=== PATIENT | female | born 1980 | race African-American/Black ===

== ENCOUNTER 2017-01-01 13:04 | Emergency (ER) ==
[2017-01-01 13:43] VITALS: BP 159/68
[2017-01-01] MEDS ORDERED: XYLOCAINE 1% INJ ONE (16:19)
[2017-01-01] MEDS ORDERED: ZOFRAN ODT PO ONE (16:19)
[2017-01-01] MEDS ORDERED: NORCO-7.5 PO ONE (16:19)
[2017-01-01] MEDS ORDERED: XYLOCAINE-MPF 1% 10 ML ONE (16:41)
--- NOTE | 2017-01-01 17:47 | PROVIDER DOCUMENTATION ---
HPI-EENT General - General Chief Complaint: Abscess Stated Complaint: ABCESS IN BOTH EARS/DIZZINESS Time Seen by Provider: 01/01/17 16:08 Source: patient, old records Allergies/Adverse Reactions: Patient Allergies Allergy/AdvReac Type Severity Reaction Status Date / Time sulfamethoxazole AdvReac HIVES Verified 01/01/17 13:43 [From ] trimethoprim [From ] AdvReac HIVES Verified 01/01/17 13:43 Home Medications: Home Medication List Medication Instructions Recorded Confirmed Last Taken Type Ciproflox/Dexameth Otic Susp 4 drop RIGHT EAR BID #1 bottle 12/06/16 Unknown Rx [Ciprodex Otic Suspension] Clindamycin [Cleocin] 150 mg PO Q6HR #30 capsule 12/06/16 Unknown Rx Hydrocodone/APAP 7.5 mg/325 mg 1 each PO Q6H PRN PRN #12 tablet 12/06/16 Unknown Rx [[place]-7.5] Clindamycin [Cleocin] 150 mg PO Q6HR #30 capsule 01/01/17 Unknown Rx Hydrocodone/APAP 5 mg/325 mg 1 each PO Q6H PRN PRN #12 tablet 01/01/17 Unknown Rx [[place]-5] Ondansetron HCl [Zofran] 4 mg PO Q4H PRN PRN #20 tablet 01/01/17 Unknown Rx - History of Present Illness-EENT General Nature of Presenting Problem: This pt presents today c complaints of bilateral ear abscesses. She was seen last week and placed on antibiotics but her symptoms have not improved. No facial cellulitis. No fever, chills. No other issues or complaints. EENT Location: reports: ear (R), ear (L) Quality of Pain: reports: aching Severity: reports: moderate Onset/Duration: reports: other (several weeks) Timing: reports: still present Prearrival Treatment: Initiated prescription meds Similar Symptoms Previously?: Yes Recently seen or treated by another doctor?: Yes Review of Systems - Adult - REVIEW OF SYSTEMS - ADULT Constitutional: reports: no symptoms reported. denies: chills, fever Eyes: reports: no symptoms reported. denies: discharge, dry eyes Ears, Nose, Mouth & Throat: reports: see HPI, ear pain. denies: ear discharge, epistaxis, sinus problem Cardiovascular: reports: no symptoms reported. denies: chest pain, edema Respiratory: reports: no symptoms reported. denies: chronic cough, cough Gastrointestinal: reports: no symptoms reported. denies: abdominal pain, hematemesis Genitourinary: reports: no symptoms reported. denies: dysuria, discharge Musculoskeletal: reports: no symptoms reported. denies: bone pain, back pain Integumentary: reports: see HPI. denies: hives, hair loss Neurological: reports: no symptoms reported. denies: ataxia, dizziness/vertigo Psychiatric: reports: no symptoms reported. denies: anxiety, anti-depressant use Endocrine: reports: no symptoms reported Hematologic/Lymphatic: reports: no symptoms reported Allergic/Immunologic: reports: no symptoms reported All Other Systems: Reviewed and Negative Past History - Adult - PAST MEDICAL HISTORY-ADULT Review of Records: reports: Old Records Reviewed, Nursing Assessment Review, Medications Reviewed, Social history reviewed & non-contributory. Major Childhood Illnesses: reports: denies history Cardiovascular: reports: HTN Respiratory: reports: denies history Gastrointestinal: reports: denies history Obstetrical/Gynecological: reports: denies history Genitourinary: reports: denies history Musculoskeletal: reports: denies history Neurological: reports: headaches/migraines Psychiatric: reports: denies history Endocrine/Immune: reports: Diabetes Other Conditions: reports: denies history - PRIOR SURGERIES/PROCEDURES Surgical/Procedure History: reports: BTL, - IMMUNIZATION STATUS Childhood Immunizations: See Nurse Assessment Flu Vaccine: See Nurse Assessment - FAMILY HISTORY Family History: diabetes, HTN Physical Exam- EENT - Physical Exam EENT Initial Vital Signs Reviewed: Yes General Appearance: appears well, alert, no apparent distress Eye Exam: bilateral eye: normal inspection, PERRL, EOMI Ear Exam: bilateral ear: other ( bilateral abscesses c pustular heads) Nasal Exam: normal inspection Throat Exam: normal mouth inspection, pharynx normal Neck: non-tender, full range of motion, supple Respiratory: chest non-tender, lungs clear Cardiovascular: normal peripheral pulses, regular rate, rhythm Abdominal Exam: normal bowel sounds, non tender, soft Back Exam: normal inspection Extremity: normal range of motion Integumentary: normal turgor, warm/dry, other (see EENT note) Neurologic: grossly normal, no motor/sensory deficits Psych/Mental Status: normal mood/affect, normal thought content, normal thought process, oriented x 3 Progress - PLAN OF CARE/RESULTS Progress/Plan/Lab Results: Orders Category Date Time Status I and D Set up DIRECTED Care 01/01/17 16:19 Active Hydrocodone/APAP 7.5 mg/325 mg [[place]-7.5] Med 01/01/17 16:19 Discontinued 1 each PO NOW ONE Lidocaine 1% Pf [Xylocaine-Mpf 1%] 10 ml Med 01/01/17 16:41 Discontinued .ROUTE As Directed Lidocaine 1% [Xylocaine 1%] Med 01/01/17 16:19 Discontinued 20 ml INJ NOW ONE Ondansetron Odt [Zofran Odt] Med 01/01/17 16:19 Discontinued 4 mg PO NOW ONE Vital Signs Temp Pulse Resp BP Pulse Ox 01/01/17 13:40 98 F 119 H 18 159/68 98 sulfamethoxazole [From ] Adverse Reaction (Verified 01/01/17 13:43) HIVES trimethoprim [From ] Adverse Reaction (Verified 01/01/17 13:43) HIVES Ciproflox/Dexameth Otic Susp [Ciprodex Otic Suspension] 4 drop RIGHT EAR BID #1 bottle 12/06/16 Clindamycin [Cleocin] 150 mg PO Q6HR #30 capsule 12/06/16 Hydrocodone/APAP 7.5 mg/325 mg [[place]-7.5] 1 each PO Q6H PRN PRN #12 tablet 06/14 Will have pt f/u c an ENT. She is in agreement. Procedures - INCISION & DRAINAGE Site: bilateral ears Abscess Type: Cyst Prepped with: Kit Utilized, Hibiclens, Sterile Drapes Applied Anesthetic: 1%, Lidocaine/Xylocaine Volume of Anesthetic (ml's): 6 Blade Size: 11 Packing placed?: No Sterile Dressing Applied?: Yes Drainage: Large Amount, Purulent Procedure Comment: no complications Departure - Departure Time of Disposition Order: 17:46 DIAGNOSIS: Abscess, ear canal Qualifiers: Laterality: bilateral Qualified Code(s): H60.03 - Abscess of external ear, bilateral Disposition: HOME 01 Certified Medical Emergency: Urgent Condition: Good Additional Instructions: Take medication as prescribed. Follow up with an ENT this week. Return to the ER for any new or worsening symptoms. ED Follow Up Instructions: You have been treated by a care provider in the Emergency Department. These instructions are being provided to you so you can have an understanding of how to care for yourself upon discharge. Upon discharge from the Emergency Department, you are responsible for making arrangements for follow-up care by a physician of your choice. Take all prescribed medications as directed. Return to the Emergency Department immediately for any new or worsening symptoms. You may call the Physician Referral phone number at [phone] to obtain a list of Physicians who are taking new patients. Prescriptions: Clindamycin [Cleocin] 150 mg PO Q6HR #30 capsule Hydrocodone/APAP 5 mg/325 mg [[place]-5] 1 each PO Q6H PRN PRN #12 tablet PRN Reason: Pain Ondansetron HCl [Zofran] 4 mg PO Q4H PRN PRN #20 tablet PRN Reason: Nausea Referrals: None,PCP [Primary Care Provider] - Ortega Breaux MD [STAFF PHYSICIAN] - Attestation - Physician/ DAYANNA Attestation Patient care was provided by Advanced Practice Provider:: Yes Advanced Practice Provider:: Levon Ireland Advanced Practice Provider documentation review:: The Mid-level provider documentation, treatment plan and medical decision making was reviewed by the physician who agrees with all treatment and medical decision making by the MLP.
== END 2017-01-01 17:56 | disposition home or self-care (01) ==
LOC: P.ED 13:04
DX: H60.03 Abscess of external ear, bilateral (principal); H92.03 Otalgia, bilateral; R42 Dizziness and giddiness; I10 Essential (primary) hypertension; E11.9 Type 2 diabetes mellitus without complications

== ENCOUNTER 2019-01-02 17:01 | Inpatient (IN) ==
[2019-01-02 19:05] LABS: URINE SOURCE CLEAN CATCH
[2019-01-02 19:10] LABS: BILIRUBIN URINE NEGATIVE (NEGATIVE); BLOOD URINE MODERATE (NEGATIVE); COLOR YELLOW; GLUCOSE URINE >1000 mg/dL (NEGATIVE); KETONE URINE 10 mg/dL (NEGATIVE); LEUKOCYTES URINE NEGATIVE (NEGATIVE); NITRITE URINE NEGATIVE (NEGATIVE); PH URINE 6.5; PROTEIN URINE >600 mg/dL (NEGATIVE); SP GRAVITY URINE 1.034; TURBIDITY URINE CLEAR (CLEAR); UROBILINOGEN URINE 2 mg/dL (NORMAL)
[2019-01-02 19:32] LABS: UR EPITHELIAL CELLS <10 /HPF (<10); URINE BACTERIA NEGATIVE /HPF; URINE WBC <10 /HPF (<10)
[2019-01-02 19:36] LABS: URINE YEAST NONE SEEN
[2019-01-02 19:54] LABS: BASO# 0.02 X1000 (0.0-0.2); BASO% 0.2 % (0.0-0.8); EOS# 0.04 X1000 (0.0-0.7); EOS% 0.3 % (0.0-10.0); HEMATOCRIT 41.6 % (37.0-47.0); HEMOGLOBIN 12.8 g/dL (12.0-16.0); IMM GRAN# 0.03 X1000 (0.0-0.04); IMM GRAN% 0.2 % (0.0-0.5); LYMPH# 0.55 X1000 (1.2-3.4); LYMPH% 4.2 % (20.5-51.1); MCH 21.1 PG (27-31); MCHC 30.8 g/dL (33-37); MCV 68.6 FL (81-99); MONO# 0.52 X1000 (0.11-0.59); MPV 10.4 FL (7.4-10.4); NEUT# 11.81 X1000 (1.4-6.5); NEUT% 91.1 % (42.2-75.2); PLT 388 X1000 (130-400); RBC 6.06 XMIL (4.2-5.4); RDW 19.2 % (11.5-14.5); WBC 12.97 X1000 (4.8-10.8)
--- NOTE | 2019-01-02 20:11 | PROVIDER DOCUMENTATION ---
This chart was entered by Cassie Parr Scribe, acting as scribe for Kendall Santana MD. HPI-Abdominal Pain/GI Problem - General Chief Complaint: Flank Pain Stated Complaint: GASTRO PROBLEMS UNABLE TO URINATE Time Seen by Provider: 01/02/19 18:40 Source: patient Allergies/Adverse Reactions: Patient Allergies Allergy/AdvReac Type Severity Reaction Status Date / Time sulfamethoxazole Allergy HIVES Verified 06/02/18 23:06 [From ] trimethoprim [From ] Allergy HIVES Verified 06/02/18 23:06 Home Medications: Home Medication List Medication Instructions Recorded Confirmed Last Taken Type Glimepiride 4 mg PO DAILY 01/22/18 06/05/18 04/20/18 History Ondansetron HCl [Zofran] 4 mg PO Q8H PRN PRN #15 tablet 03/03/18 06/05/18 04/20/18 Rx Carvedilol [Coreg] 12.5 mg PO DAILY 03/19/18 06/05/18 04/20/18 History Furosemide [Lasix] 40 mg PO DAILY 03/19/18 06/05/18 04/20/18 History Insulin Glargine [Lantus] 30 unit SUBQ QAM #1 insuln.pen 03/30/18 06/05/18 04/20/18 Rx Metformin HCl [Glucophage] 850 mg PO BID #180 tab 04/24/18 06/04/18 Unknown Rx Promethazine [Phenergan] 25 mg PO Q6H PRN PRN #20 tab 06/03/18 06/05/18 Unknown Rx Insulin Lispro [Humalog] 06/04/18 06/04/18 Unknown History Metoclopramide [Reglan] 10 mg PO AC + HS #120 tab 06/06/18 Unknown Rx Prednisone 40 mg PO DAILY 2 Days tab 07/15/18 Unknown Rx - History of Present Illness-ABD Nature of Presenting Problems: 38 yo bf with history of gastroparesis and diabetes presents to ed w/co uncontrolled nvd since sunday, can't keep food, liquids or prescriptions down, dizzy, lightheaded, and minimal sob. pt has had no sick contacts. pt states no fever, chills. body aches, cp. pt took zofran with little relief. pt has hx of htn, dm (has not took meds today), has pacemaker/defib, and had emergency sx on abd last year. Abdominal Pain Onset Location: reports: generalized abdomen (diffused) Pain Radiation: reports: no radiation Severity in ED: reports: mild Review of Systems - Adult - REVIEW OF SYSTEMS - ADULT Constitutional: reports: see HPI, other (dizzy, lightheaded.). denies: chills, fever, fatique Eyes: reports: no symptoms reported Ears, Nose, Mouth & Throat: reports: no symptoms reported Cardiovascular: reports: no symptoms reported. denies: chest pain Respiratory: reports: see HPI, shortness of breath. denies: chronic cough, cough, excessive sputum production, hemoptysis Gastrointestinal: reports: see HPI, diarrhea, nausea (nvd since sunday), vomiting. denies: abdominal pain Genitourinary: reports: no symptoms reported Musculoskeletal: reports: no symptoms reported Integumentary: reports: no symptoms reported Neurological: reports: no symptoms reported Psychiatric: reports: no symptoms reported Endocrine: reports: no symptoms reported Hematologic/Lymphatic: reports: no symptoms reported Allergic/Immunologic: reports: no symptoms reported All Other Systems: Reviewed and Negative Past History - Adult - PAST MEDICAL HISTORY-ADULT Review of Records: reports: Old Records Reviewed, Nursing Assessment Review, Medications Reviewed, Social history reviewed & non-contributory. Major Childhood Illnesses: reports: denies history Cardiovascular: reports: CHF, HTN, hyperlipidemia Respiratory: reports: denies history Gastrointestinal: reports: GERD, other (gastroparesis) Obstetrical/Gynecological: reports: denies history Genitourinary: reports: dialysis Musculoskeletal: reports: denies history Neurological: reports: headaches/migraines Psychiatric: reports: denies history Endocrine/Immune: reports: Diabetes Other Conditions: reports: denies history, MRSA - PRIOR SURGERIES/PROCEDURES Surgical/Procedure History: reports: BTL, , breast (reduction), other (necrotizing faciatis) - IMMUNIZATION STATUS Childhood Immunizations: See Nurse Assessment Flu Vaccine: See Nurse Assessment - FAMILY HISTORY Family History: diabetes, HTN - SOCIAL HISTORY Smoking: cigarettes, less than 1 pack/day Provider spent 3-5 mins advising pt. on dangers of tobacco.: Discussed manners to quit use, and f/u contacts for add'l counseling. Substance Use: none/never Physical Exam-General - PHYSICAL EXAM-ADULT Initial Vital Signs Reviewed: Yes - CONSTITUTIONAL General Appearance: alert, mild distress, obese. negative: anxious, lethargic, slow to respond - EYES Eyes: PERRL/EOMI - HEAD, EARS, NOSE, MOUTH & THROAT HENMT: normocephalic/atraumatic, moist mucous membranes, normal ENT inspection, dental decay (back molars). negative: hearing deficit, frontal tenderness, maxillary tenderness - NECK Neck: non-tender, supple, limited range of motion. negative: full range of motion (pt has iv in right side of neck), C-spine tenderness - RESPIRATORY Respiratory: chest non-tender, lungs clear, normal breath sounds - CARDIOVASCULAR Cardiovascular: normal peripheral pulses, regular rate, rhythm, no edema, no gallop, no JVD, no murmur. negative: extra beats, friction rub, irregularly irregular - GASTROINTESTINAL (ABDOMEN) Abdominal Exam: normal bowel sounds, non tender, soft, other (pt has large healed scar on right abd.). negative: distended, rigid, rebound, tenderness - LYMPHATIC Lymphatic: no adenopathy - MUSCULOSKELETAL Back Exam: normal inspection, no CVA tenderness, no vertebral tenderness Extremity: normal range of motion, non-tender, normal inspection - SKIN Integumentary: normal color, normal turgor, warm/dry - NEUROLOGIC Neurologic: structural drafter II-XII nml as tested, grossly normal, no motor/sensory deficits - PSYCHIATRIC Psych/Mental Status: normal mood/affect, normal thought content, normal thought process, oriented x 3 Progress - PLAN OF CARE/RESULTS Progress/Plan/Lab Results: Vital Signs - 8 hr 01/02/19 17:23 Temperature 97.4 F L Pulse Rate 109 H Respiratory Rate 19 Blood Pressure 140/84 O2 Sat by Pulse Oximetry 100 Bedside Urine ED: Urine Bedside Start: 01/02/19 17:26 Freq: ORDERED Status: Cancelled Protocol: Activity Type Activity Date Activity User E-Sign Co-Sign Detail Recorded Client Recorded Date Recorded By Edit Status 01/02/19 19:18 [id number] Active=>Cancelled [id number] 01/02/19 19:18 [id number] Laboratory Results - last 24 hr 01/02/19 01/02/19 18:10 19:40 WBC 12.97 H RBC 6.06 H Hgb 12.8 Hct 41.6 MCV 68.6 L MCH 21.1 L MCHC 30.8 L RDW Std Deviation 19.2 H Plt Count 388 MPV 10.4 Immature Gran % (Auto) 0.2 Neut % (Auto) 91.1 H Lymph % (Auto) 4.2 L Gillespie % (Auto) 4.0 Eos % (Auto) 0.3 Baso % (Auto) 0.2 Immature Gran # (Auto) 0.03 Neut # (Auto) 11.81 H Lymph # (Auto) 0.55 L Gillespie # (Auto) 0.52 Eos # (Auto) 0.04 Baso # (Auto) 0.02 Urine Source CLEAN CATCH Urine Color YELLOW Urine Turbidity CLEAR Urine pH 6.5 Ur Specific [place] 1.034 Urine Protein >600 A Ur Glucose (Stick) >1000 A Ur Ketones (Stick) 10 A Urine Blood MODERATE A Urine Nitrite NEGATIVE Urine Bilirubin NEGATIVE Urobilinogen Dipstick 2 A Urine Leukocytes NEGATIVE Urine WBC (Auto) <10 Urine RBC (Auto) 10-20 A U Epithel Cells (Auto) <10 Urine Bacteria (Auto) NEGATIVE Urine Crystals Not Reportable Small Round Cells Not Reportable Urine Casts Not Reportable Urine Yeast-like Cells NONE SEEN Orders Category Date Time Status FSBS/Accucheck Result NOW Care 01/02/19 19:48 Active NPO Diet 01/02/19 17:26 Active CBC WITH DIFF [HEME] Stat Lab 01/02/19 19:40 Completed COMPREHENSIVE METABOLIC PANEL [CHEM] Stat Lab 01/02/19 19:40 Received LIPASE [CHEM] Stat Lab 01/02/19 19:40 Received URINALYSIS [URINALYSIS] Stat Lab 01/02/19 18:10 Completed URINE MANUAL MICROSCOPIC [URINALYSIS] Stat Lab 01/02/19 18:10 Completed Abd Pain/OB <20 weeks Stat Oth 01/02/19 17:26 Ordered Result Diagrams: 01/02/19 19:40 01/02/19 19:40 - REASSESSMENT Reassessment #1 Time Reassessed: 21:45 Status: unchanged Reassessment Comment: continues to vomit despite zofran - CT/MRI 1 CT Study: Abdomen, Pelvis (FINDINGS: Note that this was originally ordered as a contrast-enhanced study. However, IV access was only able to be obtained at the neck and there was infiltration of contrast at the site. Very little intravenous contrast was injected. This essentially an unenhanced study. There is mild mosaic attenuation at the lung bases suggesting hypoventilatory changes. There has been a prior cholecystectomy. The liver, spleen, pancreas, and adrenal glands are unremarkable. Renal collecting systems are slightly hyperattenuating. This appears to be the very small amount of IV contrast that was injected and is now being excreted. The kidneys are unremarkable, otherwise. There is no hydronephrosis. The urinary bladder is unremarkable. The reproductive tract is unremarkable as imaged. The appendix is normal. The colon appears normal. There are a few mildly distended loops of small bowel in the right lower quadrant containing gas and fluid. They are nonspecific. This probably represents mild ileus. A very low-grade partial bowel obstruction is less likely. The remainder of the GI tract is grossly unremarkable. There is a prominent soft tissue defect/scarring at the ventral abdominal wall to the right of midline anterior to the abdominal musculature that is probably postsurgical. IMPRESSION: 1.A few mildly distended loops of small bowel containing gas and fluid in the right lower quadrant that are nonspecific. Please see above discussion. 2.Other incidental/nonacute findings detailed above.) - CONSULTS/PCP/HOSPITALIST Notification #1 *Consult/PCP/Hospitalist*: Dr. Mace, hospitalist Time Discussed: 22:10 Consult Disposition: Admit Departure - Departure Date of Disposition Decision: 01/02/19 Time of Disposition Decision: 22:11 DIAGNOSIS: Gastroparesis, Volume depletion, Diabetes Intractable nausea and vomiting Qualifiers: Vomiting type: unspecified Qualified Code(s): R11.2 - Nausea with vomiting, unspecified Disposition: ADMITTED INPATIENT 09 Certified Medical Emergency: Emergent Condition: Stable Referrals and Follow-Ups: Leslie Ponce MD [Primary Care Provider] - - Critical Care Note This patient required my direct & personal management of CC.: No Attestation - Physician/ DAYANNA Attestation Patient care was provided by Advanced Practice Provider:: No The physician spent face to face time with patient:: Yes Advanced Practice Provider documentation review:: Supervising physician onsite and consulted in the evaluation and care of this patient. The physician did have a face to face encounter with the patient. This chart was documented by the vee scribe, (Parr,Cassie E., Scribe) and accurately reflects the services I performed and decisions made by me, Kendall Santana MD, as attested by the provider's signature.
[2019-01-02 20:16] LABS: AGAP 12; ALB/GLOB RATIO 0.8; ALBUMIN 3.2 g/dL (3.5-5.0); ALKALINE PHOSPHATASE 109 U/L (32-104); BUN 16 mg/dL (8-22); CALCIUM 8.3 mg/dL (8.8-10.2); CHLORIDE 96 mmol/L (98-107); COSMO 276; CREATININE 0.7 mg/dL (0.5-0.9); ESTIMATED GFR > 60; GLUCOSE 254 mg/dL (70-104); GOT 19 U/L (10-30); GPT 16 U/L (10-36); LIPASE 47 U/L (13-60); POTASSIUM 4.4 mmol/L (3.5-5.1); SODIUM 133 mmol/L (136-145); TCO2 25 mmol/L (25-35); TOTAL BILIRUBIN 0.44 mg/dL (0.20-1.00); TOTAL PROTEIN 7.2 g/dL (6.3-8.3)
[2019-01-02] MEDS ORDERED: ZOFRAN IV ONE (21:34)
--- NOTE | 2019-01-02 21:55 | Diag Imaging Result Doc PS360 ---
EXAM: CT ABDOMEN/PELVIS W/O CONTRAST INDICATION: ABD PAIN TECHNIQUE: This exam was performed using automated exposure control, adjustment of mA or kV according to patient size, and/or use of iterative reconstruction technique. COMPARISON: 04/21/2018 FINDINGS: Note that this was originally ordered as a contrast-enhanced study. However, IV access was only able to be obtained at the neck and there was infiltration of contrast at the site. Very little intravenous contrast was injected. This essentially an unenhanced study. There is mild mosaic attenuation at the lung bases suggesting hypoventilatory changes. There has been a prior cholecystectomy. The liver, spleen, pancreas, and adrenal glands are unremarkable. Renal collecting systems are slightly hyperattenuating. This appears to be the very small amount of IV contrast that was injected and is now being excreted. The kidneys are unremarkable, otherwise. There is no hydronephrosis. The urinary bladder is unremarkable. The reproductive tract is unremarkable as imaged. The appendix is normal. The colon appears normal. There are a few mildly distended loops of small bowel in the right lower quadrant containing gas and fluid. They are nonspecific. This probably represents mild ileus. A very low-grade partial bowel obstruction is less likely. The remainder of the GI tract is grossly unremarkable. There is a prominent soft tissue defect/scarring at the ventral abdominal wall to the right of midline anterior to the abdominal musculature that is probably postsurgical. IMPRESSION: 1.A few mildly distended loops of small bowel containing gas and fluid in the right lower quadrant that are nonspecific. Please see above discussion. 2.Other incidental/nonacute findings detailed above. Electronically signed by Gareth Parr 01/02/2019 9:52 PM
[2019-01-02] MEDS ORDERED: DEMEROL IV ONE (23:29)
[2019-01-03 00:08] LABS: URINE SOURCE CLEAN CATCH
[2019-01-03 00:27] LABS: BILIRUBIN URINE NEGATIVE (NEGATIVE); BLOOD URINE MODERATE (NEGATIVE); COLOR YELLOW; GLUCOSE URINE 1000 mg/dL (NEGATIVE); KETONE URINE 10 mg/dL (NEGATIVE); LEUKOCYTES URINE NEGATIVE (NEGATIVE); NITRITE URINE NEGATIVE (NEGATIVE); PH URINE 6.5; PROTEIN URINE >600 mg/dL (NEGATIVE); SP GRAVITY URINE 1.038; TURBIDITY URINE CLEAR (CLEAR); UROBILINOGEN URINE 2 mg/dL (NORMAL)
[2019-01-03] MEDS: REGLAN IV SCH ×3 (00:30→11:07)
[2019-01-03 00:31] LABS: UR EPITHELIAL CELLS <10 /HPF (<10); URINE BACTERIA 1+ /HPF; URINE WBC <10 /HPF (<10)
[2019-01-03 00:32] LABS: URINE YEAST PRESENT
[2019-01-03] MEDS: NS 1,000 ML IV SCH ×2 (00:35→11:07)
[2019-01-03] MEDS: PROTONIX IV SCH ×2 (00:35→11:08)
--- NOTE | 2019-01-03 01:24 | HISTORY AND PHYSICAL ---
PRIMARY CARE PHYSICIAN: Dr. Leslie Ponce. CHIEF COMPLAINT: Intractable nausea and vomiting. HISTORY OF PRESENT ILLNESS: This is a chronically ill-looking 38-year-old female with a history of gastroparesis and diabetes, who presented to the emergency department complaining of intractable nausea and vomiting that started happening since last Sunday. The patient reports has been vomiting for the last 4 days. She is progressively feeling weak. The patient reports not even able to keep food down, not even liquids or any medications. Because she was becoming very dizzy and lightheaded, she decided to come to the emergency department. She denied any sick contacts. The patient reports no fever, chills, or body aches. She tried to take Zofran, but she got little relief. Upon ER examination, she was tachycardic, but the rest of the vitals had been okay. The patient is being admitted for intractable nausea and vomiting. PAST MEDICAL HISTORY: 1. Uncontrolled diabetes mellitus, type 2. 2. Chronic constipation. 3. Chronic congestive systolic heart failure. 4. Nonischemic cardiomyopathy, with ejection fraction of 15 to 20 percent, documented in an H P from October last year. 5. Hypertension. 6. Morbid obesity, with BMI of 42.9. PAST SURGICAL HISTORY: 1. In 2005, the patient had necrotizing fasciitis, which required multiple abdominal surgeries, and has left multiple scars. 2. In February 2018, she had an incision and drainage for an abdominal wound site infection. 3. The patient had a laparoscopic cholecystectomy. 4. Bilateral breast reduction. 5. Bilateral tubal ligation. 6. Debridement and skin grafting. 7. ICD placement due to her severe nonischemic cardiomyopathy. SOCIAL HISTORY: The patient reports no smoking, no drinking alcohol or using illicit drugs. ALLERGIES: The patient is allergic to sulfamethoxazole and trimethoprim. FAMILY HISTORY: Positive for mother with diabetes, and father had coronary artery disease. HOME MEDICATIONS: List to be reconciled. REVIEW OF SYSTEMS: Eleven systems were reviewed, and all her symptoms are related to H and P. PHYSICAL EXAMINATION: VITAL SIGNS: Temperature 97.4 degrees, heart rate 109, respiratory rate 19, blood pressure 140/84, oxygen saturation 100% on room air. GENERAL: This is a chronically ill-appearing, morbidly obese, 38-year-old female, lying in bed, in no acute distress. HEENT: Head is normocephalic and atraumatic. Mucous membranes are dry. Pupils equal, round, reactive to light and accommodation. Anicteric sclerae. Pale conjunctivae. NECK: No JVD noted. No carotid bruits. No lymphadenopathy. No thyromegaly. CARDIOVASCULAR: S1, S2 heard. No murmurs, gallops, or rubs. Regular rate and rhythm. RESPIRATORY: Clear bilaterally to auscultation. No work of breathing or using accessory muscles. ABDOMEN: Soft, a little bit distended. Diffusely tender to palpation all over the abdomen. Bowel sounds present. No organomegaly. EXTREMITIES: No clubbing, cyanosis, or edema. Peripheral pulses present in both legs. NEUROLOGICAL: The patient is alert and oriented x3. Moves 4 extremities. LABORATORY DATA: White cell count 12.97, hemoglobin 12.8, hematocrit 41.6, platelets 388,000. BMP reveals sodium 133, normal renal function, glucose 254, with glucose 260. AST and ALT normal. Alkaline phosphatase 109. CT of abdomen and pelvis done here in the ER showed a few mildly distended loops of small bowel containing gas and fluid in the right lower quadrant that is nonspecific. ASSESSMENT AND PLAN: 1. Intractable nausea and vomiting. We do know that this patient has a history of severe gastroparesis that has been documented on a gastric emptying nuclear medicine exam done in 04/22/2019, which basically showed severely delayed gastric emptying rate, compatible with gastroparesis. Of course, because she is having recurrent nausea, she was not able to keep anything down. We are going to start Reglan 5 mg q.6 hours. The patient reports not seeing anybody from GI on a regular basis. The patient has been seen by Dr. Ellis in the past as a consult, but she did not follow up with her as an outpatient. We are going to consult GI public information coordinator for further recommendations. Will start IV fluids at 100 mL per hour. We will be cautious while hydrating this patient because of this history of severe nonischemic cardiomyopathy. 2. Leukocytosis. At this point, we do not know why this patient has leukocytosis. There is no history of any infection going on. At this point, we will continue to monitor. I think that could be reactive, but we will continue to check CBC daily. 3. Diabetes mellitus type 2. The patient is not eating anything. At this point, we are going to hold all her basal insulin. I will start using Humalog sliding scale. We will continue to check also Accu-Cheks 4 times per day. We are going to check hemoglobin A1c as well. 4. Chronic systolic congestive heart failure, with ejection fraction of 15 to 20 percent. She has been on Lasix for this condition, but considering that she has been dehydrated, I prefer to provide some IV fluid and see how she does. As soon as she is able to take medications by mouth, we will restart Coreg and decrease IV fluid. 5. Hypertension. Blood pressure is under control. We will resume oral medications whenever this patient is feeling better. 6. Morbid obesity. Diet and exercise is recommended for her. 7. Deep vein thrombosis prophylaxis, on Lovenox. Further recommendations to follow according to clinical situation of the patient. cc: Chava Willard MD
[2019-01-03] MEDS ORDERED: LOVENOX SUBQ SCH (02:40)
[2019-01-03] MEDS ORDERED: SODIUM CHLORIDE 0.9% INJ SCH (02:40)
[2019-01-03 03:05] LABS: HEMOGLOBIN A1C 12.5 % (4.8-6.0)
[2019-01-03] MEDS: HUMALOG SUBQ SCH ×2 (06:07→12:59)
[2019-01-03 07:25] LABS: BASO# 0.02 X1000 (0.0-0.2); BASO% 0.2 % (0.0-0.8); EOS# 0.14 X1000 (0.0-0.7); EOS% 1.6 % (0.0-10.0); HEMATOCRIT 38.6 % (37.0-47.0); HEMOGLOBIN 11.7 g/dL (12.0-16.0); LYMPH# 0.76 X1000 (1.2-3.4); LYMPH% 8.7 % (20.5-51.1); MCH 21.2 PG (27-31); MCHC 30.3 g/dL (33-37); MCV 69.8 FL (81-99); MONO# 0.58 X1000 (0.11-0.59); MONO% 6.6 % (1.7-9.3); MPV 10.3 FL (7.4-10.4); NEUT# 7.27 X1000 (1.4-6.5); NEUT% 82.9 % (42.2-75.2); PLT 312 X1000 (130-400); RBC 5.53 XMIL (4.2-5.4); RDW 18.4 % (11.5-14.5); WBC 8.77 X1000 (4.8-10.8)
[2019-01-03 07:33] LABS: AGAP 9; BUN 15 mg/dL (8-22); CALCIUM 8.3 mg/dL (8.8-10.2); CHLORIDE 101 mmol/L (98-107); COSMO 273; CREATININE 0.7 mg/dL (0.5-0.9); ESTIMATED GFR > 60; GLUCOSE 164 mg/dL (70-104); POTASSIUM 4.1 mmol/L (3.5-5.1); SODIUM 134 mmol/L (136-145); TCO2 24 mmol/L (25-35)
[2019-01-03 08:09] LABS: IRON SATURATION 13 %; TIBC 258 ug/dL; TOTAL IRON 34 ug/dL (49-151); UNBOUND IRON 224 ug/dL (112-346)
[2019-01-03 08:28] LABS: FERRITIN 137 ng/mL (13-150)
[2019-01-03] MEDS ORDERED: BLISTEX MEDICATED BERRY LIP BALM TOP PRN (12:20)
[2019-01-03 13:55] VITALS: BP 111/75
--- NOTE | 2019-01-03 20:59 | GASTROENTEROLOGY CONSULTATION ---
DATE: 01/03/2019 REASON FOR CONSULTATION: Intractable nausea and vomiting, history of gastroparesis. HISTORY OF PRESENT ILLNESS: Ms. Radha Beckman is a 38-year-old woman with past medical history significant for systolic CHF with an EF of 15% to 20%, status post ICD placement; insulin- dependent diabetes that is uncontrolled; hypertension; iron-deficiency anemia; thalassemia; morbid obesity who presents with 2-3 days of intractable nausea and vomiting with nonbloody, nonbilious emesis. The patient reports some associated epigastric pressure and cramping that has now resolved. She denies any changes in her bowel habits, shortness of breath or chest pain, sick contacts or new medications. She did have some dizziness that has since resolved. She was taking Zofran at home which she felt like did not help her nausea. She has never had an EGD or colonoscopy in the past. She does admit that she had been eating more salads recently over the last couple of weeks to help with her diet, and has noted increased bloating with this new dietary intake. REVIEW OF SYSTEMS: As per HPI. Otherwise 12-point review of systems negative. PAST MEDICAL HISTORY: Insulin-dependent diabetes that is uncontrolled; chronic constipation; chronic systolic heart failure with EF of 15% to 20%; nonischemic cardiomyopathy; hypertension; morbid obesity; thalassemia; hypertension. PAST SURGICAL HISTORY: Cholecystectomy, ICD placement. FAMILY HISTORY: No significant GI malignancies or diseases. SOCIAL HISTORY: One-quarter [id number] smoker. No alcohol or drug use. ALLERGIES: Sulfa. MEDICATIONS: Glimepiride, Zofran, Lasix, Coreg, Lantus, metformin, promethazine, lispro, Reglan. PHYSICAL EXAMINATION: Temperature 97.8 degrees, heart rate 115, respiratory rate 18, blood pressure 111/75, O2 saturation 99% on room air. HEENT: Sclerae anicteric. Moist mucous membranes. Generally the patient is well nourished, well developed, in no acute distress. Neck: No JVD. No lymphadenopathy. Cardiac: Regular rate and rhythm. No murmurs, rubs or gallops. Lungs clear to auscultation bilaterally. Abdomen is soft, nontender, nondistended. Normoactive bowel sounds. No rebound or guarding. Extremities: No clubbing, cyanosis or edema. Neurologic nonfocal. LABORATORY DATA: White count 8.77 from 12.97 yesterday. Hemoglobin is 11.7, platelets 312,000. Sodium 134, potassium 4.1, chloride 101, bicarbonate 24, BUN 15, creatinine 0.7. Hemoglobin A1c yesterday 12.5. Calcium 8.3. Iron 34, ferritin 137. LFTs are unremarkable. Vitamin B12 is 898, folate 15.2. test negative. UA showed proteinuria and blood as well as ketones. DIAGNOSTIC DATA: CT of the abdomen and pelvis showed mildly distended loops of small bowel containing gas and fluid in the right lower quadrant that are nonspecific. ASSESSMENT AND PLAN: Radha Beckman is a 38-year-old woman with systolic congestive heart failure and uncontrolled insulin-dependent diabetes complicated by gastroparesis, who presents was intractable nausea and vomiting, consistent with gastroparesis exacerbation. This is likely triggered from recent dietary changes including a high-fiber diet as well as persistently uncontrolled hyperglycemia. Exam is unremarkable. The patient reports significant improvement with supportive care overnight. She has an appetite currently and would like to trial on a diet. Her leukocytosis has resolved. No signs of acute kidney injury. 1. Gastroparesis. Recommend low-fiber, low-fat diet with several small frequent meals. Continue Zofran as needed for nausea and vomiting. She can take Reglan with breakthrough symptoms. Recommend discussion of the side effects including tardive dyskinesia and dystonia. 2. For her congestive heart failure, deferred treatment to primary team. 3. She is on gastrointestinal prophylaxis with pantoprazole intravenously b.i.d. We can transition this to orally once daily. 4. Her anemia is likely secondary to her known thalassemia and is followed by Hematology as an outpatient. If the patient tolerates a diabetic diet today, then the patient can be discharged from a gastroenterology perspective with outpatient followup. Thank you for this consult. Please call with any questions or concerns. DAQUAN
[2019-01-04] MEDS ORDERED: PROTONIX PO SCH (07:00)
--- NOTE | 2019-01-04 08:36 | DISCHARGE SUMMARY ---
ADMISSION DATE: 01/03/2019 DISCHARGE DATE: 01/03/2019 PCP: Dr. Ponce. PROCEDURES AND FINDINGS: Abdominal pelvis CT reveals a few mildly distended loops of small bowel containing gas and fluid in the right lower quadrant that are nonspecific. DISCHARGE DIAGNOSES: 1. Intractable nausea and vomiting. This patient has a history of severe gastroparesis documented on a gastric emptying nuclear medicine exam done in March 2019. Reglan was initiated and IV fluids for hydration. CT scan of the abdomen was completed with results as stated above. She has clinically improved and stable for discharge. 2. Leukocytosis. There does not appear to be any source of infection. This is likely reactive and WBC is now normal at 8.7. 3. Diabetes mellitus type 2. Hemoglobin A1c is 12.5. This patient should follow up closely with her PCP, Dr. Ponce, for close diabetes mellitus management. She will start Humalog sliding scale. 4. Chronic systolic congestive heart failure, ejection fraction of 15-20%. She is not in acute exacerbation. Lasix was held during her hospital stay secondary to dehydration. 5. Hypertension. Her blood pressure has been under control. She will continue with her previous management. 6. Morbid obesity. She has received daily education regarding diet and exercise. HOSPITAL COURSE: Ms. Beckman is a 38-year-old female with a past medical history of gastroparesis and diabetes, who presented to the emergency department complaining of intractable nausea and vomiting lasting for about 4 days. She felt progressively weak as well as dizzy and lightheaded. She denied fever, chills, or body aches. She attempted Zofran without relief. She was admitted for intractable nausea and vomiting and received a CT scan of the abdomen and pelvis with results as stated above. She was treated with IV fluid hydration and Reglan. She clinically improved and is now stable for discharge back to home. LAST LABS: WBC of 8.7, hemoglobin 11.7, hematocrit 38.6, platelets 312,000. Sodium 134, potassium 4.1, BUN 15, creatinine 0.7, glucose 180, calcium 8.3. VITAL SIGNS: Temperature 97.8 degrees, heart rate 115, respiratory rate 18, blood pressure 111/75, O2 saturation 99% on room air. DISCHARGE INSTRUCTIONS: Please return to the emergency room for any chest pain, shortness of breath, or worsening of symptoms. FOLLOWUP: Please follow up with PCP, Dr. Ponce, within 2 weeks and please monitor diabetes mellitus closely. Dictated by KRISTAN Shirley for Eric Cali MD cc: MD Dr. Kris Peoples I have seen and examined Ms Beckman today. She is clinically stable for discharge. I have reviewed and reconciled her home medications. Discharge instructions have been discussed with her. I agree with the above Discharge summary. Time spent for discharge 35 minutes. MTDD
== END 2019-01-03 17:22 | disposition home or self-care (01) | DRG 74 ==
LOC: ED 17:01 → SUATTDRO 01-03 00:32 → 3N 01-03 00:32
PROVIDERS: ATTEND Internal Medicine
CPT/HCPCS: 74176; 80048; 80053; 81001; 82607; 82728; 82746; 82948; 83036; 83540; 83550; 83690; 84703; 85025; 96374; 96375; 99285; A9270; C9113; J1650; J1815; J2175; J2405; J2765; J7030; S0164; XXXXX

== ENCOUNTER 2019-01-12 12:50 | Inpatient (IN) ==
--- NOTE | 2019-01-12 14:00 | PROVIDER DOCUMENTATION ---
HPI-General Adult - General Chief Complaint: Shortness of Breath Stated Complaint: CHEST PAIN,SOB,LEFT ARM PAIN Time Seen by Provider: 01/12/19 13:07 Source: patient Allergies/Adverse Reactions: Patient Allergies Allergy/AdvReac Type Severity Reaction Status Date / Time sulfamethoxazole Allergy HIVES Verified 06/02/18 23:06 [From ] trimethoprim [From ] Allergy HIVES Verified 06/02/18 23:06 Home Medications: Home Medication List Medication Instructions Recorded Confirmed Last Taken Type Glimepiride 4 mg PO DAILY 01/22/18 06/05/18 04/20/18 History Ondansetron HCl [Zofran] 4 mg PO Q8H PRN PRN #15 tablet 03/03/18 06/05/18 04/20/18 Rx Carvedilol [Coreg] 12.5 mg PO DAILY 03/19/18 06/05/18 04/20/18 History Furosemide [Lasix] 40 mg PO DAILY 03/19/18 06/05/18 04/20/18 History Insulin Glargine [Lantus] 30 unit SUBQ QAM #1 insuln.pen 03/30/18 06/05/18 04/20/18 Rx Metformin HCl [Glucophage] 850 mg PO BID #180 tab 04/24/18 06/04/18 Unknown Rx Promethazine [Phenergan] 25 mg PO Q6H PRN PRN #20 tab 06/03/18 06/05/18 Unknown Rx Insulin Lispro [Humalog] 06/04/18 06/04/18 Unknown History Metoclopramide [Reglan] 10 mg PO AC + HS #120 tab 06/06/18 Unknown Rx - History of Present Illness -Gen Adult Nature of Presenting Problems: Patient is a 38 yobm who complains of productive cough, SOB, and chest pain with coughing and deep inspiration since last night. Also reports bilateral lower extremity edema. Hx of CHF. Pt denies fever or any other symptoms and is non- toxic in appearance. Quality of Pain: reports: sharp Review of Systems - Adult - REVIEW OF SYSTEMS - ADULT Constitutional: reports: no symptoms reported. denies: chills, fever Eyes: reports: no symptoms reported Ears, Nose, Mouth & Throat: reports: no symptoms reported Cardiovascular: reports: see HPI, chest pain (With coughing/inspiration), edema. denies: syncope Respiratory: reports: see HPI, cough, dyspnea on exertion, pleurisy, shortness of breath. denies: chronic cough, hemoptysis, wheezing Gastrointestinal: reports: no symptoms reported. denies: diarrhea, nausea, vomiting Genitourinary: reports: no symptoms reported Musculoskeletal: reports: no symptoms reported Integumentary: reports: no symptoms reported Neurological: reports: no symptoms reported Psychiatric: reports: no symptoms reported Endocrine: reports: no symptoms reported Hematologic/Lymphatic: reports: no symptoms reported Allergic/Immunologic: reports: no symptoms reported All Other Systems: Reviewed and Negative Past History - Adult - PAST MEDICAL HISTORY-ADULT Review of Records: reports: Old Records Reviewed, Nursing Assessment Review, Medications Reviewed Major Childhood Illnesses: reports: denies history Cardiovascular: reports: CHF, HTN, hyperlipidemia Respiratory: reports: denies history Gastrointestinal: reports: GERD, other (gastroparesis) Obstetrical/Gynecological: reports: denies history Genitourinary: reports: dialysis Musculoskeletal: reports: denies history Neurological: reports: headaches/migraines Psychiatric: reports: denies history Endocrine/Immune: reports: Diabetes Other Conditions: reports: denies history, MRSA - PRIOR SURGERIES/PROCEDURES Surgical/Procedure History: reports: BTL, , breast (reduction), other (necrotizing faciatis) - IMMUNIZATION STATUS Childhood Immunizations: See Nurse Assessment Flu Vaccine: See Nurse Assessment - FAMILY HISTORY Family History: diabetes, HTN - SOCIAL HISTORY Smoking: cigarettes, less than 1 pack/day Physical Exam-General - PHYSICAL EXAM-ADULT Initial Vital Signs Reviewed: Yes - CONSTITUTIONAL General Appearance: alert, mild distress. negative: lethargic, slow to respond - EYES Eyes: pink conjunctivae - HEAD, EARS, NOSE, MOUTH & THROAT HENMT: normocephalic/atraumatic, moist mucous membranes, normal ENT inspection - NECK Neck: non-tender, full range of motion, supple, normal inspection - RESPIRATORY Respiratory: chest non-tender, no respiratory distress, no accessory muscle use, crackles (At bilateral lung bases) - CARDIOVASCULAR Cardiovascular: normal peripheral pulses, regular rate, rhythm, no gallop, no murmur, other (2+ non-pitting edema noted to left lower leg, 1+ non-pitting edema to right lower leg.) - MUSCULOSKELETAL Back Exam: normal inspection Extremity: normal range of motion, non-tender, normal capillary refill. negative: slow capillary refill Peripheral Pulses: radial (R): 3+, radial (L): 3+ - SKIN Integumentary: normal color, warm/dry. negative: cyanosis, diaphoresis, jaundice, mottled, pallor - NEUROLOGIC Neurologic: grossly normal, no motor/sensory deficits - PSYCHIATRIC Psych/Mental Status: normal mood/affect, normal thought content, normal thought process, oriented x 3 Progress - PLAN OF CARE/RESULTS Progress/Plan/Lab Results: Vital Signs - 8 hr 01/12/19 13:00 Temperature 98 F Pulse Rate 122 H Respiratory Rate 22 Blood Pressure 138/85 O2 Sat by Pulse Oximetry 96 Orders Category Date Time Status Cardiac Monitoring DIRECTED Care 01/12/19 13:05 Active IV Insertion ORDERED Care 01/12/19 13:05 Active Notify MD of + Sepsis Screen NOW Care 01/12/19 13:05 Active Notify Physician As Ordered Care 01/12/19 13:05 Active CHEST-1 VIEW [RAD] Stat Exams 01/12/19 13:05 Ordered BLOOD CULTURE [BLDCUL] Stat Lab 01/12/19 13:05 Uncollected CBC WITH DIFF [HEME] Stat Lab 01/12/19 13:05 Uncollected CK PROFILE [SP CHEM] Stat Lab 01/12/19 13:05 Uncollected COMPREHENSIVE METABOLIC PANEL [CHEM] Stat Lab 01/12/19 13:05 Uncollected D-DIMER [COAG] Stat Lab 01/12/19 13:40 Uncollected LACTATE, PLASMA [CHEM] Q3H Lab 01/12/19 13:15 Uncollected LACTATE, PLASMA [CHEM] Q3H Lab 01/12/19 16:15 Uncollected LACTATE, PLASMA [CHEM] Q3H Lab 01/12/19 19:15 Uncollected MAGNESIUM [CHEM] Stat Lab 01/12/19 13:40 Uncollected TEST-URINE [PREG] Stat Lab 01/12/19 13:40 Uncollected PRO B-NATRIURETIC PEPTIDE Stat Lab 01/12/19 13:40 Uncollected PROTIME WITH INR [COAG] Stat Lab 01/12/19 13:05 Uncollected PTT [COAG] Stat Lab 01/12/19 13:05 Uncollected TROPONIN T Stat Lab 01/12/19 13:05 Uncollected URINALYSIS W/POSS RFLX CULT [URINALYSIS] Stat Lab 01/12/19 13:05 Uncollected Oxygen Device Stat Oth 01/12/19 13:05 Active Pt now complaining of abdominal pain and is diffusely tender on exam. Will add abdominal/pelvis CT. RNs unable to obtain 20 G IV, CTA changed to VQ scan. 1825- Admitting HPS paged. 1922- Admitting HPS re-paged. 2014- Dr. Rianey requested that line be placed for pt to have CTA. States he does not want VQ scan. States he will see her, but wants CTA. Result Diagrams: 01/12/19 15:02 01/12/19 15:02 - XRAY 1 XRAY Study: Chest ([facility] [address] [facility], [address], [place] [address] Department of Imaging Patient: NAY GOLDMAN Date: 01/12/19MR#: [id number] : 1980ADM Status: REG [facility]#: [id number] Age/Sex: 38/FRoom/Bed: Loc: ED Ordering Physician: Christian Farah MD Family Physician: Leslie Ponce MD Reason for Procedure: SOB Signed CHEST-1 VIEW - 01/12/2019 INDICATION: SOB COMPARISON: 06/04/2018 FINDINGS: Stable pacemaker. Stable cardiomegaly and pulmonary vascular congestion. No definite edema. No pneumothorax or large pleural effusion. IMPRESSION: Cardiomegaly and pulmonary vascular congestion. Electronically signed by Philippe Espinoza 01/12/2019 4:46 PM 01/12/19 164 Interpreting Physician: Philippe Espinoza MD Dictated Date/Time: 01/12/19 1646 cc: Christian Farah MD; Leslie Ponce MD) - CT/MRI 1 CT Study: Abdomen, Pelvis (IMPRESSION: Probable pulmonary edema in the lung bases. Faint infiltrate or atelectasis in the lingula. No acute process in the abdomen. This exam was performed using automated exposure control, adjustment of mA or kV according to patient size, and/or use of iterative reconstruction technique Electronically signed by Philippe Espinoza 01/12/2019 6:38 PM) - CONSULTS/PCP/HOSPITALIST Notification #1 *Consult/PCP/Hospitalist*: Dr. Rainey Consult Disposition: other (States wants CTA result prior to admission.) Departure - Departure Date of Disposition Decision: 01/12/19 Time of Disposition Decision: 20:15 DIAGNOSIS: SOB (shortness of breath), Tachycardia, Elevated d-dimer Chest pain Qualifiers: Chest pain type: unspecified Qualified Code(s): R07.9 - Chest pain, unspecified Disposition: ADMITTED INPATIENT 09 Certified Medical Emergency: Emergent Condition: Stable Referrals and Follow-Ups: Leslie Ponce MD [Primary Care Provider] - - Critical Care Note This patient required my direct & personal management of CC.: No Attestation - Physician/ DAYANNA Attestation Patient care was provided by Advanced Practice Provider:: Yes Advanced Practice Provider:: Josiah Manuel Advanced Practice Provider documentation review:: The Mid-level provider documentation, treatment plan and medical decision making was reviewed by the physician who agrees with all treatment and medical decision making by the MLP. The physician spent face to face time with patient:: No Advanced Practice Provider documentation review:: Supervising physician onsite and consulted in the evaluation and care of this patient. The physician did not have a face to face encounter with the patient.
--- NOTE | 2019-01-12 14:34 | ED EKG INTERP ---
This chart was entered by Keesha Nails Scribe, acting as scribe for Christian Farah MD. EKG Interpretation - EKG Time of EKG reading by physician:: 12:54 EKG Read and Signed by:: Christian Farah EKG Interpretation (*Must complete 3 of following elements*): Abnormal Rate: 123 Rhythm: Sinus tachycardia QRS: LVH ST Wave: non-specific ST changes Attestation - Physician/ DAYANNA Attestation Patient care was provided by Advanced Practice Provider:: Yes Advanced Practice Provider:: Josiah Manuel Advanced Practice Provider documentation review:: The Mid-level provider documentation, treatment plan and medical decision making was reviewed by the physician who agrees with all treatment and medical decision making by the MLP. The physician spent face to face time with patient:: No Advanced Practice Provider documentation review:: Supervising physician onsite and consulted in the evaluation and care of this patient. The physician did not have a face to face encounter with the patient. This chart was documented by the indicated scribe, (Keesha Nails Scribe) and accurately reflects the services I performed and decisions made by me, Christian Farah MD, as attested by the provider's signature.
[2019-01-12 15:57] LABS: AGAP 15; ALB/GLOB RATIO 0.8; ALBUMIN 2.8 g/dL (3.5-5.0); ALKALINE PHOSPHATASE 201 U/L (32-104); BASO# 0.03 X1000 (0.0-0.2); BASO% 0.2 % (0.0-0.8); BUN 15 mg/dL (8-22); CALCIUM 8.3 mg/dL (8.8-10.2); CHLORIDE 90 mmol/L (98-107); CK PROFILE 76 U/L (24-173); COSMO 280; CREATININE 0.8 mg/dL (0.5-0.9); EOS# 0.07 X1000 (0.0-0.7); EOS% 0.4 % (0.0-10.0); ESTIMATED GFR > 60; GLUCOSE 491 mg/dL (70-104); GOT 27 U/L (10-30); GPT 24 U/L (10-36); HEMATOCRIT 37.8 % (37.0-47.0); HEMOGLOBIN 12.1 g/dL (12.0-16.0); IMM GRAN# 0.04 X1000 (0.0-0.04); IMM GRAN% 0.2 % (0.0-0.5); LYMPH# 1.47 X1000 (1.2-3.4); LYMPH% 7.4 % (20.5-51.1); MAGNESIUM 1.6 mg/dL (1.5-2.7); MCH 21.8 PG (27-31); MCV 68.2 FL (81-99); MONO# 1.14 X1000 (0.11-0.59); MONO% 5.7 % (1.7-9.3); MPV 10.8 FL (7.4-10.4); NEUT# 17.14 X1000 (1.4-6.5); NEUT% 86.1 % (42.2-75.2); PLT 375 X1000 (130-400); POTASSIUM 4.8 mmol/L (3.5-5.1); RBC 5.54 XMIL (4.2-5.4); RDW 17.3 % (11.5-14.5); SODIUM 128 mmol/L (136-145); TCO2 23 mmol/L (25-35); TOTAL PROTEIN 6.3 g/dL (6.3-8.3); WBC 19.89 X1000 (4.8-10.8)
[2019-01-12] MEDS ORDERED: HUMULIN R IV ONE ×2 (15:58→19:04)
[2019-01-12 16:10] LABS: ANISOCYTOSIS 1+; HYPOCHROM OCCASIONAL; LYMPHS 7 % (21-51); MICROCYTOSIS 1+; MONO 3 % (1-9); SEGS 90 % (42-75)
[2019-01-12 16:18] LABS: URINE SOURCE CLEAN CATCH
[2019-01-12 16:20] LABS: INR 1.02; PROTIME 14.2 Seconds (11.0-16.0)
[2019-01-12 16:29] LABS: D-DIMER 3.28 ug/mLFEU (0.0-0.52); PTT 28.4 Seconds (22.3-41.8)
[2019-01-12 16:35] LABS: BILIRUBIN URINE NEGATIVE (NEGATIVE); BLOOD URINE MODERATE (NEGATIVE); COLOR YELLOW; GLUCOSE URINE >1000 mg/dL (NEGATIVE); KETONE URINE NEGATIVE (NEGATIVE); LEUKOCYTES URINE MODERATE (NEGATIVE); NITRITE URINE NEGATIVE (NEGATIVE); PH URINE 6.5; PROTEIN URINE 300 mg/dL (NEGATIVE); TURBIDITY URINE CLEAR (CLEAR); UROBILINOGEN URINE NORMAL (NORMAL)
[2019-01-12 16:37] LABS: UR EPITHELIAL CELLS <10 /HPF (<10); URINE BACTERIA 2+ /HPF; URINE RBC 20-40 /HPF (<10); URINE WBC TNTC /HPF (<10)
--- NOTE | 2019-01-12 16:49 | Diag Imaging Result Doc PS360 ---
CHEST-1 VIEW - 01/12/2019 INDICATION: SOB COMPARISON: 06/04/2018 FINDINGS: Stable pacemaker. Stable cardiomegaly and pulmonary vascular congestion. No definite edema. No pneumothorax or large pleural effusion. IMPRESSION: Cardiomegaly and pulmonary vascular congestion. Electronically signed by Philippe Espinoza 01/12/2019 4:46 PM
[2019-01-12] MEDS ORDERED: ROCEPHIN 1 GM in NS 50 ML IV ONE (16:53)
[2019-01-12] MEDS ORDERED: LASIX IV ONE (16:53)
[2019-01-12 17:15] LABS: ALLEN TEST YES; BE 2.1 mmoll (-3.0-3.0); BLOOD TYPE ARTERIAL; HCO3-(ACT) 26.4 mmoll (20.0-26.0); METHB 0.9 % (0.0-1.5); O2HB 92.3 % (95.0-99.0); PCO2(98.6) 34 mmHg (35-45); PO2(98.6) 63 mmHg (60-100); SAMPLE BLOOD; SAO2 96.3 % (95.0-100.0); THB 13.1 g/dL (11.5-17.4); pH(98.6) 7.48 (7.35-7.45)
[2019-01-12 17:17] LABS: MODALITY ROOM AIR
[2019-01-12] MEDS ORDERED: ZOSYN 3.375 GM in NS 50 ML IV ONE (17:29)
[2019-01-12] MEDS ORDERED: MORPHINE IV ONE (17:33)
--- NOTE | 2019-01-12 18:40 | Diag Imaging Result Doc PS360 ---
CT ABDOMEN/PELVIS W/O CONTRAST - 01/12/2019 INDICATION: generalized abdominal pain/tenderness COMPARISON: 01/02/2019 FINDINGS: There is an implanted device in the left chest wall. There is some mild infiltrate in the lingula. There is mild cardiomegaly. There is hazy groundglass opacity throughout the lungs diffusely suggesting pulmonary edema. No radiodense renal stones. No hydronephrosis or hydroureter. There are cholecystectomy clips. No bowel obstruction or inflammation. Urinary bladder, uterus, and rectum are normal. Bones are intact. IMPRESSION: Probable pulmonary edema in the lung bases. Faint infiltrate or atelectasis in the lingula. No acute process in the abdomen. This exam was performed using automated exposure control, adjustment of mA or kV according to patient size, and/or use of iterative reconstruction technique Electronically signed by Philippe Espinoza 01/12/2019 6:38 PM
[2019-01-12] MEDS ORDERED: FLEXERIL PO ONE (19:16)
[2019-01-12] MEDS ORDERED: BENTYL IM ONE (19:17)
--- NOTE | 2019-01-12 21:25 | Diag Imaging Result Doc PS360 ---
CT ANGIOGRM PULMONARY ARTERIES - 01/12/2019 INDICATION: tachyacrdia, elevated d-dimer, SOB TECHNIQUE: Axial CT images were obtained after administering intravenous contrast. Coronal MIP images were generated. COMPARISON: None FINDINGS: There is no pulmonary embolism. There is significant cardiomegaly. There is diffuse interstitial groundglass opacity bilaterally compatible with pulmonary edema. There is a small area of focal consolidation in the lingula suggesting pneumonia. No pneumothorax or pleural effusion. Bones are intact. IMPRESSION: 1. Cardiomegaly and diffuse interstitial pulmonary edema. 2. Focal consolidation the lingula compatible with pneumonia. This exam was performed using automated exposure control, adjustment of mA or kV according to patient size, and/or use of iterative reconstruction technique Electronically signed by Philippe Espinoza 01/12/2019 9:23 PM
[2019-01-12] MEDS ORDERED: PEPCID IV ONE (23:44)
[2019-01-12] MEDS ORDERED: SODIUM CHLORIDE 0.9% INJ ONE (23:44)
[2019-01-12] MEDS ORDERED: TORADOL IV ONE (23:45)
[2019-01-13] MEDS: HUMULIN R SUBQ SCH ×3 (00:26→11:12)
--- NOTE | 2019-01-13 00:48 | HISTORY AND PHYSICAL ---
PRIMARY CARE PHYSICIAN: Dr. Ponce. CHIEF COMPLAINT: Shortness of breath x3 days. HISTORY OF PRESENTING ILLNESS: A 38-year-old female with a history of congestive heart failure, diabetes mellitus type 2, hypertension, who had presented to emergency department with 3 days history of having worsening shortness of breath. The patient states that she was having difficulty breathing and was having some chest discomfort during this time. The patient was evaluated in the emergency department. She had imaging done which did show pneumonia. Subsequently, she will require admission for further management. At the time of my examination, the patient had denied any headache, nausea, vomiting, diarrhea, hemoptysis, melena, weight changes, but complained of shortness of breath and some chest discomfort. PAST MEDICAL HISTORY: Includes CHF systolic dysfunction, diabetes mellitus type 2, hypertension. PAST SURGICAL HISTORY: ICD placement, cholecystectomy, breast reduction. ALLERGIES: Sulfamethoxazole and trimethoprim. CURRENT MEDICATIONS: Include carvedilol 12.5 mg p.o. daily, Lasix 40 mg p.o. daily, glimepiride 4 mg p.o. daily, Lantus 30 units subcutaneous q.a.m., metformin 850 mg p.o. b.i.d. SOCIAL HISTORY: No history of alcohol or illicit drug use. Ten pack years history of smoking. Denies any history of alcohol or drug use. FAMILY HISTORY: Positive for coronary artery disease in father. REVIEW OF SYSTEMS: Fourteen point review of systems as listed in HPI. Other systems negative. PHYSICAL EXAMINATION: GENERAL: Cooperative, friendly female. She is resting more comfortably now. VITAL SIGNS: Temperature 98.0 degrees, pulse 122, respirations 22, blood pressure 138/85. HEENT: Atraumatic, normocephalic. Extraocular movements intact. PERRLA. NECK: No masses. CHEST: Bibasilar rales. CARDIOVASCULAR: Regular rate and rhythm. ABDOMEN: Soft, positive bowel sounds. EXTREMITIES: Trace edema. NEUROLOGIC: She is awake, alert, oriented x3. GENITOURINARY: No bladder distention. SKIN: Warm. LABORATORIES AND STUDIES: WBC 19.89, hemoglobin 12.1, hematocrit 37.8, platelets 375,000. Glucose is 351. ProBNP is 703. Pulmonary angiogram shows focal consolidation in the lingula compatible with pneumonia. ASSESSMENT: A 38-year-old female with a history of congestive heart failure, diabetes mellitus type 2 and hypertension, had presented to the emergency department with 3 days history of worsening shortness of breath. The patient was evaluated in the emergency department. She had imaging done which did show a pneumonia. Subsequently, she will need admission for further management. 1. Pneumonia. 2. Congestive heart failure systolic dysfunction. 3. Diabetes mellitus type 2. 4. Hypertension. PLAN: 1. We will admit patient to medical floor with telemetry. 2. We will check blood cultures. Start patient on IV antibiotics. 3. We will continue with gentle diuresis with Lasix. 4. We will monitor blood glucose and put patient on sliding scale insulin regimen. 5. Monitor blood pressure. Resume antihypertensive agent. 6. Put patient on DVT prophylaxis with Lovenox. 7. We will continue to follow, and reassess and make further recommendation based on patient's clinical course. cc: Andrae Rainey MD
[2019-01-13] MEDS: ZOSYN 3.375 GM in NS 50 ML IV SCH ×4 (01:00→21:15)
[2019-01-13] MEDS: NORCO-7.5 PO PRN ×5 (02:22→19:25)
[2019-01-13 07:28] LABS: AGAP 17; BUN 17 mg/dL (8-22); CALCIUM 8.7 mg/dL (8.8-10.2); CHLORIDE 93 mmol/L (98-107); COSMO 276; CREATININE 1.2 mg/dL (0.5-0.9); ESTIMATED GFR > 60; GLUCOSE 286 mg/dL (70-104); SODIUM 132 mmol/L (136-145); TCO2 22 mmol/L (25-35)
[2019-01-13] MEDS: HEPARIN SUBQ SCH ×2 (08:00→21:16)
--- NOTE | 2019-01-13 08:22 | EKG Report ---
Test Performed on : 01/12/2019 12:53:56 PM Test Reason : ED. NO EKG ORDER FOR MUSE Blood Pressure : / mmHG Vent. Rate : 123 BPM Atrial Rate : 123 BPM P-R Int : 142 ms QRS Dur : 086 ms QT Int : 322 ms P-R-T Axes : 059 -25 090 degrees QTc Int : 460 ms Sinus tachycardia. Possible Left atrial enlargement Left ventricular hypertrophy Nonspecific T wave abnormality Abnormal ECG When compared with ECG of 22-APR-2018 14:48, No significant change was found Unconfirmed Result
[2019-01-13] MEDS ORDERED: DUONEB (A & A) INH PRN (10:53)
[2019-01-13] MEDS: LASIX PO SCH (11:11)
[2019-01-13] MEDS: BASAGLAR SUBQ SCH ×3 (11:11→21:14)
--- NOTE | 2019-01-13 11:18 | PROGRESS NOTE ---
DATE: 01/13/2019 SUBJECTIVE: This patient is still complaining of shortness of breath and cough. Apparently she started coughing around [address] angiogram of the chest did not show any acute pulmonary embolism, but showed cardiomegaly with diffuse interstitial pulmonary edema and focal consolidation at the level of the lingula compatible with pneumonia. She has been placed on antibiotics. I will continue with most of her home medications, oxygen and I will start her also on breathing treatment. She has a history of gastroparesis and her primary care doctor has placed this patient on Reglan on and off, but she is taking it right now and I will continue with that. OBJECTIVE: Vital Signs: Temperature 97.7 degrees, pulse 111, respiratory rate 26, blood pressure 116/84, oxygen saturation 100% on 2 L of nasal cannula. HEENT: Head normocephalic. No trauma. PERRLA. Neck: Supple. No JVD. No masses. Central trachea. Chest: Decreased breath sounds globally with some crepitus and rhonchi on the left side, middle and lower part of the thoracic area. Some pain to palpation as well at the thoracic wall area in that place. No wheezing. Abdomen: Soft, nontender, nondistended. No hepatosplenomegaly. Neurological: The patient is alert and oriented x3. No focal deficits. LABORATORY: Sodium 132, potassium 4, chloride 93, bicarbonate 22, BUN 17, creatinine 1.2, glucose 286, calcium 8.7. ASSESSMENT AND PLAN: 1. Lingular pneumonia. I will continue with IV antibiotics, breathing treatment and oxygen supplementation. I will continue to monitor. Oxygen saturation has been stable. 2. Congestive heart failure with systolic dysfunction. She does have some lower extremity edema, around 2+, and shortness of breath with some pulmonary edema as well, which is mild. I will continue with her home dose of medications and monitoring this patient closely. 3. Uncontrolled type 2 diabetes. Her blood sugar upon admission was around 491. Today, I have restarted her home treatment with insulin glargine 30 units subcutaneous q.a.m. I will continue with sliding scale insulin and pattern blood sugar as well. 4. Hypertension. Continue with carvedilol for now. 5. Gastroparesis. I will put this patient back on her home dose of Reglan and I will monitor. cc: Jeff Cook MD
[2019-01-13] MEDS ORDERED: INSULIN PEN NEEDLES ONE (11:22)
[2019-01-13] MEDS: REGLAN PO SCH ×3 (11:23→21:16)
[2019-01-13] MEDS: DUONEB (A & A) INH SCH ×4 (11:48→23:05)
[2019-01-13] MEDS ORDERED: MORPHINE IV ONE (13:22)
[2019-01-13] MEDS: HUMALOG SUBQ SCH ×4 (13:54→21:17)
[2019-01-14] MEDS: ZOSYN 3.375 GM in NS 50 ML IV SCH ×4 (01:39→21:18)
[2019-01-14] MEDS: NORCO-7.5 PO PRN ×3 (01:39→13:33)
[2019-01-14] MEDS: DUONEB (A & A) INH SCH ×6 (03:28→23:30)
[2019-01-14] MEDS: HUMALOG SUBQ SCH ×4 (06:19→21:22)
[2019-01-14] MEDS: REGLAN PO SCH ×4 (06:29→21:22)
[2019-01-14 07:03] LABS: BASO# 0.03 X1000 (0.0-0.2); BASO% 0.2 % (0.0-0.8); EOS# 0.13 X1000 (0.0-0.7); EOS% 0.7 % (0.0-10.0); HEMATOCRIT 36.7 % (37.0-47.0); HEMOGLOBIN 11.6 g/dL (12.0-16.0); HEMOGLOBIN A1C 12.4 % (4.8-6.0); IMM GRAN# 0.04 X1000 (0.0-0.04); IMM GRAN% 0.2 % (0.0-0.5); LYMPH# 1.42 X1000 (1.2-3.4); LYMPH% 7.5 % (20.5-51.1); MCH 21.3 PG (27-31); MCHC 31.6 g/dL (33-37); MCV 67.5 FL (81-99); MONO# 1.27 X1000 (0.11-0.59); MONO% 6.7 % (1.7-9.3); MPV 10.4 FL (7.4-10.4); NEUT# 16.09 X1000 (1.4-6.5); NEUT% 84.7 % (42.2-75.2); PLT 372 X1000 (130-400); RBC 5.44 XMIL (4.2-5.4); RDW 16.9 % (11.5-14.5); WBC 18.98 X1000 (4.8-10.8)
[2019-01-14 07:21] LABS: ALB/GLOB RATIO 0.6; ALBUMIN 2.7 g/dL (3.5-5.0); CREATININE 1.4 mg/dL (0.5-0.9); POTASSIUM 3.6 mmol/L (3.5-5.1); TOTAL BILIRUBIN 0.49 mg/dL (0.20-1.00); TOTAL PROTEIN 7.4 g/dL (6.3-8.3)
--- NOTE | 2019-01-14 08:58 | Diag Imaging Result Doc PS360 ---
EXAM: CHEST-2 VIEWS 01/14/2019 HISTORY: hypoxia TECHNIQUE: Two views the chest COMMENT: There is alveolar opacity in the left base which appears to be primarily in the lower lobe. The heart size is slightly enlarged. Compared to 01/12/2019 the opacity in the left lower lobe is worse. IMPRESSION: Left lower lobe pneumonia. Electronically signed by Juan Lilly 01/14/2019 8:56 AM
[2019-01-14] MEDS: COREG PO SCH (09:14)
[2019-01-14] MEDS: HEPARIN SUBQ SCH ×2 (09:15→21:22)
[2019-01-14] MEDS: BASAGLAR SUBQ SCH (09:23)
[2019-01-14] MEDS: LEVAQUIN 750 MG/D5W 750 MG/150 ML IVPB IV SCH (11:05)
[2019-01-14] MEDS: MORPHINE IV PRN ×2 (11:06→21:21)
--- NOTE | 2019-01-14 14:06 | PROGRESS NOTE ---
DATE: 01/14/2019 SUBJECTIVE: This patient is still complaining of cough and chest pain on the left lower thoracic area. X-ray showed left lower lobe consolidation/pneumonia. We will continue with antibiotics and actually I will put this patient on more broad-spectrum treatment. I will continue with pain medication and try to control her blood sugar. OBJECTIVE: Vital Signs: Temperature 98 degrees, pulse 98, respiratory rate 16, blood pressure 106/78, oxygen saturation 100% on 2 L of nasal cannula. HEENT: Head normocephalic. No trauma. PERRLA. Neck: Supple. No JVD. No masses. Central trachea. Chest: Decreased breath sounds globally with some rhonchi at the level of the left lower thoracic area. Decreased breath sounds with some crepitus at the base. Also painful to palpation. No wheezing. Abdomen: Soft, nontender, nondistended. No hepatosplenomegaly. Extremities: No edema. No clubbing. No cyanosis. Neurological Examination: The patient is alert and oriented x3. No focal deficits. Laboratory: WBC 18.9, hemoglobin 11.6, hematocrit 36.7, platelets 372,000. Sodium 128, potassium 3.6, chloride 91, bicarbonate 23, BUN 23, creatinine 1.4, glucose 72, calcium 9. ASSESSMENT AND PLAN: 1. Lingular pneumonia. Continue with intravenous antibiotics, breathing treatments, and oxygen supplementation. I will add some antibiotics to her regimen. We will continue to monitor. Oxygen saturation has been stable. Continue controlling her pain. 2. Congestive heart failure with systolic dysfunction. She does have a little bit of lower extremity edema, around 1+, shortness of breath and some pulmonary edema as well but today, the pulmonary edema looks better. I have stopped the Lasix for today because this patient is having mild increase of the BUN and creatinine. We will monitor. 3. Likely chronic kidney disease. Probably, this is her baseline. We will continue to monitor. 4. Uncontrolled type 2 diabetes. Her blood sugar upon admission was around 491. Today, it looks better. I will continue with the same management. Yesterday, she received an extra dose of insulin glargine during the night. 5. Hypertension. Continue with the same treatment. 6. Gastroparesis. Continue with her home medications. cc: Jeff Cook MD
[2019-01-15] MEDS: MORPHINE IV PRN ×2 (01:48→20:46)
[2019-01-15] MEDS: ZOSYN 3.375 GM in NS 50 ML IV SCH ×4 (01:48→20:45)
[2019-01-15] MEDS: DUONEB (A & A) INH SCH ×6 (03:25→23:14)
[2019-01-15] MEDS: REGLAN PO SCH ×4 (06:15→20:46)
[2019-01-15] MEDS: HUMALOG SUBQ SCH ×3 (06:15→21:30)
--- NOTE | 2019-01-15 07:06 | Diag Imaging Result Doc PS360 ---
EXAM: CHEST-PORTABLE 01/15/2019 HISTORY: dyspnea TECHNIQUE: AP portable at 0610 COMMENT: There is cardiomegaly. There is still obscuration of the lower portion of the left heart border and the diaphragm on the left. Considering differences in projection and technique otherwise there has been no appreciable change since 01/14/2019. IMPRESSION: Pneumonia in the lingula and left lower lobe. Electronically signed by Juan Lilly 01/15/2019 7:04 AM
[2019-01-15 07:43] LABS: BASO# 0.02 X1000 (0.0-0.2); BASO% 0.1 % (0.0-0.8); EOS# 0.15 X1000 (0.0-0.7); HEMATOCRIT 34.2 % (37.0-47.0); HEMOGLOBIN 10.9 g/dL (12.0-16.0); IMM GRAN# 0.04 X1000 (0.0-0.04); IMM GRAN% 0.3 % (0.0-0.5); LYMPH# 1.46 X1000 (1.2-3.4); MCH 21.5 PG (27-31); MCHC 31.9 g/dL (33-37); MCV 67.3 FL (81-99); MONO# 1.02 X1000 (0.11-0.59); MPV 10.5 FL (7.4-10.4); NEUT# 11.98 X1000 (1.4-6.5); NEUT% 81.6 % (42.2-75.2); PLT 351 X1000 (130-400); RBC 5.08 XMIL (4.2-5.4); RDW 16.5 % (11.5-14.5); WBC 14.67 X1000 (4.8-10.8)
[2019-01-15 08:07] LABS: ALB/GLOB RATIO 0.5; ALBUMIN 2.5 g/dL (3.5-5.0); CALCIUM 8.8 mg/dL (8.8-10.2); CREATININE 1.4 mg/dL (0.5-0.9); POTASSIUM 3.8 mmol/L (3.5-5.1); TOTAL BILIRUBIN 0.4 mg/dL (0.20-1.00); TOTAL PROTEIN 7.2 g/dL (6.3-8.3)
[2019-01-15] MEDS: BASAGLAR SUBQ SCH (08:34)
[2019-01-15] MEDS: HEPARIN SUBQ SCH ×2 (08:35→20:46)
[2019-01-15] MEDS: COREG PO SCH (08:35)
[2019-01-15] MEDS ORDERED: BASAGLAR SUBQ ONE (10:00)
[2019-01-15] MEDS ORDERED: BASAGLAR SUBQ SCH (10:00)
[2019-01-15] MEDS: LEVAQUIN 750 MG/D5W 750 MG/150 ML IVPB IV SCH (11:05)
[2019-01-15] MEDS ORDERED: NS 500 ML IV SCH (12:00)
--- NOTE | 2019-01-15 12:28 | PROGRESS NOTE ---
DATE: 01/15/2019 SUBJECTIVE: This patient is still complaining of cough, shortness of breath, and chest pain. The pain is located at the level of the left lower thoracic area. X-ray today showed pneumonia in the lingula and left lower lobe but she is feeling a little bit better compared with yesterday. WBC is trending down from 18.9 to 14.6. We will continue with the same management for now. OBJECTIVE: Vital Signs: Temperature 98 degrees, pulse 108, respiratory rate 20, blood pressure 119/77, oxygen saturation 100% on 2 L of nasal cannula. HEENT: Head normocephalic. No trauma. PERRLA. Neck: Supple. No JVD. Central trachea. Chest: Decreased breath sounds globally with rhonchi at the level of the left lower thoracic area, crepitus at the bases. Also painful to palpation at the level of the left thoracic area. No wheezing. Abdomen: Soft, nontender, nondistended. No hepatosplenomegaly. Extremities: No edema. No clubbing. No cyanosis. Neurological Examination: The patient is alert and oriented x3. No focal deficits. Laboratory: WBC 14.6, hemoglobin 10.9, hematocrit 34.2, platelets 351,000. Sodium 128, potassium 3.8, chloride 92, bicarbonate 22, BUN 27, creatinine 1.4, glucose 146, calcium 8.8, albumin 2.5. ASSESSMENT AND PLAN: 1. Lingular pneumonia. Continue with intravenous antibiotics, breathing treatments, and oxygen supplementation. She feels a little bit better. We will continue with the same management. Oxygen supplementation has been stable. Continue controlling her pain. 2. Congestive heart failure with systolic dysfunction. Last echocardiogram was done on 03/07/2018. It showed an ejection fraction of 20 to 25 percent with global hypokinesis. We will continue with her home medications including her carvedilol. I held the furosemide due to kidney dysfunction. Sodium level is a little bit low and I will continue to monitor for now but probably she will benefit from getting Samsca at some point. Blood sugar is better controlled but I will increase the dose from 30 units to 40. She does have an automatic implanted cardioverter defibrillator placed. We will monitor. 3. Likely chronic kidney disease. Probably, this is her baseline. We will continue to monitor. 4. Uncontrolled type 2 diabetes. Hemoglobin A1c is 12.4. It looks like this patient has not been taking care of her blood sugar at home. I have increased the dose of insulin glargine from 30 units to 40. 5. Hypertension. Continue with the same management. 6. Gastroparesis. Continue home medications. cc: Jeff Cook MD
[2019-01-15] MEDS: NORCO-7.5 PO PRN (21:40)
[2019-01-16] MEDS: ZOSYN 3.375 GM in NS 50 ML IV SCH ×4 (01:44→21:06)
[2019-01-16] MEDS: MORPHINE IV PRN ×4 (03:07→18:36)
[2019-01-16] MEDS: DUONEB (A & A) INH SCH ×6 (03:18→23:05)
[2019-01-16] MEDS: HUMALOG SUBQ SCH ×4 (06:16→21:19)
[2019-01-16] MEDS: REGLAN PO SCH ×4 (06:17→21:06)
[2019-01-16] MEDS ORDERED: INSULIN PEN NEEDLES ONE (06:18)
--- NOTE | 2019-01-16 06:39 | Diag Imaging Result Doc PS360 ---
CHEST-PORTABLE - 01/16/2019 INDICATION: dyspnea COMPARISON: 01/15/2019 FINDINGS: Stable cardiomegaly and pulmonary vascular congestion. Stable infiltrates in the lingula and left lower lobe. No new infiltrates. IMPRESSION: No change from prior exams. Pulmonary edema and/or pneumonia. Electronically signed by Philippe Espinoza 01/16/2019 6:37 AM
[2019-01-16 07:51] LABS: BASO# 0.03 X1000 (0.0-0.2); BASO% 0.2 % (0.0-0.8); EOS# 0.13 X1000 (0.0-0.7); EOS% 1.1 % (0.0-10.0); HEMATOCRIT 36.5 % (37.0-47.0); HEMOGLOBIN 11.5 g/dL (12.0-16.0); IMM GRAN# 0.03 X1000 (0.0-0.04); IMM GRAN% 0.2 % (0.0-0.5); LYMPH# 1.29 X1000 (1.2-3.4); LYMPH% 10.6 % (20.5-51.1); MCH 21.8 PG (27-31); MCHC 31.5 g/dL (33-37); MCV 69.3 FL (81-99); MONO# 0.93 X1000 (0.11-0.59); MONO% 7.7 % (1.7-9.3); MPV 10.5 FL (7.4-10.4); NEUT# 9.74 X1000 (1.4-6.5); NEUT% 80.2 % (42.2-75.2); PLT 374 X1000 (130-400); RBC 5.27 XMIL (4.2-5.4); RDW 17.1 % (11.5-14.5); WBC 12.15 X1000 (4.8-10.8)
[2019-01-16 08:03] LABS: AGAP 15; BUN 22 mg/dL (8-22); CALCIUM 9.1 mg/dL (8.8-10.2); CHLORIDE 95 mmol/L (98-107); COSMO 274; CREATININE 1.2 mg/dL (0.5-0.9); ESTIMATED GFR > 60; GLUCOSE 204 mg/dL (70-104); POTASSIUM 4.1 mmol/L (3.5-5.1); SODIUM 132 mmol/L (136-145); TCO2 22 mmol/L (25-35)
[2019-01-16 08:11] LABS: FREE T4 1.02 ng/dL (0.93-1.70); TSH 3.68 uIUmL (0.27-4.20)
[2019-01-16] MEDS: BASAGLAR SUBQ SCH (08:47)
[2019-01-16] MEDS: COREG PO SCH (08:47)
[2019-01-16] MEDS: HEPARIN SUBQ SCH ×2 (08:48→21:06)
[2019-01-16] MEDS: LEVAQUIN 750 MG/D5W 750 MG/150 ML IVPB IV SCH (11:28)
[2019-01-16] MEDS: ENTRESTO 24 MG-26 MG TABLET PO SCH ×2 (11:28→21:11)
[2019-01-16] MEDS: LASIX PO SCH (11:28)
--- NOTE | 2019-01-16 12:07 | PROGRESS NOTE ---
DATE: 01/16/2019 SUBJECTIVE: This patient feels a little bit better compared with yesterday. WBCs trending down. She is still complaining of some shortness of breath and chest pain. WBCs 12.1 today and initially, upon admission, were 19.8. I have placed this patient back on some of her home medications. We will monitor this patient closely. I think she is getting better. OBJECTIVE: Vital Signs: Temperature 98.8 degrees, pulse 108, respiratory rate 18, blood pressure 116/86, oxygen saturation 100% on room air. HEENT: Head normocephalic. No trauma. PERRLA. Neck: Supple. No JVD. No masses. Central trachea. Chest: Decreased breath sounds globally with rhonchi at the level of the left lower thoracic area. Crepitus at the bases. No wheezing. Abdomen: Soft, nontender, nondistended. No hepatosplenomegaly. Extremities: No edema. No clubbing. No cyanosis. Neurological Examination: The patient is alert and oriented x3. No focal deficits. Laboratory: WBC 12.1, hemoglobin 11.5, hematocrit 36.5, platelets 374,000. Sodium 132, potassium 4.1, chloride 95, bicarbonate 22, BUN 22, creatinine 1.2, glucose 204, calcium 9.1. ASSESSMENT AND PLAN: 1. Lingular pneumonia. Continue with intravenous antibiotics, breathing treatments, and oxygen supplementation as needed. She feels a little bit better but she is still complaining of some shortness of breath. Before discharging this patient, we will ask for home oxygen evaluation to see if she needs oxygen at home. We will continue controlling her pain. 2. Congestive heart failure with systolic dysfunction. Last echocardiogram done on 03/07/2018 showed an ejection fraction of 20 to 25 percent with global hypokinesis. I will continue with her medications including carvedilol, furosemide, and Entresto. Sodium level is better compared with yesterday. 3. Hyponatremia, better compared with yesterday. Continue with same management. 4. Likely chronic kidney disease. Probably, this is her baseline. Continue to monitor. 5. Uncontrolled type 2 diabetes. Hemoglobin A1c is 12.4. It looks like this patient has not been taking care of her blood sugar at home. I increased the dose of Lantus from 30 to 40 yesterday. Blood sugar seems to be more stable. We will continue with the same management. 6. Hypertension. Continue with the same management. 7. Gastroparesis. Continue with home medications. cc: Jeff Cook MD
[2019-01-16] MEDS: NORCO-7.5 PO PRN (22:50)
[2019-01-17] MEDS: ZOSYN 3.375 GM in NS 50 ML IV SCH ×4 (01:34→20:11)
[2019-01-17] MEDS: MORPHINE IV PRN ×2 (01:35→23:16)
[2019-01-17] MEDS: DUONEB (A & A) INH SCH ×6 (03:10→23:23)
[2019-01-17] MEDS: REGLAN PO SCH ×4 (06:15→20:11)
[2019-01-17] MEDS: HUMALOG SUBQ SCH ×4 (06:16→20:26)
[2019-01-17 07:13] LABS: BASO# 0.06 X1000 (0.0-0.2); BASO% 0.5 % (0.0-0.8); EOS# 0.29 X1000 (0.0-0.7); EOS% 2.2 % (0.0-10.0); HEMATOCRIT 36.6 % (37.0-47.0); HEMOGLOBIN 11.5 g/dL (12.0-16.0); IMM GRAN# 0.04 X1000 (0.0-0.04); IMM GRAN% 0.3 % (0.0-0.5); LYMPH# 2.06 X1000 (1.2-3.4); LYMPH% 15.7 % (20.5-51.1); MCH 21.4 PG (27-31); MCHC 31.4 g/dL (33-37); MONO% 7.6 % (1.7-9.3); MPV 10.3 FL (7.4-10.4); NEUT# 9.65 X1000 (1.4-6.5); NEUT% 73.7 % (42.2-75.2); PLT 450 X1000 (130-400); RBC 5.38 XMIL (4.2-5.4); RDW 16.6 % (11.5-14.5)
[2019-01-17 07:36] LABS: EOS 2 % (1-10); LYMPHS 16 % (21-51); MICROCYTOSIS 1+; MONO 7 % (1-9); SEGS 75 % (42-75)
[2019-01-17 07:40] LABS: AGAP 12; BUN 16 mg/dL (8-22); CHLORIDE 98 mmol/L (98-107); COSMO 272; CREATININE 0.9 mg/dL (0.5-0.9); ESTIMATED GFR > 60; GLUCOSE 139 mg/dL (70-104); POTASSIUM 3.9 mmol/L (3.5-5.1); SODIUM 134 mmol/L (136-145); TCO2 24 mmol/L (25-35)
[2019-01-17] MEDS: NORCO-7.5 PO PRN ×3 (08:56→16:57)
[2019-01-17] MEDS: BASAGLAR SUBQ SCH (08:57)
[2019-01-17] MEDS: ENTRESTO 24 MG-26 MG TABLET PO SCH ×2 (08:58→20:11)
[2019-01-17] MEDS: HEPARIN SUBQ SCH ×2 (08:58→20:11)
[2019-01-17] MEDS: COREG PO SCH (08:58)
[2019-01-17] MEDS: LASIX PO SCH (08:58)
[2019-01-17] MEDS: LEVAQUIN 750 MG/D5W 750 MG/150 ML IVPB IV SCH (09:42)
--- NOTE | 2019-01-17 15:41 | PROGRESS NOTE ---
DATE: 01/17/2019 SUBJECTIVE: Patient is feeling better. WBC a little bit elevated compared with yesterday. She is complaining of shortness of breath and also chest pain but again is getting better, I will ask for home O2 evaluation today to see if she will need oxygen at home, I will continue with the same management and hopefully tomorrow I will discharge this patient home if she is stable. OBJECTIVE: Vital Signs: Temperature 97.9 degrees, pulse 87, respiratory rate 20, blood pressure 104/71, oxygen saturation 100% on 2 L of nasal cannula. HEENT: Head normocephalic. No trauma. PERRLA. Neck: Supple. No JVD. No masses. Central trachea. Chest: Decreased breath sounds globally with rhonchi at the level of the left lower thoracic area, crepitus at the bases. No wheezing. Some pain to palpation at the level of the left lower thoracic area as well. Abdomen: Soft, nontender, nondistended. No hepatosplenomegaly. Extremities: No edema, no clubbing, no cyanosis. Neurological: The patient is alert and oriented x3. No focal deficits. LABORATORY: WBC 13.1, hemoglobin 11.5, hematocrit 36.6, platelets 450,000, sodium 134, potassium 3.9, chloride 98, bicarbonate 24, BUN 16, creatinine 0.9, glucose 139, calcium 9. ASSESSMENT AND PLAN: 1. Lingular pneumonia, I will continue with IV antibiotics, breathing treatment, oxygen supplementation as needed. She is feeling better but she is still complaining of shortness of breath, I asked for home O2 evaluation. We will continue controlling her pain. Hopefully tomorrow will discharge this patient. 2. Congestive heart failure with systolic dysfunction, last echocardiogram done on 03/07/2018 showed an ejection fraction of 20 to 25 percent with global hypokinesis. I have continued with her medications including carvedilol, furosemide and Entresto. Sodium level is better today compared with yesterday. 3. Hyponatremia better. Continue with the same management. 4. Likely chronic kidney disease. Kidney function today looks normal but normally her kidney function is around 1.1-1.2 recently, she seems to be more stable. 5. Uncontrolled type 2 diabetes, hemoglobin A1c is 12.4, I will continue with Lantus 40 which is working for her. 6. Hypertension. Continue with same management. 7. Gastroparesis. Continue with home medications. cc: Jeff Cook MD
[2019-01-18] MEDS: ZOSYN 3.375 GM in NS 50 ML IV SCH ×2 (02:46→07:57)
[2019-01-18] MEDS: DUONEB (A & A) INH SCH ×3 (03:09→11:12)
[2019-01-18] MEDS: MORPHINE IV PRN ×3 (03:36→12:09)
[2019-01-18] MEDS: HUMALOG SUBQ SCH (06:00)
[2019-01-18] MEDS: REGLAN PO SCH (06:01)
[2019-01-18 07:37] LABS: BASO# 0.05 X1000 (0.0-0.2); BASO% 0.4 % (0.0-0.8); EOS# 0.28 X1000 (0.0-0.7); EOS% 2.1 % (0.0-10.0); HEMATOCRIT 36.3 % (37.0-47.0); HEMOGLOBIN 11.3 g/dL (12.0-16.0); IMM GRAN# 0.02 X1000 (0.0-0.04); IMM GRAN% 0.2 % (0.0-0.5); LYMPH# 1.84 X1000 (1.2-3.4); LYMPH% 13.8 % (20.5-51.1); MCH 21.3 PG (27-31); MCHC 31.1 g/dL (33-37); MCV 68.4 FL (81-99); MONO# 1.04 X1000 (0.11-0.59); MONO% 7.8 % (1.7-9.3); MPV 10.2 FL (7.4-10.4); NEUT# 10.08 X1000 (1.4-6.5); NEUT% 75.7 % (42.2-75.2); PLT 504 X1000 (130-400); RBC 5.31 XMIL (4.2-5.4); RDW 16.5 % (11.5-14.5); WBC 13.31 X1000 (4.8-10.8)
[2019-01-18] MEDS: BASAGLAR SUBQ SCH (08:01)
[2019-01-18] MEDS: HEPARIN SUBQ SCH (08:01)
[2019-01-18] MEDS: COREG PO SCH (08:01)
[2019-01-18] MEDS: ENTRESTO 24 MG-26 MG TABLET PO SCH (08:01)
[2019-01-18] MEDS: LASIX PO SCH (08:01)
[2019-01-18 08:13] LABS: AGAP 14; BUN 15 mg/dL (8-22); CALCIUM 8.7 mg/dL (8.8-10.2); CHLORIDE 100 mmol/L (98-107); COSMO 274; CREATININE 1.1 mg/dL (0.5-0.9); ESTIMATED GFR > 60; GLUCOSE 126 mg/dL (70-104); SODIUM 136 mmol/L (136-145); TCO2 22 mmol/L (25-35)
[2019-01-18 08:34] VITALS: BP 106/67
[2019-01-18] MEDS: LEVAQUIN 750 MG/D5W 750 MG/150 ML IVPB IV SCH (10:27)
[2019-01-18] MEDS ORDERED: XANAX PO SCH (12:30)
--- NOTE | 2019-01-19 03:17 | DISCHARGE SUMMARY ---
ADMISSION DATE: 01/12/2019 DISCHARGE DATE: 01/18/2019 ADMISSION DIAGNOSES: 1. Lingular pneumonia. 2. Congestive heart failure exacerbation. 3. Type 2 diabetes mellitus. 4. Hypertension. DISCHARGE DIAGNOSES: 1. Lingular pneumonia. 2. Congestive heart failure exacerbation. 3. Type 2 diabetes mellitus. 4. Hypertension. CONSULTATIONS: None. DIAGNOSTIC PROCEDURES AND FINDINGS: EKG on 01/12/2019 showing sinus tachycardia, nonspecific T changes, LVH. Chest x-ray on 01/12/2019 showing cardiomegaly and pulmonary vascular congestion. CT of the abdomen and pelvis on 01/12/2019 showing probable pulmonary edema in lung bases, faint infiltrate or atelectasis in the lingula, no acute process in the abdomen. CTA of the pulmonary arteries on 01/12/2019 showing focal consolidation in the lingula compatible with pneumonia, pulmonary edema and cardiomegaly. EKG on 01/13/2019 showing sinus tachycardia, nonspecific T changes. Chest x-ray on 01/14/2019 showing left lower lobe pneumonia. Chest x-ray on 01/15/2019 showing probable pneumonia in the lingula and left lower lobe. Chest x-ray on 01/16/2019 with no change from prior pulmonary edema and/or pneumonia. HOSPITAL COURSE: Ms. Beckman is a 38-year-old -[place] female with a history of systolic heart failure, type 2 diabetes and hypertension who presented to the ER with 3 days of shortness of breath. She came into the ER for evaluation and was noted to have a lingular pneumonia and congestive heart failure exacerbation. She was admitted and started on IV diuresis. CTA of the chest was negative for PE but did show lingular pneumonia as well as CHF. Blood cultures were drawn appropriately and she was started on antibiotics. Her symptoms improved on a daily basis. She was evaluated for home O2 but had adequate oxygenation with physical exertion and was deemed not a candidate for home O2. Otherwise, she has improved to the point where she has reached maximum benefit from inpatient hospitalization and is now stable for discharge home. DISCHARGE MEDICATIONS: 1. Zofran 4 mg as needed every 8 hours for nausea. 2. Metformin 850 mg p.o. b.i.d. 3. Phenergan 25 mg p.o. q.6h as needed. 4. Reglan 10 mg p.o. q.a.c. and q.h.s.. 5. Augmentin XR 1000 mg pills, 2000 mg p.o. q.12h for 10 days. 6. Basaglar insulin 40 units subcutaneously q.a.m. 7. Doxycycline 100 mg p.o. b.i.d. 8. Entresto , one p.o. b.i.d. 9. Coreg 12.5 mg p.o. daily. 10.Neurontin 100 mg p.o. q.h.s. 11.Lasix 40 mg daily. 12.Xanax 0.125 mg p.o. q.12h as needed. DISCHARGE LABORATORY DATA: WBC 13.31, hemoglobin 11.3, hematocrit 36.3, platelet count 504. Sodium 136, potassium 4, chloride 100, CO2 of 22, anion gap 14, BUN 15, creatinine 1.1, glucose 126, calcium 8.7. DISCHARGE DIET: Diabetic. DISCHARGE ACTIVITY: Resume activity as tolerated. DISPOSITION AND OTHER DISCHARGE INSTRUCTIONS: Patient is discharged home to self-care. She is to follow up with her PCP and manager council within the month or sooner if needed. She is to continue all medications as directed. She is to return to the ER or call 911 for worsening complaints or concerns. All discharge questions were answered. DISCHARGE TIME: Greater than 35 minutes. Dictated by KRISTAN Donovan for Jeff Cook MD cc: KRISTAN Donovan MD Nidhi Jindal, MD William D. Denney, MD
== END 2019-01-18 12:39 | disposition home or self-care (01) | DRG 871 ==
LOC: ED 12:50 → 3N 23:29 → SUATTDRO 23:29
PROVIDERS: ATTEND Internal Medicine
CPT/HCPCS: 71010; 71020; 71045; 71046; 71275; 74176; 80048; 80053; 81001; 81025; 82009; 82550; 82805; 82948; 83036; 83605; 83735; 83880; 84439; 84443; 84484; 85025; 85379; 85610; 85730; 87040; 87088; 93005; 94640; 94761; 96365; 96366; 96367; 96372; 96375; 99285; A9270; J0500; J0696; J1644; J1815; J1885; J1940; J1956; J2270; J2543; J7030; Q9967; S0028; XXXXX

== ENCOUNTER 2019-01-28 15:54 | Inpatient (IN) ==
[2019-01-28] MEDS ORDERED: PROTONIX IV ONE (20:35)
[2019-01-28] MEDS ORDERED: SODIUM CHLORIDE 0.9% INJ ONE ×2 (20:35)
[2019-01-28] MEDS ORDERED: PHENERGAN IV ONE (20:35)
[2019-01-28] MEDS ORDERED: ZOFRAN IV ONE (20:36)
[2019-01-28] MEDS ORDERED: NS 1,000 ML IV ONE (20:38)
[2019-01-28 22:19] LABS: BASO# 0.01 X1000 (0.0-0.2); BASO% 0.1 % (0.0-0.8); HEMOGLOBIN 12.2 g/dL (12.0-16.0); IMM GRAN# 0.03 X1000 (0.0-0.04); IMM GRAN% 0.2 % (0.0-0.5); LYMPH# 0.91 X1000 (1.2-3.4); LYMPH% 6.2 % (20.5-51.1); MCH 21.5 PG (27-31); MCHC 32.1 g/dL (33-37); MCV 66.9 FL (81-99); MONO# 0.19 X1000 (0.11-0.59); MONO% 1.3 % (1.7-9.3); MPV 10.2 FL (7.4-10.4); NEUT# 13.49 X1000 (1.4-6.5); NEUT% 92.2 % (42.2-75.2); PLT 564 X1000 (130-400); RBC 5.68 XMIL (4.2-5.4); RDW 18.7 % (11.5-14.5); WBC 14.63 X1000 (4.8-10.8)
[2019-01-28 22:22] LABS: URINE SOURCE CLEAN CATCH
[2019-01-28 22:35] LABS: AGAP 20; ALB/GLOB RATIO 0.5; ALBUMIN 2.8 g/dL (3.5-5.0); ALKALINE PHOSPHATASE 289 U/L (32-104); BUN 14 mg/dL (8-22); CALCIUM 9.2 mg/dL (8.8-10.2); CHLORIDE 96 mmol/L (98-107); COSMO 290; CREATININE 0.8 mg/dL (0.5-0.9); ESTIMATED GFR > 60; GLUCOSE 340 mg/dL (70-104); GOT 25 U/L (10-30); GPT 20 U/L (10-36); LIPASE 27 U/L (13-60); POTASSIUM 4.5 mmol/L (3.5-5.1); SODIUM 138 mmol/L (136-145); TCO2 22 mmol/L (25-35); TOTAL BILIRUBIN 0.41 mg/dL (0.20-1.00); TOTAL PROTEIN 8.3 g/dL (6.3-8.3)
[2019-01-28 22:47] LABS: BILIRUBIN URINE NEGATIVE (NEGATIVE); BLOOD URINE MODERATE (NEGATIVE); COLOR YELLOW; GLUCOSE URINE >1000 mg/dL (NEGATIVE); KETONE URINE 20 mg/dL (NEGATIVE); LEUKOCYTES URINE NEGATIVE (NEGATIVE); NITRITE URINE NEGATIVE (NEGATIVE); PH URINE 6.5; PROTEIN URINE >600 mg/dL (NEGATIVE); SP GRAVITY URINE 1.045; TURBIDITY URINE CLEAR (CLEAR); UROBILINOGEN URINE NORMAL (NORMAL)
[2019-01-28] MEDS ORDERED: HUMULIN R IV ONE (23:00)
[2019-01-28 23:09] LABS: UR EPITHELIAL CELLS >10 /HPF (<10); URINE BACTERIA 1+ /HPF; URINE WBC <10 /HPF (<10)
[2019-01-28] MEDS ORDERED: COMPAZINE IV ONE (23:50)
[2019-01-29] MEDS ORDERED: NS 500 ML ONE (00:04)
[2019-01-29] MEDS: NS 1,000 ML IV SCH ×2 (00:07→02:11)
[2019-01-29 00:42] LABS: ALLEN TEST YES; BE -1.6 mmoll (-3.0-3.0); BLOOD TYPE ARTERIAL; HCO3-(ACT) 23.4 mmoll (20.0-26.0); O2(CT) 14.9 mL/dL (15.0-23.0); PCO2(98.6) 37 mmHg (35-45); PO2(98.6) 53 mmHg (60-100); SAMPLE BLOOD; THB 12.4 g/dL (11.5-17.4)
[2019-01-29 00:45] LABS: MODALITY ROOM AIR; O2HB 85.7 % (95.0-99.0)
--- NOTE | 2019-01-29 00:54 | PROVIDER DOCUMENTATION ---
This chart was entered by Nathan Carpenter Scribe, acting as scribe for Jimenez Cobian MD. HPI-Abdominal Pain/GI Problem - General Chief Complaint: Abdominal Pain Stated Complaint: n/v Time Seen by Provider: 01/28/19 18:08 Source: patient Allergies/Adverse Reactions: Patient Allergies Allergy/AdvReac Type Severity Reaction Status Date / Time sulfamethoxazole Allergy HIVES Verified 06/02/18 23:06 [From ] trimethoprim [From ] Allergy HIVES Verified 06/02/18 23:06 Home Medications: Home Medication List Medication Instructions Recorded Confirmed Last Taken Type Ondansetron HCl [Zofran] 4 mg PO Q8H PRN PRN #15 tablet 03/03/18 01/12/19 04/20/18 Rx Metformin HCl [Glucophage] 850 mg PO BID #180 tab 04/24/18 01/12/19 Unknown Rx Promethazine [Phenergan] 25 mg PO Q6H PRN PRN #20 tab 06/03/18 01/12/19 Unknown Rx Insulin Lispro [Humalog] 06/04/18 06/04/18 Unknown History Metoclopramide [Reglan] 10 mg PO AC + HS #120 tab 06/06/18 01/12/19 Unknown Rx Alprazolam [Xanax] 0.125 mg PO Q12H PRN #30 tab 01/18/19 Unknown Rx Amoxicillin/K Clavulanate E.r. 2,000 mg PO Q12HR #20 tab 01/18/19 Unknown Rx [Augmentin Xr] Carvedilol [Coreg] 12.5 mg PO DAILY #180 tab 01/18/19 Unknown Rx Doxycycline 100 mg PO BID #10 tab 01/18/19 Unknown Rx Furosemide [Lasix] 40 mg PO DAILY #180 tab 01/18/19 Unknown Rx Gabapentin 100 mg PO HS #90 cap 01/18/19 Unknown Rx Insulin Glargine [Basaglar] 40 unit SUBQ QAM #1 insuln.pen 01/18/19 Unknown Rx Sacubitril/Valsartan [Entresto 24 1 ea PO BID #180 tab 01/18/19 Unknown Rx mg-26 mg Tablet] Promethazine [Phenergan] 25 mg PO Q6H PRN PRN #12 tab 01/27/19 Unknown Rx - History of Present Illness-ABD Nature of Presenting Problems: Pt is a 38 y/o F presents to the ED with abdominal pain, N/V that began 2 days ago. She reports coming to the ED for the same thing yesterday dc home with Dx of gastroparesis and sent home with Phenergan for the N/V. She [id number] she is not able to take the phenergan becasue she can not keep it down. Abdominal Pain Onset Location: reports: RUQ, epigastric Pain Radiation: reports: no radiation Quality of Pain: reports: aching, cramping Severity in ED: reports: severe Onset/Duration: reports: 2 days ago Timing: reports: still present Activities at Onset: reports: none Modifying Factors: improves with: nothing Associated Symptoms: reports: nausea. denies: diaphoresis, diarrhea, fever/chills, trouble walking Dark Stools Present?: reports: none noticed # of Diarrhea Episodes: 20 # of Vomiting Episodes: 10 Review of Systems - Adult - REVIEW OF SYSTEMS - ADULT Constitutional: denies: chills, fever Eyes: reports: no symptoms reported Ears, Nose, Mouth & Throat: reports: no symptoms reported Cardiovascular: reports: no symptoms reported Respiratory: denies: cough, shortness of breath Gastrointestinal: reports: abdominal pain, nausea, vomiting. denies: hematemesis, constipation Genitourinary: reports: no symptoms reported Musculoskeletal: denies: back pain, neck pain Integumentary: reports: no symptoms reported Neurological: denies: dizziness/vertigo, headache/migraines Past History - Adult - PAST MEDICAL HISTORY-ADULT Review of Records: reports: Old Records Reviewed, Nursing Assessment Review, Medications Reviewed Major Childhood Illnesses: reports: denies history Cardiovascular: reports: CHF, HTN, hyperlipidemia Respiratory: reports: denies history Gastrointestinal: reports: GERD, other (gastroparesis) Obstetrical/Gynecological: reports: denies history Genitourinary: reports: dialysis Musculoskeletal: reports: denies history Neurological: reports: headaches/migraines Psychiatric: reports: denies history Endocrine/Immune: reports: Diabetes Other Conditions: reports: denies history, MRSA - PRIOR SURGERIES/PROCEDURES Surgical/Procedure History: reports: cholecystectomy, BTL, , breast (reduction), other (necrotizing faciatis) - IMMUNIZATION STATUS Childhood Immunizations: See Nurse Assessment Flu Vaccine: See Nurse Assessment - FAMILY HISTORY Family History: diabetes, HTN - SOCIAL HISTORY Smoking: cigarettes, less than 1 pack/day Living Situation: family Physical Exam-General - PHYSICAL EXAM-ADULT Initial Vital Signs Reviewed: Yes - CONSTITUTIONAL General Appearance: alert, mild distress - EYES Eyes: PERRL/EOMI, pink conjunctivae - HEAD, EARS, NOSE, MOUTH & THROAT HENMT: negative: moist mucous membranes (slightly dry) - NECK Neck: non-tender, full range of motion, supple, normal inspection - RESPIRATORY Respiratory: lungs clear, normal breath sounds - CARDIOVASCULAR Cardiovascular: normal peripheral pulses, tachycardia - GASTROINTESTINAL (ABDOMEN) Abdominal Exam: guarding (mild), tenderness (epigastric and RUQ). negative: rebound - MUSCULOSKELETAL Back Exam: normal inspection, no CVA tenderness, no vertebral tenderness Extremity: normal range of motion, non-tender - SKIN Integumentary: normal color, normal turgor, warm/dry - NEUROLOGIC Neurologic: grossly normal, no motor/sensory deficits - PSYCHIATRIC Psych/Mental Status: normal thought process, oriented x 3 Progress - PLAN OF CARE/RESULTS Progress/Plan/Lab Results: Vital Signs - 8 hr 01/28/19 15:59 Temperature 98.5 F Pulse Rate 113 H Respiratory Rate 20 Blood Pressure 135/82 O2 Sat by Pulse Oximetry 97 Orders Category Date Time Status ED: Urine Bedside ORDERED Care 01/28/19 16:04 Active NPO Diet 01/28/19 16:[address] ABD/PELVIS W/IV CONT ONLY [CT] Stat Exams 01/28/19 20:37 Ordered CBC WITH DIFF [HEME] Stat Lab 01/28/19 16:04 Uncollected COMPREHENSIVE METABOLIC PANEL [CHEM] Stat Lab 01/28/19 16:04 Uncollected LIPASE [CHEM] Stat Lab 01/28/19 16:04 Uncollected URINALYSIS [URINALYSIS] Stat Lab 01/28/19 16:04 Uncollected Ondansetron [Zofran] Med 01/28/19 20:36 Discontinued 8 mg IV NOW ONE Pantoprazole [Protonix] Med 01/28/19 20:35 Discontinued 40 mg IV NOW ONE Promethazine [Phenergan] Med 01/28/19 20:35 Discontinued 25 mg IV NOW ONE Sodium Chloride 0.9% Med 01/28/19 20:35 Discontinued 10 ml INJ NOW ONE Sodium Chloride 0.9% Med 01/28/19 20:35 Discontinued 10 ml INJ NOW ONE Abd Pain/OB <20 weeks Stat Oth 01/28/19 16:04 Ordered Result Diagrams: 01/28/19 21:40 01/28/19 21:40 - CONSULTS/PCP/HOSPITALIST Notification #1 *Consult/PCP/Hospitalist*: Dr. Pradhan Time Discussed: 00:00 Consult Disposition: Admit (Hx, PE and patient care disucssed with Dr. Pradhan, accepted.) Departure - Departure Date of Disposition Decision: 01/28/19 Time of Disposition Decision: 23:59 DIAGNOSIS: Pleural effusion Vomiting Qualifiers: Vomiting type: unspecified Vomiting Intractability: intractable Nausea presence: with nausea Qualified Code(s): R11.2 - Nausea with vomiting, unspecified Abdominal pain Qualifiers: Abdominal location: generalized Qualified Code(s): R10.84 - Generalized abdominal pain Disposition: ADMITTED INPATIENT 09 Certified Medical Emergency: Emergent Condition: Stable Referrals and Follow-Ups: Leslie Ponce MD [Primary Care Provider] - - Critical Care Note This patient required my direct & personal management of CC.: No Attestation - Physician/ DAYANNA Attestation Patient care was provided by Advanced Practice Provider:: No The physician spent face to face time with patient:: Yes Advanced Practice Provider documentation review:: Supervising physician onsite and consulted in the evaluation and care of this patient. The physician did have a face to face encounter with the patient. This chart was documented by the indicated scribe, (Nathan Carpenter Scribe) and accurately reflects the services I performed and decisions made by me, Jimenez Cobian MD, as attested by the provider's signature.
[2019-01-29] MEDS ORDERED: BASAGLAR SUBQ ONE (01:12)
[2019-01-29] MEDS ORDERED: NITROGLYCERIN TOP SCH (01:15)
[2019-01-29] MEDS ORDERED: DUONEB (A & A) INH ONE (01:19)
[2019-01-29] MEDS ORDERED: INSULIN PEN NEEDLES ONE (01:38)
[2019-01-29] MEDS ORDERED: LASIX IV ONE (01:40)
[2019-01-29] MEDS ORDERED: TYLENOL PO PRN (01:49)
[2019-01-29] MEDS: LOVENOX SUBQ SCH (02:50)
[2019-01-29] MEDS: LASIX IV SCH ×2 (02:50→14:55)
[2019-01-29] MEDS: ZOFRAN IV PRN ×3 (04:33→14:56)
[2019-01-29] MEDS: DUONEB (A & A) INH SCH ×4 (04:40→22:07)
[2019-01-29] MEDS: HUMALOG SUBQ SCH ×4 (06:38→20:22)
--- NOTE | 2019-01-29 07:05 | Diag Imaging Result Doc PS360 ---
EXAM: CT ABD/PELVIS W/IV CONT ONLY 01/28/2019 HISTORY: abdominal pain, vomiting x20 per day TECHNIQUE: This exam was performed using automated exposure control, adjustment of mA or kV according to patient size, and/or use of iterative reconstruction technique. COMMENT: There continues to be consolidation in the visible portion of the lingula and hazy opacity in the lung bases with interstitial prominence particularly in the left lower lobe, as there was on the previous study of 01/12/2019. There is a small amount of pericardial fluid. There is a left pleural effusion. The pleural effusion much smaller at the time the previous study. The liver appears to be enlarged, measuring over 24 cm in transverse dimension compared to 23.5 cm previously. The liver is slightly more heterogeneous in appearance than on the previous examination, however this is probably largely due to the presence of contrast on the current study. There has been cholecystectomy. The adrenal glands are not enlarged. There is some slight inhomogeneity of enhancement in the kidneys. The possibility of pyelonephritis cannot be excluded. The aorta is normal in caliber. There is subcutaneous edema, which is slightly worse than on the previous study. There is no evidence of bowel obstruction. No significant adenopathy is present. Pelvis: There is some motion artifact. The appendix is normal in appearance. There are postsurgical changes in the panniculus. The urinary bladder is not distended. There are no masses and no significant adenopathy is present. The regional skeleton is stable in appearance. IMPRESSION: Worsened anasarca and left pleural effusion. Atelectasis versus pneumonia in the lingula. Mild pulmonary edema. Increasing hepatomegaly which may be result of passive congestion. Questionable pyelonephritis. Electronically signed by Juan Lilly 01/29/2019 7:02 AM
--- NOTE | 2019-01-29 07:25 | HISTORY AND PHYSICAL ---
PRIMARY CARE PROVIDER: Leslie Ponce MD REASON FOR ADMISSION: Persistent vomiting for the last 2 days. HISTORY OF PRESENT ILLNESS: Ms. Radha Beckman is a 38-year-old woman with past medical history of type 2 diabetes with gastroparesis, CHF, hypertension, poorly controlled type 2 diabetes with last A1c 12.4, who comes in complaining of nausea and vomiting for the last couple of days. Says that she was seen in the ER yesterday, given antiemetics and says she has vomited 25 times, nonbloody, not coffee ground emesis. Denies any diarrhea, blood per rectum, melenic stools or bleeding from any orifice. Says that any time she tries to eat or drink anything she feels easily bloated. She also reports that prior to this episode of vomiting 3 days ago she had been having increasing PND, orthopnea and worsening lower extremity swelling. Also complains of abdominal swelling. Denies any chest pain appreciated, palpitations or lightheadedness with this. Denies any polyuria or polydipsia at this point in time. No blurred vision. No fever, no chills, no cough, no focal neurological complaints, no numbness or tingling. No new rash or joint swelling. REVIEW OF SYSTEMS: A 12-system review was done with positive findings noted in the HPI. ALLERGY: Sulfa. MEDICATIONS: Have not been reconciled. SURGICAL HISTORY: Only notable for breast reduction, cholecystectomy and AICD placement. SOCIAL HISTORY: She smokes 1/2 pack a day. No alcohol or illicit drug use. FAMILY HISTORY: Notable for diabetes in grandparents and heart disease in dad. LAB WORK: White count 14,000, hemoglobin 12, hematocrit 38, MCV 67, RDW 18, platelet count 564,000, 92% neutrophils. BUN is 14, creatinine 0.8, glucose 340, alkaline phosphatase 289 with normal transaminases. ProBNP 1400. Lipase is normal. Acetone is negative. Glucose is greater than 1000, protein greater than 600, 10-20 RBCs, 1+ bacteria. Blood gas: pH 7.40, pO2 50, saturation 96 on room air. Lactate 2.4. Abdominal CT showed left pleural effusion, which is new. CHF noted on chest film and hepatomegaly with left lobe pushing on stomach. Chest film: Cardiomegaly with cephalization of pulmonary vessels. PHYSICAL EXAMINATION: VITAL SIGNS: Blood pressure 156/102, heart rate 113, temperature 98.5, 97% on room air, respiratory rate 20. GENERAL: A morbidly obese woman. She is alert and oriented to person, place and time with normal mood and affect, in mild respiratory distress. HEENT: Normocephalic, atraumatic. Eyes are PERRLA, EOMI. She is anicteric and not pale. ENT/OROPHARYNGEAL EXAM: Grossly normal. NECK: Supple. No JVD. Positive acanthosis nigricans noted. Mild borderline hepatojugular reflux. No bruit or thyromegaly. CHEST: Few bibasilar crepitations heard, otherwise grossly normal. CARDIOVASCULAR: First and second heart sounds heard. No gallops, murmurs or rubs. Rhythm is regular. ABDOMEN: Protuberant, soft, with tenderness confirmed to the epigastrium and right upper quadrant areas. No rebound or guarding. Bowel sounds are hypoactive. RECTAL: Exam deferred at this time. EXTREMITIES: The patient has 2+ pedal edema up to the mid shins bilaterally. The feet are cool to touch. Pulses are barely palpable in all extremities distally. Rhythm is regular. No clubbing or peripheral cyanosis. NEUROLOGICAL: No focal deficits, no tremors. SKIN: Intact, otherwise findings noted as above. MUSCULOSKELETAL: Grossly normal. ASSESSMENT AT THIS TIME: 1. Intractable nausea secondary to diabetic gastroparesis and stomach compression from hepatomegaly from congestive heart failure. 2. Acute on chronic systolic heart failure. 3. 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 4. Hypertensive heart disease. PLAN AT THIS TIME: The patient will be started on aggressive diuresis for now. The goal is try to and see if we can decrease hepatomegaly secondary to passive congestion from CHF, and if this occurs maybe this may ameliorate vomiting from compression of the liver on the stomach. Also, aggressive blood sugar control will be necessary in this patient to stave off the effects of diabetic gastroparesis. We are now in a catch-22 situation. The patient may probably be dehydrated, however, to hydrate this patient in the face of underlying CHF may exacerbate her respiratory symptoms, even though she may benefit from some fluids due to volume loss. Antiemetics will also be given. Consult Cardiology for further input. Patient will be started on O2 protocol due to the hypoxemia noted on her blood gas. Repeat daily labs and chest film to document objective improvement of the patient's condition. Patient will need to have her Lantus increased once this has been officially reconciled, and other medications to control her blood sugars and subsequently in the assisted gastroparesis. Patient does have signs of marked proteinuria and is already on Entresto which also may address indirectly her nephropathy. cc: MD Sheryl Gold MD
--- NOTE | 2019-01-29 07:41 | Diag Imaging Result Doc PS360 ---
EXAM: CHEST-2 VIEWS 01/28/2019 HISTORY: chf TECHNIQUE: PA and lateral chest COMMENT: There is ill-defined opacity in the left base partially obscuring the hemidiaphragm and left heart border. Otherwise there has been no significant change since 01/27/2019. The appearance is better than on 01/16/2019. IMPRESSION: Atelectasis and/or pneumonia in the left lower lobe and lingula. Electronically signed by Juan Lilly 01/29/2019 7:39 AM
[2019-01-29] MEDS ORDERED: SODIUM CHLORIDE 0.9% INJ ONE (08:41)
[2019-01-29] MEDS: PROTONIX IV SCH (10:52)
[2019-01-29] MEDS: MAXIPIME 2 GM in NS 100 ML IV SCH ×2 (10:54→20:23)
[2019-01-29] MEDS: ZYVOX 600 MG/D5W 600 MG/300 ML IVPB IV SCH ×2 (11:57→23:11)
[2019-01-29] MEDS: DILAUDID IV PRN ×2 (12:01→20:33)
--- NOTE | 2019-01-29 13:29 | Diag Imaging Result Doc PS360 ---
EXAM: CT THORAX W/O CONTRAST 01/29/2019 HISTORY: pneumonia TECHNIQUE: This exam was performed using automated exposure control, adjustment of mA or kV according to patient size, and/or use of iterative reconstruction technique. COMMENT: There is a left pleural effusion. There are patchy opacities present in the lingula and to a lesser extent the left lower lobe which may be due to pneumonia. There is some subcutaneous edema particularly over the anterolateral lower right chest. There is apparent residual contrast medium in the urinary tract. The regional skeleton appears to be intact. IMPRESSION: Left upper lobe pneumonia. Electronically signed by Juan Lilly 01/29/2019 1:26 PM
[2019-01-29] MEDS ORDERED: REGLAN PO SCH (16:00)
--- NOTE | 2019-01-29 20:13 | CONSULTATION ---
DATE OF CONSULTATION: 01/29/2019 IMPRESSION: 1. Acute on chronic systolic heart failure. This appears to be improving with diuresis. She manifests some residual right-sided heart failure. 2. Problematic nausea and vomiting for several days, accompanying her development of congestive heart failure. This very well may be related to hepatic congestion. Diabetic gastroparesis is also a consideration. 3. Severe nonischemic cardiomyopathy. Previous coronary angiography negative. She is status post implantable defibrillator. 4. Obesity. 5. Type 2 diabetes mellitus. 6. Hypertension. RECOMMENDATIONS: 1. Continue diuresis. 2. Continue carvedilol. 3. Continue Entresto. HISTORY: This is a 38-year-old, female, with past history of severe nonischemic cardiomyopathy, previous implantable defibrillator, type 2 diabetes mellitus with associated gastroparesis, hypertension, poor diabetes control, and obesity, who was admitted with several days of nausea and vomiting. She has also been having increasing peripheral swelling and exertional shortness of breath. She was found to have evidence of acute on chronic systolic heart failure. She has been diuresed and she started to feel better. Appetite is improving. There has been no chest pain nor orthopnea. She relates that she was hospitalized a little over a week ago for pneumonia. She has been having problems with nausea and vomiting postprandially related to gastroparesis. It is not clear if she possibly aspirated related to this. PAST MEDICAL HISTORY: 1. Severe nonischemic cardiomyopathy, with previous negative coronary angiography in 2017. 2. Status post implantable defibrillator. 3. Type 2 diabetes mellitus, poorly controlled. She has associated gastroparesis. 4. Obesity. 5. Hypertension. PAST SURGICAL HISTORY: Also includes: 1. Breast reduction surgery. 2. Cholecystectomy. ALLERGIES: She is allergic or intolerant to sulfa. MEDICATIONS PRIOR TO ADMISSION: History. SOCIAL HISTORY: She is on disability. She does not use alcohol or illicit drugs. She smokes a few cigarettes a day. FAMILY HISTORY: Negative for premature coronary disease and positive for diabetes. REVIEW OF SYSTEMS: Pulmonary: Noteworthy for exertional dyspnea. Gastrointestinal: Noteworthy for nausea and vomiting. Constitutional: Noncontributory. Remainder of review of systems negative/noncontributory with 14 total systems reviewed. PHYSICAL EXAMINATION: General: This is an obese, adult female in no distress. Vital Signs: Blood pressure 139/84, heart rate 98, oxygen saturation 96% on room air. HEENT: Extraocular movements intact. Mucous membranes moist. Neck: Supple. Jugular venous distention is present, suggesting elevated central venous pressure. Chest: Clear to auscultation bilaterally. Cardiac: Regular rate and rhythm without appreciable murmur or gallop. Abdomen: Soft. Bowel sounds are normal. Extremities: Very mild edema in distal left lower extremity compared to right. Patient relates this asymmetry is chronic. LABORATORY DATA: Includes a white blood cell count of 14.63, hematocrit 38.0, hemoglobin 12.2, platelet count 564,000. Sodium 138, potassium 4.5, chloride 96, carbon dioxide 22, BUN 14, creatinine 0.8, glucose 340. Pro B-natriuretic peptide level 1489. Albumin 2.8. cc: Mukesh Ramirez MD
[2019-01-29] MEDS: ENTRESTO 24 MG-26 MG TABLET PO SCH (20:22)
[2019-01-30] MEDS: LASIX IV SCH ×2 (01:51→14:24)
[2019-01-30] MEDS: LOVENOX SUBQ SCH (01:51)
[2019-01-30] MEDS: DILAUDID IV PRN ×4 (02:02→21:15)
[2019-01-30] MEDS: DUONEB (A & A) INH SCH ×4 (03:00→22:40)
[2019-01-30] MEDS: HUMALOG SUBQ SCH ×4 (06:13→21:10)
[2019-01-30 07:13] LABS: BASO# 0.03 X1000 (0.0-0.2); BASO% 0.2 % (0.0-0.8); EOS# 0.35 X1000 (0.0-0.7); EOS% 2.9 % (0.0-10.0); HEMATOCRIT 37.5 % (37.0-47.0); HEMOGLOBIN 11.6 g/dL (12.0-16.0); IMM GRAN# 0.02 X1000 (0.0-0.04); IMM GRAN% 0.2 % (0.0-0.5); LYMPH# 2.12 X1000 (1.2-3.4); LYMPH% 17.5 % (20.5-51.1); MCH 21.2 PG (27-31); MCHC 30.9 g/dL (33-37); MCV 68.4 FL (81-99); MONO# 0.85 X1000 (0.11-0.59); MPV 9.8 FL (7.4-10.4); NEUT# 8.74 X1000 (1.4-6.5); NEUT% 72.2 % (42.2-75.2); PLT 470 X1000 (130-400); RBC 5.48 XMIL (4.2-5.4); RDW 18.7 % (11.5-14.5); WBC 12.11 X1000 (4.8-10.8)
[2019-01-30 07:18] LABS: HEMOGLOBIN A1C 12.5 % (4.8-6.0)
[2019-01-30] MEDS ORDERED: SODIUM CHLORIDE 0.9% 10 ML ONE (07:21)
[2019-01-30 07:43] LABS: AGAP 14; BUN 13 mg/dL (8-22); CALCIUM 8.5 mg/dL (8.8-10.2); CHLORIDE 100 mmol/L (98-107); COSMO 278; CREATININE 0.9 mg/dL (0.5-0.9); ESTIMATED GFR > 60; GLUCOSE 97 mg/dL (70-104); MAGNESIUM 1.5 mg/dL (1.5-2.7); POTASSIUM 3.1 mmol/L (3.5-5.1); SODIUM 139 mmol/L (136-145); TCO2 25 mmol/L (25-35)
--- NOTE | 2019-01-30 07:58 | Diag Imaging Result Doc PS360 ---
EXAM: CHEST-2 VIEWS 01/30/2019 HISTORY: CHF TECHNIQUE: PA and lateral chest COMMENT: There is some ill-defined opacity in the left lower lobe obscuring the hemidiaphragm. This is not changed since 01/28/2019 and is better than on 01/14/2019. IMPRESSION: The possibility of residual fibrosis and/or atelectasis in the left lower lobe is suggested. Electronically signed by Juan Lilly 01/30/2019 7:56 AM
[2019-01-30] MEDS ORDERED: MAGNESIUM SULFATE 2 GM/S.W.I. 2 GM/50 ML IVPB IV ONE (08:12)
[2019-01-30] MEDS: PROTONIX IV SCH (08:16)
[2019-01-30] MEDS: MAXIPIME 2 GM in NS 100 ML IV SCH ×2 (08:16→19:57)
[2019-01-30] MEDS: COREG PO SCH (08:17)
[2019-01-30] MEDS: XANAX PO SCH (08:17)
[2019-01-30] MEDS ORDERED: NS 500 ML ONE (08:35)
[2019-01-30] MEDS ORDERED: POTASSIUM CHLORIDE 60 MEQ in NS 500 ML IV ONE (09:00)
[2019-01-30] MEDS: MIRALAX PO SCH ×3 (09:12→20:41)
[2019-01-30] MEDS: DULCOLAX PR SCH ×2 (09:12→20:40)
[2019-01-30] MEDS: REGLAN LIQUID PO SCH ×4 (09:12→20:41)
[2019-01-30 11:37] LABS: INR 1.08; PROTIME 14.9 Seconds (11.0-16.0)
[2019-01-30] MEDS: ENTRESTO 24 MG-26 MG TABLET PO SCH ×3 (12:21→20:41)
--- NOTE | 2019-01-30 12:50 | GASTROENTEROLOGY CONSULTATION ---
DATE: 01/30/2019 ATTENDING PHYSICIAN: Dr. hCung. PRIMARY CARE DOCTOR: Leslie Ponce MD. REASON FOR CONSULTATION: Nausea and vomiting. HISTORY OF PRESENT ILLNESS: Ms. Beckman is a 38-year-old female who was admitted on 01/29/2019 for persistent vomiting over the last 2 days. The patient has a history of type 2 diabetes complicated with gastroparesis, congestive heart failure, and hypertension. She has been in and out of the hospital in the last few months. She has poor diabetes control. Her last hemoglobin A1c was 12.4. She established care with Dr. Leslie Ponce recently. Hopefully, that will help her diabetes control. She also complains of discomfort in the epigastric region along with intractable nausea and vomiting which worsens by eating but sometimes it happens without any preceding events. The patient also complains of a history of chronic congestive heart failure since 2005. She has an extensive family history of heart disease in her family. She is seen by Dr. Ramirez. She has a history of AICD placement because of severe congestive heart failure. During the hospital stay, she continues to have nausea. The last vomiting was yesterday and it was bilious in nature. She denies any vomiting blood. She moved her bowels today. She denies any fevers, rigors, or chills. She denies any sick contacts or recent travel. PAST MEDICAL HISTORY: 1. Type 2 diabetes. 2. Uncontrolled diabetes, high hemoglobin A1c of 12.4. 3. Gastroparesis. 4. Congestive heart failure. 5. Status post AICD placement. 6. Hypertension. 7. Obesity. PAST SURGICAL HISTORY: 1. AICD placement. 2. Breast reduction. 3. Cholecystectomy. SOCIAL HISTORY: She smokes a half pack a day. She denies a history of alcohol or illicit drug abuse. ALLERGIES: Sulfa, sulfamethoxazole, trimethoprim. FAMILY HISTORY: History of heart disease in her dad and diabetes in grandparents. MEDICATIONS: Medications in the hospital include magnesium sulfate, Dilaudid, Carafate, Reglan, Tylenol, albuterol/ipratropium inhaler, alprazolam, Dulcolax, Coreg, Lovenox, Lasix, Humalog sliding scale, potassium chloride, cefepime, Zofran, Protonix, MiraLAX twice daily, Entresto, linezolid. DIET: He is currently on a clear liquid diet. REVIEW OF SYSTEMS: Patient denies any fevers, rigors, chills, chest pain, shortness of breath at the moment, although she does have bouts of PND and shortness of breath. She does have a history of congestive heart failure. She denies any nausea today but yesterday, she was throwing up bile. She had a bowel movement yesterday. She denies any blood in the stools. She denies any history of arthritis. She denies any neurologic complaints. PHYSICAL EXAMINATION: Vital Signs: Temperature 98.4 degrees, pulse rate of 99, respiratory rate of 18, blood pressure 120/77, saturating 98% on room air. Body weight of 239 pounds and 6 ounces. BMI 41.1 kg/m2. General Appearance: The patient is morbidly obese, lying in bed, in no acute distress. HEENT: No pallor. No icterus. Pupils equal, reactive to light. Neck: Supple. Abdomen: Obese, soft. Discomfort in the epigastrium. No rebound or guarding. Extremities: No cyanosis, clubbing, or edema. Neurologic: Alert, awake, and oriented x3. LABS: Hemoglobin and hematocrit are 11.2 and 37, white count of 12.1, platelet count of 470,000. Sodium of 139, potassium 3.1, chloride of 100, bicarb of 25, anion gap of 14, BUN of 13, creatinine 0.9, glucose of 134, calcium is 8.5, magnesium 1.5, hemoglobin A1c 12.5. Her alkaline phosphatase was 289, AST 25, ALT 20, total bilirubin is 0.41, her lipase is 27. TSH of 3.16. Total protein is 8.3, albumin of 2.8. Urinalysis has positive protein, positive glucose, positive ketones, moderate blood. Acetone level is negative. Blood cultures x2 were drawn yesterday. They are currently pending. Urine culture is showing no growth so far on the preliminary results. IMPRESSION AND PLAN: 1. Intractable nausea and vomiting, likely secondary to diabetic gastroparesis. 2. Uncontrolled diabetes mellitus. 3. Morbid obesity. 4. Severe congestive heart failure and cardiomyopathy, status post automatic implantable cardioverter defibrillator placement. 5. Hypertensive heart disease. 6. In this regard, we will start her on a clear liquid diet. We will start her on Reglan 5 mg every 8 hours. We get slowly advance to 10 mg every 6 hours. We will hold for side effects like tardive dyskinesia and dystonia. The patient was also encouraged to keep good control of diabetes. She will need to bring her hemoglobin A1c down to less than 7. She needs to take small frequent meals. 7. I encouraged her to see an educational psychology professor to help her diabetes as she may be a candidate for an insulin pump. The patient was also counseled to lose weight. The patient was counseled to quit smoking. The patient will be started on a bowel regimen with Dulcolax 10 mg per rectal twice a day and MiraLAX 17 g by mouth twice a day. She has a history of intermittent constipation. 8. We will try to reduce the narcotics to as low as possible. She needs to be on intravenous fluids and intravenous antiemetics. The electrolytes will be replaced by the primary team. 9. She will continue on sliding-scale Humalog insulin. 10. Congestive heart failure is being managed by Dr. Ramirez. 11. Gastrointestinal prophylaxis with proton pump inhibitors. 12. We will follow along. The above plan was discussed with the patient and all questions were answered. Please call us with any further questions. cc: Sorin Connell MD MTDD
[2019-01-30] MEDS ORDERED: NS 250 ML ONE (13:10)
[2019-01-30] MEDS: CARAFATE LIQUID PO SCH ×2 (14:25→19:52)
[2019-01-30] MEDS: ZYVOX 600 MG/D5W 600 MG/300 ML IVPB IV SCH ×2 (15:35→23:13)
--- NOTE | 2019-01-30 15:39 | PROGRESS NOTE ---
DATE: 01/30/2019 SUBJECTIVE: The patient states that she feels a lot better today. She denies having any nausea, vomiting, or abdominal pain. OBJECTIVE: Vital Signs: Temperature 98.4 degrees, blood pressure 121/77, heart rate 99, respirations 18, O2 saturation is 98% on room air. General: This is a morbidly obese female sitting in bed, in no acute distress. Heart: S1, S2 normal. Tachycardic. Lungs: Clear to auscultation bilaterally. Abdomen: Positive bowel sounds. Soft, obese, nontender. Extremities: There is 1+ edema bilaterally. Neurologic: The patient is alert and oriented x3. LABS: White blood cell count 12, hemoglobin 11, hematocrit 37, platelets 470,000. Sodium 139, potassium 3.1, chloride 100, CO2 25, BUN 13, creatinine 0.9, glucose 134. Hemoglobin A1c 12.5. Magnesium 1.5. ASSESSMENT AND PLAN: 1. Acute on chronic, congestive heart failure exacerbation. Continue with diuretic therapy as directed by the stock shaper. 2. Diabetic gastroparesis. The patient has been seen by GI and her Reglan has been restarted. Continue to monitor the patient closely. 3. Severe nonischemic cardiomyopathy. Aware. 4. Uncontrolled insulin-dependent diabetes mellitus. The patient's hemoglobin A1c is 12. We will restart the Lantus. Continue on sliding scale insulin. 5. Morbid obesity. Aware. 6. Anxiety disorder. Continue on Xanax. 7. Urinary tract infection. Continue with antibiotic therapy. 8. Hypomagnesemia. Will replace the magnesium. 9. Hypokalemia. Will replace the potassium. 10. Deep vein thrombosis prophylaxis. Continue on Lovenox. cc: Manda Chung MD [facility]
[2019-01-30] MEDS ORDERED: INSULIN PEN NEEDLES ONE (21:05)
[2019-01-30] MEDS: BASAGLAR SUBQ SCH (21:10)
[2019-01-30] MEDS: ZOFRAN IV PRN (21:15)
[2019-01-31] MEDS: DILAUDID IV PRN ×3 (01:06→21:49)
[2019-01-31] MEDS: LOVENOX SUBQ SCH (01:07)
[2019-01-31] MEDS: LASIX IV SCH ×2 (01:07→13:32)
[2019-01-31] MEDS: ZOFRAN IV PRN ×4 (01:07→21:50)
[2019-01-31] MEDS: REGLAN LIQUID PO SCH ×3 (04:08→21:49)
[2019-01-31] MEDS: CARAFATE LIQUID PO SCH ×4 (04:10→21:50)
[2019-01-31] MEDS: DUONEB (A & A) INH SCH ×4 (06:00→22:50)
[2019-01-31] MEDS: HUMALOG SUBQ SCH ×4 (06:28→21:50)
[2019-01-31 06:44] LABS: HEMATOCRIT 38.9 % (37.0-47.0); HEMOGLOBIN 11.9 g/dL (12.0-16.0); MCH 21.8 PG (27-31); MCHC 30.6 g/dL (33-37); MCV 71.4 FL (81-99); MPV 10.5 FL (7.4-10.4); RBC 5.45 XMIL (4.2-5.4); RDW 20.1 % (11.5-14.5); WBC 10.59 X1000 (4.8-10.8)
[2019-01-31 07:24] LABS: AGAP 8; BUN 16 mg/dL (8-22); CALCIUM 8.4 mg/dL (8.8-10.2); CHLORIDE 100 mmol/L (98-107); COSMO 272; ESTIMATED GFR > 60; GLUCOSE 152 mg/dL (70-104); MAGNESIUM 1.8 mg/dL (1.5-2.7); POTASSIUM 4.2 mmol/L (3.5-5.1); SODIUM 134 mmol/L (136-145); TCO2 26 mmol/L (25-35)
--- NOTE | 2019-01-31 07:24 | Diag Imaging Result Doc PS360 ---
EXAM: CHEST-1 VIEW HISTORY: pulmonary edema TECHNIQUE: Chest single view COMPARISON: 01/30/2019 FINDINGS: The lungs are well expanded. Interval placement of a left-sided PICC line. The tip lies below the junction of superior vena cava and right atrium. The heart is mildly enlarged. The vessels are not distended. There are no infiltrates. No effusion identified. IMPRESSION: Placement of a left-sided PICC line, otherwise stable exam. Electronically signed by Osei Gruber 01/31/2019 7:21 AM
[2019-01-31] MEDS: XANAX PO SCH (08:52)
[2019-01-31] MEDS: MAXIPIME 2 GM in NS 100 ML IV SCH ×2 (08:52→21:49)
[2019-01-31] MEDS: COREG PO SCH (08:53)
[2019-01-31] MEDS: PROTONIX IV SCH (08:53)
[2019-01-31] MEDS: DULCOLAX PR SCH ×2 (08:53→21:47)
[2019-01-31] MEDS: BASAGLAR SUBQ SCH ×2 (08:53→21:50)
[2019-01-31] MEDS: ENTRESTO 24 MG-26 MG TABLET PO SCH ×2 (08:54→21:49)
[2019-01-31] MEDS: MIRALAX PO SCH ×2 (08:54→21:49)
[2019-01-31] MEDS: LACTULOSE PO SCH ×2 (09:13→21:50)
[2019-01-31] MEDS: ZYVOX 600 MG/D5W 600 MG/300 ML IVPB IV SCH ×2 (10:41→21:51)
--- NOTE | 2019-01-31 12:04 | PROGRESS NOTE ---
DATE: 01/31/2019 SUBJECTIVE: The patient states that she feels a lot better today. She states that she has not had a bowel movement yet. OBJECTIVE: Vital Signs: Temperature 97.4 degrees, blood pressure 113/77, heart rate 100, respirations 18, and O2 saturation percent on room air. General: This is a morbidly obese female sitting in bed in no acute distress. Heart: S1, S2 normal. Regular rate and rhythm. Lungs: Equal air entry bilaterally. No crackles. No rales. Abdomen: Positive bowel sounds. Soft. Obese. Extremities: 1+ edema. No cyanosis. No calf tenderness. Neurologic: The patient is alert and oriented x3. LABORATORY: White blood cell count 10, hemoglobin 11, hematocrit 38, and platelets 428,000. Sodium 134, potassium 4.2, chloride 100, CO2 26, BUN 16, creatinine 1, glucose 152, calcium 8.4, and magnesium 1.8. Chest x-ray: No infiltrates. ASSESSMENT AND PLAN: 1. Acute on chronic systolic congestive heart failure exacerbation. Continue with diuretic therapy. 2. Diabetic gastroparesis. Improved. Continue on Reglan. 3. Right chest wall growth. We will consult General Surgery. 4. Severe nonischemic cardiomyopathy. Aware. 5. Uncontrolled insulin-dependent diabetes mellitus. Continue with Lantus twice a day with sliding scale insulin coverage. 6. Morbid obesity. Aware. 7. Anxiety disorder. Continue on Xanax. 8. Deep vein thrombosis prophylaxis. Continue on Lovenox. cc: Manda Chung MD MTDD
--- NOTE | 2019-01-31 16:20 | PROGRESS NOTE ---
DATE: 01/31/2019 SUBJECTIVE: Patient continues without chest discomfort or dyspnea on room air. Her nausea has improved some, but does not completely resolve. OBJECTIVE: Vital Signs: Blood pressure 114/73, heart rate 88, oxygen saturation 96% on room air. Neck: There is no significant jugular venous distention. Chest: Chest is clear to auscultation. Cardiac: Exam reveals a regular rate and rhythm without appreciable murmur or gallop. Extremities: Demonstrate mild lower extremity edema. LABORATORY DATA: Includes white blood cell count 10.59, hematocrit 38.9, hemoglobin 9.9, platelet count 428. Sodium 134, potassium 4.2, chloride 100, carbon dioxide 26. BUN 16, creatinine 1.0, glucose 152. IMPRESSION: 1. Acute on chronic systolic heart failure. This has improved considerably with diuresis thus far. She still has some residual edema. 2. Problematic nausea and vomiting. Consider hepatic congestion versus diabetic gastroparesis. She is improving from a standpoint of congestive heart failure and continues with nausea. Suspect diabetic gastroparesis is the more likely culprit. 3. Severe nonischemic cardiomyopathy. Previous coronary angiography negative. Patient is status post implantable defibrillator. 4. Obesity. 5. Type 2 diabetes mellitus. 6. Hypertension. RECOMMENDATIONS: 1. Continue diuresis with intravenous Lasix another 24 hours. 2. Continue carvedilol. 3. Continue Entresto. 4. It would be reasonable to transition to oral Lasix tomorrow. 5. Consider increase in metoclopramide. cc: Mukesh Ramirez MD
--- NOTE | 2019-01-31 19:32 | GENERAL SURGERY CONSULTATION ---
DATE: 01/31/2019 REQUESTING PHYSICIAN: Manda Chung MD REASON FOR CONSULTATION: Right chest wall mass. HISTORY OF PRESENT ILLNESS: A 38-year-old female well known to my group who has been here in the hospital several times. He has had a past medical history of type 2 diabetes and gastroparesis, congestive heart failure and hypertension. She presented to the emergency department with persistent nausea and vomiting, which they think is probably related to gastroparesis. In the process of working her up, they noticed a spot on her right chest wall. Upon further questioning, she says this area develops, increases in size and drains. It sounds like it might be something like a sebaceous cyst or something along those lines. She has had it drained previously. It is smaller in size than it normally is, but I was asked to weigh an opinion. PAST MEDICAL HISTORY: Includes type 2 diabetes, gastroparesis, congestive heart failure, hypertension. PAST SURGICAL HISTORY: Includes breast reduction, cholecystectomy, defibrillator placement. ALLERGIES: Sulfa. HOME MEDICATIONS: In MAR, reviewed. SOCIAL HISTORY: Current smoker. FAMILY HISTORY: Positive for diabetes and heart disease. REVIEW OF SYSTEMS: A full 10-point review of systems obtained and negative except those specified in HPI. PHYSICAL EXAMINATION: Vital Signs: Patient is currently afebrile. Her vital signs are stable. General Exam: No acute distress. HEENT: Normocephalic, atraumatic. Pupils equal, round and reactive to light. Mucous membranes moist. Oropharynx benign. Neck: Supple. Trachea midline. Cardiovascular: Regular rate and rhythm. Lungs: Grossly clear. Chest wall: There is an area of induration under her inframammary fold on the right side and may be measures 2 or 3 cm. There is no fluctuance. There is no erythema that I can see. There was no active drainage. Abdomen: Soft, nondistended, obese. Extremities: Moves all extremities. Neurologic: Grossly intact. Skin: No signs of jaundice but wound as noted above. Vascular: All extremities perfused. LABORATORY DATA: White blood cell count is 10, hematocrit is 38, platelet count 428,000. Remainder of labs reviewed. IMAGING: Reviewed. ASSESSMENT AND PLAN: A 38-year-old female with right chest wall mass. Right chest wall mass. At this time, given its description and history, it sounds like it is either some sebaceous cyst or chronic wound. At this time, I would recommend further workup as an outpatient. She can follow up with my partners who have seen her before as an outpatient. At this time, we just want to monitor the wound. No immediate surgical intervention planned and like previously stated we could do further imaging including ultrasound or even a mammogram as an outpatient. cc: Boy Erickson MD
--- NOTE | 2019-01-31 21:18 | PROVIDER PROGRESS NOTE ---
Progress Note SUBJECTIVE: No acute overnight events. Patient reports nausea and vomiting improving. Afebrile. She reports some CP, SOB, COOPER related to recent pneumonia. She is tolerating clears OBJECTIVE: Last Vital Signs Temp 98.5 F 01/31/19 19:47 Pulse 93 H 01/31/19 19:47 Resp 16 01/31/19 19:47 BP 116/76 01/31/19 19:47 Pulse Ox 100 01/31/19 19:47 Height 5 ft 4 in Weight 239 lb 6 oz GEN: awake, alert, NAD HEENT: anicteric, MMM NECK: supple, no JVD PULM: CTAB CARDS: RRR, no murmurs ABD: obese soft NT/ND, NABS EXT: no cce NEURO: nonfocal 01/31/19 01/31/19 05:56 05:56 WBC 10.59 Hgb 11.9 L Plt Count 428 H Sodium 134 L Potassium 4.2 D Chloride 100 Carbon Dioxide 26 BUN 16 Creatinine 1.0 H A/P Radha Beckman is a 38-year-old woman with systolic congestive heart failure and uncontrolled insulin-dependent diabetes complicated by gastroparesis, who presents was intractable nausea and vomiting, consistent with gastroparesis exacerbation. She reports significant improvement with supportive care overnight. #Gastroparesis: improving - recommend low-fiber, low-fat diet with several small frequent meals - continue reglan - minimize narcotics #CHF: deferred treatment to primary team #IDDM2: needs better glycemic control #Constipation: continue bowel regimen #GI ppx: continue PPI #Anemia: secondary to her known thalassemia; stable Will follow with you. Please call with questions.
[2019-02-01] MEDS: DILAUDID IV PRN ×5 (02:15→20:18)
[2019-02-01] MEDS: ZOFRAN IV PRN ×2 (02:15→10:35)
[2019-02-01] MEDS: LOVENOX SUBQ SCH (03:10)
[2019-02-01] MEDS: CARAFATE LIQUID PO SCH ×4 (03:10→21:28)
[2019-02-01] MEDS: DUONEB (A & A) INH SCH ×4 (03:45→22:55)
[2019-02-01] MEDS: REGLAN LIQUID PO SCH ×3 (05:29→21:28)
[2019-02-01] MEDS: LASIX IV SCH ×2 (05:29→17:13)
[2019-02-01] MEDS: HUMALOG SUBQ SCH ×4 (06:52→21:29)
[2019-02-01 07:43] LABS: HEMATOCRIT 38.3 % (37.0-47.0); HEMOGLOBIN 11.9 g/dL (12.0-16.0); MCH 21.5 PG (27-31); MCHC 31.1 g/dL (33-37); MCV 69.1 FL (81-99); MPV 10.2 FL (7.4-10.4); RBC 5.54 XMIL (4.2-5.4); RDW 18.7 % (11.5-14.5); WBC 10.41 X1000 (4.8-10.8)
[2019-02-01 07:57] LABS: AGAP 11; BUN 12 mg/dL (8-22); CALCIUM 8.5 mg/dL (8.8-10.2); CHLORIDE 101 mmol/L (98-107); COSMO 277; CREATININE 0.9 mg/dL (0.5-0.9); ESTIMATED GFR > 60; GLUCOSE 131 mg/dL (70-104); POTASSIUM 3.7 mmol/L (3.5-5.1); SODIUM 138 mmol/L (136-145); TCO2 26 mmol/L (25-35)
[2019-02-01] MEDS: MAXIPIME 2 GM in NS 100 ML IV SCH ×2 (10:11→21:34)
[2019-02-01] MEDS: PROTONIX IV SCH (10:12)
[2019-02-01] MEDS: LACTULOSE PO SCH ×2 (10:12→22:37)
[2019-02-01] MEDS: COREG PO SCH (10:12)
[2019-02-01] MEDS: MIRALAX PO SCH ×2 (10:13→22:37)
[2019-02-01] MEDS: XANAX PO SCH (10:13)
[2019-02-01] MEDS: ENTRESTO 24 MG-26 MG TABLET PO SCH ×2 (10:13→21:28)
[2019-02-01] MEDS: BASAGLAR SUBQ SCH ×2 (10:13→21:28)
[2019-02-01] MEDS: DULCOLAX PR SCH ×2 (10:15→22:37)
[2019-02-01] MEDS: ZYVOX 600 MG/D5W 600 MG/300 ML IVPB IV SCH ×2 (12:02→21:32)
--- NOTE | 2019-02-01 15:20 | GASTROENTEROLOGY PROGRESS NOTE ---
DATE: 02/01/2019 Is resting in bed. Patient is feeling better, she denies any fevers, rigors or chills, she denies any nausea and vomiting. She is eating well. She is moving her bowels.Vital signs: Temperature 97.9, pulse 106, respiratory rate 18, blood pressure 118/78, saturating 97% on room air, body weight of 239 pounds 6 ounces, BMI 41.1 kg. Patient is obese lying in bed in no acute distress. HEENT: Mild pallor. No icterus. Neck: Supple. Abdomen: Is obese soft, nontender, nondistended, no guarding. Extremities: No cyanosis, clubbing. Neuro: She was sleeping was able to wake on command. LABS: Her hemoglobin and hematocrit is 11.9 and 38.3, white count of 10.4, platelet count of 438,000, sodium 138, potassium 3.7, chloride 101, bicarb 26, anion gap 11, BUN of 12, creatinine 0.9, glucose 131, calcium 8.5. IMPRESSION AND PLAN: 1. Gastroparesis. She will continue take small frequent meals, keep a good control of her diabetes, she will continue Reglan, she will hold Reglan for side effects like tardive dyskinesia, dystonia, will minimize narcotics. 2. Congestive heart failure. This is being managed primary team. 3. Cardiomyopathy aware. 4. Type 2 diabetes, she continues sliding scale insulin. 5. Constipation, continue bowel regimen. 6. Gastrointestinal prophylaxis PPIs. 7. Anemia, continue to watch for now. This is secondary to her known thalassemia and it is stable. 8. Obesity, patient counseled lose weight. 9. Above plan discussed with patient and all questions answered. Please call with any further questions. cc: Manda Chung MD
--- NOTE | 2019-02-01 20:15 | PROGRESS NOTE ---
DATE: 02/01/2019 SUBJECTIVE: The patient is resting comfortable in bed. She states she is no longer feeling nauseous. She did have an episode of diarrhea. OBJECTIVE: Vital Signs: Temperature 97 degrees, blood pressure 92/42, heart rate 90, respirations 16, O2 saturation 98% on room air. General: This is a morbidly obese female lying in bed in no acute distress. Heart: S1, S2 normal. Regular rate and rhythm. Lungs: Clear to auscultation bilaterally. Abdomen: Positive bowel sounds. Soft, nontender, nondistended. Extremities: No edema, no cyanosis. Neuro: The patient is alert and oriented x3. LABS: White blood cell count 10, hemoglobin 11, hematocrit 38, platelets 438,000, sodium 138, potassium 3.7, chloride 101, CO2 26, BUN 12, creatinine 0.9, glucose 131. ASSESSMENT AND PLAN: 1. Acute on chronic systolic congestive heart failure exacerbation. Continue with diuretic therapy as directed by the blood bank laboratory technician. 2. Diabetic gastroparesis. Continue on Reglan. 3. Right chest wall lesion. The patient will follow up with the general surgeon as outpatient. 4. Severe nonischemic cardiomyopathy. Aware. 5. Insulin-dependent diabetes mellitus. Continue on Lantus twice a day. 6. Morbid obesity. The patient has been counseled about diet and weight loss. 7. Anxiety disorder. Continue on Xanax. 8. Deep vein thrombosis prophylaxis. Continue on Lovenox. cc: Manda Chung MD MTDD
[2019-02-02] MEDS: DILAUDID IV PRN ×6 (00:03→23:55)
[2019-02-02] MEDS: CARAFATE LIQUID PO SCH ×4 (03:04→21:15)
[2019-02-02] MEDS: LOVENOX SUBQ SCH (03:04)
[2019-02-02] MEDS: DUONEB (A & A) INH SCH ×4 (03:50→22:29)
[2019-02-02] MEDS: REGLAN LIQUID PO SCH ×3 (06:06→21:14)
[2019-02-02] MEDS: LASIX IV SCH ×2 (06:11→17:34)
[2019-02-02] MEDS: HUMALOG SUBQ SCH ×4 (06:13→21:15)
[2019-02-02 06:50] LABS: HEMATOCRIT 35.9 % (37.0-47.0); HEMOGLOBIN 11.2 g/dL (12.0-16.0); MCH 22.2 PG (27-31); MCHC 31.2 g/dL (33-37); MCV 71.1 FL (81-99); MPV 10.1 FL (7.4-10.4); RBC 5.05 XMIL (4.2-5.4); RDW 19.4 % (11.5-14.5); WBC 9.76 X1000 (4.8-10.8)
[2019-02-02 07:24] LABS: AGAP 10; BUN 11 mg/dL (8-22); CALCIUM 8.3 mg/dL (8.8-10.2); CHLORIDE 103 mmol/L (98-107); COSMO 282; CREATININE 1.1 mg/dL (0.5-0.9); ESTIMATED GFR > 60; GLUCOSE 217 mg/dL (70-104); POTASSIUM 3.7 mmol/L (3.5-5.1); SODIUM 138 mmol/L (136-145); TCO2 25 mmol/L (25-35)
[2019-02-02] MEDS ORDERED: MIRALAX PO PRN (08:05)
[2019-02-02] MEDS: BASAGLAR SUBQ SCH ×2 (10:08→21:14)
[2019-02-02] MEDS: PROTONIX IV SCH (10:09)
[2019-02-02] MEDS: ENTRESTO 24 MG-26 MG TABLET PO SCH ×2 (10:09→21:13)
[2019-02-02] MEDS: XANAX PO SCH (10:09)
[2019-02-02] MEDS: COREG PO SCH (10:09)
[2019-02-02] MEDS: ZOFRAN IV PRN (14:46)
[2019-02-02] MEDS ORDERED: IMODIUM PO PRN (15:46)
--- NOTE | 2019-02-02 17:21 | PROGRESS NOTE ---
DATE: 02/02/2019 SUBJECTIVE: The patient complains of diarrhea. OBJECTIVE: Vital Signs: Temperature 98.2 degrees, blood pressure 109/72, heart rate 90, respirations 16, O2 saturation 96% on room air. General: This is a morbidly obese female sitting up in bed in no acute distress. Heart: S1, S2 normal. Tachycardic. Lungs: Clear to auscultation bilaterally. Abdomen: Positive bowel sounds. Soft, nontender, nondistended. Extremities: No edema, no cyanosis. Neuro: The patient is alert and oriented x4. LABS: Reviewed. ASSESSMENT AND PLAN: 1. Acute on chronic systolic congestive heart failure exacerbation. Continue with diuretic therapy as directed by the warranty administrator. 2. Diabetic gastroparesis. Improved. Continue on Reglan. 3. Diarrhea. Will hold the patient's laxatives today. Will also check the patient for C difficile since she has been receiving antibiotics. 4. Right chest wall lesion. The patient will follow up with the general surgeon as outpatient. 5. Severe nonischemic cardiomyopathy. Aware. 6. Insulin-dependent diabetes mellitus. Continue on Lantus twice a day. 7. Morbid obesity. The patient has been counseled about proper diet and weight loss. 8. Anxiety disorder. Continue on Xanax. 9. Deep vein thrombosis prophylaxis. Continue on Lovenox. cc: Manda Chung MD MTDD
--- NOTE | 2019-02-02 18:39 | GASTROENTEROLOGY PROGRESS NOTE ---
DATE: 02/02/2019 SUBJECTIVE: Patient is resting in bed. Her is at bedside. The patient is feeling better. She denies any fevers, rigors, chills. Denies any nausea or vomiting. She is moving her bowels. She is eating better. OBJECTIVE: Vital Signs: Temperature 98.2, pulse of 90, respiratory 16, blood pressure 109/72. Saturating 96% on room air. Body weight of 239 pounds 6 ounces. Body weight of 41.1 kg. General: Patient is morbidly obese, lying in bed, in no acute distress. HEENT: Mild pallor. No icterus. Neck: Supple. Abdomen: Morbidly obese. No guarding. No rebound. Extremities: No cyanosis, clubbing. Neurologic: She is alert, awake, oriented. LABS: Hemoglobin and hematocrit is 11.2 and 35.9, white count of 9.76, platelet count of 379,000. Sodium of 130, potassium 3.7, chloride 103, bicarb 25, anion gap 10, BUN of 11, creatinine 1.2, glucose of 217, calcium 8.3. Stool for occult blood was negative. IMPRESSION AND PLAN: 1. Acute on chronic systolic congestive heart failure exacerbation. She is on diuretic therapy per Cardiology. 2. Diabetic gastroparesis. She is on Reglan. We will hold Reglan for side effects like tardive dyskinesias and dystonia. She will continue to take small frequent meals. 3. Morbid obesity. Patient counseled to lose weight. 4. Nonischemic cardiomyopathy. Aware. 5. Right chest wall lesion. She needs to follow up with general surgeon as outpatient. 6. Insulin-dependent diabetes mellitus. The patient is counseled to keep a good control of diabetes to prevent long-term complications like gastroparesis. 7. Constipation. She will need a bowel regimen. 8. Anxiety disorder. She is on Xanax 0.125 mg p.o. daily. 9. DVT prophylaxis with Lovenox. 10. GI prophylaxis, PPIs. 11. Bowel regimen with MiraLAX as needed. 12. Mild anemia, watch for now. 13. I will start her on multivitamin once daily. The above plan of care was discussed with the patient and family at bedside. All questions answered. Please call us with any further questions. We will sign off at this time and patient will follow up with us in the clinic in 2 months. cc: MD Leslie Guillory MD MTDD
[2019-02-03] MEDS: CARAFATE LIQUID PO SCH ×4 (03:47→22:49)
[2019-02-03] MEDS: DILAUDID IV PRN ×4 (03:48→19:26)
[2019-02-03] MEDS: DUONEB (A & A) INH SCH ×4 (03:50→22:55)
[2019-02-03] MEDS: LOVENOX SUBQ SCH (06:28)
[2019-02-03] MEDS: REGLAN LIQUID PO SCH ×3 (06:28→22:49)
[2019-02-03] MEDS: LASIX IV SCH (06:28)
[2019-02-03] MEDS: HUMALOG SUBQ SCH ×4 (06:28→23:02)
[2019-02-03] MEDS ORDERED: INSULIN PEN NEEDLES ONE (07:09)
[2019-02-03] MEDS ORDERED: SODIUM CHLORIDE 0.9% 10 ML ONE (07:09)
[2019-02-03 07:31] LABS: HEMATOCRIT 37.2 % (37.0-47.0); HEMOGLOBIN 11.4 g/dL (12.0-16.0); MCH 21.8 PG (27-31); MCHC 30.6 g/dL (33-37); MCV 71.3 FL (81-99); MPV 10.2 FL (7.4-10.4); RBC 5.22 XMIL (4.2-5.4); RDW 19.3 % (11.5-14.5); WBC 9.45 X1000 (4.8-10.8)
[2019-02-03] MEDS: PROTONIX IV SCH (08:20)
[2019-02-03] MEDS: ENTRESTO 24 MG-26 MG TABLET PO SCH (08:21)
[2019-02-03] MEDS: CENTRUM SILVER PO SCH (08:21)
[2019-02-03] MEDS: COREG PO SCH (08:21)
[2019-02-03] MEDS: XANAX PO SCH (08:21)
[2019-02-03] MEDS: BASAGLAR SUBQ SCH ×2 (08:22→22:51)
[2019-02-03 09:58] LABS: AGAP 8; BUN 8 mg/dL (8-22); CALCIUM 8.3 mg/dL (8.8-10.2); CHLORIDE 103 mmol/L (98-107); COSMO 280; CREATININE 0.9 mg/dL (0.5-0.9); ESTIMATED GFR > 60; GLUCOSE 176 mg/dL (70-104); POTASSIUM 3.9 mmol/L (3.5-5.1); SODIUM 139 mmol/L (136-145); TCO2 28 mmol/L (25-35)
[2019-02-03] MEDS: ZOFRAN IV PRN ×2 (13:40→22:50)
--- NOTE | 2019-02-03 16:45 | PROGRESS NOTE ---
DATE: 02/03/2019 SUBJECTIVE: Ms. Radha Beckman is a 38-year-old -[place] female. She is in no acute distress. She was standing comfortably looking out the window, able to get around well. No shortness of breath noted. She still complains of some chronic abdominal discomfort; it is no different than what she has been having over the past year. Some occasional spells of nausea, occasional spells of diarrhea, but otherwise states she is feeling much better. She is complaining of left lower extremity increased swelling associated with some pain upon movement. She is getting an ultrasound of the lower extremity on the left. Otherwise, she is stable. OBJECTIVE: Vital Signs: Temperature 98.4 degrees, heart rate 100, respiratory rate 16, blood pressure 118/80, oxygen saturation 98% on room air. General: Ms. Radha Beckman is a 38-year-old female. She is in no acute distress. She answers questions appropriately. Cardiovascular: S1, S2. Regular rate and rhythm. No rubs, gallops or murmurs. She has 2+ lower extremity edema on the right lower extremity and 3+ on the left lower extremity with 1+ dorsalis pedis pulses, +2 radial pulses. Negative for JVD or carotid bruits. Pulmonary: Clear to auscultate bilateral breath sounds. No accessory muscle use or work of breathing noted. Tolerates room air. GI: Round but nondistended. Soft with mild tenderness in the upper quadrants with palpation. Extremities: Moves all extremities equally. LABORATORY DATA: White blood cell count 9000, hemoglobin 11, hematocrit 37, platelet count 319. Sodium 139, potassium 3.9, BUN 8, creatinine 0.9, glucose 176, calcium 8.3. IMAGING: She has had an ultrasound of the left lower extremity that is not resulted yet. ASSESSMENT AND PLAN: 1. Acute on chronic systolic congestive heart failure, which is essentially resolved. She still has lower extremity edema but Dr. Ramirez recommended changing from IV Lasix to p.o. Lasix on the , so we will go ahead and change that over to 40 mg p.o. twice daily. She will continue on her Coreg 12.5 mg p.o. daily; normally this is given twice a daily. She will also continue on Entresto 24/26 mg twice daily. 2. Gastroesophageal reflux disease and gastroparesis with nausea but no vomiting now. She is having intermittent spells of nausea. She is having p.o. intake much improved. Now she is having diarrhea type spells, 3 over the last 12 hours but she states that has improved as well. So we will continue with the Reglan 5 mg every 8 hours. Could consider backing off of that but we will leave it where Gastroenterology had it, and apparently they have also signed off, so I changed the IV Protonix 40 mg twice a day to 40 mg p.o. daily. She is still on Carafate 1 gram every 6 hours. 3. Diarrhea. Clostridium difficile negative. Stool samples are negative. She may continue to have this diarrhea with the Reglan but I believe it is going to be impaired if she takes the Reglan due to the gastroparesis. 4. Right chest wall lesion. She is going to follow up with Surgery as an outpatient. 5. Nonischemic cardiomyopathy. See #1. 6. Diabetes mellitus type 2. Continue insulin scheduled and sliding-scale insulin. Pattern blood glucoses. 7. Morbid obesity. Counseling about proper diet and exercise for weight loss. 8. Anxiety disorder. Continue on Xanax. 9. DVT prophylaxis with Lovenox. 10.Left lower extremity swelling with pain. She is getting an ultrasound of the left lower extremity. That is not resulted yet. 11.It looks she has also continued on Dilaudid 1 mg IV q. 3 hours. She is taking it pretty frequently. Essentially she has been taking it almost every 3 hours, so I am going to back off on that to help wean her off on the amount of Dilaudid she is taking. We will change it to q. 6 hours and we will see how she does on that. May have to add some low-dose [place] but do not want to increase her risk of worsening gastroparesis. Dictated by KRISTAN Sweeney for Manda Chung MD cc: KRISTAN Sweeney MD I performed a face to face encounter on the patient. I reviewed all labs and imaging on the patient. I agree with the progress note as dictated. The patient reports that she still feels very swollen in her legs. Will await further recommendations from the electron beam machine welder setter regarding her diuretic therapy. [facility]
--- NOTE | 2019-02-03 19:44 | GASTROENTEROLOGY PROGRESS NOTE ---
DATE: 02/03/2019 SUBJECTIVE: The patient is resting in bed. The patient is feeling better. She denies any nausea, vomiting, vomiting blood. She is moving her bowels. She is eating well. She has improved in her abdominal pain. OBJECTIVE: Vital Signs: Temperature 98.3 degrees, pulse of 99, respiratory rate 16, blood pressure 120/81, saturating 97% on room air. Body weight of 263 pounds and 7 ounces. BMI of 45.2 kg. General: The patient is morbidly obese, sitting in bed in no acute distress. HEENT: No pallor. No icterus. Neck: Supple. Abdomen: Obese. Mild discomfort in the epigastrium. No rebound or guarding. Extremities: No cyanosis, clubbing. Neurologic: Alert, awake, oriented x3. LABORATORY DATA: Hemoglobin and hematocrit 11.4 and 37.2, white count 9.45, platelet count of 390,000. Sodium 139, potassium 3.9, chloride 103, bicarb 29, BUN of 8, creatinine 0.9, glucose of 176, calcium 8.3. Stool for Clostridium difficile toxin is negative. Her Clostridium difficile antigen is negative. Stool for occult blood is negative. Urine culture: No growth. Blood culture x2: No growth at 48 hours. IMPRESSION AND PLAN: 1. Acute on chronic systolic congestive heart failure exacerbation. She is on diuretic therapy per the compliance examiner. 2. Diabetic gastroparesis. She will continue Reglan. Will hold Reglan for side effects like tardive dyskinesia and dystonia. She will take small, frequent meals. 3. Morbid obesity. Patient counseled to lose weight. 4. Diarrhea. She has been on laxatives. We will hold the laxatives until that resolves at home. She has history of constipation, so she will take MiraLAX once daily on discharge. 5. Right chest wall lesion. She will continue being followed by primary care team. She will follow up with a general surgeon as an outpatient. 6. Severe nonischemic cardiomyopathy. Aware. 7. Insulin-dependent diabetes mellitus. She is on lactulose twice a day. 8. Anxiety disorder. She is on Xanax. 9. Deep venous thrombosis prophylaxis with Lovenox. 10. Gastrointestinal prophylaxis with proton pump inhibitor. 11. Her last echocardiogram listed on 03/07/2018 showed ejection fraction of 20% to 25% and moderate left ventricular enlargement, mild atrial regurgitation, mild left atrial enlargement, and technically difficult study. The above plans were discussed with the patient, and all questions were answered. Please call us with any further questions. We will sign off at this time. cc: MD Sorin Gold MD
[2019-02-03] MEDS: LASIX PO SCH (23:03)
[2019-02-04] MEDS: CARAFATE LIQUID PO SCH ×4 (04:13→21:01)
[2019-02-04] MEDS: ENTRESTO 24 MG-26 MG TABLET PO SCH ×3 (05:22→21:02)
[2019-02-04] MEDS: DUONEB (A & A) INH SCH ×4 (05:58→22:50)
[2019-02-04] MEDS: LOVENOX SUBQ SCH (06:14)
[2019-02-04] MEDS: REGLAN LIQUID PO SCH ×3 (06:15→21:01)
[2019-02-04] MEDS: HUMALOG SUBQ SCH ×4 (06:21→21:06)
[2019-02-04] MEDS: PROTONIX PO SCH (06:21)
[2019-02-04 06:58] LABS: HEMATOCRIT 34.9 % (37.0-47.0); HEMOGLOBIN 10.7 g/dL (12.0-16.0); MCH 21.8 PG (27-31); MCHC 30.7 g/dL (33-37); MCV 71.1 FL (81-99); RBC 4.91 XMIL (4.2-5.4); WBC 8.41 X1000 (4.8-10.8)
[2019-02-04 07:04] LABS: AGAP 8; BUN 9 mg/dL (8-22); CALCIUM 8.3 mg/dL (8.8-10.2); CHLORIDE 105 mmol/L (98-107); COSMO 284; CREATININE 0.8 mg/dL (0.5-0.9); ESTIMATED GFR > 60; GLUCOSE 169 mg/dL (70-104); POTASSIUM 3.8 mmol/L (3.5-5.1); SODIUM 141 mmol/L (136-145); TCO2 28 mmol/L (25-35)
[2019-02-04] MEDS: BASAGLAR SUBQ SCH ×2 (09:25→21:02)
[2019-02-04] MEDS: COREG PO SCH (09:25)
[2019-02-04] MEDS: XANAX PO SCH (09:25)
[2019-02-04] MEDS: LASIX PO SCH ×2 (09:25→21:02)
[2019-02-04] MEDS: CENTRUM SILVER PO SCH (09:25)
[2019-02-04] MEDS: DILAUDID IV PRN ×2 (09:30→18:22)
[2019-02-04] MEDS: ZOFRAN IV PRN ×2 (09:30→21:02)
[2019-02-04] MEDS: ZAROXOLYN PO SCH (12:03)
[2019-02-04] MEDS: NORCO-10 PO PRN ×2 (12:06→16:08)
--- NOTE | 2019-02-04 13:08 | PROGRESS NOTE ---
DATE: 02/04/2019 SUBJECTIVE: Ms. Radha Beckman is a 38-year-old -[place] female. She is in no acute distress. She is walking around very well. No shortness of breath. Still complains of the chronic abdominal discomfort but no mold changer that. Nausea spells are less. Bowel movements: Still having some loose bowel movements and complains of lower extremity swelling more on the left with some associated pain. Ms. Beckman is asking about more pain medication due to the fact that her IV Dilaudid was decreased in frequency yesterday and it was explained to her that she cannot go home on IV Dilaudid and were in the process of trying to transition her to oral dosing. OBJECTIVE: Vital signs: Temperature 99.6, heart rate 115, respiratory rate 17, blood pressure 138/92, O2 saturation 99% on room air. General: Ms. Radha Beckman is a 38-year-old -[place] female. She is in no acute distress and is able to answer questions appropriately. Cardiovascular: S1, S2. Regular rate and rhythm. No rubs, gallops, or murmurs. She has got +2 lower extremity edema left greater than right, +1 dorsalis pedal pulses, +2 radial pulses. Negative for JVD or carotid bruits at this time. Pulmonary: Clear to auscultate bilateral breath sounds, decreased in the bases. No accessory muscle use or work of breathing noted. GI: Soft, tender in all 4 quadrants. Positive bowel sounds x4. Extremities: Moves all extremities equally with full range of motion. Skin: Warm, dry, intact except for right muhammad small wound that has a dressing over it that will be changed once a week and then under right breast along the chest wall is induration or area that is elevated but not open. LABORATORY DATA: White blood cells 8000, hemoglobin 10, hematocrit 34, platelet count 271. Sodium 141, potassium 3.8, BUN 9, creatinine 0.8, glucose 169, calcium 8.3. ProBNP 635. IMAGING: Currently, there is not a report on the lower extremity Dopplers, a verbal preliminary given by tech states no DVTs in the bilateral lower extremities. ASSESSMENT AND PLAN: 1. [id number] systolic congestive heart failure. This has since essentially resolved, although, she is still having residual lower extremity edema. Her ProBNP has dropped from 1489 on admission down to 635 today. She is still complaining of the lower extremity swelling because it is causing her more pain or discomfort. Her Lasix was changed from IV to p.o. yesterday, will increase the dose of that from 40 twice a day to 60 and add some metolazone to see if that will help with her edema in the lower extremities. She will continue on Coreg and Entresto as well. She was last seen by Cardiology it looks like on 01/[address] Ramirez. 2. Gastroesophageal reflux disease, gastroparesis, with nausea but no vomiting. Nausea is much less, much more improved. She is still taking some Zofran. Still having some diarrhea as well. Reglan is being continued at 5 mg every 8 hours. Was being followed by Gastroenterology, I believe they may have even signed off yesterday. She will also continue with her Carafate 1 g p.o. every 6 hours, and she is on 40 of Protonix a day p.o. 3. Diarrhea, Clostridium difficile negative. Still having some diarrhea though on the Reglan but the Reglan is being continued for gastroparesis. 4. Right chest wall lesion or induration into the right breast. She will be following up with General Surgery as an outpatient. 5. Nonischemic cardiomyopathy. Please see number 1. 6. Lower extremity swelling likely secondary to number 1 but also interventions will include KEO hose, elevation of the legs at night. Ultrasound was negative for DVT. Could be some diabetic neuropathy that she is having along with the swelling that causing her the pain, so Neurontin has been added back, she will take 300 mg at night and maybe the increase in diuretics will help. Also, we have done some changing of the pain medication regimen for her to try and transition her to something she can take at home. 7. Diabetes mellitus type 2. Continue sliding scale insulin, pattern blood glucoses, and her insulin Glargine 15 units subcutaneously twice a day. 8. Morbid obesity. Counseled on proper diet, exercise for weight loss, frequent walks in the halls. 9. Anxiety disorder. Continue with Xanax. 10.Pain. She was on Dilaudid 1 mg IV q.3 hours yesterday and was taking it pretty much scheduled. She is in transition, so the IV dosing was changed to 1 mg every 6 hours and today we are adding p.o. [place] 10 every 4 hours as needed. Will have to monitor to make sure she does not have worsening gastroparesis with this. 11.Deep venous thrombosis prophylaxis, Lovenox. 12.Right muhammad wound followed by Wound Care, who put a [employer] HCS dressing, it was cleaned with normal saline and recommended weekly dressing changes. The site with no signs of infection. There was some small amount of serous drainage underneath. Dictated by KRISTAN Sweeney for Victor Manuel Angulo MD cc: KRISTAN Sweeney MD Concur with assessment and plan of the MANAGEMENT TRAINEE PROGRAM STORES. Dr. Angulo. [facility]
--- NOTE | 2019-02-04 13:57 | PROVIDER PROGRESS NOTE ---
Progress Note SUBJECTIVE: No acute overnight events. Patient complains of lower abdominal pain and nausea without vomiting. Decreased appetite. No fever, CP, SOB. She ahd bowel movement yesterday. No constipation. She attributes her abdominal pain to weaning her pain medications. Last Vital Signs Temp 97.6 F 02/04/19 12:44 Pulse 99 H 02/04/19 12:44 Resp 18 02/04/19 12:44 BP 116/83 02/04/19 12:44 Pulse Ox 100 02/04/19 12:44 Height 5 ft 4 in Weight 257 lb 3.2 oz GEN: awake, alert, NAD HEENT: anicteric, MMM NECK: supple, no JVD PULM: CTAB CARDS: RRR, no murmurs ABD: obese soft ND, NABS, mild TTP lower abdomen EXT: no cce NEURO: nonfocal LABS: 02/04/19 02/04/19 06:10 06:10 WBC 8.41 Hgb 10.7 L MCV 71.1 L Plt Count 271 Sodium 141 Potassium 3.8 Chloride 105 Carbon Dioxide 28 BUN 9 Creatinine 0.8 Glucose 169 H A/P: Radha Beckman is a 38-year-old woman admitted with acute on chronic systolic congestive heart failure and uncontrolled insulin-dependent diabetes complicated by gastroparesis, who presents was intractable nausea and vomiting, consistent with gastroparesis exacerbation. She reports some abdominal pain in lower abdomen. #Gastroparesis: persistent nausea - recommend low-fiber, low-fat diet with small frequent meals - continue reglan; wean narcotics - glycemic control #CHF exacerbation: diuresis per primary team #IDDM2: SSI #Constipation: continue bowel regimen #GI ppx: continue PPI #Anemia: secondary to her known thalassemia; stable Will follow with you. Please call with questions.
[2019-02-04] MEDS: NEURONTIN PO SCH (21:02)
[2019-02-05] MEDS: CARAFATE LIQUID PO SCH ×4 (01:06→20:31)
[2019-02-05] MEDS: DILAUDID IV PRN ×4 (01:06→22:10)
[2019-02-05] MEDS: DUONEB (A & A) INH SCH ×4 (03:50→21:15)
[2019-02-05] MEDS: ZOFRAN IV PRN ×2 (04:35→22:30)
[2019-02-05] MEDS: REGLAN LIQUID PO SCH ×3 (06:54→20:30)
[2019-02-05] MEDS: LOVENOX SUBQ SCH (06:55)
[2019-02-05] MEDS: PROTONIX PO SCH (06:55)
[2019-02-05] MEDS: HUMALOG SUBQ SCH ×4 (08:01→20:30)
[2019-02-05] MEDS: CENTRUM SILVER PO SCH (08:24)
[2019-02-05] MEDS: ZAROXOLYN PO SCH (08:24)
[2019-02-05] MEDS: COREG PO SCH (08:24)
[2019-02-05] MEDS: ENTRESTO 24 MG-26 MG TABLET PO SCH ×2 (08:24→20:31)
[2019-02-05] MEDS: BASAGLAR SUBQ SCH ×3 (08:25→20:29)
[2019-02-05] MEDS: LASIX PO SCH ×2 (08:25→20:31)
[2019-02-05] MEDS: XANAX PO SCH ×2 (08:45→20:31)
[2019-02-05 08:49] LABS: BASO# 0.03 X1000 (0.0-0.2); BASO% 0.3 % (0.0-0.8); EOS# 0.32 X1000 (0.0-0.7); EOS% 3.4 % (0.0-10.0); HEMATOCRIT 36.6 % (37.0-47.0); HEMOGLOBIN 11.4 g/dL (12.0-16.0); LYMPH# 1.56 X1000 (1.2-3.4); LYMPH% 16.4 % (20.5-51.1); MCH 21.6 PG (27-31); MCHC 31.1 g/dL (33-37); MCV 69.3 FL (81-99); MONO# 0.62 X1000 (0.11-0.59); MONO% 6.5 % (1.7-9.3); MPV 9.9 FL (7.4-10.4); NEUT# 6.96 X1000 (1.4-6.5); NEUT% 73.4 % (42.2-75.2); PLT 268 X1000 (130-400); RBC 5.28 XMIL (4.2-5.4); RDW 18.2 % (11.5-14.5); WBC 9.49 X1000 (4.8-10.8)
[2019-02-05 09:01] LABS: AGAP 9; BUN 12 mg/dL (8-22); CALCIUM 8.8 mg/dL (8.8-10.2); CHLORIDE 97 mmol/L (98-107); COSMO 273; ESTIMATED GFR > 60; GLUCOSE 214 mg/dL (70-104); POTASSIUM 3.8 mmol/L (3.5-5.1); SODIUM 133 mmol/L (136-145); TCO2 27 mmol/L (25-35)
[2019-02-05 09:27] LABS: BANDS 2 % (0-1); EOS 4 % (1-10); LYMPHS 15 % (21-51); MONO 6 % (1-9); SEGS 73 % (42-75)
[2019-02-05 09:28] LABS: ANISOCYTOSIS 1+; MICROCYTOSIS 1+
--- NOTE | 2019-02-05 14:00 | EKG Report ---
Test Performed on : 02/05/2019 1:50:47 PM Test Reason : evaluate qtc Blood Pressure : / mmHG Vent. Rate : 099 BPM Atrial Rate : 099 BPM P-R Int : 174 ms QRS Dur : 092 ms QT Int : 384 ms P-R-T Axes : 063 -17 094 degrees QTc Int : 492 ms Normal sinus rhythm. Possible Left atrial enlargement Abnormal QRS-T angle, consider primary T wave abnormality Prolonged QT Abnormal ECG When compared with ECG of 05-FEB-2019 13:49, (Unconfirmed) No significant change was found Confirmed by Natividad LEVINE, Kyle ([id number]) on 02/05/2019 6:24:22 PM
--- NOTE | 2019-02-05 15:07 | PROGRESS NOTE ---
DATE: 02/05/2019 SUBJECTIVE: Ms. Radha Beckman is a 38-year-old -[place] female. She is resting comfortably in bed, sitting up in bed, seems more depressed and down today. She is still complaining of lower extremity discomfort but no other complaint other than depression. OBJECTIVE: Vital signs: Temperature 98.4, heart rate 108, respiratory rate 18, blood pressure 115/74, O2 saturation 91% on room air. General: Ms. Radha Beckman is a 38-year-old -[place] female. She is in no acute distress, able to answer questions appropriately. Cardiovascular: S1, S2. Tachycardic rate, rhythm. No rubs, gallops, or murmurs. She has got +3 lower extremity pitting edema, +1 dorsalis pedal pulses, +2 radial pulses. Negative for JVD and carotid bruits. Pulmonary: Clear to auscultate bilateral breath sounds, decreased in the bases. GI: Soft, nontender, nondistended. Positive bowel sounds x4. Extremities: Moves all extremities equally. Skin: Right muhammad wound with clear dressing over it, no signs or symptoms of infection otherwise. No other abnormalities. LABORATORY DATA: White blood cells 9000, hemoglobin 11, hematocrit 36, platelet count 168. Sodium 133, potassium 3.8, BUN 12, creatinine is 1.0, glucose 214, calcium 8.8. IMAGING: None, but she has had an EKG, normal sinus rhythm, rate 99, QTc is 492. ASSESSMENT AND PLAN: 1. Gzsit-ve-hqfhtzs systolic congestive heart failure, it is essentially resolved, although, she still continues to have residual lower extremity edema. ProBNP is definitely less than it was on admission, and she is still having pain and discomfort in the legs. Continue the Lasix at 60 twice a day, metolazone was added, and now she is definitely in the negative on her I and O for the first time in several days. Continue Coreg, Entresto as well. It looks like she was last seen by Cardiology on 01/[address] Ramirez. 2. Gastroesophageal reflux disease, gastroparesis, nausea but no vomiting. Nausea has essentially resolved now. She does have some Zofran that she can take. Still has some diarrhea. Will continue with Reglan, Carafate, Protonix, and was being seen by GI, which I think had signed off on the , but they also saw her on the . 3. Diarrhea. Clostridium difficile negative. Continuing on Reglan due to gastroparesis. 4. Right chest wall lesion or induration under the right breast. She will follow up with General Surgery as outpatient. 5. Nonischemic cardiomyopathy. See number 1. 6. Lower extremity swelling likely secondary to number 1. KEO hose have been ordered. Negative for DVT. Pain could be due to diabetic neuropathy, so Neurontin at 300 last night she states did help a little bit but it is not helping during the day so we have added 100 for her at 9 and another 100 for her at 12 o'clock. No change in her pain medication. 7. Diabetes mellitus type 2. Will do pattern blood glucoses, sliding scale insulin. Continue her glargine. 8. Morbid obesity. Proper diet and exercise instructed. 9. Anxiety disorder. Xanax changed to at night instead of in the morning. 10.Situational depression. Zoloft has been added. Will follow her QTc. She had a 492 on her QTc today, will repeat it for tomorrow. Tonight will be the first dose as she is on Reglan as well. 11.Right muhammad wound [facility], saline clean. 12.Deep venous thrombosis prophylaxis, Lovenox. Dictated by KRISTAN Sweeney for Victor Manuel Angulo MD cc: KRISTAN Sweeney MD Concur with assessment and plan of the FOUR CORNER STAYER MACHINE OPERATOR. Dr. Angulo. [facility]
[2019-02-05] MEDS: ZOLOFT PO SCH (20:31)
[2019-02-05] MEDS: NEURONTIN PO SCH (20:31)
[2019-02-05] MEDS: NORCO-10 PO PRN (20:45)
--- NOTE | 2019-02-05 22:27 | PROVIDER PROGRESS NOTE ---
Progress Note SUBJECTIVE: No acute overnight events. No N/V/F, CP. Patient is tolerating GI soft diabetic diet. She reports stable SOB and LE edema. OBJECTIVE: Last Vital Signs Temp 98.5 F 02/05/19 19:54 Pulse 102 H 02/05/19 19:54 Resp 16 02/05/19 19:54 BP 123/73 02/05/19 19:54 Pulse Ox 100 02/05/19 19:54 Height 5 ft 4 in Weight 259 lb GEN: awake, alert, NAD HEENT: anicteric, MMM NECK: supple, no JVD PULM: CTAB CARDS: RRR, no murmurs ABD: obese soft NT/ND, NABS EXT: 1-2+ LE edema NEURO: nonfocal LABS: 02/05/19 02/05/19 08:30 08:30 WBC 9.49 Hgb 11.4 L Plt Count 268 Sodium 133 L Potassium 3.8 Chloride 97 L Carbon Dioxide 27 BUN 12 Creatinine 1.0 H Glucose 214 H A/P: Radha Beckman is a 38-year-old woman admitted with acute on chronic systolic congestive heart failure and uncontrolled insulin-dependent diabetes complicated by gastroparesis, who presents was intractable nausea and vomiting, consistent with gastroparesis exacerbation. Her nausea and vomiting has resolved. She continues to have volume overload. #Gastroparesis: persistent nausea - recommend low-fiber, low-fat diet with small frequent meals - continue reglan; wean narcotics - glycemic control #CHF exacerbation: diuresis per primary team #IDDM2: SSI #Constipation: continue bowel regimen #GI ppx: continue PPI #Anemia: secondary to her known thalassemia; stable Will follow with you. Please call with questions.
[2019-02-06] MEDS: NORCO-10 PO PRN ×3 (00:57→23:29)
[2019-02-06] MEDS: ZOFRAN IV PRN ×3 (02:49→20:21)
[2019-02-06] MEDS: DUONEB (A & A) INH SCH ×4 (03:20→21:25)
[2019-02-06] MEDS: CARAFATE LIQUID PO SCH ×4 (03:28→20:20)
[2019-02-06] MEDS: REGLAN LIQUID PO SCH ×3 (06:30→20:20)
[2019-02-06] MEDS: HUMALOG SUBQ SCH ×4 (06:30→22:53)
[2019-02-06] MEDS: LOVENOX SUBQ SCH (06:30)
[2019-02-06] MEDS: PROTONIX PO SCH (06:30)
[2019-02-06] MEDS ORDERED: INSULIN PEN NEEDLES ONE (07:05)
[2019-02-06 07:06] LABS: BASO# 0.03 X1000 (0.0-0.2); BASO% 0.4 % (0.0-0.8); EOS# 0.36 X1000 (0.0-0.7); EOS% 4.3 % (0.0-10.0); HEMATOCRIT 38.4 % (37.0-47.0); HEMOGLOBIN 12.1 g/dL (12.0-16.0); LYMPH# 2.21 X1000 (1.2-3.4); LYMPH% 26.6 % (20.5-51.1); MCH 21.6 PG (27-31); MCHC 31.5 g/dL (33-37); MCV 68.4 FL (81-99); MONO# 0.68 X1000 (0.11-0.59); MONO% 8.2 % (1.7-9.3); MPV 9.8 FL (7.4-10.4); NEUT# 5.04 X1000 (1.4-6.5); NEUT% 60.5 % (42.2-75.2); PLT 283 X1000 (130-400); RBC 5.61 XMIL (4.2-5.4); RDW 18.4 % (11.5-14.5); WBC 8.32 X1000 (4.8-10.8)
--- NOTE | 2019-02-06 07:10 | EKG Report ---
Test Performed on : 02/06/2019 06:47:23 AM Test Reason : evaluate qtc Blood Pressure : / mmHG Vent. Rate : 104 BPM Atrial Rate : 104 BPM P-R Int : 178 ms QRS Dur : 088 ms QT Int : 370 ms P-R-T Axes : 078 -30 090 degrees QTc Int : 486 ms Sinus tachycardia. Possible Left atrial enlargement Left axis deviation Abnormal ECG When compared with ECG of 05-FEB-2019 13:50, No significant change was found Confirmed by Natividad LEVINE, Kyle ([id number]) on 02/06/2019 8:43:59 AM
[2019-02-06 07:28] LABS: AGAP 12; ALB/GLOB RATIO 0.6; ALBUMIN 2.8 g/dL (3.5-5.0); ALKALINE PHOSPHATASE 187 U/L (32-104); BUN 13 mg/dL (8-22); CHLORIDE 93 mmol/L (98-107); COSMO 274; ESTIMATED GFR > 60; GLUCOSE 200 mg/dL (70-104); GOT 21 U/L (10-30); GPT 13 U/L (10-36); POTASSIUM 3.6 mmol/L (3.5-5.1); SODIUM 134 mmol/L (136-145); TCO2 29 mmol/L (25-35); TOTAL BILIRUBIN < 0.15 mg/dL (0.20-1.00); TOTAL PROTEIN 7.7 g/dL (6.3-8.3)
[2019-02-06] MEDS: ENTRESTO 24 MG-26 MG TABLET PO SCH ×2 (10:14→20:22)
[2019-02-06] MEDS: LASIX PO SCH (10:15)
[2019-02-06] MEDS: COREG PO SCH (10:15)
[2019-02-06] MEDS: NEURONTIN PO SCH ×3 (10:15→20:22)
[2019-02-06] MEDS: CENTRUM SILVER PO SCH (10:15)
[2019-02-06] MEDS: ZAROXOLYN PO SCH (10:15)
[2019-02-06] MEDS: BASAGLAR SUBQ SCH ×2 (10:17→22:54)
[2019-02-06] MEDS: DILAUDID IV PRN ×3 (10:31→22:53)
--- NOTE | 2019-02-06 11:14 | GASTROENTEROLOGY PROGRESS NOTE ---
DATE: 02/06/2019 SUBJECTIVE: Patient is resting in bed. Her is at bedside. The patient is feeling better. She is eating better. She is moving her bowels better. She denies any abdominal pain. OBJECTIVE: Vital signs: Temperature 98.6 degrees, pulse rate 109, respiratory rate of 20, blood pressure of 131/80, saturating 90% on room air. Weight: Body weight of 259 pounds, BMI 44.5 kg/m2. General: Patient is morbidly obese, sitting in bed, in no acute distress. HEENT: No pallor. No icterus. Neck is supple. Abdomen is obese, soft, nontender, nondistended. No guarding or rebound. Extremities: No cyanosis or clubbing. Neurologic: She is alert, awake, oriented x3. DIAGNOSTIC STUDIES: Hemoglobin is 12.1, hematocrit 38.4, white count of 8.32, platelet count of 283. Sodium 134, potassium 3.6, chloride 93, bicarbonate 20, anion gap 12, BUN of 13, creatinine 1, glucose of 200, calcium 9, total bilirubin is less than 0.15, AST 21, ALT 13, alkaline phosphatase 187, total protein 7.2, albumin of 2.8. C difficile toxin and antigen were checked on 02/02/2019 and they were both negative. Her stool for occult blood was checked on 01/31/2019, which was negative. IMPRESSION AND PLAN: 1. Gastroparesis. She will need to take small frequent meals. She will continue on Reglan. She will hold Reglan for side effects like tardive dyskinesia and dystonia. She will continue to wean down narcotics. 2. Diabetes. The patient is counseled to keep a good control of diabetes. 3. Congestive heart failure exacerbation. She is on diuresis per the primary care team. 4. Gastrointestinal prophylaxis. PPIs. 5. Anemia secondary to known history of thalassemia and stable. 6. Intractable nausea/vomiting, improved. 7. Constipation is improved. 8. Obesity. Patient was counseled to lose weight. 9. The patient will follow up in the clinic as an outpatient in 4 weeks of discharge. cc: MD Leslie Guillory MD
[2019-02-06] MEDS ORDERED: ALBUMIN 25% IV ONE (15:09)
--- NOTE | 2019-02-06 15:51 | CARDIOLOGY PROGRESS NOTE ---
DATE: 02/06/2019 SUBJECTIVE: Patient continues without chest discomfort or shortness of breath on room air. Her tendency for nausea has not completely resolved. OBJECTIVE: Blood pressure 125/76, heart rate 110, oxygen saturation 95% on room air. Jugular venous distention is difficult to discern, but appears to probably be elevated. Chest is clear to auscultation. Cardiac exam reveals a regular rate and rhythm without appreciable murmur or gallop. Extremities demonstrate mild pretibial edema. LABORATORY DATA: Includes a white blood cell count 8.32 hematocrit 38.4, hemoglobin 12.1, platelet count 283,000. Sodium 134 potassium 3.6, chloride 93, carbon dioxide 29, BUN 13, creatinine 1.0, glucose 200, albumin 2.8. IMPRESSION: 1. Re-emerging acute on chronic systolic heart failure. 2. Severe nonischemic cardiomyopathy. 3. Persistent problems with nausea and vomiting, possibly related to gastroparesis. 4. Obesity. 5. Type 2 diabetes mellitus. 6. Hypertension. RECOMMENDATIONS: Diuresis once more with IV Lasix. cc: Mukesh Ramirez MD
--- NOTE | 2019-02-06 15:57 | PROGRESS NOTE ---
DATE: 02/06/2019 SUBJECTIVE: The patient is a 38-year-old -[place] female. She is sitting comfortably on the side of the bed. She is actually feeling much more comfortable. Swelling has decreased in her leg. She has been wearing her KEO hose as prescribed, walking more frequently, and she has actually had quite a bit of fluid pulled off from diuresis and her legs are feeling better. OBJECTIVE: Vital signs: Temperature 97.6, heart rate 113, respiratory rate 20, blood pressure 125/76, oxygen saturation 95% on room air. Cardiovascular: S1, S2, tachycardic rate and rhythm, no murmurs, rubs, or gallops. She has +2 pitting edema on the right foot, +3 on the left foot, but it still looks better and then she has got +1 dorsalis pedal pulses, posterior radial pulse. Negative JVD or carotid bruits. Pulmonary: Clear to auscult, bilateral breath sounds, no accessory muscle use or work of breathing noted. Gastrointestinal: Soft, nontender, and nondistended, positive bowel sounds times 4. Extremities: Moves all extremities equally. Skin: Warm and dry and intact except for the right muhammad where she has a wound that is covered with Medihoney dressing. LABORATORY DATA: White blood cells 8000, hemoglobin 12, hematocrit 38, platelet count 283. Sodium 134, potassium 3.6, BUN 13, creatinine 1.0, glucose is 200, calcium 9.0, bilirubin is less than 0.15, AST 21, ALT 13, albumin 2.8. IMAGING: Only an EKG, which showed sinus tachycardia, rate 104, QTC 486. ASSESSMENT AND PLAN: 1. [id number]-[id number] systolic congestive heart failure essentially resolved. Since the Lasix was increased to 60 twice daily and the metolazone was added, she has had much more improved intake and output and is currently negative 2790 mL with less edema in the lower extremities. We will continue that. She is also going to continue the Coreg and Entresto. Last seen by Cardiology on 01/31 by Mukesh Ramirez MD. 2. Gastroesophageal reflux disease, gastroparesis, nausea, no vomiting. Nausea has resolved as well, but she does have occasional spells where she takes Zofran. No diarrhea. She had a normal bowel movement today. Continue with Reglan, Carafate, Protonix, been followed by gastrointestinal. 3. Diarrhea, resolved. Normal bowel movement today. 4. Right chest wall lesion or induration into the right breast. She is still complaining of that area and requested for hot packs to be placed on it yesterday and last night. 5. Nonischemic cardiomyopathy. See number one. 6. Lower extremity swelling secondary to number one. KEO hose. She has been wearing those. Negative for deep vein thrombosis. She has had pain in the lower extremities as well, which has improved with the Neurontin, and since she has had fluid, she is negative almost 3 L, she has had less swelling in the lower extremities. 7. Diabetes mellitus type 2. Pattern blood glucoses with sliding scale insulin and we will continue the glargine, but she is noncompliant with her diabetic diet as there was chocolate empty wrappers on her bedside table. 8. Morbid obesity. Proper diet and exercise instructed. Nutritional consult. 9. Protein-calorie malnutrition. She is 5 small, soft meals per day. 10.Anxiety disorder. Xanax is at night and has helped her sleep. 11.Situational depression. Zoloft was added last night. We will follow her QTC which this morning it is 486, which is down from 492. We will continue with the Zoloft. 12.Right muhammad wound followed by wound care. MU Mantilla dressing once a week saline clean. I believe she is supposed to follow up again with her tomorrow. 13.Deep vein thrombosis prophylaxis. Lovenox. DISPOSITION: The patient states that she is feeling much better and might would possibly be ready to go home tomorrow. Dictated by KRISTAN Sweeney for Victor Manuel Angulo MD cc: KRISTAN Sweeney MD Patient on diuretics for decompensated Chf. Other medical conditions managed accordingly. 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 Dr. Angulo. [facility]ITALMendy
[2019-02-06] MEDS: XANAX PO SCH (20:22)
[2019-02-06] MEDS: ZOLOFT PO SCH (20:22)
[2019-02-06] MEDS: LASIX IV SCH (20:22)
[2019-02-07] MEDS: ZOFRAN IV PRN ×2 (00:54→04:58)
[2019-02-07] MEDS: DUONEB (A & A) INH SCH ×4 (03:30→21:37)
[2019-02-07] MEDS: DILAUDID IV PRN ×4 (04:58→22:07)
[2019-02-07] MEDS: PROTONIX PO SCH (06:25)
[2019-02-07] MEDS: CARAFATE LIQUID PO SCH ×4 (06:25→22:02)
[2019-02-07] MEDS: LOVENOX SUBQ SCH (06:25)
[2019-02-07] MEDS: HUMALOG SUBQ SCH ×4 (06:25→22:02)
[2019-02-07 06:44] LABS: BASO# 0.03 X1000 (0.0-0.2); BASO% 0.3 % (0.0-0.8); EOS# 0.45 X1000 (0.0-0.7); EOS% 4.5 % (0.0-10.0); HEMATOCRIT 36.2 % (37.0-47.0); HEMOGLOBIN 11.3 g/dL (12.0-16.0); IMM GRAN# 0.02 X1000 (0.0-0.04); IMM GRAN% 0.2 % (0.0-0.5); LYMPH# 2.16 X1000 (1.2-3.4); LYMPH% 21.6 % (20.5-51.1); MCH 21.5 PG (27-31); MCHC 31.2 g/dL (33-37); MCV 68.8 FL (81-99); MONO# 0.99 X1000 (0.11-0.59); MONO% 9.9 % (1.7-9.3); NEUT# 6.36 X1000 (1.4-6.5); NEUT% 63.5 % (42.2-75.2); PLT 246 X1000 (130-400); RBC 5.26 XMIL (4.2-5.4); RDW 18.1 % (11.5-14.5); WBC 10.01 X1000 (4.8-10.8)
[2019-02-07] MEDS: REGLAN LIQUID PO SCH ×3 (06:51→22:02)
[2019-02-07 07:16] LABS: AGAP 9; ALB/GLOB RATIO 0.7; ALBUMIN 2.9 g/dL (3.5-5.0); ALKALINE PHOSPHATASE 174 U/L (32-104); BUN 14 mg/dL (8-22); CALCIUM 8.4 mg/dL (8.8-10.2); CHLORIDE 91 mmol/L (98-107); COSMO 267; ESTIMATED GFR > 60; GLUCOSE 197 mg/dL (70-104); GOT 20 U/L (10-30); GPT 16 U/L (10-36); POTASSIUM 3.7 mmol/L (3.5-5.1); SODIUM 130 mmol/L (136-145); TCO2 30 mmol/L (25-35); TOTAL BILIRUBIN < 0.15 mg/dL (0.20-1.00); TOTAL PROTEIN 7.3 g/dL (6.3-8.3)
[2019-02-07 07:38] LABS: BANDS 4 % (0-1); EOS 2 % (1-10); LYMPHS 28 % (21-51); MONO 2 % (1-9); SEGS 64 % (42-75)
[2019-02-07] MEDS: NORCO-10 PO PRN (08:17)
[2019-02-07] MEDS: LASIX IV SCH ×2 (09:08→22:02)
[2019-02-07] MEDS: BASAGLAR SUBQ SCH ×2 (09:10→22:03)
[2019-02-07] MEDS: CENTRUM SILVER PO SCH (09:10)
[2019-02-07] MEDS: NEURONTIN PO SCH ×3 (09:10→22:02)
[2019-02-07] MEDS: ENTRESTO 24 MG-26 MG TABLET PO SCH ×2 (09:10→22:03)
[2019-02-07] MEDS: COREG PO SCH (09:11)
[2019-02-07] MEDS: ZAROXOLYN PO SCH (09:11)
[2019-02-07] MEDS ORDERED: SODIUM CHLORIDE 0.9% INJ PRN (11:20)
[2019-02-07] MEDS: PHENERGAN IV PRN ×2 (11:48→22:29)
--- NOTE | 2019-02-07 13:21 | Extremity Venous Study ---
PROCEDURE NAME: Venous U/S Bilateral Legs - 02/03/2019 REFERRING PHYSICIAN: Manda Chung MD READING PHYSICIAN: Abel Dickerson MD FARMER CASH GRAIN: Addy. INDICATIONS: Leg swelling. FINDINGS: The deep and superficial veins of the lower extremities were imaged throughout their course. They are compressible, patent without thrombus. The signals in the veins were noted to be somewhat pulsatile. INTERPRETATION: No DVT or SVT of either lower extremity. There may be some congestive heart failure given the pulsatile signals and should be handled clinically. cc: MD Manda Aguirre MD
--- NOTE | 2019-02-07 15:57 | PROVIDER PROGRESS NOTE ---
Progress Note SUBJECTIVE: No acute overnight events. Afebrile. She reports improving nausea. No vomiting. She is tolerating diet well. She reports some periumibilical abdominal discomfort. +BM. Nonbloody. She has some cough; however, SOB is improving. No CP. OBJECTIVE: Last Vital Signs Temp 98.0 F 02/07/19 11:58 Pulse 110 H 02/07/19 11:58 Resp 18 02/07/19 11:58 BP 127/90 02/07/19 11:58 Pulse Ox 97 02/07/19 11:58 Height 5 ft 4 in Weight 256 lb 4 oz GEN: awake, alert, NAD HEENT: anicteric, MMM NECK: supple, no JVD PULM: CTAB CARDS: RRR, no murmurs ABD: obese soft NT/ND, NABS EXT: 1-2+ LE edema NEURO: nonfocal LABS: 02/05/19 02/05/19 08:30 08:30 WBC 9.49 Hgb 11.4 L Plt Count 268 Sodium 133 L Potassium 3.8 Chloride 97 L Carbon Dioxide 27 BUN 12 Creatinine 1.0 H Glucose 214 H A/P: Radha Beckman is a 38-year-old woman admitted with acute on chronic systolic congestive heart failure and uncontrolled insulin-dependent diabetes complicated by gastroparesis, who presents was intractable nausea and vomiting, consistent with gastroparesis exacerbation. Her nausea and vomiting has resolved. She continues to have volume overload mgmt by primary team. #Gastroparesis: persistent nausea - continue low-fiber, low-fat diet with small frequent meals - continue reglan; wean narcotics - glycemic control #CHF exacerbation: diuresis per primary team #IDDM2: SSI #Constipation: continue bowel regimen #GI ppx: continue PPI #Anemia: secondary to her known thalassemia; stable Will sign off. Patient should follow-up in our clinic 2-4 weeks after discharge. Please call with questions or concerns.
--- NOTE | 2019-02-07 16:07 | PROGRESS NOTE ---
DATE: 02/07/2019 SUBJECTIVE: Patient resting in bed. She is still worried about swelling in the lower extremities. OBJECTIVE: Vital signs: Temperature 98 degrees, pulse 110, respiratory rate 18, blood pressure 127/90, oxygen saturation 97%. HEENT: Atraumatic, normocephalic. Cardiovascular System: S1, S2. Respiratory system has evidence of good air entry bilaterally. Abdomen is soft and nontender. Extremities have 2+ edema in the lower extremities. Central Nervous System: No obvious focal deficit noted. LABORATORIES: WBC 10.01, hematocrit 36.2, platelet count of 246. Sodium is 130, potassium 3.7, chloride 101, bicarbonate 30, BUN 14.0, creatinine is 1.0. ASSESSMENT AND PLAN: 1. Acute on chronic systolic heart failure. Continue diuretics. Monitor intakes and outputs, as well as daily weights. Cardiology following. 2. Gastroparesis flare. This seems to have resolved. Continue Reglan. 3. Diabetes mellitus. Continue to monitor blood sugars. Maintain patient on sliding scale insulin. 4. Anxiety disorder. Continue anxiolytic. 5. Depression. Continue antidepressant. 6. Right lower extremity wound. Continue local wound care. 7. Deep vein thrombosis prophylaxis. SCD. cc: Victor Manuel Angulo MD MTDD
[2019-02-07] MEDS: ZOLOFT PO SCH (22:02)
[2019-02-07] MEDS: XANAX PO SCH (22:07)
--- NOTE | 2019-02-07 22:46 | PROGRESS NOTE ---
DATE: 02/07/2019 SUBJECTIVE: Patient continues without shortness of breath or chest discomfort. She still has some tendency for nausea. OBJECTIVE: Blood pressure 113/71, heart rate 100, oxygen saturation 100% on room air.Neck: Jugular venous distention cannot be appreciated. Chest: Clear to auscultation. Cardiac Exam: Reveals a regular rate and rhythm without appreciable murmur or gallop. Extremities: Without edema. LABORATORY DATA: Includes a white blood cell count of 10.01, hematocrit 36.2, hemoglobin 11.3, platelet count 246,000. Sodium 130, potassium 3.7, chloride 91, carbon dioxide 30, BUN 14, creatinine 1.0, glucose 197, albumin 2.9. IMPRESSION: 1. Acute on chronic systolic heart failure. Patient appears to be once again improving following further diuresis. 2. Severe nonischemic cardiomyopathy. 3. Persistent problems with nausea and vomiting suspect related to gastroparesis. 4. Obesity. 5. Type 2 diabetes mellitus. 6. Hypertension. RECOMMENDATIONS: 1. Transition to oral Lasix tomorrow evening. 2. Try and maintain current weight at this point given that she appears to be approaching euvolemia. 3. Fluid restrict given tendency for hyponatremia. cc: Mukesh Ramirez MD
[2019-02-08] MEDS: CARAFATE LIQUID PO SCH ×5 (01:50→20:27)
[2019-02-08] MEDS: DUONEB (A & A) INH SCH ×4 (03:27→22:54)
[2019-02-08] MEDS: REGLAN LIQUID PO SCH ×3 (05:28→20:27)
[2019-02-08] MEDS: LOVENOX SUBQ SCH (05:28)
[2019-02-08] MEDS: PROTONIX PO SCH ×2 (05:28→06:38)
[2019-02-08] MEDS: HUMALOG SUBQ SCH ×4 (06:37→23:00)
[2019-02-08] MEDS: DILAUDID IV PRN ×3 (06:42→18:10)
[2019-02-08 06:59] LABS: BASO# 0.04 X1000 (0.0-0.2); BASO% 0.4 % (0.0-0.8); EOS# 0.46 X1000 (0.0-0.7); EOS% 4.5 % (0.0-10.0); HEMATOCRIT 36.6 % (37.0-47.0); HEMOGLOBIN 11.5 g/dL (12.0-16.0); IMM GRAN# 0.02 X1000 (0.0-0.04); IMM GRAN% 0.2 % (0.0-0.5); LYMPH# 1.79 X1000 (1.2-3.4); LYMPH% 17.4 % (20.5-51.1); MCH 21.7 PG (27-31); MCHC 31.4 g/dL (33-37); MCV 68.9 FL (81-99); MONO# 0.98 X1000 (0.11-0.59); MONO% 9.5 % (1.7-9.3); MPV 10.2 FL (7.4-10.4); NEUT# 7.02 X1000 (1.4-6.5); PLT 270 X1000 (130-400); RBC 5.31 XMIL (4.2-5.4); RDW 18.1 % (11.5-14.5); WBC 10.31 X1000 (4.8-10.8)
[2019-02-08] MEDS: PHENERGAN IV PRN ×3 (07:02→18:09)
[2019-02-08 07:25] LABS: AGAP 10; ALB/GLOB RATIO 0.6; ALBUMIN 2.9 g/dL (3.5-5.0); ALKALINE PHOSPHATASE 180 U/L (32-104); BUN 14 mg/dL (8-22); CHLORIDE 93 mmol/L (98-107); COSMO 283; ESTIMATED GFR > 60; GLUCOSE 248 mg/dL (70-104); GOT 22 U/L (10-30); GPT 17 U/L (10-36); POTASSIUM 3.6 mmol/L (3.5-5.1); SODIUM 137 mmol/L (136-145); TCO2 34 mmol/L (25-35); TOTAL BILIRUBIN 0.15 mg/dL (0.20-1.00); TOTAL PROTEIN 7.5 g/dL (6.3-8.3)
[2019-02-08] MEDS: ZOFRAN IV PRN ×2 (08:45→20:36)
[2019-02-08] MEDS: ZAROXOLYN PO SCH (08:45)
[2019-02-08] MEDS: LASIX IV SCH (09:43)
[2019-02-08] MEDS: NEURONTIN PO SCH ×3 (09:44→20:28)
[2019-02-08] MEDS: ENTRESTO 24 MG-26 MG TABLET PO SCH ×2 (09:44→20:28)
[2019-02-08] MEDS: BASAGLAR SUBQ SCH ×2 (09:44→23:02)
[2019-02-08] MEDS: CENTRUM SILVER PO SCH (09:44)
[2019-02-08] MEDS: COREG PO SCH (12:57)
[2019-02-08] MEDS: NORCO-10 PO PRN ×2 (15:37→20:36)
--- NOTE | 2019-02-08 17:50 | PROGRESS NOTE ---
DATE: 02/08/2019 Today Ms. Beckman referred to be doing fairly okay. She says she did have some nauseating earlier this morning but she did not have any vomiting. When I saw her early this evening she was actually eating a very big burger and she was almost at the last stages of it and she was enjoying. There was no vomiting, no nauseation. She was requesting for more pain medication. OBJECTIVE: Vital signs: Blood pressure is 112/72, pulse of 103, respiration is 18, temperature 99 degrees. General: Ms. Beckman 38-year-old female she was sitting up in the bed. She was having her dinner no distress. Mucosa is pink and moist. Anicteric. Acyanotic. Neck: Supple. Chest: Clear to auscultation. Cardiovascular: Regular rate and rhythm. Extremities: Did have 1+ pedal edema. 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 LABORATORY DATA: CBC is reviewed. Hemoglobin is 11.5. Chemistry is also reviewed unremarkable. Patient medications have all been reviewed. ASSESSMENT: 1. Acute on chronic systolic heart failure with ejection fraction of 20 to 25 percent. Cardiology is on board. Patient seems to be doing pretty well. Diuresing well, Lasix has been switched to p.o. from tomorrow and hopefully if she tolerates will be able to discharge her. 2. Severe gastroparesis flare. This has resolved. The patient continues to be on Reglan. No side effects. 3. Uncontrolled diabetes mellitus with presenting A1c of 12.5. 4. Microcytic anemia due to iron deficiencies, will continue replacing this. 5. Anxiety disorder. 6. Right lower extremity wound, wound care is on board. So in general I think Ms. Beckman seems to be doing pretty well. She continues to diurese well. Will continue titrating her oral diuretic and await final recommendation from Cardiology and GI. I believe in the next 24 hours we can potentially discharge Ms. Beckman. cc: MD DAQUAN Peoples
[2019-02-08] MEDS: ZOLOFT PO SCH (20:28)
[2019-02-08] MEDS: XANAX PO SCH (20:28)
[2019-02-08] MEDS ORDERED: HALL'S COUGH LOZENGE MT PRN (20:45)
[2019-02-09] MEDS: DILAUDID IV PRN ×4 (00:47→21:43)
[2019-02-09] MEDS: ZOFRAN IV PRN ×2 (00:47→17:50)
[2019-02-09] MEDS: PHENERGAN IV PRN ×4 (02:06→21:43)
[2019-02-09] MEDS: DUONEB (A & A) INH SCH ×4 (03:29→22:15)
[2019-02-09] MEDS: REGLAN LIQUID PO SCH ×3 (05:49→20:42)
[2019-02-09] MEDS: PROTONIX PO SCH ×2 (05:49→06:17)
[2019-02-09] MEDS: CARAFATE LIQUID PO SCH ×4 (05:49→20:42)
[2019-02-09] MEDS: LOVENOX SUBQ SCH (05:50)
[2019-02-09 07:13] LABS: BASO# 0.03 X1000 (0.0-0.2); BASO% 0.3 % (0.0-0.8); EOS# 0.47 X1000 (0.0-0.7); EOS% 4.6 % (0.0-10.0); HEMATOCRIT 36.7 % (37.0-47.0); HEMOGLOBIN 11.5 g/dL (12.0-16.0); IMM GRAN# 0.02 X1000 (0.0-0.04); IMM GRAN% 0.2 % (0.0-0.5); LYMPH# 2.29 X1000 (1.2-3.4); LYMPH% 22.6 % (20.5-51.1); MCH 21.8 PG (27-31); MCHC 31.3 g/dL (33-37); MCV 69.5 FL (81-99); MONO# 0.87 X1000 (0.11-0.59); MONO% 8.6 % (1.7-9.3); MPV 10.5 FL (7.4-10.4); NEUT# 6.47 X1000 (1.4-6.5); NEUT% 63.7 % (42.2-75.2); PLT 271 X1000 (130-400); RBC 5.28 XMIL (4.2-5.4); RDW 18.3 % (11.5-14.5); WBC 10.15 X1000 (4.8-10.8)
[2019-02-09] MEDS ORDERED: INSULIN PEN NEEDLES ONE (07:29)
[2019-02-09 07:32] LABS: AGAP 12; ALB/GLOB RATIO 0.6; ALBUMIN 2.6 g/dL (3.5-5.0); ALKALINE PHOSPHATASE 154 U/L (32-104); BUN 16 mg/dL (8-22); CALCIUM 8.7 mg/dL (8.8-10.2); CHLORIDE 94 mmol/L (98-107); COSMO 281; ESTIMATED GFR > 60; GLUCOSE 241 mg/dL (70-104); GOT 17 U/L (10-30); GPT 16 U/L (10-36); POTASSIUM 3.6 mmol/L (3.5-5.1); SODIUM 136 mmol/L (136-145); TCO2 30 mmol/L (25-35); TOTAL BILIRUBIN < 0.15 mg/dL (0.20-1.00)
[2019-02-09] MEDS: HUMALOG SUBQ SCH ×4 (07:50→20:43)
[2019-02-09] MEDS: ZAROXOLYN PO SCH (08:15)
[2019-02-09] MEDS: BASAGLAR SUBQ SCH ×2 (08:17→20:45)
[2019-02-09] MEDS: NEURONTIN PO SCH ×3 (09:08→20:42)
[2019-02-09] MEDS: COREG PO SCH (09:08)
[2019-02-09] MEDS: ENTRESTO 24 MG-26 MG TABLET PO SCH ×2 (09:08→20:43)
[2019-02-09] MEDS: CENTRUM SILVER PO SCH (09:08)
[2019-02-09] MEDS: LASIX PO SCH (09:08)
[2019-02-09] MEDS ORDERED: CALMOSEPTINE OINTMENT TOP PRN (11:08)
[2019-02-09] MEDS: NORCO-10 PO PRN ×2 (11:45→23:20)
--- NOTE | 2019-02-09 14:11 | PROGRESS NOTE ---
DATE: 02/09/2019 SUBJECTIVE: Patient resting in bed. No new complaints today. OBJECTIVE: Vital Signs: Temperature 98.2 degrees, pulse 98, respiratory rate 16, blood pressure 101/65, oxygen is 93%. HEENT: Atraumatic, normocephalic. Cardiovascular: S1, S2. Respiratory: Has evidence of good air entry bilaterally. Abdomen: Soft, nontender. No masses felt. Extremities: Has 1+ edema in the lower extremities. Central Nervous System: No obvious focal deficit. LABORATORY DATA: WBC 10.1, hematocrit is 36.7, with a platelet count of 271,000. Sodium is 136, potassium 3.6, chloride is 94, bicarb 30, BUN is 16, creatinine is 1.0. ASSESSMENT AND PLAN: 1. Acute on chronic systolic heart failure. Continue diuretics. Monitor intake and output, as well as daily weights. Cardiology following. 2. Gastroparesis, stable. Continue Reglan. 3. Diabetes mellitus. Continue blood sugar monitoring as well as sliding scale insulin. 4. Anxiety disorder. Continue anxiolytic. 5. Depression. Continue antidepressant. 6. Right lower extremity wound. Continue local wound care. 7. Deep vein thrombosis prophylaxis. Sequential compression devices. 8. Disposition. Plan for discharge home with home health services tomorrow, 02/10/2019. cc: Victor Manuel Angulo MD
[2019-02-09] MEDS: ZOLOFT PO SCH (20:42)
[2019-02-09] MEDS: XANAX PO SCH (20:44)
[2019-02-10] MEDS: CARAFATE LIQUID PO SCH ×4 (02:56→12:30)
[2019-02-10] MEDS: DUONEB (A & A) INH SCH ×2 (03:00→09:36)
[2019-02-10] MEDS: PHENERGAN IV PRN ×2 (03:47→10:04)
[2019-02-10] MEDS: DILAUDID IV PRN ×2 (03:47→09:53)
[2019-02-10] MEDS: REGLAN LIQUID PO SCH ×3 (03:47→12:30)
[2019-02-10] MEDS: PROTONIX PO SCH (06:38)
[2019-02-10] MEDS: HUMALOG SUBQ SCH ×2 (06:38→11:20)
[2019-02-10] MEDS: LOVENOX SUBQ SCH (06:39)
[2019-02-10 07:09] LABS: AGAP 10; ALB/GLOB RATIO 0.6; ALBUMIN 2.8 g/dL (3.5-5.0); ALKALINE PHOSPHATASE 151 U/L (32-104); BUN 17 mg/dL (8-22); CALCIUM 8.3 mg/dL (8.8-10.2); CHLORIDE 94 mmol/L (98-107); COSMO 273; CREATININE 1.1 mg/dL (0.5-0.9); ESTIMATED GFR > 60; GLUCOSE 258 mg/dL (70-104); GOT 20 U/L (10-30); GPT 18 U/L (10-36); SODIUM 131 mmol/L (136-145); TCO2 27 mmol/L (25-35); TOTAL BILIRUBIN < 0.15 mg/dL (0.20-1.00); TOTAL PROTEIN 7.3 g/dL (6.3-8.3)
[2019-02-10] MEDS: LASIX PO SCH (08:17)
[2019-02-10] MEDS: ZAROXOLYN PO SCH (08:17)
[2019-02-10] MEDS: COREG PO SCH (08:18)
[2019-02-10] MEDS: ENTRESTO 24 MG-26 MG TABLET PO SCH (08:18)
[2019-02-10] MEDS: NEURONTIN PO SCH ×2 (08:18→12:30)
[2019-02-10] MEDS: BASAGLAR SUBQ SCH (08:18)
[2019-02-10] MEDS: CENTRUM SILVER PO SCH (08:18)
[2019-02-10] MEDS: ZOFRAN IV PRN (09:03)
[2019-02-10] MEDS ORDERED: PNEUMOVAX 23 IM ONE (11:44)
[2019-02-10 12:36] VITALS: BP 114/76
[2019-02-10] MEDS: NORCO-10 PO PRN (15:14)
--- NOTE | 2019-03-03 22:04 | DISCHARGE SUMMARY ---
ADMISSION DATE: 01/29/2019 DISCHARGE DATE: 02/10/2019 PRINCIPAL DIAGNOSIS: Acute on chronic systolic heart failure. SECONDARY DIAGNOSES: 1. Gastroparesis flare. 2. Diabetes mellitus. 3. Morbid obesity. 4. Anxiety disorder. 5. Depression. 6. Right lower extremity wound. 7. History of automatic implantable cardioverter-defibrillator implantation. 8. Hypertension. 9. Hypomagnesemia. 10. Hypokalemia. 11. Urinary tract infection. DISCHARGE MEDICATIONS: Include the followin. Zoloft 25 mg at bedtime. 2. Multivitamin 1 p.o. daily. 3. Lasix 80 mg p.o. daily. 4. Metolazone 5 mg p.o. once a day. 5. Sucralfate 1 g every 6 hours. 6. Potassium chloride 40 mEq p.o. daily. 7. Hydrocodone/acetaminophen 10/325 twice a day. 8. Zofran 4 mg every 8 hours as needed. 9. Insulin lispro 16 units subcutaneous daily. 10. Entresto 24/ one twice a day. 11. Carvedilol 12.5 mg p.o. daily. 12. Neurontin 100 mg p.o. at bedtime. 13. Lantus 10 units subcutaneous once a day. 14. Alprazolam 0.125 mg p.o. daily. 15. Glimepiride 4 mg p.o. daily. 16. Metformin 850 mg p.o. twice a day. 17. Phenergan 25 mg every 6 hours. CONSULTATIONS DONE DURING THIS HOSPITAL STAY: 1. Sorin Connell MD, Gastroenterology. 2. Mukesh Ramirez MD, Cardiology. PROCEDURES DONE DURING THIS HOSPITAL STAY: Abdominal and pelvic CT 01/28/2019, chest CT 01/29/2019, extremity venous study 02/03/2019. HOSPITAL COURSE: Ms. Radha Beckman is a 38-year-old female who has a history of type 2 diabetes mellitus, gastroparesis, congestive heart failure, hypertension. She was admitted to the hospital because of intractable nausea with vomiting, and this was thought to be secondary to gastroparesis flare. Patient was maintained on prokinetic agent. She was also noted to be in congestive heart failure and required diuretics. Other clinical conditions, which were addressed during the course of the hospital stay were hypokalemia, hypomagnesemia as well as a urinary tract infection. She was seen by the GI team with regard to her gastroparesis and also the Cardiology team with regard to her congestive heart failure. The patient was subsequently discharged home on 02/10/2019. She will need to follow with Dr. Sorin Connell, GI and also Dr. Mukesh Ramirez, Cardiology as well as primary care physician, Dr. Leslie Ponce. cc: Victor Manuel Angulo MD
== END 2019-02-10 16:20 | disposition home health service (06) | DRG 73 ==
LOC: SUPCPDRO → ED 15:54 → EDIPHOLD 01-29 01:40 → SUATTDRO 01-29 01:40 → 4N 01-29 16:25
PROVIDERS: ATTEND Internal Medicine
CPT/HCPCS: 36569; 71010; 71020; 71045; 71046; 71250; 74177; 80048; 80053; 81001; 81025; 82009; 82270; 82550; 82805; 82948; 83036; 83690; 83735; 83880; 84145; 84443; 84484; 85025; 85027; 85610; 87040; 87088; 87324; 87449; 93005; 93010; 93970; 94640; 94760; 94761; 94799; 96361; 96365; 96366; 96367; 96372; 96375; 96376; 99285; A9270; C9113; J0692; J0780; J1170; J1650; J1815; J1940; J2020; J2405; J2550; J3475; J3480; J7030; J7040; J7050; P9047; Q9967; S0164; XXXXX

== ENCOUNTER 2019-02-21 08:47 | Inpatient (IN) ==
[2019-02-21 09:18] LABS: URINE SOURCE CLEAN CATCH
[2019-02-21 09:21] LABS: BILIRUBIN URINE NEGATIVE (NEGATIVE); BLOOD URINE MODERATE (NEGATIVE); COLOR YELLOW; GLUCOSE URINE 70 mg/dL (NEGATIVE); KETONE URINE TRACE mg/dL (NEGATIVE); LEUKOCYTES URINE NEGATIVE (NEGATIVE); NITRITE URINE NEGATIVE (NEGATIVE); PH URINE 6.5; PROTEIN URINE >600 mg/dL (NEGATIVE); SP GRAVITY URINE 1.022; TURBIDITY URINE CLEAR (CLEAR); UROBILINOGEN URINE NORMAL (NORMAL)
[2019-02-21 09:23] LABS: UR EPITHELIAL CELLS <10 /HPF (<10); URINE BACTERIA NEGATIVE /HPF; URINE WBC <10 /HPF (<10)
[2019-02-21] MEDS ORDERED: NS 1,000 ML IV ONE ×2 (10:00→17:00)
[2019-02-21] MEDS ORDERED: TORADOL IV ONE (10:00)
[2019-02-21] MEDS ORDERED: ZOFRAN IV ONE ×2 (10:00→15:23)
--- NOTE | 2019-02-21 10:21 | PROVIDER DOCUMENTATION ---
This chart was entered by Zakia Oliver Scribe, acting as scribe for Monie Mejia CRNP. HPI-General Adult - General Chief Complaint: Nausea/Vomiting Stated Complaint: VOMITING,CANT PEE Time Seen by Provider: 02/21/19 09:54 Source: patient Allergies/Adverse Reactions: Patient Allergies Allergy/AdvReac Type Severity Reaction Status Date / Time sulfamethoxazole Allergy HIVES Verified 02/21/19 09:01 [From ] trimethoprim [From ] Allergy HIVES Verified 02/21/19 09:01 Home Medications: Home Medication List Medication Instructions Recorded Confirmed Last Taken Type Ondansetron HCl [Zofran] 4 mg PO Q8H PRN PRN #15 tablet 03/03/18 01/29/19 04/20/18 Rx Insulin Lispro [Humalog] 60 units SQ DAILY 06/04/18 01/29/19 Unknown History Carvedilol [Coreg] 12.5 mg PO DAILY #180 tab 01/18/19 01/29/19 Unknown Rx Gabapentin 100 mg PO HS #90 cap 01/18/19 01/29/19 Unknown Rx Sacubitril/Valsartan [Entresto 24 1 ea PO BID #180 tab 01/18/19 01/29/19 Unknown Rx mg-26 mg Tablet] Alprazolam [Xanax] 0.125 mg PO DAILY 01/29/19 01/29/19 Unknown History Insulin Glargine,Hum.rec.anlog 10 units SQ DAILY 01/29/19 01/29/19 Unknown History [Lantus Solostar] Furosemide [Lasix] 80 mg PO DAILY tab 02/10/19 Unknown Rx Glimepiride 4 mg PO DAILY #30 tab 02/10/19 Unknown Rx Hydrocodone/Acetaminophen [Barronett 1 ea PO BID #20 tab 02/10/19 Unknown Rx 10-325 Tablet] Metformin HCl [Glucophage] 850 mg PO BID #60 tab 02/10/19 Unknown Rx Metoclopramide [Reglan] 5 mg PO Q8HR #90 tab 02/10/19 Unknown Rx Metolazone [Zaroxolyn] 5 mg PO DAILY tab 02/10/19 Unknown Rx Multivitamins/Minerals [Centrum 1 ea PO DAILY tab 02/10/19 Unknown Rx Silver] Potassium Chloride 40 meq PO DAILY #30 tablet.er 02/10/19 Unknown Rx Promethazine [Phenergan] 25 mg PO Q6H PRN PRN #30 tab 02/10/19 Unknown Rx Sertraline [Zoloft] 25 mg PO QHS tab 02/10/19 Unknown Rx Sucralfate [Carafate Liquid] 1 gm PO Q6HR udc 02/10/19 Unknown Rx - History of Present Illness -Gen Adult Nature of Presenting Problems: 38 yof presents to the ed with c/o rt lower back pain, nausea, hematuria, decreased urination and foul odor to urine. pt did see pcp 1 week prior and dx with hematuria and sts received no tx for sx. pt was recently admitted for gastroparesis and dc home Location of Pain/Injury: reports: back (rt) Quality of Pain: reports: aching Severity: reports: moderate Onset/Duration: reports: 2 days ago Timing: reports: still present, getting worse Context/Activities at Onset: reports: light activity Modifying Factors: improves with: nothing Associated Symptoms: reports: back/neck pain (rt lumbar), genitourinary problems (hematuria and decreased urination), nausea. denies: chest pain, cough, shortness of breath, vomiting, trouble walking Similar Symptoms Previously?: Yes Recently seen or treated by another doctor?: No Review of Systems - Adult - REVIEW OF SYSTEMS - ADULT Constitutional: denies: chills, fever Eyes: denies: blurred vision, double vision Ears, Nose, Mouth & Throat: reports: no symptoms reported Cardiovascular: denies: chest pain, palpitations Respiratory: denies: shortness of breath, wheezing Gastrointestinal: reports: see HPI, nausea. denies: diarrhea, vomiting Genitourinary: reports: see HPI, flank pain, hematuria, other (foul odor with decreased urination) Musculoskeletal: reports: see HPI, back pain Integumentary: reports: no symptoms reported Neurological: reports: no symptoms reported Psychiatric: reports: no symptoms reported Endocrine: reports: no symptoms reported Hematologic/Lymphatic: reports: no symptoms reported Allergic/Immunologic: reports: no symptoms reported All Other Systems: Reviewed and Negative Past History - Adult - PAST MEDICAL HISTORY-ADULT Review of Records: reports: Nursing Assessment Review, Medications Reviewed Major Childhood Illnesses: reports: denies history Cardiovascular: reports: CHF, HTN, hyperlipidemia Respiratory: reports: denies history Gastrointestinal: reports: GERD, other (gastroparesis) Obstetrical/Gynecological: reports: denies history Genitourinary: reports: dialysis Musculoskeletal: reports: denies history Neurological: reports: headaches/migraines Psychiatric: reports: denies history Endocrine/Immune: reports: Diabetes Other Conditions: reports: denies history, MRSA - PRIOR SURGERIES/PROCEDURES Surgical/Procedure History: reports: cholecystectomy, BTL, , breast (reduction), other (necrotizing faciatis) - IMMUNIZATION STATUS Childhood Immunizations: See Nurse Assessment Flu Vaccine: See Nurse Assessment - FAMILY HISTORY Family History: diabetes, HTN - SOCIAL HISTORY Smoking: less than 1 pack/day Provider spent 3-5 mins advising pt. on dangers of tobacco.: Discussed manners to quit use, and f/u contacts for add'l counseling. Substance Use: denies Living Situation: family Physical Exam-General - PHYSICAL EXAM-ADULT Initial Vital Signs Reviewed: Yes - CONSTITUTIONAL General Appearance: alert, mild distress, obese - EYES Eyes: PERRL/EOMI, pink conjunctivae - HEAD, EARS, NOSE, MOUTH & THROAT HENMT: moist mucous membranes, normal ENT inspection - NECK Neck: non-tender, full range of motion, supple, normal inspection - RESPIRATORY Respiratory: chest non-tender, lungs clear, normal breath sounds, no pleuratic chest pain - CARDIOVASCULAR Cardiovascular: normal peripheral pulses, tachycardia (116) - GASTROINTESTINAL (ABDOMEN) Abdominal Exam: normal bowel sounds, non tender, soft, other (nausea) - LYMPHATIC Lymphatic: no adenopathy - MUSCULOSKELETAL Back Exam: normal inspection, no CVA tenderness, no vertebral tenderness, other (rt lumbar/flank) Extremity: normal range of motion, non-tender, normal gait, normal inspection, no pedal edema, no calf tenderness, normal capillary refill, pelvis stable - SKIN Integumentary: normal color, normal turgor, warm/dry - NEUROLOGIC Neurologic: grossly normal, no motor/sensory deficits - PSYCHIATRIC Psych/Mental Status: normal mood/affect, normal thought content, normal thought process, oriented x 3 Progress - PLAN OF CARE/RESULTS Progress/Plan/Lab Results: Vital Signs - 8 hr 02/21/19 08:52 Temperature 98.1 F Pulse Rate 116 H Respiratory Rate 20 Blood Pressure 112/78 O2 Sat by Pulse Oximetry 96 Laboratory Results - last 24 hr 02/21/19 09:06 Urine Source CLEAN CATCH Urine Color YELLOW Urine Turbidity CLEAR Urine pH 6.5 Ur Specific Purdum 1.022 Urine Protein >600 A Ur Glucose (Stick) 70 A Ur Ketones (Stick) TRACE A Urine Blood MODERATE A Urine Nitrite NEGATIVE Urine Bilirubin NEGATIVE Urobilinogen Dipstick NORMAL Urine Leukocytes NEGATIVE Urine WBC (Auto) <10 Urine RBC (Auto) 10-20 A U Epithel Cells (Auto) <10 Urine Bacteria (Auto) NEGATIVE Orders Category Date Time Status URINALYSIS W/POSS RFLX CULT [URINALYSIS] Stat Lab 02/21/19 09:06 Completed Result Diagrams: 02/21/19 11:50 02/21/19 11:50 - REASSESSMENT Reassessment #1 Time Reassessed: 10:12 Status: unchanged - XRAY 1 XRAY Study: Chest [facility] [address], [place] [address] Department of Imaging Patient: NAY GOLDMAN Date: 02/21/19#: [id number] : 1980ADM Status: REG [facility]#: [id number] Age/Sex: 38/FRoom/Bed: Loc: ED Ordering Physician: Monie Mejia Family Physician: Leslie Ponce MD Reason for Procedure: elevated WBC Signed EXAM: CHEST-2 VIEWS - 02/21/2019 HISTORY: elevated WBC TECHNIQUE: Chest two views COMPARISON: 01/31/2019 one view chest-01/30/2019 chest two views FINDINGS: Heart size appears borderline enlarged but decreased compared to prior. There is an electronic device at the left breast, electrode extending to the midline lower anterior chest wall. Lungs appear clear. There is no pleural effusion or pneumothorax identified. IMPRESSION: No evidence of acute disease. Electronically signed by Tip Rebolledo 02/21/2019 1:20 PM 02/21/19 1320 Interpreting Physician: Tip Rebolledo MD Dictated Date/Time: 02/21/19 1317 cc: Monie Mejia; Leslie Ponce MD) XRAY Interpretation: See note - CT/MRI 1 CT Study: Renal Stone ([facility] [address], [address], [place] [address] Department of Imaging Patient: NAY GOLDMAN Date: 02/21/19MR#: [id number] : 1980ADM Status: REG [facility]#: [id number] Age/Sex: 38/FRoom/Bed: Loc: ED Ordering Physician: Monie Mejia Family Physician: Leslie Ponce MD Reason for Procedure: right flank pain ___ Signed EXAM: CT RENAL STONE SEARCH INDICATION: right flank pain TECHNIQUE: This exam was performed using automated exposure control, adjustment of mA or kV according to patient size, and/or use of iterative reconstruction technique. COMPARISON: 01/28/2019 FINDINGS: Opacities at the lung bases seen on the previous study have improved. There is still a small residual consolidation versus scarring in the lingula. There has been a prior cholecystectomy. The liver, spleen, pancreas, and adrenal glands are unremarkable. There are no renal or ureteral stones and there is no hydronep hrosis. There are several phleboliths in the pelvis. The urinary bladder is nondistended. The reproductive tract is grossly unremarkable as imaged. The appendix is normal. The remainder of the GI tract is essentially unremarkable. No focal inflammatory changes, free abdominal gas, or free fluid is identified. Body wall anasarca is similar to the previous study. IMPRESSION: 1.No renal or ureteral stones and no hydronephrosis. 2.Body wall anasarca that is similar to the previous study. 3.Improvement in basilar lung opacities as compared to the previous study. 4.No definite acute intra-abdominal pathology as imaged. Electronically signed by Gareth Parr 02/21/2019 11:34 AM 02/21/19 1134 Interpreting Physician: Gareth Parr MD Dictated Date/Time: 02/21/19 1125 cc: Monie Mejia; Leslie Ponce MD) CT Results: See note - CONSULTS/PCP/HOSPITALIST Notification #1 *Consult/PCP/Hospitalist*: Lauren for Dr. 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 use: unspecified [facility] insulin use status Diabetes mellitus complication status: with unspecified complications Qualified Code(s): E13.8 - Other specified diabetes mellitus with unspecified complications Disposition: ADMITTED INPATIENT 09 Certified Medical Emergency: Emergent Condition: Stable Referrals and Follow-Ups: Leslie Ponce MD [Primary Care Provider] - - Critical Care Note This patient required my direct & personal management of CC.: No Attestation - Physician/ DAYANNA Attestation Patient care was provided by Advanced Practice Provider:: Yes Advanced Practice Provider:: Monie Mejia Advanced Practice Provider documentation review:: The Mid-level provider documentation, treatment plan and medical decision making was reviewed by the physician who agrees with all treatment and medical decision making by the P. The physician spent face to face time with patient:: No Advanced Practice Provider documentation review:: Supervising physician onsite and consulted in the evaluation and care of this patient. The physician did not have a face to face encounter with the patient. This chart was documented by the indicated scribe, (Zakia Oliver Scribe) and accurately reflects the services I performed and decisions made by me, All Monie kelsey CRNP, as attested by the provider's signature.
--- NOTE | 2019-02-21 11:36 | Diag Imaging Result Doc PS360 ---
EXAM: CT RENAL STONE SEARCH INDICATION: right flank pain TECHNIQUE: This exam was performed using automated exposure control, adjustment of mA or kV according to patient size, and/or use of iterative reconstruction technique. COMPARISON: 01/28/2019 FINDINGS: Opacities at the lung bases seen on the previous study have improved. There is still a small residual consolidation versus scarring in the lingula. There has been a prior cholecystectomy. The liver, spleen, pancreas, and adrenal glands are unremarkable. There are no renal or ureteral stones and there is no hydronephrosis. There are several phleboliths in the pelvis. The urinary bladder is nondistended. The reproductive tract is grossly unremarkable as imaged. The appendix is normal. The remainder of the GI tract is essentially unremarkable. No focal inflammatory changes, free abdominal gas, or free fluid is identified. Body wall anasarca is similar to the previous study. IMPRESSION: 1.No renal or ureteral stones and no hydronephrosis. 2.Body wall anasarca that is similar to the previous study. 3.Improvement in basilar lung opacities as compared to the previous study. 4.No definite acute intra-abdominal pathology as imaged. Electronically signed by Gareth Parr 02/21/2019 11:34 AM
[2019-02-21 12:02] LABS: BASO# 0.03 X1000 (0.0-0.2); BASO% 0.2 % (0.0-0.8); EOS# 0.03 X1000 (0.0-0.7); EOS% 0.2 % (0.0-10.0); HEMATOCRIT 46.8 % (37.0-47.0); HEMOGLOBIN 14.9 g/dL (12.0-16.0); IMM GRAN# 0.03 X1000 (0.0-0.04); IMM GRAN% 0.2 % (0.0-0.5); LYMPH# 1.61 X1000 (1.2-3.4); LYMPH% 9.4 % (20.5-51.1); MCH 21.3 PG (27-31); MCHC 31.8 g/dL (33-37); MCV 66.8 FL (81-99); MONO# 0.88 X1000 (0.11-0.59); MONO% 5.1 % (1.7-9.3); MPV 10.3 FL (7.4-10.4); NEUT# 14.52 X1000 (1.4-6.5); NEUT% 84.9 % (42.2-75.2); PLT 468 X1000 (130-400); RBC 7.01 XMIL (4.2-5.4); RDW 19.8 % (11.5-14.5)
[2019-02-21 12:25] LABS: ACETONE SERUM NEGATIVE (NEGATIVE)
[2019-02-21 12:31] LABS: AGAP 13; ALB/GLOB RATIO 0.7; ALBUMIN 3.5 g/dL (3.5-5.0); ALKALINE PHOSPHATASE 107 U/L (32-104); BUN 28 mg/dL (8-22); CALCIUM 9.3 mg/dL (8.8-10.2); CHLORIDE 93 mmol/L (98-107); COSMO 281; ESTIMATED GFR > 60; GLUCOSE 237 mg/dL (70-104); GOT 13 U/L (10-30); GPT 10 U/L (10-36); SODIUM 134 mmol/L (136-145); TCO2 28 mmol/L (25-35); TOTAL BILIRUBIN 0.42 mg/dL (0.20-1.00); TOTAL PROTEIN 8.5 g/dL (6.3-8.3)
--- NOTE | 2019-02-21 13:23 | Diag Imaging Result Doc PS360 ---
EXAM: CHEST-2 VIEWS - 02/21/2019 HISTORY: elevated WBC TECHNIQUE: Chest two views COMPARISON: 01/31/2019 one view chest-01/30/2019 chest two views FINDINGS: Heart size appears borderline enlarged but decreased compared to prior. There is an electronic device at the left breast, electrode extending to the midline lower anterior chest wall. Lungs appear clear. There is no pleural effusion or pneumothorax identified. IMPRESSION: No evidence of acute disease. Electronically signed by Tip Rebolledo 02/21/2019 1:20 PM
[2019-02-21] MEDS ORDERED: NORCO-5 PO ONE (15:57)
[2019-02-21] MEDS ORDERED: ZOFRAN IV PRN (16:56)
[2019-02-21] MEDS ORDERED: SODIUM CHLORIDE 0.9% INJ PRN (16:59)
--- NOTE | 2019-02-21 17:53 | HISTORY AND PHYSICAL ---
HISTORY OF PRESENT ILLNESS: Ms. Beckman is a 38-year-old female who is followed by Dr. Ponce. Main complaint is last 3 or 4 days she has had nausea, which has progressed. She has not been able to keep much in the way of fluid or liquids down. She is supposed to be on Reglan and has not been able to keep that down. The other complaint is that she had some dysuria. She was seen by Dr. Ponce, and she was told she had some blood in her urine and they was sent here to the emergency room. She does not give any costovertebral angle tenderness history, but she has lower back discomfort. She denies fever or chills. No pleuritic pain. No productive cough. Does not report any diarrhea or hematochezia. PAST MEDICAL HISTORY: 1. Diabetes mellitus type 2, poorly controlled. 2. Gastroparesis. 3. Congestive heart failure. I am assuming it is systolic dysfunction. She does have an AICD. 4. Hypertension. 5. Some peripheral neuropathy. 6. AICD placement. SURGICAL HISTORY: 1. Breast reduction. 2. Cholecystectomy. 3. AICD placement. ALLERGIES: Sulfa drugs. SOCIAL HISTORY: She used to smoke a half a pack a day. No alcohol or illicit drugs. FAMILY HISTORY: Notable for diabetes in grandparents, heart disease in father. REVIEW OF SYSTEMS: Constitutional: She does not report or is not aware of weight gain or loss. HEENT: No change in visual or hearing acuity. Respiratory: No increased work of breathing or dyspnea. Cardiovascular: No chest pain or tachy palpitations. GI/: The nausea. Denies any diarrhea or constipation. No gross hematuria, but she apparently has had some dysuria and was told she had some blood in her urine. Musculoskeletal/Neurologic: No focal complaints other than lower back pain. Immunologic/Hematologic: No significant history. PHYSICAL EXAMINATION: VITAL SIGNS: Temperature 97.6 degrees, pulse 94, respirations 16, blood pressure 137/95. Height is 5 feet 4 inches, weight is 225 pounds. HEENT: Pupils are equal and round. LUNGS: Clear in all lung sutton. CARDIOVASCULAR EXAM: Regular rhythm and rate without murmur or S3. ABDOMEN: Soft, nondistended. Really no focal tenderness. EXTREMITIES: Without clubbing, cyanosis, or edema. SKIN: Warm and dry. No rashes. Oral and nasal mucosa unremarkable. LABORATORY DATA: White count 73837, hematocrit is 46, platelet count 468,000, sodium 134, potassium 4.0, chloride 93, BUN 28, creatinine 1.0, albumin is 3.5. Urinalysis unremarkable. Chest x-ray: No evidence of acute disease. Renal CT: No renal or ureteral stones, no hydronephrosis. Body wall anasarca seen in a previous study, improvement in basilar lung opacities compared with previous study. No definite acute intra-abdominal pathology. Lab is pretty unremarkable. Urine is clear. Her creatinine is 1.0. ASSESSMENT AND PLAN: 1. Looking back, I think they have evaluated left ventricular function before. Dr. James has followed her before. She has gastroparesis and she was on Reglan. We will give the Reglan IV while she is here at 10 mg IV q.6 hours. We will check pattern sugars. She apparently does better on Phenergan than she does on Zofran so she can have Phenergan 25 mg IV, and she could have the q.4 hours p.r.n. and also have Zofran 4 mg IV q.4 hours p.r.n. We will give her normal saline and will run it at 85 mL an hour for 8 hours and then cut it down to 45. 2. Diabetes mellitus. Follow pattern sugars. Check hemoglobin A1c. We will check her thyroid, T4, TSH, B12 and folate tomorrow as well as an a.m. cortisol level to make sure we do not have adrenal insufficiency. 3. Congestive heart failure. See if I can find an old echocardiogram. 4. Constipation, improved by her report. 5. Obesity. Looking back she had an echocardiogram done on 03/07/2018, technically difficult study, moderate left ventricular enlargement, normal wall thickness demonstrated estimated left ventricular ejection fraction 20% to 25% in the setting of global hypokinesis. She has grade 1 diastolic dysfunction as well. Left atrium mildly enlarged. So, we will give her normal saline 85 mL an hour for 8 hours, and then we will cut it down to 45 mL an hour. We will put her on a diabetic diet and try to continue her home medicine including her GI regimen. It might be worthwhile just to get an abdominal flat and upright or a KUB. Look and see if there is a lot of stool in the colon. She is on Xanax 0.125 mg a day, Coreg 12.5 mg a day, Lasix 80 mg a day, gabapentin 100 mg at bedtime, glimepiride 4 mg daily, hydrocodone or [place] 10/325 one b.i.d., Lantus SoloSTAR 10 units subcutaneous daily, Humalog 60 units subcutaneous daily, Glucophage 850 mg b.i.d., Reglan 5 mg q.8 hours. We will change that to IV while she is here, Zaroxolyn 5 mg daily, multivitamin 1 a day, Entresto 24-26 mg 1 b.i.d., Zoloft 25 mg a day and Carafate 1 g q.6 hours. We will put her on Nexium 40 mg p.o. twice a day. cc: Roberto Jimenez MD
[2019-02-21] MEDS: REGLAN IV SCH ×2 (18:08→22:45)
--- NOTE | 2019-02-21 18:32 | Diag Imaging Result Doc PS360 ---
EXAM: ABDOMEN FLAT/UPRIGHT INDICATION: nausea TECHNIQUE: 2 views COMPARISON: 06/04/2018 FINDINGS: There are unremarkable bowel gas and stool patterns. There is no obstructive bowel pattern. There is no evidence of large volume free abdominal gas. There is no evidence of organomegaly. IMPRESSION: No evidence of acute pathology by plain radiograph. Electronically signed by Gareth Parr 02/21/2019 6:30 PM
[2019-02-21] MEDS: NEXIUM PO SCH (20:34)
[2019-02-21] MEDS: ZOLOFT PO SCH (20:35)
[2019-02-21] MEDS: NORCO-10 PO SCH (20:35)
[2019-02-21] MEDS: CARAFATE LIQUID PO SCH (20:35)
[2019-02-21] MEDS: NEURONTIN PO SCH (20:36)
[2019-02-21] MEDS: ENTRESTO 24 MG-26 MG TABLET PO SCH (20:36)
[2019-02-21] MEDS: HUMULIN R SUBQ SCH (21:22)
[2019-02-21] MEDS: PHENERGAN IV PRN (22:45)
[2019-02-22] MEDS: CARAFATE LIQUID PO SCH ×4 (03:04→21:52)
[2019-02-22] MEDS: REGLAN IV SCH ×4 (05:33→23:11)
[2019-02-22] MEDS: HUMULIN R SUBQ SCH ×4 (06:10→21:53)
[2019-02-22] MEDS: TYLENOL PO PRN (06:13)
--- NOTE | 2019-02-22 07:40 | HISTORY AND PHYSICAL ---
HISTORY OF PRESENT ILLNESS: This she is a 38-year-old followed by Dr. Ponce, a 38-year-old . This is more nausea. This is not a new problem for her. She has diabetes mellitus type 2, gastroparesis, history of congestive heart failure, I am not sure if that is systolic or diastolic, hypertension poorly controlled, diabetes. Her is at the bedside. Main problem has been nausea. She has had some dysuria and ]hematuria. She saw Dr. Ponce. She was told she had some blood in the urine, but her main concern is the nausea. wanted to make sure we had checked her pancreas out as he had had some friends who had similar problems to be the pancreas. PAST SURGICAL HISTORY: Notable for 1. Breast reduction. 2. Cholecystectomy. 3. AICD placed. SOCIAL HISTORY: Used to smoke a half pack a day. No alcohol or illicit drugs. FAMILY HISTORY: Apparently diabetes in her parents. Heart disease in her father. ALLERGIES: Sulfa. REVIEW OF SYSTEMS: She is not sure if she has gained or lost any weight, but she has not been able to eat or drink much in the last couple of days because of intractable nausea. cc: Roberto Jimenez MD MTDD
[2019-02-22 08:44] LABS: BASO# 0.05 X1000 (0.0-0.2); BASO% 0.4 % (0.0-0.8); EOS# 0.44 X1000 (0.0-0.7); EOS% 3.4 % (0.0-10.0); HEMATOCRIT 41.4 % (37.0-47.0); HEMOGLOBIN 13.1 g/dL (12.0-16.0); IMM GRAN# 0.03 X1000 (0.0-0.04); IMM GRAN% 0.2 % (0.0-0.5); LYMPH# 2.65 X1000 (1.2-3.4); LYMPH% 20.3 % (20.5-51.1); MCH 21.5 PG (27-31); MCHC 31.6 g/dL (33-37); MCV 67.9 FL (81-99); MONO% 7.7 % (1.7-9.3); MPV 10.2 FL (7.4-10.4); NEUT# 8.87 X1000 (1.4-6.5); PLT 400 X1000 (130-400); RDW 18.8 % (11.5-14.5); WBC 13.04 X1000 (4.8-10.8)
[2019-02-22 08:45] LABS: HEMOGLOBIN A1C 10.8 % (4.8-6.0)
[2019-02-22 08:48] LABS: PTT 24.2 Seconds (22.3-41.8)
[2019-02-22 08:49] LABS: AGAP 11; ALB/GLOB RATIO 0.8; ALBUMIN 3.3 g/dL (3.5-5.0); ALKALINE PHOSPHATASE 95 U/L (32-104); BUN 34 mg/dL (8-22); CALCIUM 8.8 mg/dL (8.8-10.2); CHLORIDE 99 mmol/L (98-107); CK PROFILE 28 U/L (24-173); COSMO 282; CREATININE 1.2 mg/dL (0.5-0.9); ESTIMATED GFR > 60; GLUCOSE 134 mg/dL (70-104); GOT 19 U/L (10-30); GPT 13 U/L (10-36); MAGNESIUM 1.9 mg/dL (1.5-2.7); POTASSIUM 3.5 mmol/L (3.5-5.1); SODIUM 136 mmol/L (136-145); TCO2 26 mmol/L (25-35); TOTAL BILIRUBIN 0.27 mg/dL (0.20-1.00); TOTAL PROTEIN 7.4 g/dL (6.3-8.3)
[2019-02-22] MEDS: XANAX PO SCH (09:10)
[2019-02-22] MEDS: LANTUS INSULIN SUBQ SCH (09:10)
[2019-02-22] MEDS: ZAROXOLYN PO SCH (09:11)
[2019-02-22] MEDS: HUMALOG SUBQ SCH ×2 (09:11→09:16)
[2019-02-22] MEDS: COREG PO SCH (09:11)
[2019-02-22] MEDS: NEXIUM PO SCH ×2 (09:11→21:52)
[2019-02-22] MEDS: AMARYL PO SCH (09:11)
[2019-02-22] MEDS: LASIX PO SCH (09:12)
[2019-02-22] MEDS: ENTRESTO 24 MG-26 MG TABLET PO SCH ×2 (09:12→21:52)
[2019-02-22] MEDS: NORCO-10 PO SCH ×2 (09:12→21:52)
[2019-02-22] MEDS: KLOR-CON PO SCH (09:12)
[2019-02-22] MEDS: CENTRUM SILVER PO SCH (09:12)
[2019-02-22] MEDS: PHENERGAN IV PRN ×2 (09:22→22:00)
[2019-02-22 10:05] LABS: FREE T4 1.31 ng/dL (0.93-1.70); TSH 1.34 uIUmL (0.27-4.20)
--- NOTE | 2019-02-22 12:19 | PROGRESS NOTE ---
DATE: 02/22/2019 SUBJECTIVE: Ms. Beckman does feel a little better. The nausea is better. Blood sugars have been running a little bit high. She is having some discharge, still some burning when she passes her water. Her urine was pretty unremarkable. Urine test was negative. She does feel like she has got discharge and some dysuria. OBJECTIVE: Vital Signs: Today, temperature 98.0 degrees, remains afebrile, pulse 97, respirations 18, blood pressure 100/55. Eyes: Pupils are equal and round. Lungs: Clear in all lung sutton. Cardiovascular exam: Regular rhythm and rate without murmur or S3. Abdomen: Soft. Skin: Warm and dry. LABS: White count is down to 13,040, hematocrit is 41, platelet count 400,000. Sodium 136, potassium 3.5, chloride 99. BUN 34, creatinine 1.2. Her bicarbonate was 11. ASSESSMENT AND PLAN: 1. There is abdominal KUB. No obstructive bowel pattern. She is eating okay. Nausea is improved. She does have gastroparesis. We will continue the Reglan intravenous and switch it to oral. She is asking to go home tomorrow. 2. Diabetes mellitus type 2. Sugars appear to be under better control, still in the 200 range. Normally she takes 60 of Lantus insulin every day and then 10 of regular. So, we will make sure we are giving that. 3. Morbid obesity. 4. Some dysuria. I will put her on some Diflucan, see if that will help. We will send a urine for urinalysis and culture. cc: Roberto Jimenez MD
[2019-02-22] MEDS: LEVAQUIN PO SCH (12:31)
[2019-02-22] MEDS: DIFLUCAN PO SCH (14:15)
--- NOTE | 2019-02-22 15:46 | GASTROENTEROLOGY CONSULTATION ---
DATE: 02/22/2019 REASON FOR CONSULTATION: Persistent nausea and vomiting, gastroparesis. HISTORY OF PRESENT ILLNESS: A 38-year-old lady with symptoms of dysuria and some microscopic hematuria. Presents with persistent nausea, vomiting, was given Reglan for gastroparesis as an outpatient. Could not keep it down. Came in with dehydration. PAST MEDICAL HISTORY: 1. Diabetes mellitus type 2. 2. Gastroparesis. 3. Congestive heart failure. 4. Hypertension. 5. Peripheral neuropathy. SURGICAL HISTORY: Cholecystectomy, AICD, breast reduction. ALLERGIES: Sulfa. SOCIAL HISTORY: Smokes half a pack. Does not drink. FAMILY HISTORY: Positive for diabetes. REVIEW OF SYSTEMS: Otherwise negative. PHYSICAL EXAMINATION: General: Obese lady, afebrile, pulse 94, respirations 16, blood pressure 137/95. HEENT: No scleral icterus. No significant conjunctival pallor. Neck: Supple. Trachea midline. Abdomen: Obese. No significant tenderness. LABORATORY DATA: Today the white count has come down to 13 with MCV low at 67 with normal hematocrit. Her LFTs are normal. B12 is high and otherwise normal. IMAGING: Her abdominal x-ray was negative. She had a renal CT stone search which was negative on admission. IMPRESSION: 1. Persistent and nausea and vomiting. Could be gastroparesis. Could also be urinary tract infection with her urinary symptoms. Cultures are pending. 2. Diabetes mellitus. Poorly controlled. 3. Congestive heart failure. 4. Constipation. 5. Microcytic anemia. Microcytosis with a normal hematocrit and leukocytosis. PLAN: The patient currently is tolerating a diet. Continue current management of hydration and antibiotics for possible UTI. Continue Reglan. We will follow her clinically or see her as an outpatient if she goes home. cc: Yared Denise MD
[2019-02-22 19:59] LABS: URINE SOURCE CLEAN CATCH
[2019-02-22 20:01] LABS: BILIRUBIN URINE NEGATIVE (NEGATIVE); BLOOD URINE LARGE (NEGATIVE); COLOR YELLOW; GLUCOSE URINE NEGATIVE (NEGATIVE); KETONE URINE NEGATIVE (NEGATIVE); LEUKOCYTES URINE SMALL (NEGATIVE); NITRITE URINE NEGATIVE (NEGATIVE); PH URINE 6.5; PROTEIN URINE 50 mg/dL (NEGATIVE); SP GRAVITY URINE 1.008; TURBIDITY URINE CLEAR (CLEAR); UR EPITHELIAL CELLS <10 /HPF (<10); URINE BACTERIA NEGATIVE /HPF; URINE RBC TNTC /HPF (<10); URINE WBC <10 /HPF (<10); UROBILINOGEN URINE NORMAL (NORMAL)
[2019-02-22] MEDS: NEURONTIN PO SCH (21:52)
[2019-02-22] MEDS: ZOLOFT PO SCH (21:52)
[2019-02-23] MEDS: CARAFATE LIQUID PO SCH ×3 (01:36→15:16)
[2019-02-23] MEDS: TYLENOL PO PRN (02:04)
[2019-02-23] MEDS: PHENERGAN IV PRN ×2 (02:05→06:49)
[2019-02-23] MEDS: REGLAN IV SCH ×2 (04:53→11:59)
[2019-02-23] MEDS: HUMULIN R SUBQ SCH ×2 (06:52→11:59)
[2019-02-23] MEDS: LANTUS INSULIN SUBQ SCH (10:17)
[2019-02-23] MEDS: XANAX PO SCH (10:18)
[2019-02-23] MEDS: NEXIUM PO SCH (10:18)
[2019-02-23] MEDS: CENTRUM SILVER PO SCH (10:18)
[2019-02-23] MEDS: AMARYL PO SCH (10:18)
[2019-02-23] MEDS: COREG PO SCH (10:19)
[2019-02-23] MEDS: KLOR-CON PO SCH (10:19)
[2019-02-23] MEDS: LASIX PO SCH (10:19)
[2019-02-23] MEDS: LEVAQUIN PO SCH (10:19)
[2019-02-23] MEDS: NORCO-10 PO SCH (10:19)
[2019-02-23] MEDS: ZAROXOLYN PO SCH (10:19)
[2019-02-23] MEDS: ENTRESTO 24 MG-26 MG TABLET PO SCH (10:19)
[2019-02-23] MEDS: DIFLUCAN PO SCH (10:20)
[2019-02-23] MEDS: HUMALOG SUBQ SCH (10:23)
[2019-02-23 15:45] VITALS: BP 104/66
--- NOTE | 2019-02-23 15:59 | DISCHARGE SUMMARY ---
ADMISSION DATE: 02/21/2019 DISCHARGE DATE: HOSPITAL COURSE: She is followed by Dr. Leslie Ponce. This is a 38-year-old female who has complained of nausea for several days. She has diabetes mellitus type 2, history of gastroparesis, history of congestive heart failure. She just was unable to keep food down and felt very weak and diaphoretic, so admitted to the hospital. She was given some IV fluids. Put her on IV Reglan. She has some p.o. Reglan, but was unable to take it at home. She showed steady improvement. Blood sugars originally running in the 160 range, but seemed to be well controlled. Serum creatinine was 1.0. Thyroid functions look good, so I think this is exacerbation of her gastroparesis and I think we can let her go home. DISCHARGE MEDICATIONS: She will be on Xanax 0.125 mg daily, Coreg 12.5 mg daily, Nexium 40 mg b.i.d., Diflucan I gave her a couple days doses as she is complaining of some irritation down the vaginal area, we can stop the Diflucan, Lasix 80 mg p.o. daily, Neurontin 100 mg at bedtime, Amaryl 4 mg a day, Nicolaus 10 mg b.i.d., Lantus insulin 10 units daily, Humalog 60 units subcutaneous daily, and I think she has a sliding scale she uses at home. Will stop the Levaquin, Reglan 10 mg, I am going to give her 10 mg every meal and at bedtime. Zaroxolyn 5 mg daily, Centrum Silver 1 a day, Klor-Con 40 mEq daily, Entresto 24-26 1 tablet b.i.d., Zoloft 25 mg at bedtime, Carafate 1 g q.6 hours. cc: Roberto Jimenez MD
--- NOTE | 2019-02-24 08:03 | EKG Report ---
Test Performed on : 02/22/2019 06:19:07 AM Test Reason : chf Blood Pressure : / mmHG Vent. Rate : 091 BPM Atrial Rate : 091 BPM P-R Int : 192 ms QRS Dur : 090 ms QT Int : 422 ms P-R-T Axes : 071 -25 074 degrees QTc Int : 519 ms Normal sinus rhythm. Prolonged QT Abnormal ECG When compared with ECG of 06-FEB-2019 06:47, No significant change was found Confirmed by Natividad LEVINE, Kyle ([id number]) on 02/24/2019 9:14:46 AM
== END 2019-02-23 17:34 | disposition home or self-care (01) | DRG 74 ==
LOC: ED 08:47 → 3N 17:32
PROVIDERS: ATTEND Emergency Medicine
CPT/HCPCS: 71020; 71046; 74019; 74020; 74176; 80053; 81001; 81025; 82009; 82533; 82550; 82607; 82746; 82948; 83036; 83605; 83735; 84439; 84443; 84484; 85025; 85610; 85730; 87040; 87088; 93005; 93010; 96361; 96374; 96375; 99285; A9270; J1815; J1885; J2405; J2550; J2765; J7030; XXXXX

== ENCOUNTER 2019-04-02 13:01 | Inpatient (IN) ==
[2019-04-02] MEDS ORDERED: NS 1,000 ML IV ONE (13:50)
[2019-04-02] MEDS ORDERED: REGLAN IV ONE (13:50)
[2019-04-02 14:36] LABS: URINE SOURCE CLEAN CATCH
[2019-04-02 14:53] LABS: BILIRUBIN URINE SMALL (NEGATIVE); BLOOD URINE MODERATE (NEGATIVE); COLOR YELLOW; GLUCOSE URINE 1000 mg/dL (NEGATIVE); KETONE URINE 40 mg/dL (NEGATIVE); LEUKOCYTES URINE NEGATIVE (NEGATIVE); NITRITE URINE NEGATIVE (NEGATIVE); PH URINE 6.5; PROTEIN URINE >600 mg/dL (NEGATIVE); TURBIDITY URINE CLEAR (CLEAR); UROBILINOGEN URINE NORMAL (NORMAL)
[2019-04-02 14:58] LABS: UR EPITHELIAL CELLS <10 /HPF (<10); URINE BACTERIA NEGATIVE /HPF; URINE WBC <10 /HPF (<10)
--- NOTE | 2019-04-02 15:03 | Diag Imaging Result Doc PS360 ---
EXAM: CT RENAL STONE SEARCH 04/02/2019 HISTORY: flank pain TECHNIQUE: This exam was performed using automated exposure control, adjustment of mA or kV according to patient size, and/or use of iterative reconstruction technique. COMMENT: There are patchy groundglass opacities present in the right lower lobe and some air trapping is present in both lung bases. The groundglass opacities were not present on the previous study of 02/21/2019. There is no evidence of nephrolithiasis or hydronephrosis. There has been cholecystectomy. The spleen and adrenal glands are not enlarged. The aorta is not distended. There is no evidence of bowel obstruction or appendicitis. There is a small amount of free fluid in the cul-de-sac. The urinary bladder is not distended. There are edematous changes in the subcutaneous fat and there is some scarring superficial to the inguinal ring on the right. This may be due to previous surgery and has not changed since the previous study. There is vacuum joint phenomenon in both sacroiliac joints. The regional skeleton is stable in appearance. IMPRESSION: Minimal pneumonia right lower lobe. No evidence of stones or obstruction. Electronically signed by Juan Lilly 04/02/2019 3:01 PM
[2019-04-02 15:10] LABS: URINE CASTS NONE SEEN; URINE YEAST PRESENT
[2019-04-02 15:11] LABS: URINE CRYSTALS NONE SEEN; URINE SMALL ROUND CELLS NONE SEEN
[2019-04-02] MEDS ORDERED: DILAUDID IM STA (16:36)
--- NOTE | 2019-04-02 16:45 | PROVIDER DOCUMENTATION ---
This chart was entered by Charity Basilio Scribe, acting as scribe for Abel Mcguire MD. HPI-Abdominal Pain/GI Problem - General Source: patient - History of Present Illness-ABD Nature of Presenting Problems: Patient is a 38 year old female who presents with generalized abdominal pain, nausea, vomiting and diarrhea that started yesterday. Patient states history of gastroparesis. States taking Reglan at home with no relief. Patient also states dysuria. Abdominal Pain Onset Location: reports: generalized abdomen Pain Radiation: reports: no radiation Quality of Pain: reports: aching Severity in ED: reports: mild Onset/Duration: reports: 24 hours ago Timing: reports: still present Activities at Onset: reports: light activity Associated Symptoms: reports: diarrhea, EENT symptoms (dysuria), nausea, vomiting Similar Symptoms Previously?: Yes Recently seen or treated by another doctor?: No <Abel Mcguire - Last Filed: 04/02/19 17:46> <Reuben Lord - Last Filed: 04/02/19 21:21> - General Chief Complaint: Nausea/Vomiting Stated Complaint: GASTRO PROBLEMS Time Seen by Provider: 04/02/19 13:38 Allergies/Adverse Reactions: Patient Allergies Allergy/AdvReac Type Severity Reaction Status Date / Time sulfamethoxazole Allergy HIVES Verified 02/21/19 09:01 [From ] trimethoprim [From ] Allergy HIVES Verified 02/21/19 09:01 Home Medications: Home Medication List Medication Instructions Recorded Confirmed Last Taken Type Ondansetron HCl [Zofran] 4 mg PO Q8H PRN PRN #15 tablet 03/03/18 04/02/19 04/20/18 Rx Insulin Lispro [Humalog] 60 units SQ DAILY 06/04/18 04/02/19 Unknown History Carvedilol [Coreg] 12.5 mg PO DAILY #180 tab 01/18/19 04/02/19 Unknown Rx Gabapentin 100 mg PO HS #90 cap 01/18/19 04/02/19 Unknown Rx Alprazolam [Xanax] 0.125 mg PO DAILY 01/29/19 04/02/19 Unknown History Insulin Glargine,Hum.rec.anlog 10 units SQ DAILY 01/29/19 04/02/19 Unknown History [Lantus Solostar] Furosemide [Lasix] 80 mg PO DAILY tab 02/10/19 04/02/19 Unknown Rx Glimepiride 4 mg PO DAILY #30 tab 02/10/19 04/02/19 Unknown Rx Metformin HCl [Glucophage] 850 mg PO BID #60 tab 02/10/19 04/02/19 Unknown Rx Metolazone [Zaroxolyn] 5 mg PO DAILY tab 02/10/19 04/02/19 Unknown Rx Multivitamins/Minerals [Centrum 1 ea PO DAILY tab 02/10/19 04/02/19 Unknown Rx Silver] Potassium Chloride 40 meq PO DAILY #30 tablet.er 02/10/19 04/02/19 Unknown Rx Promethazine [Phenergan] 25 mg PO Q6H PRN PRN #30 tab 02/10/19 04/02/19 Unknown Rx Sertraline [Zoloft] 25 mg PO QHS tab 02/10/19 04/02/19 Unknown Rx Esomeprazole [Nexium] 40 mg PO BID 30 Days #60 cap 02/23/19 04/02/19 Unknown Rx Metoclopramide [Reglan] 10 mg PO Q6H 30 Days #120 tab 02/23/19 04/02/19 Unknown Rx Hydrocodone/Acetaminophen [Stamps 1 ea PO DAILY PRN 04/02/19 04/02/19 Unknown History 10-325 Tablet] Sacubitril/Valsartan [Entresto 49 1 tab PO BID 04/02/19 04/02/19 Unknown History mg-51 mg Tablet] Sucralfate [Carafate] 1 tab PO Q6HR 04/02/19 04/02/19 Unknown History Review of Systems - Adult - REVIEW OF SYSTEMS - ADULT Constitutional: reports: no symptoms reported. denies: chills, fever, fatique Eyes: reports: no symptoms reported Ears, Nose, Mouth & Throat: reports: no symptoms reported Cardiovascular: reports: no symptoms reported Respiratory: reports: no symptoms reported Gastrointestinal: reports: see HPI, abdominal pain, diarrhea, nausea, vomiting Genitourinary: reports: see HPI, dysuria. denies: flank pain, hematuria Musculoskeletal: reports: no symptoms reported Integumentary: reports: no symptoms reported Neurological: reports: no symptoms reported Psychiatric: reports: no symptoms reported Endocrine: reports: no symptoms reported Hematologic/Lymphatic: reports: no symptoms reported Allergic/Immunologic: reports: no symptoms reported All Other Systems: Reviewed and Negative <Abel Mcguire - Last Filed: 04/02/19 17:46> Past History - Adult - PAST MEDICAL HISTORY-ADULT Review of Records: reports: Old Records Reviewed, Nursing Assessment Review, Medications Reviewed, Social history reviewed & non-contributory. Major Childhood Illnesses: reports: denies history Cardiovascular: reports: CHF, HTN, hyperlipidemia Respiratory: reports: denies history Gastrointestinal: reports: GERD, other (gastroparesis) Obstetrical/Gynecological: reports: denies history Genitourinary: reports: dialysis Musculoskeletal: reports: denies history Neurological: reports: headaches/migraines Psychiatric: reports: denies history Endocrine/Immune: reports: Diabetes Other Conditions: reports: denies history, MRSA - PRIOR SURGERIES/PROCEDURES Surgical/Procedure History: reports: cholecystectomy, BTL, , breast (reduction), other (necrotizing faciatis) - IMMUNIZATION STATUS Childhood Immunizations: See Nurse Assessment Flu Vaccine: See Nurse Assessment - FAMILY HISTORY Family History: diabetes, HTN - SOCIAL HISTORY Smoking: cigarettes (former) Substance Use: denies <Abel Mcguire - Last Filed: 04/02/19 17:46> Physical Exam-General - PHYSICAL EXAM-ADULT Initial Vital Signs Reviewed: Yes - CONSTITUTIONAL General Appearance: alert, no apparent distress. negative: lethargic, slow to respond - RESPIRATORY Respiratory: chest non-tender, lungs clear, normal breath sounds. negative: crackles, stridor - CARDIOVASCULAR Cardiovascular: normal peripheral pulses, regular rate, rhythm. negative: tachycardia, systolic murmur - GASTROINTESTINAL (ABDOMEN) Abdominal Exam: normal bowel sounds, soft, tenderness (generalized). negative: guarding, rebound - MUSCULOSKELETAL Back Exam: no vertebral tenderness, CVA tenderness (left). negative: ecchymosis, muscle spasm Extremity: non-tender, normal inspection. negative: deformity, erythema - SKIN Integumentary: normal color, normal turgor, warm/dry. negative: cyanosis, ecchymosis, erythema, laceration(s), rash - NEUROLOGIC Neurologic: grossly normal. negative: aphasia, facial droop - PSYCHIATRIC Psych/Mental Status: normal mood/affect, oriented x 3. negative: anxious <Abel Mcguire - Last Filed: 04/02/19 17:46> Progress - PLAN OF CARE/RESULTS Progress/Plan/Lab Results: Vital Signs - 8 hr 04/02/19 13:09 Temperature 97.6 F Pulse Rate 95 H Respiratory Rate 18 Blood Pressure 139/91 O2 Sat by Pulse Oximetry 100 - CT/MRI 1 CT Study: Renal Stone Impression: See EMR Report ( EXAM: CT RENAL STONE SEARCH 04/02/2019 HISTORY: flank pain TECHNIQUE: This exam was performed using automated exposure control, adjustment of mA or kV according to patient size, and/or use of iterative reconstruction technique. COMMENT: There are patchy groundglass opacities present in the right lower lobe and some air trapping is present in both lung bases. The groundglass opacities were not present on the previous study of 02/21/2019. There is no evidence of nephrolithiasis or hydronephrosis. There has been cholecystectomy. The spleen and adrenal glands are not enlarged. The aorta is not distended. There is no evidence of bowel obstruction or appendicitis. There is a small amount of free fluid in the cul-de-sac. The urinary bladder is not distended. There are edematous changes in the subcutaneous fat and there is some scarring superficial to the inguinal ring on the right. This may be due to previous surgery and has not changed since the previous study. There is vacuum joint phenomenon in both sacroiliac joints. The regional skeleton is stable in appearance. IMPRESSION: Minimal pneumonia right lower lobe. No evidence of stones or obstruction. Electronically signed by Juan Lilly 04/02/2019 3:01 PM 04/02/19 1501 Interpreting Physician: Juan Lilly MD Dictated Date/Time: 04/02/19 [id number] cc: Abel Mcguire MD; Leslie Ponce MD) - CHANGE OF SHIFT REPORT (ED Provider) 1 Report Given and Care Transferred to:: Dr. Lord Time of Transfer: 17:56 Items Pending: Labs <Abel Mcguire - Last Filed: 04/02/19 17:46> - PLAN OF CARE/RESULTS Progress/Plan/Lab Results: Vital Signs - 8 hr 04/02/19 13:09 04/02/19 14:20 04/02/19 15:00 Temperature 97.6 F Pulse Rate 95 H Respiratory Rate 18 Blood Pressure 139/91 136/103 O2 Sat by Pulse Oximetry 100 100 98 04/02/19 15:20 Temperature Pulse Rate Respiratory Rate Blood Pressure O2 Sat by Pulse Oximetry 99 Bedside Urine ED: Urine Bedside Start: 04/02/19 14:26 Freq: ORDERED Status: Active Protocol: Activity Type Activity Date Activity User E-Sign Co-Sign Detail Recorded Client Recorded Date Recorded By Document 04/02/19 14:29 [id number] 04/02/19 14:30 [id number] Document 04/02/19 14:30 [id number] 04/02/19 14:30 [id number] 04/02/19 04/02/19 14:29 14:30 Point of Care [Bedside Point of Care] -Lot # [id number] - Results Negative Negative -Control Line Visible? Yes Yes Laboratory Results - last 24 hr 04/02/19 04/02/19 14:31 14:31 Urine Source CLEAN CATCH Urine Color YELLOW Urine Turbidity CLEAR Urine pH 6.5 Ur Specific [place] 1.040 Urine Protein >600 A Ur Glucose (Stick) 1000 A Ur Ketones (Stick) 40 A Urine Blood MODERATE A Urine Nitrite NEGATIVE Urine Bilirubin SMALL A Urobilinogen Dipstick NORMAL Urine Leukocytes NEGATIVE Urine WBC (Auto) <10 Urine RBC (Auto) 10-20 A U Epithel Cells (Auto) <10 Urine Bacteria (Auto) NEGATIVE Urine Crystals NONE SEEN Small Round Cells NONE SEEN Urine Casts NONE SEEN Urine Yeast-like Cells PRESENT Urine Test NEGATIVE Orders Category Date Time Status ED: Urine Bedside ORDERED Care 04/02/19 14:26 Active CHEST-2 VIEWS [RAD] Stat Exams 04/02/19 16:[address] RENAL STONE SEARCH [CT] Stat Exams 04/02/19 13:49 Completed BLOOD CULTURE [BLDCUL] Stat Lab 04/02/19 16:59 Ordered CBC WITH ELECTRONIC DIFF [HEME] Stat Lab 04/02/19 14:30 Ordered COMPREHENSIVE METABOLIC PANEL [CHEM] Stat Lab 04/02/19 14:30 Ordered TEST-URINE [PREG] Stat Lab 04/02/19 14:31 Completed URINALYSIS W/POSS RFLX CULT [URINALYSIS] Stat Lab 04/02/19 14:31 Completed URINE MANUAL MICROSCOPIC [URINALYSIS] Stat Lab 04/02/19 14:31 Completed 0.9% Sodium Chloride Inj [Ns] 1,000 ml Med 04/02/19 13:50 Discontinued IV 999 mls/hr Azithromycin 500 mg/Ns [Zithromax 500 mg/Ns] Med 04/02/19 16:59 Discontinued 500 mg in 250 ml IV NOW CefTRIAXONE [Rocephin] 2 gm Med 04/02/19 16:59 Discontinued 0.9% Sodium Chloride Inj [Ns] 50 ml IV NOW Hydromorphone [Dilaudid] Med 04/02/19 16:36 Discontinued 1 mg IM STAT STA Metoclopramide [Reglan] Med 04/02/19 13:50 Discontinued 10 mg IV NOW ONE Metoclopramide [Reglan] Med 04/02/19 16:54 Discontinued 20 mg IM NOW ONE Result Diagrams: 04/02/19 18:53 04/02/19 18:53 - REASSESSMENT Reassessment #1 Time Reassessed: 18:55 (Assumed care @ S/O. Pt seen, examined. She has had 2-3 days of crampy epigastric pain, N/V. Instead of improving with usual gastroparesis tx, says abd is getting bigger. Denies fever. Has had increasing SOB, denies orthopnea, but admits to PND, not slept in 26 hours. Today when home ealth was there, had HR of 140s, then later was 109. Hx of tachycardia, denies a fib, SVT. Heart RRR, Lungs BCTA. Abd- NL BS, mild tender LLQ. Has large scar from necrotizing fascitis) - CONSULTS/PCP/HOSPITALIST Notification #1 *Consult/PCP/Hospitalist*: Redd Time Discussed: 20:18 Consult Disposition: Will see in ED, Admit <Reuben Lord - Last Filed: 04/02/19 21:21> Departure <Abel Mcguire - Last Filed: 04/02/19 17:46> - Departure Date of Disposition Decision: 04/02/19 Time of Disposition Decision: 20:18 Certified Medical Emergency: Emergent - Critical Care Note This patient required my direct & personal management of CC.: No <Reuben Lord - Last Filed: 04/02/19 21:21> - Departure DIAGNOSIS: Gastroparesis Pneumonia Qualifiers: Pneumonia type: due to unspecified organism Laterality: right Lung location: lower lobe of lung Qualified Code(s): J18.1 - Lobar pneumonia, unspecified organism Disposition: ADMITTED INPATIENT 09 Condition: Good Referrals and Follow-Ups: Leslie Ponce MD [Primary Care Provider] - Attestation - Physician/ DAYANNA Attestation The physician spent face to face time with patient:: Yes Advanced Practice Provider documentation review:: Supervising physician onsite and consulted in the evaluation and care of this patient. The physician did have a face to face encounter with the patient. <Abel Mcguire - Last Filed: 04/02/19 17:46> - Physician/ DAYANNA Attestation Patient care was provided by Advanced Practice Provider:: No The physician spent face to face time with patient:: Yes Advanced Practice Provider documentation review:: Supervising physician onsite and consulted in the evaluation and care of this patient. The physician did have a face to face encounter with the patient. <Reuben Lord - Last Filed: 04/02/19 21:21> This chart was documented by the indicated scribe, (Charity Basilio Scribe) and accurately reflects the services I performed and decisions made by me, Abel Demarco MD, as attested by the provider's signature.
--- NOTE | 2019-04-02 16:52 | Diag Imaging Result Doc PS360 ---
EXAM: CHEST-2 VIEWS 04/02/2019 HISTORY: short of breath TECHNIQUE: PA and lateral chest COMMENT: There is ill-defined opacity over the left hemidiaphragm. The inspiration is less optimal than on 02/21/2019. The heart size is enlarged. IMPRESSION: Cardiomegaly and mild pulmonary edema versus pneumonia. Electronically signed by Juan Lilly 04/02/2019 4:50 PM
[2019-04-02] MEDS ORDERED: REGLAN IM ONE (16:54)
[2019-04-02] MEDS ORDERED: ZITHROMAX 500 MG/NS 500 MG/250 ML IVPB IV ONE (16:59)
[2019-04-02] MEDS ORDERED: ROCEPHIN 2 GM in NS 50 ML IV ONE (16:59)
[2019-04-02 19:15] LABS: BASO# 0.02 X1000 (0.0-0.2); BASO% 0.1 % (0.0-0.8); EOS# 0.02 X1000 (0.0-0.7); EOS% 0.1 % (0.0-10.0); HEMATOCRIT 40.2 % (37.0-47.0); HEMOGLOBIN 13.2 g/dL (12.0-16.0); IMM GRAN# 0.05 X1000 (0.0-0.04); IMM GRAN% 0.3 % (0.0-0.5); LYMPH# 1.58 X1000 (1.2-3.4); LYMPH% 8.5 % (20.5-51.1); MCH 22.2 PG (27-31); MCHC 32.8 g/dL (33-37); MCV 67.7 FL (81-99); MONO# 0.74 X1000 (0.11-0.59); MPV 10.2 FL (7.4-10.4); NEUT# 16.27 X1000 (1.4-6.5); PLT 350 X1000 (130-400); RBC 5.94 XMIL (4.2-5.4); WBC 18.68 X1000 (4.8-10.8)
[2019-04-02 19:38] LABS: AGAP 12; ALB/GLOB RATIO 0.9; ALBUMIN 3.7 g/dL (3.5-5.0); ALKALINE PHOSPHATASE 81 U/L (32-104); BUN 13 mg/dL (8-22); CHLORIDE 100 mmol/L (98-107); COSMO 279; CREATININE 0.9 mg/dL (0.5-0.9); ESTIMATED GFR > 60; GLUCOSE 215 mg/dL (70-104); GOT 9 U/L (10-30); GPT 10 U/L (10-36); POTASSIUM 3.5 mmol/L (3.5-5.1); SODIUM 136 mmol/L (136-145); TCO2 24 mmol/L (25-35); TOTAL BILIRUBIN 0.58 mg/dL (0.20-1.00); TOTAL PROTEIN 7.7 g/dL (6.3-8.3)
--- NOTE | 2019-04-02 22:29 | HISTORY AND PHYSICAL ---
PRIMARY CARE PHYSICIAN: Dr. Ponce. CHIEF COMPLAINT: Nausea, back pain, abdominal pain x3 days. HISTORY OF PRESENTING ILLNESS: A 38-year-old obese female with a history of diabetes mellitus type 2, congestive heart failure, and hypertension who presented to the emergency department with 3 days history of having back pain, abdominal pain and nausea. The patient states that during this time, she was also coughing; however, it was nonproductive. She states that she felt like her abdomen was bloating and she remained nauseated for several days. The patient was evaluated in the emergency department. She had imaging done which did show suspicion for pneumonia. Subsequently, she will require admission for further management. At the time of my examination, the patient denied any headache, fever, chills, chest pain, hemoptysis, or any weight changes but complained of shortness of breath, back pain, nausea and abdominal discomfort. PAST MEDICAL HISTORY: Include diabetes mellitus type 2, CHF, hypertension. PAST SURGICAL HISTORY: Cholecystectomy. ALLERGIES: Sulfa. CURRENT MEDICATIONS: Include Xanax 0.125 mg p.o. daily, Coreg 12.5 mg p.o. daily, Nexium 40 mg p.o. b.i.d., Lasix 80 mg p.o. daily, gabapentin 100 mg p.o. at bedtime, glimepiride 4 mg p.o. daily, Lantus 10 units subcu daily, metformin 850 mg p.o. b.i.d., Reglan 10 mg p.o. q.6 hours, metolazone 5 mg p.o. daily, Entresto 49/51 mg 1 tablet b.i.d., Zoloft 25 mg p.o. daily, Carafate 1 mg p.o. q.6 hours. SOCIAL HISTORY: She is a former smoker. No history of alcohol or illicit drug use. FAMILY HISTORY: Positive coronary disease in father. REVIEW OF SYSTEMS: Fourteen point review of systems is as in HPI. Other systems negative. PHYSICAL EXAMINATION: GENERAL: Cooperative, friendly, obese female. She is resting comfortably now. VITAL SIGNS: Temperature 97.6 degrees, pulse 94, respiration 18, blood pressure 139/91. HEENT: Atraumatic, normocephalic. Extraocular movements intact. PERRLA. NECK: Supple. CHEST: Bibasilar rales. CARDIOVASCULAR: Regular rhythm. ABDOMEN: Soft. Obese. Some epigastric tenderness. EXTREMITIES: Trace edema. NEUROLOGIC: She is awake, alert, oriented x3. GENITOURINARY: No bladder distention. SKIN: Warm. LABORATORY STUDIES: WBCs 18.68, hemoglobin 13.2, hematocrit 40.2, platelets 350,000. Sodium 136, potassium 3.5, chloride 100, CO2 of 24, BUN is 13, creatinine 0.9, glucose 215. Chest x-ray shows possibility of pneumonia. ASSESSMENT: A 38-year-old female with a history of diabetes mellitus type 2, congestive heart failure and hypertension who had presented to emergency department with 3 days history of having back pain, shortness of breath and abdominal discomfort. She was evaluated in the emergency department. She had imaging done which did show possibility of pneumonia. Subsequently, she will require admission for further management. 1. Suspected pneumonia. 2. Abdominal pain. 3. Diabetes mellitus type 2. 4. Hypertension. PLAN: 1. We will admit the patient to medical floor with telemetry. 2. We will check blood cultures. Start patient on IV antibiotics. 3. We will consult Gastroenterology for abdominal pain. 4. We will monitor blood glucose and put patient on sliding scale insulin regimen. 5. Monitor blood pressure. Resume anti-hypertensive agents. 6. We will put patient on deep vein thrombosis prophylaxis with sequential compression devices. 7. We will continue to follow and reassess and make further recommendation based on patient's clinical course. cc: Andrae Rainey MD
[2019-04-02] MEDS ORDERED: ZOFRAN IV PRN (23:45)
[2019-04-03] MEDS: NEURONTIN PO SCH ×2 (00:26→20:29)
[2019-04-03] MEDS: REGLAN PO SCH ×5 (00:26→23:15)
[2019-04-03] MEDS: ZOLOFT PO SCH ×2 (00:26→20:29)
--- NOTE | 2019-04-03 02:05 | ED EKG INTERP ---
This chart was entered by Gertrude Roman Scribe, acting as scribe for Reuben Lord MD. EKG Interpretation - EKG Time of EKG reading by physician:: 20:20 EKG Read and Signed by:: Reuben Lord EKG Interpretation (*Must complete 3 of following elements*): Abnormal Rate: 81 Rhythm: NSR [place]: normal QRS: LVH, other (possible L atrial enlargement) [place] Interval: prolonged ST Wave: non-specific ST changes Attestation - Physician/ DAYANNA Attestation Patient care was provided by Advanced Practice Provider:: No The physician spent face to face time with patient:: Yes Advanced Practice Provider documentation review:: Supervising physician onsite and consulted in the evaluation and care of this patient. The physician did have a face to face encounter with the patient. This chart was documented by the indicated scribe, (Gertrude Roman Scribe) and accurately reflects the services I performed and decisions made by me, Reuben Lord MD, as attested by the provider's signature.
[2019-04-03] MEDS: CARAFATE PO SCH ×4 (05:20→23:28)
[2019-04-03] MEDS: HUMULIN R SUBQ SCH ×4 (06:18→20:43)
--- NOTE | 2019-04-03 07:13 | EKG Report ---
Test Performed on : 04/02/2019 8:17:33 PM Test Reason : palpitations Blood Pressure : / mmHG Vent. Rate : 081 BPM Atrial Rate : 081 BPM P-R Int : 170 ms QRS Dur : 090 ms QT Int : 462 ms P-R-T Axes : 071 -16 060 degrees QTc Int : 536 ms Normal sinus rhythm. Possible Left atrial enlargement Left ventricular hypertrophy Nonspecific T wave abnormality Prolonged QT Abnormal ECG When compared with ECG of 22-FEB-2019 06:19, No significant change was found Unconfirmed Result
[2019-04-03 07:37] LABS: HEMATOCRIT 37.2 % (37.0-47.0); HEMOGLOBIN 12.1 g/dL (12.0-16.0); MCH 22.4 PG (27-31); MCHC 32.5 g/dL (33-37); MCV 68.8 FL (81-99); MPV 10.5 FL (7.4-10.4); PLT 326 X1000 (130-400); RBC 5.41 XMIL (4.2-5.4); RDW 19.4 % (11.5-14.5); WBC 13.39 X1000 (4.8-10.8)
[2019-04-03 07:38] LABS: BASO# 0.03 X1000 (0.0-0.2); BASO% 0.2 % (0.0-0.8); EOS# 0.15 X1000 (0.0-0.7); EOS% 1.1 % (0.0-10.0); IMM GRAN# 0.03 X1000 (0.0-0.04); IMM GRAN% 0.2 % (0.0-0.5); LYMPH# 2.43 X1000 (1.2-3.4); LYMPH% 18.1 % (20.5-51.1); MONO# 0.69 X1000 (0.11-0.59); MONO% 5.2 % (1.7-9.3); NEUT# 10.06 X1000 (1.4-6.5); NEUT% 75.2 % (42.2-75.2)
[2019-04-03 08:11] LABS: AGAP 14; BUN 14 mg/dL (8-22); CALCIUM 8.4 mg/dL (8.8-10.2); CHLORIDE 103 mmol/L (98-107); COSMO 281; CREATININE 0.9 mg/dL (0.5-0.9); ESTIMATED GFR > 60; GLUCOSE 115 mg/dL (70-104); SODIUM 140 mmol/L (136-145); TCO2 23 mmol/L (25-35)
[2019-04-03] MEDS: NORCO-7.5 PO PRN ×3 (08:59→23:18)
[2019-04-03] MEDS: LASIX PO SCH (08:59)
[2019-04-03] MEDS: COREG PO SCH (08:59)
[2019-04-03] MEDS: ZAROXOLYN PO SCH (08:59)
[2019-04-03] MEDS: ENTRESTO 49 MG-51 MG TABLET PO SCH ×2 (08:59→20:29)
[2019-04-03] MEDS: NEXIUM PO SCH ×2 (08:59→20:30)
[2019-04-03] MEDS ORDERED: XANAX PO SCH (09:00)
[2019-04-03] MEDS ORDERED: MIRALAX PO SCH (09:00)
[2019-04-03] MEDS: POTASSIUM CHLORIDE 20 MEQ/SWI 20 MEQ/100 ML IVPB IV SCH ×2 (11:37→13:46)
--- NOTE | 2019-04-03 12:35 | PROGRESS NOTE ---
DATE: 04/03/2019 INTERVAL HISTORY: Patient with a minimal cough, which is improving. Abdominal pain also somewhat improved. Her abdominal pain is chronic. No vomiting. No acute events overnight. No other new complaints. REVIEW OF SYSTEMS: Twelve point review of systems negative except as per the interval history. LABS: WBC 13.3, hemoglobin 12.1, hematocrit 37.2, platelets 326,000. Sodium 140, potassium 3, BUN 14, creatinine 0.9, glucose 115. BNP 851 which is similar to previous. VITALS: T-max 98.3 degrees, pulse 85, respirations 16, blood pressure 131/75, O2 saturation 92% on room air. PHYSICAL EXAMINATION: General: No acute distress. Vitals: As above. HEENT: Normocephalic, atraumatic. Moist mucous membranes. No cervical adenopathy. Cardiovascular: Regular rate and rhythm. No murmurs noted. Pulmonary: Really clear to auscultation bilaterally within the limits of body habitus. Abdomen: Soft, obese, nontender. Bowel sounds positive. Extremities: Peripheral pulses intact. No clubbing or cyanosis. Trace bilateral edema. Stable. Neurologic: Cranial nerves grossly intact. No focal deficits identified. Psychiatric: Normal mood and affect. Awake, alert, oriented x3. Skin: No new rashes or lesions identified. ASSESSMENT AND PLAN: 1. Mild pneumonia. Patient oxygenating reasonably well. Afebrile. Leukocytosis improving rapidly on Rocephin and azithromycin. We will continue these for one more day. If she continues to improve, then can likely be transitioned to oral antibiotics and discharged home tomorrow. 2. Chronic abdominal pain related to patient's known diabetic gastroparesis. Continue nausea control and Reglan. 3. Hypokalemia. We will replete and monitor. 4. Hypertension. Reasonable control so far. Continue current management and monitor. 5. Morbid obesity. Patient counseled on diet and exercise. 6. Chronic systolic congestive heart failure. No sign of exacerbation at this time. BNP similar to previous.
--- NOTE | 2019-04-03 13:45 | GASTROENTEROLOGY CONSULTATION ---
DATE: 04/03/2019 ATTENDING PHYSICIAN: Hospitalist PRIMARY CARE PHYSICIAN: Leslie Ponce MD. REASON FOR CONSULTATION: Nausea, abdominal pain, and back pain. HISTORY OF PRESENT ILLNESS: Ms. Beckman is a 38-year-old female who has a known history of uncontrolled type 2 diabetes complicated with congestive heart failure and diabetic gastroparesis. She was in the hospital in the last few months. She has recurrent symptoms of intermittent abdominal pain, nausea, and vomiting. She also has constipation. She denies any vomiting blood or passing blood in the stools. Her last EGD was done many years ago. She does not recall the results of the procedure. She does complain of constipation despite being on laxatives. PAST MEDICAL HISTORY: She has type 2 diabetes, congestive heart failure, hypertension. PAST SURGERIES: Cholecystectomy. ALLERGIES: Sulfa. SOCIAL HISTORY: She is a former smoker. No history of alcohol or illicit drug abuse. FAMILY HISTORY: Positive for coronary artery disease in the father. REVIEW OF SYSTEMS: She denies any fevers, rigors, or chills. She denies any chest pain or shortness of breath. She denies any vomiting blood or passing blood in the stools. The patient has some coughing. She is being worked up for pneumonia. She denies any neurologic complaints. She denies any major arthritis. Denies any history of NSAIDs. MEDICATIONS IN THE HOSPITAL: Include Zoloft, Coreg, Nexium, Lasix, Neurontin, hydrocodone/acetaminophen, sliding-scale regular insulin, potassium chloride, Reglan 10 mg q.6 hours, metolazone, Zofran, MiraLAX 17 g p.o. b.i.d., ceftriaxone, Entresto, Carafate 1 g q.6 hours, azithromycin. DIET: She is on a diabetic diet. PHYSICAL EXAMINATION: Vital Signs: Temperature of 97.8 degrees, pulse rate of 85, respiratory rate of 16, blood pressure 131/75, saturating 98% on room air. Body weight of 234 pounds 9 ounces. BMI of 40.3 kg/m2. General Appearance: Obese, lying in bed, in no acute distress. HEENT: No pallor. No icterus. Pupils equal, reactive to light. Neck: Supple. Abdomen: Abdominal discomfort. No rebound or guarding. Extremities: No cyanosis, clubbing. Neurologic: Was alert, awake, oriented x3. LABS: Hemoglobin and hematocrit are 12.1 and 37.2, white count of 13.39, platelet count of 326,000. Sodium 140, potassium 3, chloride 103, bicarb 29, anion gap 14, BUN of 14, creatinine 0.9, glucose 115, calcium is 8.4. ProBNP is 851. Urinalysis showing positive protein, positive glucose, positive ketones, moderate blood, and 10-20 RBCs. Blood cultures x2 were drawn. They are currently pending. Renal CT showed minimal pneumonia in the right lower lobe. No evidence of stones or obstruction. There has been cholecystectomy. IMPRESSION AND PLAN: 1. Nausea, vomiting, and abdominal pain, likely secondary to gastroparesis. In this regard, the patient will take small frequent meals. She will keep control of her diabetes, and will continue Reglan and hold for side effects like tardive dyskinesia. The patient has not had an esophagogastroduodenoscopy done in a few years ago. We will schedule her for an esophagogastroduodenoscopy tomorrow with anesthesia. She is a high risk for any kind of procedures because of a history of cardiomyopathy. The risks, benefits, indications, and alternatives were discussed with the patient. All questions were answered. 2. Constipation. In this regard, we will start the patient on MiraLAX 17 g by mouth twice a day. 3. Obesity. Patient counseled to lose weight. 4. Type 2 diabetes. She will continue to manage with the primary care team. 5. Deep venous thrombosis prophylaxis with sequential compression devices. 6. Gastrointestinal prophylaxis with proton pump inhibitors. She is on Nexium twice daily. 7. Congestive heart failure. She is being managed by the primary care team. Her last ejection fraction on 03/06/2019 was 25-30%. She has dilated nonischemic cardiomyopathy. 8. The above plans were discussed with the patient. All questions were answered. Please call us with any further questions. cc: MD Leslie Guillory MD MTDD
[2019-04-03] MEDS: PHENERGAN PO PRN (17:49)
[2019-04-03] MEDS: ROCEPHIN 1 GM in NS 50 ML IV SCH (20:30)
[2019-04-03] MEDS: MIRALAX PO SCH (20:31)
[2019-04-03] MEDS: ZITHROMAX 500 MG/NS 500 MG/250 ML IVPB IV SCH (22:10)
[2019-04-04 06:07] LABS: MAGNESIUM 1.6 mg/dL (1.5-2.7); POTASSIUM 3.2 mmol/L (3.5-5.1)
[2019-04-04] MEDS: HUMULIN R SUBQ SCH ×4 (06:13→20:33)
[2019-04-04] MEDS: CARAFATE PO SCH ×4 (06:15→22:27)
[2019-04-04] MEDS: REGLAN PO SCH ×4 (06:15→23:10)
[2019-04-04] MEDS ORDERED: DIPRIVAN 1% ONE (07:41)
[2019-04-04] MEDS ORDERED: FENTANYL ONE (07:42)
[2019-04-04] MEDS ORDERED: XYLOCAINE-MPF 2% ONE (07:46)
[2019-04-04] MEDS: MIRALAX PO SCH ×2 (09:40→20:32)
[2019-04-04] MEDS: LASIX PO SCH (09:40)
[2019-04-04] MEDS: NEXIUM PO SCH ×2 (09:40→20:32)
[2019-04-04] MEDS: COREG PO SCH (09:40)
[2019-04-04] MEDS: ENTRESTO 49 MG-51 MG TABLET PO SCH ×2 (09:40→20:32)
[2019-04-04] MEDS: ZAROXOLYN PO SCH (09:40)
[2019-04-04] MEDS: NORCO-7.5 PO PRN ×2 (09:43→17:55)
[2019-04-04 11:10] LABS: BASO# 0.03 X1000 (0.0-0.2); BASO% 0.3 % (0.0-0.8); EOS# 0.21 X1000 (0.0-0.7); EOS% 2.2 % (0.0-10.0); HEMATOCRIT 40.1 % (37.0-47.0); HEMOGLOBIN 13.1 g/dL (12.0-16.0); LYMPH# 2.06 X1000 (1.2-3.4); LYMPH% 21.4 % (20.5-51.1); MCH 22.6 PG (27-31); MCHC 32.7 g/dL (33-37); MCV 69.1 FL (81-99); MONO# 0.76 X1000 (0.11-0.59); MONO% 7.9 % (1.7-9.3); MPV 10.4 FL (7.4-10.4); NEUT# 6.56 X1000 (1.4-6.5); NEUT% 68.2 % (42.2-75.2); PLT 318 X1000 (130-400); RDW 19.5 % (11.5-14.5); WBC 9.62 X1000 (4.8-10.8)
[2019-04-04] MEDS: PHENERGAN PO PRN ×3 (11:52→22:31)
--- NOTE | 2019-04-04 13:02 | OPERATIVE NOTE ---
PROCEDURE DATE: 04/04/2019 NAME OF EXAM: Upper endoscopy. PROVIDER: Igor Martinez MD. INDICATIONS: Nausea, vomiting, abdominal pain, history of gastroparesis. MEDICATION: Monitored anesthesia care. DESCRIPTION OF PROCEDURE: Prior to procedure, history and physical was performed, and the patient's medication allergies were reviewed. The patient's tolerance to previous anesthesia was also reviewed. The risks and benefits of the procedure and sedation options and risks were discussed with the patient. All questions were answered. Informed consent was obtained. After reviewing the risks and benefits, the patient was deemed in satisfactory condition to undergo the procedure. The endoscope was passed under direct visualization. Throughout the procedure, the patient's blood pressure, pulse and oxygen saturation were monitored continuously. The endoscope was introduced through the mouth and advanced to the second part of the duodenum. The upper GI endoscopy was accomplished without difficulty. The patient tolerated the procedure well. COMPLICATIONS: No immediate complications. ESTIMATED BLOOD LOSS: Minimal. FINDINGS: There was LA grade B esophagitis, likely erosive from nausea and vomiting, found at the GE junction. There was striped gastritis in the antrum. Random gastric biopsies were obtained to rule out H. pylori. Retroflexion in the stomach was unremarkable. The bulb and second portion of the duodenum were normal. IMPRESSION: [place] grade B esophagitis, gastritis, biopsied. RECOMMENDATIONS: Start diabetic clear liquid diet. Continue antiemetics as needed. Continue PPI b.i.d. We will follow with you. Please call with any questions or concerns.
--- NOTE | 2019-04-04 14:32 | PROGRESS NOTE ---
DATE: 04/04/2019 INTERVAL HISTORY: Patient still with some nausea although somewhat improved. One episode of vomiting this morning. Currently NPO for EGD. No new complaints. No other acute events. LABS: WBC 9 6, hemoglobin 13.1, hematocrit 40.1, platelets 318,000. Potassium 0.2, glucose 174, magnesium 1.6. OBJECTIVE: Vital signs: T-max 98.3 degrees pulse 84, respirations 18, blood pressure 111/70, O2 saturation 96 on room air. PHYSICAL EXAMINATION: No acute distress. Vitals as above. HEENT: Normocephalic, atraumatic. Moist mucous membranes. No cervical lymphadenopathy. Cardiovascular regular rate, no murmurs noted. Pulmonary clear to auscultation bilaterally within the limits of body habitus. Abdomen soft, nontender. Bowel sounds positive. Extremities peripheral pulses intact, no clubbing or cyanosis. Trace bilateral edema unchanged. Neurologic cranial nerves grossly intact. No focal deficits identified. Psychiatric normal mood and affect. Awake, alert, oriented x3. Skin no new rashes or lesions identified. ASSESSMENT AND PLAN: 1. Mild pneumonia. Patient oxygenating well. Cough improved. Leukocytosis resolved. Continue IV antibiotics for today. If her gastrointestinal issues improve, then can likely be transitioned to p.o. antibiotics tomorrow. Currently, her inability to reliably tolerate p.o. would make it difficult to transition to p.o. antibiotics. 2. Chronic abdominal pain, likely related to patient's known diabetic gastroparesis. Continue nausea control with Reglan. Esophagogastroduodenoscopy today to look for other etiologies. 3. Hyperkalemia, slightly improved with repletion, but still low. Will further replete and monitor. 4. Hypertension reasonable control so far. Continue current management. 5. Morbid obesity. The patient has been counseled on diet and exercise. 6. Chronic systolic congestive heart failure. No sign of exacerbation at this time. BNP similar to previous. Monitor for signs of volume overload.
[2019-04-04] MEDS: NEURONTIN PO SCH (20:32)
[2019-04-04] MEDS: ZOLOFT PO SCH (20:32)
[2019-04-04] MEDS: ROCEPHIN 1 GM in NS 50 ML IV SCH (20:33)
[2019-04-04] MEDS: ZITHROMAX 500 MG/NS 500 MG/250 ML IVPB IV SCH (21:10)
[2019-04-05] MEDS: NORCO-7.5 PO PRN ×3 (00:24→21:56)
[2019-04-05] MEDS: CARAFATE PO SCH ×4 (04:49→23:10)
[2019-04-05] MEDS: REGLAN PO SCH ×4 (05:50→23:10)
[2019-04-05] MEDS: HUMULIN R SUBQ SCH ×4 (07:53→20:34)
[2019-04-05] MEDS: ZAROXOLYN PO SCH (08:52)
[2019-04-05] MEDS: LASIX PO SCH (08:52)
[2019-04-05] MEDS: COREG PO SCH (08:53)
[2019-04-05] MEDS: NEXIUM PO SCH ×2 (08:53→20:27)
[2019-04-05] MEDS: ENTRESTO 49 MG-51 MG TABLET PO SCH ×2 (08:54→20:26)
[2019-04-05] MEDS: MIRALAX PO SCH ×2 (08:54→20:27)
--- NOTE | 2019-04-05 17:22 | PROGRESS NOTE ---
DATE: 04/05/2019 INTERVAL HISTORY: The patient is with only minimal nausea at this point. No further vomiting. Tolerating liquid diet. No new complaints. No other acute events. REVIEW OF SYSTEMS: Twelve-point review of systems negative except as per interval history. LABORATORY DATA: Glucose 133 to 233. OBJECTIVE: Vital signs: T-max 98.5 degrees, pulse 87, blood pressure 106/69, O2 saturation 100% on room air, respiratory rate 16.General: No acute distress. HEENT: Normocephalic, atraumatic. Moist mucous membranes. No cervical adenopathy. Cardiovascular: Regular rate and rhythm. No murmurs noted. Pulmonary: Clear to auscultation bilaterally within the limits of body habitus. Abdomen is soft, nontender, nondistended. Bowel sounds positive. Extremities: Peripheral pulses intact. No clubbing or cyanosis. Trace bilateral edema unchanged. Neurologic: Cranial nerves grossly intact. No focal deficits identified. Psychiatric: Normal mood and affect. Awake, alert and oriented x3. Skin: No new rashes or lesions identified. ASSESSMENT AND PLAN: 1. Mild pneumonia. Patient oxygenating well. Cough improved. Leukocytosis resolved. Beginning to tolerate diet. Advancing to soft as below. If the patient tolerates this, then can likely transition to p.o. medications and consider discharge. 2. Chronic abdominal pain related to the patient's known diabetic gastroparesis and esophagitis/gastritis seen on recent esophagogastroduodenoscopy. Nausea improved with Reglan, Zofran and Protonix. Tolerating liquids well. continue PPI. Advancing to soft diet and monitor. 3. Hypokalemia. Recheck pending. After repletion, monitor. 4. Morbid obesity. The patient has been counseled on diet and exercise. 5. Chronic systolic congestive heart failure. No sign of exacerbation at this time. BNP similar to previous. Monitor for signs of volume overload. [facility]
--- NOTE | 2019-04-05 17:43 | PROVIDER PROGRESS NOTE ---
Progress Note SUBJECTIVE: No acute overnight events. Some nausea without vomiting. Tolerating liquid diet. +nonbloody BM. Minimal abdominal discomfort. No CP or SOB. OBJECTIVE: Last Vital Signs Temp 97.8 F 04/05/19 15:35 Pulse 85 04/05/19 15:35 Resp 16 04/05/19 04:56 BP 105/68 04/05/19 15:35 Pulse Ox 95 04/05/19 15:35 Height 5 ft 4 in Weight 234 lb 9 oz GEN: awake, alert, NAD HEENT: anicteric, MMM NECK: supple, no JVD PULM: CTAB CARDS: RRR, no murmurs ABD: obese soft NT/ND, NABS EXT: 1-2+ LE edema NEURO: nonfocal LABS: no AM labs EGD 04/04 LA grade B esophagitis, gastritis, biopsied. A/P: Radha Beckman is a 38-year-old woman admitted with intractable nausea and vomiting, abdominal pain found to have reflux esophagitis and minimal esophagitis on EGD 04/04. Also, she is being treated for mild pnuemonia. I suspect her nausea and vomiting is likely related to constipation +/- gastroparesis exacerbation. Will continue antiemetics, bowel regimen, and advance to GI soft diet. #Gastroparesis: persistent nausea - low fat, diabetic diet; small frequent meals - continue reglan; avoid narcotics - glycemic control #Esophagitis: #Constipation: continue bowel regimen #IDDM2: SSI #Pnuemonia: on CTX and azthromycin #GI ppx: continue PPI #Anemia: secondary to her known thalassemia; stable Will follow with you. Please call with questions or concerns.
[2019-04-05] MEDS: PHENERGAN PO PRN (18:52)
[2019-04-05] MEDS: ROCEPHIN 1 GM in NS 50 ML IV SCH (20:26)
[2019-04-05] MEDS: ZOLOFT PO SCH (20:27)
[2019-04-05] MEDS: NEURONTIN PO SCH (20:27)
[2019-04-05] MEDS: ZITHROMAX 500 MG/NS 500 MG/250 ML IVPB IV SCH (22:28)
[2019-04-06] MEDS: REGLAN PO SCH ×2 (06:02→11:08)
[2019-04-06] MEDS: CARAFATE PO SCH ×2 (06:02→11:08)
[2019-04-06] MEDS: HUMULIN R SUBQ SCH ×2 (06:22→11:02)
[2019-04-06 07:13] LABS: BASO# 0.02 X1000 (0.0-0.2); BASO% 0.3 % (0.0-0.8); EOS# 0.25 X1000 (0.0-0.7); EOS% 3.3 % (0.0-10.0); HEMATOCRIT 41.9 % (37.0-47.0); HEMOGLOBIN 13.7 g/dL (12.0-16.0); LYMPH# 2.03 X1000 (1.2-3.4); LYMPH% 27.1 % (20.5-51.1); MCH 22.3 PG (27-31); MCHC 32.7 g/dL (33-37); MCV 68.4 FL (81-99); MONO# 0.68 X1000 (0.11-0.59); MONO% 9.1 % (1.7-9.3); MPV 10.1 FL (7.4-10.4); NEUT% 60.2 % (42.2-75.2); PLT 283 X1000 (130-400); RBC 6.13 XMIL (4.2-5.4); RDW 19.2 % (11.5-14.5); WBC 7.48 X1000 (4.8-10.8)
[2019-04-06 07:37] LABS: AGAP 14; BUN 12 mg/dL (8-22); CALCIUM 8.3 mg/dL (8.8-10.2); CHLORIDE 99 mmol/L (98-107); COSMO 283; ESTIMATED GFR > 60; GLUCOSE 196 mg/dL (70-104); POTASSIUM 3.1 mmol/L (3.5-5.1); SODIUM 139 mmol/L (136-145); TCO2 26 mmol/L (25-35)
[2019-04-06 08:00] VITALS: BP 118/73
[2019-04-06] MEDS: MIRALAX PO SCH (09:04)
[2019-04-06] MEDS: COREG PO SCH (09:04)
[2019-04-06] MEDS: NEXIUM PO SCH (09:04)
[2019-04-06] MEDS: ENTRESTO 49 MG-51 MG TABLET PO SCH (09:04)
[2019-04-06] MEDS: LASIX PO SCH (09:04)
[2019-04-06] MEDS: ZAROXOLYN PO SCH (09:05)
[2019-04-06] MEDS: NORCO-7.5 PO PRN (09:08)
[2019-04-06] MEDS ORDERED: LANTUS INSULIN SUBQ SCH (10:00)
--- NOTE | 2019-04-06 11:22 | PROVIDER PROGRESS NOTE ---
Progress Note SUBJECTIVE: No acute overnight events. Afebrile. Patient remotes significant improvement in N/V. She is tolerating solid food. No abdominal pain, CP, SOB, rectal bleeding. +BMs. OBJECTIVE: Last Vital Signs Temp 98.3 F 04/06/19 08:00 Pulse 98 H 04/06/19 08:00 Resp 16 04/06/19 04:42 BP 118/73 04/06/19 08:00 Pulse Ox 99 04/06/19 08:00 Height 5 ft 4 in Weight 234 lb 9 oz GEN: awake, alert, NAD HEENT: anicteric, MMM NECK: supple, no JVD PULM: CTAB CARDS: RRR, no murmurs ABD: obese soft NT/ND, NABS EXT: 1-2+ LE edema NEURO: nonfocal LABS: 02/07/19 02/07/19 04/06/19 06:25 06:25 06:49 WBC 10.01 Hgb 11.3 L Plt Count 246 Sodium 130 L 139 Potassium 3.7 3.1 L Chloride 91 L 99 Carbon Dioxide 30 26 Anion Gap 14 BUN 14 12 Creatinine 1.0 H 1.0 H Glucose 197 H 196 H 04/06/19 06:49 WBC 7.48 Hgb 13.7 Plt Count 283 Sodium Potassium Chloride Carbon Dioxide Anion Gap BUN Creatinine Glucose EGD 04/04 LA grade B esophagitis, gastritis, biopsied. A/P: Radha Beckman is a 38-year-old woman admitted with intractable nausea and vomiting, abdominal pain found to have reflux esophagitis on EGD 04/04. Also, she is being treated for mild pnuemonia. I suspect her nausea and vomiting is likely related to constipation +/- gastroparesis exacerbation. She has improved with supportive treatment. #Gastroparesis: resolved - low fat, diabetic diet; small frequent meals - resume home antiemetics on discharge #Esophagitis: continue PPI #Constipation: continue bowel regimen #IDDM2: SSI #Pnuemonia: defer to primary #GI ppx: continue PPI #Anemia: secondary to her known thalassemia; normal hgb Patient ok to be discharged from GI perspective. Please call with questions or concerns.
--- NOTE | 2019-04-10 07:18 | DISCHARGE SUMMARY ---
ADMISSION DATE: 04/02/2019 DISCHARGE DATE: 04/06/2019 DISCHARGE DIAGNOSES: 1. Pneumonia. 2. Acute on chronic abdominal pain. 3. Nausea and vomiting, not intractable. 4. Diabetic gastroparesis. 5. Type 2 diabetes. 6. Hypokalemia. 7. Morbid obesity. 8. Chronic systolic congestive heart failure. CONSULTS: GI, Dr. Martinez. HOSPITAL COURSE: The patient is a 38-year-old female with a history of diabetic gastroparesis, morbid obesity, chronic systolic congestive heart failure. She presented with acute on chronic abdominal pain, nausea, as well as some largely nonproductive cough and mild shortness of breath. The nausea and vomiting was thought to be due to her chronic diabetic gastroparesis. Imaging with CT and chest x-ray showed mild right basilar pneumonia, which was thought to be the result of her cough. She was placed on antibiotics with Rocephin and azithromycin, which she responded well to. Cough improved. Leukocytosis essentially resolved. Her nausea and vomiting were treated symptomatically with Reglan, Zofran, and fluids. This also improved. She had some mild hyperkalemia, which was treated. There were no signs of a heart failure exacerbation on this admission. Once her dyspnea and leukocytosis was resolved, and her nausea was improved enough for her to reliably take pills, she was transitioned to p.o. Levaquin to finish the course of treatment for her pneumonia. She was discharged home in stable condition to follow up with her PCP. DISCHARGE VITAL SIGNS: Temperature 98.3 degrees, pulse 98, blood pressure 118/73, O2 saturation 99% on room air. DISCHARGE DIET: Diabetic, heart healthy. DISCHARGE MEDICATIONS: Carafate, Entresto, Lantus 10 units daily, Zoloft, Coreg 12.5, metformin 850 b.i.d., Lasix 80 daily, Levaquin 750 mg p.o. daily for 7 days, MiraLAX, Nexium, Phenergan, Pyridium, Reglan, metolazone 5 mg p.o. daily, Zofran. FOLLOWUP AND PLAN: Patient discharged home to follow up with her PCP. Finishing treatment of her pneumonia with p.o. Levaquin. TIME SPENT: Greater than 30 minutes were spent arranging discharge and counseling the patient.
== END 2019-04-06 13:00 | disposition home health service (06) | DRG 194 ==
LOC: ED 13:01 → 3N 22:09 → SUATTDRO 22:10 → 3N 22:10
PROVIDERS: ATTEND Internal Medicine
CPT/HCPCS: 71020; 71046; 74176; 80048; 80053; 81001; 81025; 82948; 83605; 83735; 83880; 84132; 85025; 87040; 88305; 88312; 93005; 96365; 96367; 96372; 96375; 99285; A9270; J0456; J0696; J1170; J1815; J2405; J2765; J3010; J3480; J7030; XXXXX

== ENCOUNTER 2019-07-28 14:56 | Inpatient (IN) ==
[2019-07-28 15:42] LABS: URINE SOURCE CLEAN CATCH
[2019-07-28 15:50] LABS: BILIRUBIN URINE NEGATIVE (NEGATIVE); BLOOD URINE SMALL (NEGATIVE); COLOR YELLOW; GLUCOSE URINE >1000 mg/dL (NEGATIVE); KETONE URINE 20 mg/dL (NEGATIVE); LEUKOCYTES URINE NEGATIVE (NEGATIVE); NITRITE URINE NEGATIVE (NEGATIVE); PROTEIN URINE 600 mg/dL (NEGATIVE); SP GRAVITY URINE 1.025; TURBIDITY URINE CLEAR (CLEAR); UROBILINOGEN URINE NORMAL (NORMAL)
[2019-07-28 15:50] LABS: BASO# 0.02 X1000 (0.0-0.2); BASO% 0.1 % (0.0-0.8); HEMATOCRIT 39.4 % (37.0-47.0); HEMOGLOBIN 12.6 g/dL (12.0-16.0); IMM GRAN# 0.04 X1000 (0.0-0.04); IMM GRAN% 0.2 % (0.0-0.5); LYMPH# 0.65 X1000 (1.2-3.4); LYMPH% 3.7 % (20.5-51.1); MCH 23.3 PG (27-31); MCV 72.8 FL (81-99); MONO# 0.16 X1000 (0.11-0.59); MONO% 0.9 % (1.7-9.3); MPV 11.2 FL (7.4-10.4); NEUT# 16.65 X1000 (1.4-6.5); NEUT% 95.1 % (42.2-75.2); PLT 356 X1000 (130-400); RBC 5.41 XMIL (4.2-5.4); RDW 15.4 % (11.5-14.5); WBC 17.52 X1000 (4.8-10.8)
[2019-07-28 15:57] LABS: UR EPITHELIAL CELLS <10 /HPF (<10); URINE BACTERIA NEGATIVE /HPF; URINE WBC <10 /HPF (<10)
[2019-07-28 16:08] LABS: URINE YEAST NONE SEEN
[2019-07-28 16:09] LABS: URINE CASTS NONE SEEN; URINE CRYSTALS NONE SEEN; URINE SMALL ROUND CELLS NONE SEEN
[2019-07-28] MEDS ORDERED: ZOFRAN ODT PO ONE (16:10)
[2019-07-28] MEDS ORDERED: TORADOL IM ONE (16:10)
[2019-07-28 16:16] LABS: AGAP 16; ALB/GLOB RATIO 0.8; ALBUMIN 3.4 g/dL (3.5-5.0); ALKALINE PHOSPHATASE 93 U/L (32-104); BUN 13 mg/dL (8-22); CALCIUM 9.1 mg/dL (8.8-10.2); CHLORIDE 103 mmol/L (98-107); COSMO 287; CREATININE 0.8 mg/dL (0.5-0.9); ESTIMATED GFR > 60; GLUCOSE 340 mg/dL (70-104); GOT 13 U/L (10-30); GPT 13 U/L (10-36); POTASSIUM 4.4 mmol/L (3.5-5.1); SODIUM 137 mmol/L (136-145); TCO2 18 mmol/L (25-35); TOTAL BILIRUBIN 0.35 mg/dL (0.20-1.00); TOTAL PROTEIN 7.9 g/dL (6.3-8.3)
[2019-07-28] MEDS ORDERED: NS 1,000 ML IV ONE (16:17)
[2019-07-28] MEDS ORDERED: ZOFRAN PO ONE (16:19)
--- NOTE | 2019-07-28 16:57 | Diag Imaging Result Doc PS360 ---
CT ABDOMEN/PELVIS W/O CONTRAST - 07/28/2019 INDICATION: abdominal pain COMPARISON: 07/18/2019 FINDINGS: There is some hazy groundglass interstitial infiltrate in the lung bases with intralobular septal thickening consistent with interstitial pulmonary edema. There is mild cardiomegaly. There are cholecystectomy clips. No radiodense renal stones. No hydronephrosis or hydroureter. Abdominal organs are normal. No bowel obstruction or inflammation. No free air or free fluid. Normal appendix. Urinary bladder, uterus, ovaries, and rectum are normal. Bones are intact. IMPRESSION: Cardiomegaly and interstitial pulmonary edema in the lung bases. No acute process in the abdomen. This exam was performed using automated exposure control, adjustment of mA or kV according to patient size, and/or use of iterative reconstruction technique Electronically signed by Philippe Espinoza 07/28/2019 4:55 PM
--- NOTE | 2019-07-28 17:35 | PROVIDER DOCUMENTATION ---
HPI-General Adult - General Chief Complaint: Flank Pain Stated Complaint: VOMITING/FEMALE Time Seen by Provider: 07/28/19 15:44 Source: patient Allergies/Adverse Reactions: Patient Allergies Allergy/AdvReac Type Severity Reaction Status Date / Time sulfamethoxazole Allergy HIVES Verified 02/21/19 09:01 [From ] trimethoprim [From ] Allergy HIVES Verified 02/21/19 09:01 Home Medications: Home Medication List Medication Instructions Recorded Confirmed Last Taken Type Ondansetron HCl [Zofran] 4 mg PO Q8H PRN PRN #15 tablet 03/03/18 04/02/19 04/20/18 Rx Insulin Lispro [Humalog] 60 units SQ DAILY 06/04/18 04/02/19 Unknown History Carvedilol [Coreg] 12.5 mg PO DAILY #180 tab 01/18/19 05/15/19 Unknown Rx Gabapentin 100 mg PO HS #90 cap 01/18/19 05/15/19 Unknown Rx Insulin Glargine,Hum.rec.anlog 10 units SQ DAILY 01/29/19 04/02/19 Unknown History [Lantus Solostar] Furosemide [Lasix] 80 mg PO DAILY tab 02/10/19 05/15/19 Unknown Rx Metformin HCl [Glucophage] 850 mg PO BID #60 tab 02/10/19 05/15/19 Unknown Rx Multivitamins/Minerals [Centrum 1 ea PO DAILY tab 02/10/19 04/02/19 Unknown Rx Silver] Potassium Chloride 40 meq PO DAILY #30 tablet.er 02/10/19 04/02/19 Unknown Rx Promethazine [Phenergan] 25 mg PO Q6H PRN PRN #30 tab 02/10/19 05/15/19 Unknown Rx Esomeprazole [Nexium] 40 mg PO BID 30 Days #60 cap 02/23/19 04/02/19 Unknown Rx Sacubitril/Valsartan [Entresto 49 1 tab PO BID 04/02/19 04/02/19 Unknown History mg-51 mg Tablet] Sucralfate [Carafate] 1 tab PO Q6HR 04/02/19 04/02/19 Unknown History Levofloxacin [Levaquin] 750 mg PO DAILY #7 tab 04/06/19 Unknown Rx Phenazopyridine [Pyridium] 100 mg PO TID #21 tab 04/06/19 Unknown Rx Polyethylene Glycol 3350 [Miralax] 17 gm PO BID powder, packet 04/06/19 Unknown Rx Glimepiride 1 tab PO DAILY 05/15/19 05/15/19 Unknown History Metoclopramide [Reglan] 10 mg PO Q8H 05/15/19 05/15/19 Unknown History Metolazone [Zaroxolyn] 5 mg PO DIRECTED PRN 05/15/19 05/15/19 Unknown History Oxycodone HCl/Acetaminophen 1 - 2 ea PO Q6-8H PRN PRN #15 tab 05/15/19 Unknown Rx [Percocet 5-325 mg Tablet] Sacubitril/Valsartan [Entresto 24 1 tab PO DAILY 05/15/19 05/15/19 Unknown History mg-26 mg Tablet] Sertraline [Zoloft] 25 mg PO DAILY 05/15/19 05/15/19 Unknown History - History of Present Illness -Gen Adult Nature of Presenting Problems: 38 yr old F, hx of HF, DM, presenting with a two week hx of hematuria, nausea, vomiting, bilateral lower quadrant abdominal pain left flank pain. The patient reports being worked up about 2 wks ago when symptoms started, and was told at that time that nothing could be found. She reports that she continued to have blood in the urine, left flank pain, and abdominal pain, and this morning had vomiting, bilious in nature, as well as weakness. Location of Pain/Injury: reports: abdomen Pain Radiation: reports: LLQ, LUQ Quality of Pain: reports: cramping, sharp Onset/Duration: reports: other (2 wks ago) Timing: reports: still present, getting worse Context/Activities at Onset: reports: none Modifying Factors: improves with: nothing Associated Symptoms: reports: nausea, vomiting Similar Symptoms Previously?: Yes Review of Systems - Adult - REVIEW OF SYSTEMS - ADULT Constitutional: reports: no symptoms reported Eyes: reports: no symptoms reported Ears, Nose, Mouth & Throat: reports: no symptoms reported Cardiovascular: reports: no symptoms reported Respiratory: reports: no symptoms reported Gastrointestinal: reports: abdominal pain, nausea, vomiting Genitourinary: reports: flank pain (left side), hematuria Musculoskeletal: reports: no symptoms reported Neurological: reports: no symptoms reported Past History - Adult - PAST MEDICAL HISTORY-ADULT Review of Records: reports: Old Records Reviewed, Nursing Assessment Review Major Childhood Illnesses: reports: denies history Cardiovascular: reports: CHF, HTN, hyperlipidemia Respiratory: reports: denies history Gastrointestinal: reports: GERD, other (gastroparesis) Obstetrical/Gynecological: reports: denies history Genitourinary: reports: dialysis Musculoskeletal: reports: denies history Neurological: reports: headaches/migraines Psychiatric: reports: denies history Endocrine/Immune: reports: Diabetes Other Conditions: reports: denies history, MRSA - PRIOR SURGERIES/PROCEDURES Surgical/Procedure History: reports: cholecystectomy, BTL, , breast (reduction), other (necrotizing faciatis) - IMMUNIZATION STATUS Childhood Immunizations: See Nurse Assessment Flu Vaccine: See Nurse Assessment - FAMILY HISTORY Family History: diabetes, HTN Physical Exam-General - PHYSICAL EXAM-ADULT Initial Vital Signs Reviewed: Yes - CONSTITUTIONAL General Appearance: alert, mild distress - EYES Eyes: PERRL/EOMI - HEAD, EARS, NOSE, MOUTH & THROAT HENMT: normocephalic/atraumatic - RESPIRATORY Respiratory: crackles - CARDIOVASCULAR Cardiovascular: regular rate, rhythm - GASTROINTESTINAL (ABDOMEN) Abdominal Exam: soft, tenderness, other (bowel sounds hypoactive) - MUSCULOSKELETAL Back Exam: CVA tenderness (left side) Extremity: normal gait Progress - PLAN OF CARE/RESULTS Progress/Plan/Lab Results: Vital Signs - 8 hr 07/28/19 15:09 Temperature 97.4 F L Pulse Rate 86 Respiratory Rate 19 Blood Pressure 139/90 O2 Sat by Pulse Oximetry 99 Bedside Urine ED: Urine Bedside Start: 07/28/19 15:25 Freq: Status: Active Protocol: Activity Type Activity Date Activity User E-Sign Co-Sign Detail Recorded Client Recorded Date Recorded By Document 07/28/19 15:26 [id number] 07/28/19 15:27 [id number] 07/28/19 15:26 Point of Care [Bedside Point of Care] -Lot # [id number] - Results Negative -Control Line Visible? Yes Laboratory Results - last 24 hr 07/28/19 07/28/19 07/28/19 15:12 15:12 15:24 WBC 17.52 H RBC 5.41 H Hgb 12.6 Hct 39.4 MCV 72.8 L MCH 23.3 L MCHC 32.0 L RDW Std Deviation 15.4 H Plt Count 356 MPV 11.2 H Immature Gran % (Auto) 0.2 Neut % (Auto) 95.1 H Lymph % (Auto) 3.7 L Robeson % (Auto) 0.9 L Eos % (Auto) 0.0 Baso % (Auto) 0.1 Immature Gran # (Auto) 0.04 Neut # (Auto) 16.65 H Lymph # (Auto) 0.65 L Robeson # (Auto) 0.16 Eos # (Auto) 0.00 Baso # (Auto) 0.02 Sodium 137 Potassium 4.4 Chloride 103 Carbon Dioxide 18 L Anion Gap 16 BUN 13 Creatinine 0.8 Estimated GFR/1.73 m2 > 60 BUN/Creatinine Ratio 16 Glucose 340 H Calculated Osmolality 287 Calcium 9.1 Total Bilirubin 0.35 AST 13 ALT 13 Alkaline Phosphatase 93 Total Protein 7.9 Albumin 3.4 L Globulin 4.5 Albumin/Globulin Ratio 0.8 Urine Source CLEAN CATCH Urine Color YELLOW Urine Turbidity CLEAR Urine pH 7.0 Ur Specific [place] 1.025 Urine Protein 600 A Ur Glucose (Stick) >1000 A Ur Ketones (Stick) 20 A Urine Blood SMALL A Urine Nitrite NEGATIVE Urine Bilirubin NEGATIVE Urobilinogen Dipstick NORMAL Urine Leukocytes NEGATIVE Urine WBC (Auto) <10 Urine RBC (Auto) 10-20 A U Epithel Cells (Auto) <10 Urine Bacteria (Auto) NEGATIVE Urine Crystals NONE SEEN Small Round Cells NONE SEEN Urine Casts NONE SEEN Urine Yeast-like Cells NONE SEEN Urine Test 07/28/19 15:24 WBC RBC Hgb Hct MCV MCH MCHC RDW Std Deviation Plt Count MPV Immature Gran % (Auto) Neut % (Auto) Lymph % (Auto) Robeson % (Auto) Eos % (Auto) Baso % (Auto) Immature Gran # (Auto) Neut # (Auto) Lymph # (Auto) Robeson # (Auto) Eos # (Auto) Baso # (Auto) Sodium Potassium Chloride Carbon Dioxide Anion Gap BUN Creatinine Estimated GFR/1.73 m2 BUN/Creatinine Ratio Glucose Calculated Osmolality Calcium Total Bilirubin AST ALT Alkaline Phosphatase Total Protein Albumin Globulin Albumin/Globulin Ratio Urine Source Urine Color Urine Turbidity Urine pH Ur Specific [place] Urine Protein Ur Glucose (Stick) Ur Ketones (Stick) Urine Blood Urine Nitrite Urine Bilirubin Urobilinogen Dipstick Urine Leukocytes Urine WBC (Auto) Urine RBC (Auto) U Epithel Cells (Auto) Urine Bacteria (Auto) Urine Crystals Small Round Cells Urine Casts Urine Yeast-like Cells Urine Test NEGATIVE Orders Category Date Time Status Orthostatic Vital Signs NOW Care 07/28/19 16:[address] ABDOMEN/PELVIS W/O CONTRAST [CT] Stat Exams 07/28/19 16:21 Completed BLOOD CULTURE [BLDCUL] Stat Lab 07/28/19 16:27 Uncollected CBC WITH DIFF [HEME] Stat Lab 07/28/19 15:12 Completed COMPREHENSIVE METABOLIC PANEL [CHEM] Stat Lab 07/28/19 15:12 Completed TEST-URINE [PREG] Stat Lab 07/28/19 15:24 Completed URINALYSIS [URINALYSIS] Stat Lab 07/28/19 15:24 Completed URINE MANUAL MICROSCOPIC [URINALYSIS] Stat Lab 07/28/19 15:24 Completed 0.9% Sodium Chloride Inj [Ns] 1,000 ml Med 07/28/19 16:17 Discontinued IV 999 mls/hr Ketorolac [Toradol] Med 07/28/19 16:10 Discontinued 30 mg IM NOW ONE Ondansetron Odt [Zofran Odt] Med 07/28/19 16:10 Discontinued 4 mg PO NOW ONE Ondansetron [Zofran] Med 07/28/19 16:19 Discontinued 8 mg PO NOW ONE Abd Pain/Abn Bleeding Stat Oth 07/28/19 15:12 Ordered Spoke with hospitalist; will admit for observation. Pt made aware. Result Diagrams: 07/28/19 15:12 07/28/19 15:12 - CT/MRI 1 CT Study: Abdomen, Pelvis Impression: See EMR Report - CONSULTS/PCP/HOSPITALIST Notification #1 *Consult/PCP/Hospitalist*: Dr. Rainey/John Milian Time Discussed: 20:41 Consult Disposition: Admit Departure - Departure Date of Disposition Decision: 07/28/19 Time of Disposition Decision: 20:40 DIAGNOSIS: Leukocytosis, Hyperglycemia, Pain in the abdomen Vomiting Qualifiers: Vomiting type: bilious vomiting Disposition: ADMITTED INPATIENT 09 Certified Medical Emergency: Emergent Condition: Fair Referrals and Follow-Ups: Johanna Oropeza MD [Primary Care Provider] - - Critical Care Note This patient required my direct & personal management of CC.: No Attestation - Physician/ DAYANNA Attestation Patient care was provided by Advanced Practice Provider:: No The physician spent face to face time with patient:: Yes Advanced Practice Provider documentation review:: Supervising physician onsite and consulted in the evaluation and care of this patient. The physician did have a face to face encounter with the patient.
[2019-07-28] MEDS ORDERED: ZOFRAN IV ONE (20:01)
[2019-07-28] MEDS ORDERED: MORPHINE IV ONE (20:01)
[2019-07-28] MEDS ORDERED: VANCOMYCIN 1 GM/NS 1 GM/250 ML IVPB IV ONE (20:23)
[2019-07-28] MEDS ORDERED: ZOSYN 3.375 GM in NS 50 ML IV ONE (20:24)
[2019-07-28] MEDS ORDERED: DEMEROL IV ONE (20:56)
[2019-07-28] MEDS ORDERED: PROTONIX IV ONE (21:03)
[2019-07-28] MEDS ORDERED: SODIUM CHLORIDE 0.9% INJ ONE (21:03)
[2019-07-28 21:31] LABS: HEMOGLOBIN A1C 8.7 % (4.8-6.0)
--- NOTE | 2019-07-28 21:59 | HISTORY AND PHYSICAL ---
CHIEF COMPLAINT: Nausea, vomiting, and abdominal pain. HISTORY OF PRESENT ILLNESS: Ms. Beckman is a 38-year-old female well known to our service. She has a history of diabetic gastroparesis, poorly controlled diabetes mellitus type 2, CHF, hypertension, and she has frequent admissions related to intractable nausea and vomiting. Today she comes in complaining of two weeks of nausea, vomiting, and bilateral lower quadrant abdominal pain. She states that she has also had hematuria. Looking back at her lab history, the patient always has blood noted in her urine. This appears to be less than usual. She has a chronically elevated white blood cell count, which is elevated at this time. It is also likely reactive. She is hyperglycemic, which is her normal. She will be placed on the medical floor for observation until her nausea and vomiting can be controlled. REVIEW OF SYSTEMS: A 14-point review of systems conducted with the patient. Pertinent positives listed above in the HPI. All other systems reviewed negative. ALLERGIES: Bactrim DS. HOME MEDICATIONS: List of home medications has not been reconciled. Order was placed for nursing to reconcile home medications. PAST MEDICAL HISTORY: See HPI. SURGICAL HISTORY: Breast reduction, cholecystectomy, and AICD placement. SOCIAL HISTORY: Smokes around half a pack a day. No alcohol or illicit drugs. FAMILY HISTORY: Diabetes in grandparents. Coronary artery disease in dad. PHYSICAL EXAMINATION: VITAL SIGNS: Temperature 97.4, pulse 86, respirations 19, blood pressure 139/90, oxygen saturation 99% on room air. GENERAL: A 38-year-old female lying in the ER stretched, nontoxic appearing. She does not appear to be in any acute distress. She is alert and oriented x3. HEENT: Head is atraumatic, normocephalic. Pupils equal, round, reactive to light. Extraocular eye movement is intact. Sclerae are anicteric. Conjunctivae is pink. Oral mucosa is moist. NECK: Supple. No JVD. No thyromegaly. Trachea is midline. No cervical lymphadenopathy. CARDIAC: S1, S2 appreciated. No murmurs, gallops, rubs. LUNGS: No wheezing or rhonchi. A few crepitations noted at the bases, otherwise grossly clear. Symmetric rise and fall with respirations. ABDOMEN: Protuberant. Soft, nondistended. Diffusely tender to palpation. Bowel sounds decreased in all four quadrants. EXTREMITIES: No clubbing or cyanosis. There is 1+ pitting edema, bilateral lower extremities up to shins. Feet are cool to touch, 1+ pedal pulses bilaterally. GENITOURINARY: No bladder distention. Patient voids. Otherwise, deferred. NEUROLOGICAL: Alert and oriented x3. Cranial nerves II-XII grossly intact. DIAGNOSTIC DATA: CT of her abdomen and pelvis shows cardiomegaly and interstitial pulmonary edema in the lung bases; no acute process otherwise. LABORATORY DATA: WBC 17.52. Hemoglobin 12.6. Hematocrit 39.4. Platelet count 356. Sodium 137. Potassium 4.4. Chloride 103. Carbon dioxide 18. BUN 13. Creatinine 0.8. Glucose 340. Urine with small amount of hematuria, 10 to 20 RBCs, greater than 1000 glucose. ASSESSMENT AND PLAN: 1. Intractable nausea and vomiting secondary to diabetic gastroparesis. 2. Chronic systolic heart failure. 3. 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 4. Hypertensive heart disease. 5. Leukocytosis, likely reactive. PLAN: Place patient on the medical floor. She is continuing to have nausea and vomiting. Will give Phenergan IV. Start Reglan 10 mg IV q six hours. At this point we will gently hydrate the patient with one bag of normal saline 50 mL an hour. Will monitor her fluid volume status as she does have congestive heart failure, but does not appear to be in any type of exacerbation. Strict intake and output. Every four hour fingerstick blood sugars with moderate sliding scale. Will restart long-acting insulin once the patient resumes p.o. Will give diabetic clear liquids at this time. She will be placed in observation status. Will continue to treat patient's pain and nausea, hopeful that she will be able to go home tomorrow. Further recommendations per patient's clinical course. Dictated by KRISTAN Parks for Andrae Rainey MD I have performed a face to face diagnostic evaluation. Labs/ Xrays- reviewed. Exam- Chest- clear, CV- regular, Abd- soft. A/P- N/V- Gastroparesis- Admit, IV fluids, antiemetics, supportive care. Dr. Rainey cc: KRISTAN Parks MD [facility]
[2019-07-28] MEDS: PHENERGAN IV PRN (22:31)
[2019-07-28] MEDS: HUMALOG SUBQ SCH (22:38)
[2019-07-28] MEDS: REGLAN IV SCH (22:40)
[2019-07-28] MEDS ORDERED: NS 1,000 ML IV SCH (23:40)
[2019-07-29] MEDS: PRILOSEC PO SCH ×2 (00:24→09:47)
[2019-07-29] MEDS: LOVENOX SUBQ SCH ×2 (00:25→23:14)
[2019-07-29] MEDS: HUMALOG SUBQ SCH ×6 (02:00→20:31)
[2019-07-29] MEDS: PHENERGAN IV PRN ×5 (02:26→23:13)
[2019-07-29] MEDS: SODIUM CHLORIDE 0.9% INJ PRN ×3 (02:27→23:13)
[2019-07-29] MEDS: MORPHINE IV PRN ×5 (03:05→19:04)
[2019-07-29] MEDS: REGLAN IV SCH ×4 (03:05→23:13)
[2019-07-29 07:37] LABS: BASO# 0.02 X1000 (0.0-0.2); BASO% 0.1 % (0.0-0.8); EOS# 0.04 X1000 (0.0-0.7); EOS% 0.2 % (0.0-10.0); HEMATOCRIT 35.4 % (37.0-47.0); HEMOGLOBIN 11.3 g/dL (12.0-16.0); IMM GRAN# 0.03 X1000 (0.0-0.04); IMM GRAN% 0.2 % (0.0-0.5); LYMPH# 1.43 X1000 (1.2-3.4); LYMPH% 8.8 % (20.5-51.1); MCH 23.4 PG (27-31); MCHC 31.9 g/dL (33-37); MCV 73.4 FL (81-99); MONO# 0.59 X1000 (0.11-0.59); MONO% 3.6 % (1.7-9.3); NEUT# 14.16 X1000 (1.4-6.5); NEUT% 87.1 % (42.2-75.2); PLT 304 X1000 (130-400); RBC 4.82 XMIL (4.2-5.4); RDW 15.4 % (11.5-14.5); WBC 16.27 X1000 (4.8-10.8)
[2019-07-29 08:07] LABS: AGAP 14; BUN 18 mg/dL (8-22); CALCIUM 8.1 mg/dL (8.8-10.2); CHLORIDE 103 mmol/L (98-107); COSMO 280; ESTIMATED GFR > 60; GLUCOSE 149 mg/dL (70-104); MAGNESIUM 1.7 mg/dL (1.5-2.7); POTASSIUM 4.4 mmol/L (3.5-5.1); SODIUM 138 mmol/L (136-145); TCO2 21 mmol/L (25-35)
[2019-07-29 08:10] LABS: BANDS 4 % (0-1); LYMPHS 10 % (21-51); SEGS 86 % (42-75)
[2019-07-29 08:11] LABS: HYPOCHROM 1+; MICROCYTOSIS 1+
[2019-07-29] MEDS ORDERED: ZOFRAN PO PRN (12:49)
[2019-07-29] MEDS ORDERED: PHENERGAN PO PRN (12:49)
--- NOTE | 2019-07-29 13:11 | PROGRESS NOTE ---
DATE: 07/29/2019 SUBJECTIVE: This morning, Ms. Beckman referred to be feeling a whole lot better. She has not had any more bleeding. OBJECTIVE: Vital signs: Blood pressure is 114/68, pulse of 102, respiration is 18, temperature 97.7 degrees, patient is saturating 100% on room air. General: Ms. Beckman is a 38-year-old, morbidly obese, female. She was in bed, no distress. HEENT: Mucosa is pink and moist. Anicteric. Acyanotic. Neck: Supple. Chest: Good air entry bilaterally. No crepitations. Cardiovascular: Regular rate and rhythm. Gastrointestinal: Abdomen was soft. Extremities: No pedal edema. Central nervous system: Patient is awake, alert, and oriented. LABORATORY DATA: The patient's WBC is 16.26, hemoglobin is 11.1, platelet count of 304,000. Patient has 4% of bands on peripheral smear. Creatinine was 1.0. Glucose was 107. TSH 1.76. IMAGING STUDIES: A CT scan of the abdomen and pelvis without contrast showed cardiomegaly, interstitial pulmonary edema in the lung bases. No acute process in the abdomen. ASSESSMENT AND PLAN: 1. Intractable nausea and vomiting on presentation secondary to diabetic gastroparesis, resolved. Patient is actually tolerating clear liquids so we are going to advance. 2. Chronic congestive heart failure with ejection fraction of 25% noted. 3. Severe nonischemic dilated cardiomyopathy. 4. Diabetes mellitus, on insulin regimen. 5. Hypertension. 6. Leukocytosis, presumably reactive. 7. History of hematuria with unremarkable CT scan. The patient does not seem to have any more ongoing genitourinary bleed. We will advise that she follows up with Urology on outpatient basis for possible cystoscopy. cc: Eric Cali MD
[2019-07-29] MEDS: NEURONTIN PO SCH (13:20)
[2019-07-29] MEDS: CARAFATE PO SCH ×2 (13:20→20:32)
[2019-07-29] MEDS: MIRALAX PO SCH (20:31)
[2019-07-29] MEDS: NEXIUM PO SCH (20:32)
[2019-07-29] MEDS: BUSPAR PO SCH (20:32)
[2019-07-29] MEDS: ENTRESTO 49 MG-51 MG TABLET PO SCH (20:33)
[2019-07-29] MEDS ORDERED: ZOLOFT PO SCH (21:00)
[2019-07-29] MEDS ORDERED: NEURONTIN PO SCH (21:00)
[2019-07-30] MEDS: MORPHINE IV PRN ×2 (00:58→09:12)
[2019-07-30] MEDS: HUMALOG SUBQ SCH ×4 (01:04→09:43)
[2019-07-30] MEDS: CARAFATE PO SCH ×2 (01:04→09:16)
[2019-07-30] MEDS: PHENERGAN IV PRN ×2 (03:46→11:55)
[2019-07-30] MEDS: SODIUM CHLORIDE 0.9% INJ PRN ×2 (03:47→11:55)
[2019-07-30] MEDS: REGLAN IV SCH ×2 (03:47→09:15)
[2019-07-30] MEDS: NEXIUM PO SCH (06:08)
[2019-07-30 08:03] LABS: HEMATOCRIT 36.3 % (37.0-47.0); HEMOGLOBIN 11.6 g/dL (12.0-16.0); MCH 23.9 PG (27-31); MCV 74.7 FL (81-99); RBC 4.86 XMIL (4.2-5.4); WBC 11.24 X1000 (4.8-10.8)
[2019-07-30 08:12] LABS: AGAP 11; BUN 15 mg/dL (8-22); CALCIUM 8.4 mg/dL (8.8-10.2); CHLORIDE 107 mmol/L (98-107); COSMO 282; ESTIMATED GFR > 60; GLUCOSE 168 mg/dL (70-104); PHOSPHORUS 2.9 mg/dL (2.7-4.5); POTASSIUM 3.9 mmol/L (3.5-5.1); SODIUM 139 mmol/L (136-145); TCO2 21 mmol/L (25-35)
[2019-07-30] MEDS ORDERED: LANTUS INSULIN SUBQ SCH (09:00)
[2019-07-30] MEDS ORDERED: COREG PO SCH (09:00)
[2019-07-30] MEDS ORDERED: CENTRUM SILVER PO SCH (09:00)
[2019-07-30] MEDS: MIRALAX PO SCH (09:13)
[2019-07-30] MEDS: NEURONTIN PO SCH (09:16)
[2019-07-30] MEDS: ENTRESTO 49 MG-51 MG TABLET PO SCH (09:16)
[2019-07-30] MEDS: BUSPAR PO SCH (09:16)
[2019-07-30 11:58] VITALS: BP 114/75
[2019-07-30] MEDS ORDERED: PNEUMOVAX 23 IM ONE (13:27)
[2019-07-30] MEDS ORDERED: FLU VACCINE IM ONE (13:27)
--- NOTE | 2019-08-01 03:58 | DISCHARGE SUMMARY ---
ADMISSION DATE: 07/28/2019 DISCHARGE DATE: 07/30/2019 DISPOSITION: Home. FOLLOW-UP: 1. Dr. Johanna Wise. 2. Dr. Grewal. CONSULTATION DURING THIS ADMISSION: None. IMAGING STUDIES OF SIGNIFICANCE: A CT scan of the abdomen and pelvis showed cardiomegaly and interstitial pulmonary edema in the lung bases. No acute process in the abdomen. ADMISSION DIAGNOSES: 1. Intractable nausea and vomiting. 2. Systolic heart failure. 3. Poorly controlled diabetes mellitus. 4. Hypertensive heart disease. DIAGNOSES AT TIME OF DISCHARGE: 1. Intractable nausea and vomiting on presentation, presumably due to diabetic gastroparesis. Resolved. 2. Chronic congestive heart failure with ejection fraction of 25%. The patient is euvolemic. 3. Severe nonischemic dilated cardiomyopathy. 4. Diabetes mellitus with presenting A1c of 8.7. 5. Hypertension. 6. Reactive leukocytosis. 7. History of hematuria with unremarkable CT scan. Patient has been advised to follow up with Urology. 8. 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 The patient will follow up with Urology. She has also been started on oxybutynin. PRESENTING COMPLAINT: Nausea, vomiting, abdominal pain. HISTORY OF PRESENTING COMPLAINT: Ms Beckman is a 38-year-old female who is very well known to the service, is a very frequent flyer, came to the emergency department because of nausea and vomiting. The patient was evaluated, was thought to be in gastroparesis flare and was admitted for further medical care. HOSPITAL COURSE: Ms Beckman was admitted to the medical floor, initially NPO and was adequately hydrated and was treated symptomatically. Over the course of the hospital stay, she improved and was started on a regular diabetic diet, which she tolerated well. She also did refer that she had a lot of clots and bleeding with urination. However, her urinalysis was only 10 to 20 RBCs. The urine blood was very small. During the hospital course, there was no documentation from the nursing staff that Ms. Beckman had any hematuria. However, she did refer that she also has to go to use the restroom more often and has to push most times to use the restroom. We suspect she probably has an irritative bladder from diabetic cystopathy, and we are not sure why she is also having hematuria that she refers to, so we have advised that she follow up with Urology on outpatient. She was started on oxybutynin, which she seems to have tolerated well during the hospital course. At the time of the discharge, Ms. Beckman denies any new symptoms. Her vitals were stable, blood pressure is 114/75, pulse is 83, respirations 19, temperature 98.2 degrees. The patient was saturating 100% and her physical exam was unremarkable. Ms. Beckman is, therefore, stable for discharge. She is going to follow up with her primary care doctor Dr. Johanna Wise, and Urology, Dr. Grewal. All the discharge instructions have been discussed with her and she voiced understanding. DISCHARGE MEDICATION INCLUDES: 1. Insulin lispro 16 units subcutaneous 3 times as needed. 2. Carvedilol 12.5 b.i.d. 3. Insulin glargine 40 units subcutaneously q.a.m. 4. Multivitamins. 5. Furosemide 80 mg p.o. daily. 6. Metformin 850 b.i.d. 7. Nexium 40 mg b.i.d. 8. Carafate. 9. Entresto 49-51 b.i.d. 10. Glimepiride 4 mg b.i.d. daily. 11. Metolazone 5 mg p.o. daily. 12. Sertraline 50 mg p.o. at bedtime. 13. Gabapentin 100 mg b.i.d. 14. Metoclopramide 10 mg q.8 hours. 15. Buspirone 7.5 b.i.d. 16. Gabapentin 300 p.o. at bedtime. 17. Oxybutynin 5 mg p.o. b.i.d. 18. Bentyl 10 mg p.o. 4 times per day. TIME SPENT: For discharge is 36 minutes. cc: MD Johanna Peoples MD William E. Hughes, MD
== END 2019-07-30 13:58 | disposition home or self-care (01) | DRG 74 ==
LOC: ED 14:56 → 3N 14:56 → SUATTDRO 22:52 → OBSVTOIN 22:52
PROVIDERS: ATTEND Internal Medicine

== ENCOUNTER 2019-08-18 12:39 | Inpatient (IN) ==
--- NOTE | 2019-08-18 13:14 | Diag Imaging Result Doc PS360 ---
EXAM: CHEST-2 VIEWS HISTORY: chf TECHNIQUE: Two views COMPARISON: 08/08/2019 FINDINGS: The lungs are well expanded. The heart is enlarged. The vessels are not distended. There are no infiltrates. No pleural effusions. IMPRESSION: Cardiomegaly Electronically signed by Osei Gruber 08/18/2019 1:11 PM
[2019-08-18 13:59] LABS: BASO# 0.02 X1000 (0.0-0.2); BASO% 0.1 % (0.0-0.8); EOS# 0.16 X1000 (0.0-0.7); HEMATOCRIT 37.4 % (37.0-47.0); HEMOGLOBIN 11.8 g/dL (12.0-16.0); IMM GRAN# 0.04 X1000 (0.0-0.04); IMM GRAN% 0.2 % (0.0-0.5); LYMPH# 1.53 X1000 (1.2-3.4); LYMPH% 9.5 % (20.5-51.1); MCH 23.1 PG (27-31); MCHC 31.6 g/dL (33-37); MCV 73.3 FL (81-99); MONO# 0.54 X1000 (0.11-0.59); MONO% 3.4 % (1.7-9.3); MPV 10.4 FL (7.4-10.4); NEUT% 85.8 % (42.2-75.2); PLT 355 X1000 (130-400); RDW 15.9 % (11.5-14.5); WBC 16.09 X1000 (4.8-10.8)
[2019-08-18 14:21] LABS: PROTIME 13.3 Seconds (11.0-16.0)
[2019-08-18 14:22] LABS: PTT 25.4 Seconds (22.3-41.8)
[2019-08-18 14:23] LABS: AGAP 13; ALB/GLOB RATIO 0.9; ALBUMIN 3.4 g/dL (3.5-5.0); ALKALINE PHOSPHATASE 102 U/L (32-104); BUN 10 mg/dL (8-22); CALCIUM 8.8 mg/dL (8.8-10.2); CHLORIDE 100 mmol/L (98-107); CK PROFILE 105 U/L (24-173); COSMO 282; ESTIMATED GFR > 60; GLUCOSE 293 mg/dL (70-104); GOT 13 U/L (10-30); GPT 11 U/L (10-36); POTASSIUM 4.1 mmol/L (3.5-5.1); SODIUM 136 mmol/L (136-145); TCO2 23 mmol/L (25-35); TOTAL BILIRUBIN 0.33 mg/dL (0.20-1.00); TOTAL PROTEIN 7.1 g/dL (6.3-8.3)
--- NOTE | 2019-08-18 16:42 | EKG Report ---
Test Performed on : 08/18/2019 1:59:13 PM Test Reason : ED. No order in [place] Blood Pressure : / mmHG Vent. Rate : 109 BPM Atrial Rate : 109 BPM P-R Int : 178 ms QRS Dur : 086 ms QT Int : 360 ms P-R-T Axes : 066 -33 089 degrees QTc Int : 484 ms Sinus tachycardia. Left axis deviation Minimal voltage criteria for LVH, may be normal variant Anterior infarct , age undetermined Abnormal ECG When compared with ECG of 08-AUG-2019 08:20, (Unconfirmed) No significant change was found Unconfirmed Result
[2019-08-18] MEDS ORDERED: VANCOMYCIN 1 GM/NS 1 GM/250 ML IVPB IV ONE (16:55)
[2019-08-18] MEDS ORDERED: ZOSYN 4.5 GM in NS 100 ML IV ONE (16:56)
--- NOTE | 2019-08-18 17:09 | PROVIDER DOCUMENTATION ---
This chart was entered by Cassie Parr Scribe, acting as scribe for Christian Handley MD. HPI-Abdominal Pain/GI Problem - General Chief Complaint: Abdominal Pain Stated Complaint: SOB,FLUID BUILD UP,ABSCESS Time Seen by Provider: 08/18/19 16:22 Source: patient Allergies/Adverse Reactions: Patient Allergies Allergy/AdvReac Type Severity Reaction Status Date / Time sulfamethoxazole Allergy HIVES Verified 08/08/19 08:39 [From ] trimethoprim [From ] Allergy HIVES Verified 08/08/19 08:39 Home Medications: Home Medication List Medication Instructions Recorded Confirmed Last Taken Type Ondansetron HCl [Zofran] 4 mg PO Q8H PRN PRN #15 tablet 03/03/18 08/08/19 08/07/19 Rx Insulin Lispro [Humalog] 16 units SQ DAILY 06/04/18 08/08/19 08/07/19 History Carvedilol [Coreg] 12.5 mg PO DAILY #180 tab 01/18/19 08/08/19 08/07/19 Rx Insulin Glargine,Hum.rec.anlog 40 units SQ QAM 01/29/19 08/08/19 08/07/19 History [Lantus Solostar] Furosemide [Lasix] 80 mg PO DAILY tab 02/10/19 08/08/19 08/07/19 Rx Metformin HCl [Glucophage] 850 mg PO BID #60 tab 02/10/19 08/08/19 08/07/19 Rx Multivitamins/Minerals [Centrum 1 ea PO DAILY tab 02/10/19 08/08/19 08/07/19 Rx Silver] Promethazine [Phenergan] 25 mg PO Q6H PRN PRN #30 tab 02/10/19 08/08/19 08/07/19 Rx Esomeprazole [Nexium] 40 mg PO BID 30 Days #60 cap 02/23/19 08/08/19 08/07/19 Rx Sacubitril/Valsartan [Entresto 49 1 tab PO BID 04/02/19 08/08/19 08/07/19 History mg-51 mg Tablet] Sucralfate [Carafate] 1 tab PO Q6HR 04/02/19 08/08/19 08/07/19 History Polyethylene Glycol 3350 [Miralax] 17 gm PO BID powder, packet 04/06/19 08/08/19 08/07/19 Rx Glimepiride 1 tab PO DAILY 05/15/19 08/08/19 08/07/19 History Metoclopramide [Reglan] 10 mg PO Q8H 05/15/19 08/08/19 08/07/19 History Metolazone [Zaroxolyn] 5 mg PO DIRECTED PRN 05/15/19 08/08/19 08/07/19 History Sertraline [Zoloft] 50 mg PO QHS 05/15/19 08/08/19 08/07/19 History Buspirone HCl [Buspar] 7.5 mg PO BID 07/28/19 08/08/19 08/07/19 History Gabapentin 100 mg PO BID 07/28/19 08/08/19 08/07/19 History Gabapentin 300 mg PO HS 07/28/19 08/08/19 08/07/19 History Dicyclomine [Bentyl] 10 mg PO 4XDAY #30 cap 07/30/19 08/08/19 08/07/19 Rx Oxybutynin [Ditropan] 5 mg PO DAILY #30 tab 07/30/19 08/08/19 08/07/19 Rx Albuterol Sulfate Inhaler 2 puff INH Q6H PRN PRN #1 inhaler 08/08/19 Unknown Rx [Ventolin Hfa] Azithromycin 250 mg PO DAILY #4 tab 08/08/19 Unknown Rx Codeine/Promethazine [Phenergan 5 ml PO TID PRN PRN #120 ml 08/08/19 Unknown Rx with Codeine Liquid] - History of Present Illness-ABD Nature of Presenting Problems: 38 yobf c/o abd pain, fluid retention and recurrent abscess ruq going toward underside of rt breast. pt has went from 243-257 in 2 days. pt takes 80mg lasix. pt has hx of NF on RLQ and rt leg, MRSA on back, CHF, and DM. 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 Wise. pt was seen in ed on 08/08 and given rx azithromycin. Severity in ED: reports: mild Timing: reports: still present Activities at Onset: reports: none Review of Systems - Adult - REVIEW OF SYSTEMS - ADULT Constitutional: reports: see HPI, weight gain (fluid retention, 243-257 in 10 days). denies: chills, fever, fatique Eyes: reports: no symptoms reported Ears, Nose, Mouth & Throat: reports: no symptoms reported Cardiovascular: reports: no symptoms reported Respiratory: reports: no symptoms reported Gastrointestinal: reports: see HPI, abdominal pain (ruq abscess rad to rt underside of breast). denies: diarrhea, rectal bleeding, vomiting Genitourinary: reports: no symptoms reported Musculoskeletal: reports: no symptoms reported Integumentary: reports: no symptoms reported Neurological: reports: no symptoms reported Psychiatric: reports: no symptoms reported Endocrine: reports: no symptoms reported Hematologic/Lymphatic: reports: no symptoms reported Allergic/Immunologic: reports: no symptoms reported All Other Systems: Reviewed and Negative Past History - Adult - PAST MEDICAL HISTORY-ADULT Review of Records: reports: Old Records Reviewed, Nursing Assessment Review, Medications Reviewed, Social history reviewed & non-contributory. Major Childhood Illnesses: reports: denies history Cardiovascular: reports: CHF, HTN, hyperlipidemia Respiratory: reports: denies history Gastrointestinal: reports: GERD, other (gastroparesis) Obstetrical/Gynecological: reports: denies history Genitourinary: reports: dialysis Musculoskeletal: reports: denies history Neurological: reports: headaches/migraines Psychiatric: reports: denies history Endocrine/Immune: reports: Diabetes Other Conditions: reports: MRSA - PRIOR SURGERIES/PROCEDURES Surgical/Procedure History: reports: cholecystectomy, BTL, , breast (reduction), other (necrotizing faciatis) - IMMUNIZATION STATUS Childhood Immunizations: See Nurse Assessment Flu Vaccine: See Nurse Assessment - FAMILY HISTORY Family History: diabetes, HTN - SOCIAL HISTORY Smoking: other (former smoker) Substance Use: none/never Physical Exam-General - PHYSICAL EXAM-ADULT Initial Vital Signs Reviewed: Yes - CONSTITUTIONAL General Appearance: alert, no apparent distress, obese. negative: cachetic, lethargic, slow to respond - EYES Eyes: PERRL/EOMI, pink conjunctivae - HEAD, EARS, NOSE, MOUTH & THROAT HENMT: normocephalic/atraumatic, moist mucous membranes, normal ENT inspection - NECK Neck: non-tender, full range of motion, supple, normal inspection - RESPIRATORY Respiratory: chest non-tender, lungs clear, normal breath sounds, no accessory muscle use. negative: respiratory distress, accessory muscle use, crackles, retractions, splinting - CARDIOVASCULAR Cardiovascular: normal peripheral pulses, regular rate, rhythm - CHEST (BREASTS) Chest/Breast: normal breast inspection, tenderness (to palp under rt breast), mass/lump noted (under rt breast abscess). negative: no masses/lumps, no tenderness, nipple discharge - GASTROINTESTINAL (ABDOMEN) Abdominal Exam: normal bowel sounds, other (HEAVY, EXTENSIVE SCAR OF RIGHT ABDOMINAL WALL. FLUCTUANT TENDER INDURATION OF RUQ ABD WALL WITH EXTENSION TO THE INFERIOR RIGHT BREAST.) - LYMPHATIC Lymphatic: no adenopathy - MUSCULOSKELETAL Back Exam: normal inspection, no CVA tenderness, no vertebral tenderness Extremity: normal range of motion, non-tender, normal inspection Peripheral Pulses: radial (R): 2+, radial (L): 2+ - SKIN Integumentary: normal color, normal turgor, warm/dry - NEUROLOGIC Neurologic: rn care transition II-XII nml as tested, grossly normal, no motor/sensory deficits - PSYCHIATRIC Psych/Mental Status: normal mood/affect, normal thought content, normal thought process, oriented x 3 Progress - PLAN OF CARE/RESULTS Progress/Plan/Lab Results: Vital Signs - 8 hr 08/18/19 12:52 Temperature 98.1 F Pulse Rate 113 H Respiratory Rate 18 Blood Pressure 121/80 O2 Sat by Pulse Oximetry 99 Laboratory Results - last 24 hr 08/18/19 08/18/19 08/18/19 13:49 13:49 13:49 WBC 16.09 H RBC 5.10 Hgb 11.8 L Hct 37.4 MCV 73.3 L MCH 23.1 L MCHC 31.6 L RDW Std Deviation 15.9 H Plt Count 355 MPV 10.4 Immature Gran % (Auto) 0.2 Neut % (Auto) 85.8 H Lymph % (Auto) 9.5 L Teller % (Auto) 3.4 Eos % (Auto) 1.0 Baso % (Auto) 0.1 Immature Gran # (Auto) 0.04 Neut # (Auto) 13.80 H Lymph # (Auto) 1.53 Teller # (Auto) 0.54 Eos # (Auto) 0.16 Baso # (Auto) 0.02 Segmented Neutrophils Not Reportable PT INR PTT (Actin FS) Sodium 136 Potassium 4.1 Chloride 100 Carbon Dioxide 23 L Anion Gap 13 BUN 10 Creatinine 1.0 H Estimated GFR/1.73 m2 > 60 BUN/Creatinine Ratio 10 Glucose 293 H Calculated Osmolality 282 Calcium 8.8 Total Bilirubin 0.33 AST 13 ALT 11 Alkaline Phosphatase 102 Creatine Kinase 105 Troponin T Lzu-L-Rovatonlndt Pept 452 H Total Protein 7.1 Albumin 3.4 L Globulin 3.7 Albumin/Globulin Ratio 0.9 08/18/19 08/18/19 13:49 13:49 WBC RBC Hgb Hct MCV MCH MCHC RDW Std Deviation Plt Count MPV Immature Gran % (Auto) Neut % (Auto) Lymph % (Auto) Teller % (Auto) Eos % (Auto) Baso % (Auto) Immature Gran # (Auto) Neut # (Auto) Lymph # (Auto) Teller # (Auto) Eos # (Auto) Baso # (Auto) Segmented Neutrophils PT 13.3 INR 1.00 PTT (Actin FS) 25.4 Sodium Potassium Chloride Carbon Dioxide Anion Gap BUN Creatinine Estimated GFR/1.73 m2 BUN/Creatinine Ratio Glucose Calculated Osmolality Calcium Total Bilirubin AST ALT Alkaline Phosphatase Creatine Kinase Troponin T < 0.010 Ihr-Z-Mlnyunrtxun Pept Total Protein Albumin Globulin Albumin/Globulin Ratio Orders Category Date Time Status Cardiac Monitoring DIRECTED Care 08/18/19 12:57 Active Saline Loc NOW Care 08/18/19 12:57 Active CHEST-2 VIEWS [RAD] Stat Exams 08/18/19 12:57 Completed CBC WITH ELECTRONIC DIFF [HEME] Stat Lab 08/18/19 13:49 Completed CK PROFILE [SP CHEM] Stat Lab 08/18/19 13:49 Completed COMPREHENSIVE METABOLIC PANEL [CHEM] Stat Lab 08/18/19 13:49 Completed PRO B-NATRIURETIC PEPTIDE Stat Lab 08/18/19 13:49 Completed PROTIME WITH INR [COAG] Stat Lab 08/18/19 13:49 Completed PTT [COAG] Stat Lab 08/18/19 13:49 Completed TROPONIN T Stat Lab 08/18/19 13:49 Completed CP/SOB/Palp >45 yrs of Age Stat Oth 08/18/19 12:57 Ordered Result Diagrams: 08/18/19 13:49 08/18/19 13:49 - EKG 1 Time of EKG reading by physician:: 14:10 EKG Read and Signed by:: Christian Handley EKG Interpretation (*Must complete 3 of following elements*): Abnormal Rate: 109 Rhythm: [facility] [place]: left QRS: LVH (minimal voltage criteria for lvh, may be normal variant) AR Interval: normal ST Wave: normal Comments: anterior infarct, age undetermined - CONSULTS/PCP/HOSPITALIST Notification #1 *Consult/PCP/Hospitalist*: Dr. Oliver/Chelle Time Discussed: 16:49 Consult Disposition: Will see in ED (wants pt admitted) #2 Consult: Dianna Time Discussed: 17:05 Consult Disposition: Admit (to Dr. Zuleta) Departure - Departure Date of Disposition Decision: 08/18/19 Time of Disposition Decision: 16:59 DIAGNOSIS: Abdominal wall abscess CHF (congestive heart failure) Qualifiers: Heart failure type: combined systolic and diastolic Heart failure chronicity: chronic Qualified Code(s): I50.42 - Chronic combined systolic (congestive) and diastolic (congestive) heart failure Fluid overload, unspecified Qualifiers: Hypervolemia type: unspecified Qualified Code(s): E87.70 - Fluid overload, unspecified Diabetes Qualifiers: Diabetes mellitus type: type 2 Disposition: ADMITTED INPATIENT 09 Certified Medical Emergency: Emergent Condition: Fair Referrals and Follow-Ups: Johanna Oropeza MD [Primary Care Provider] - - Critical Care Note This patient required my direct & personal management of CC.: No Attestation - Physician/ DAYANNA Attestation Patient care was provided by Advanced Practice Provider:: No The physician spent face to face time with patient:: Yes Advanced Practice Provider documentation review:: Supervising physician onsite and consulted in the evaluation and care of this patient. The physician did have a face to face encounter with the patient. This chart was documented by the indicated scribe, (Cassie Parr Scribe) and accurately reflects the services I performed and decisions made by me, Christian Handley MD, as attested by the provider's signature.
[2019-08-18] MEDS ORDERED: SODIUM CHLORIDE 0.9% 20 ML ONE (17:52)
[2019-08-18] MEDS ORDERED: XYLOCAINE-MPF 2% ONE (17:52)
[2019-08-18] MEDS ORDERED: QUELICIN (DOSE) ONE (17:52)
[2019-08-18] MEDS ORDERED: NEO-SYNEPHRINE ONE (17:52)
[2019-08-18] MEDS ORDERED: ROBINUL ONE (17:52)
[2019-08-18] MEDS ORDERED: HURRICAINE SPRAY (DOSE) ONE (17:53)
[2019-08-18] MEDS ORDERED: AMIDATE ONE (17:53)
[2019-08-18] MEDS ORDERED: FENTANYL ONE (17:55)
[2019-08-18] MEDS ORDERED: VERSED ONE (18:40)
[2019-08-18] MEDS ORDERED: NS 0 ML ONE (19:44)
[2019-08-18] MEDS ORDERED: HUMULIN R SUBQ ONE (20:15)
[2019-08-18] MEDS ORDERED: ZOFRAN ONE (20:23)
[2019-08-18] MEDS ORDERED: DILAUDID ONE (20:23)
--- NOTE | 2019-08-18 20:32 | GENERAL SURGERY CONSULTATION ---
CHIEF COMPLAINT: I was asked to see Ms. Radha Beckman by our ER physician because of a soft tissue abscess. HISTORY OF PRESENT ILLNESS: Ms. Radha Beckman is a 38-year-old, diabetic overweight black female who has had a history of necrotizing fasciitis and soft tissue abscesses involving her trunk. She has developed tenderness and swelling underneath her right breast. She was treated recently in our emergency department with oral antibiotics, and she has not improved and presents today with what appears to be a soft tissue abscess underneath her right breast. PAST MEDICAL HISTORY: Diabetes and multiple surgeries for necrotizing fasciitis and soft tissue infection trunk. MEDICATIONS: Unknown at this time. ALLERGIES: No known drug allergies. SOCIAL HISTORY: She does not smoke. REVIEW OF SYSTEMS: A 14-point review of systems was performed and was essentially negative except for the history of present illness. FAMILY HISTORY: Was reviewed but noncontributory. PHYSICAL EXAMINATION: GENERAL: Ms. Radha Beckman is in no acute distress. She is a young black female. She is overweight. She has had significant scars and even a split-thickness skin graft involving mostly the right side of her abdomen. She is awake, cooperative. She has no focal deficit. HEENT: She has no jaundice. No oral lesions. NECK: No cervical or supraclavicular lymphadenopathy. CARDIOVASCULAR: Heart has regular rate. LUNGS: Clear to auscultation and percussion bilaterally. CHEST: It appears that she has a soft tissue abscess underneath her right breast. It does not appear to connect with other scars on her abdomen. She has no worrisome mass in either breast. ABDOMEN: Soft without tenderness. No palpable mass. No costovertebral tenderness. RECTAL AND VAGINAL EXAMS: Were not performed. EXTREMITIES: She does have palpable peripheral pulses. No peripheral edema. NEUROLOGICAL: She is alert and oriented x3 and appropriate. IMPRESSION: Soft tissue abscess in a young overweight black female who is a diabetic. She has also had a significant history of abscesses and necrotizing fasciitis in the past. PLAN: Incision and drainage of soft tissue abscess underneath her right breast. I have discussed the procedure in detail with her. While she was in the emergency department, she has received Zosyn and vancomycin. cc: Marie Oliver MD
--- NOTE | 2019-08-18 20:44 | HISTORY AND PHYSICAL ---
PRIMARY CARE PHYSICIAN: Dr. Johanna Oropeza. CYLINDER BLOCK MECHANIC: Dr. Ramirez. CHIEF COMPLAINT: Recurrent abscess under her right breast. Also complained of some fluid retention and abdominal pain. HISTORY OF PRESENTING ILLNESS: This is a 38-year-old, morbidly obese, female who presents to [facility], with complaints of a recurrent abscess under her right breast. States she has also had some abdominal pain and fluid retention. She was noted to have a raised area underneath her right breast that felt like an abscess. Has had a recurrent abscess there in the past. Her white blood cell count was noted to be 16.09. Chest x-ray showed cardiomegaly. EKG showed sinus tachycardia at 109. ER physician spoke with the surgeon on-call who saw the patient at the bedside in the ER and plans to take her to surgery tonight to incise and drain the abscess underneath her right breast, so she will be admitted for further evaluation and treatment. PAST MEDICAL HISTORY: 1. Congestive heart failure. 2. Hypertension. 3. Hyperlipidemia. 4. GERD. 5. Gastroparesis. 6. Diabetes type 2. PAST SURGICAL HISTORY: 1. Cholecystectomy. 2. Bilateral tubal ligation. 3. . 4. Breast reduction. 5. Necrotizing fasciitis. FAMILY HISTORY: Diabetes and hypertension. SOCIAL HISTORY: She currently lives with family. Denies any tobacco, alcohol, or illicit drug use. ALLERGIES: Sulfa. HOME MEDICATIONS: A current list will need to be obtained, reconciled, reviewed, and restarted as appropriate. Will place an order for Nursing to update and confirm home medications. LABORATORY DATA: White blood cell count of 16.09, hemoglobin 11.8, hematocrit 37.4, platelets 355,000. PT and INR of 13.3 and 1. Sodium 136, potassium 4.1, chloride 100, CO2 23, BUN of 10, creatinine 1, glucose 293. Creatine kinase of 105. Troponin less than 0.010. ProBNP of 452. Chest x-ray showed cardiomegaly. EKG showed sinus tachycardia at 109. REVIEW OF SYSTEMS: She denied any fever, chills, blurred vision, dizziness, chest pain, coughing, shortness of breath. She did have some abdominal pain and a recurrent abscess under her right breast. Does report weight gain over the past 2 days of approximately 10+ pounds. Denies any constipation, diarrhea, burning or hurting with urination. PHYSICAL EXAMINATION: VITAL SIGNS: On arrival, she had a temperature of 98.1 degrees, pulse 113, respirations 18, blood pressure 121/80, saturating 99% on room air. GENERAL: This is a 38-year-old, morbidly obese, female who is sitting up in the bed and answers questions appropriately. HEENT: Normocephalic, atraumatic. Normal ENT inspection. Oropharynx and nares are clear. Eyes: Pupils are equal, round, and reactive to light and accommodation. Extraocular movements are intact. NECK: Normal inspection. Normal range of motion. LUNGS: Clear to auscultation bilaterally with equal lung expansion and chest wall movement. HEART: Regular rate and rhythm. No murmurs, rubs, or gallops. CHEST: She is noted to have a small lump mass underneath her right breast where she has had a recurrent abscess in the past. ABDOMEN: Soft, nontender, nondistended. She has extensive scars in the right abdominal wall that extends up into that right breast. Bowel sounds are present x4 quadrants. MUSCULOSKELETAL: She has 5/5 strength x4 extremities. NEUROLOGICAL: The cranial nerves 2 through 12 appear grossly intact. ASSESSMENT: 1. Abscess under right breast. 2. Leukocytosis. 3. Diabetes type 2 with hyperglycemia. 4. Congestive heart failure, history of. PLAN: 1. She is being admitted to the surgical unit, placed on telemetry, held n.p.o. 2. Consult General Surgery. 3. Will need to update and confirm home medications. 4. Pattern blood sugars with sliding scale insulin. 5. Zosyn 3.375 g intravenously every 6 hours. 6. Vancomycin per pharmacy protocol. 7. Apply sequential compression devices for deep venous thrombosis prophylaxis. 8. Recheck CBC and BMP in the a.m. 9. Further orders after seen by Attending and data communications software consultant. Dictated by KRISTAN Ramos for Domenic Zuleta MD cc: KRISTAN Ramos MD Patient with stable chronic systolic CHF and breast abscess. surgery has taken her to the OR and may be able to be discharged in the next 24-48 hours depending on the extend of the required procedure. Patient with continued complaints of weight gain. I reviewed the medical record. there are very few measured weights but the ones available suggest a slow but steady weight gain over the last several months. given stability of BNP and CXRs, I suspect non-fluid related weight gain rather than CHF. will again discuss diet and exercise with the patient when she is out of surgery. DAQUAN
[2019-08-18] MEDS ORDERED: NORCO-10 ONE (20:46)
[2019-08-18] MEDS ORDERED: ZOFRAN PO PRN (21:48)
[2019-08-18] MEDS ORDERED: VANCOMYCIN IV PER PHARMACY MISC SCH (21:48)
[2019-08-18] MEDS ORDERED: PHENERGAN PO PRN (21:48)
[2019-08-18] MEDS ORDERED: ZOFRAN IV PRN (21:48)
[2019-08-18] MEDS ORDERED: TYLENOL PO PRN (21:48)
--- NOTE | 2019-08-18 22:14 | OPERATIVE NOTE ---
PROCEDURE DATE: 08/18/2019 PREOPERATIVE DIAGNOSIS: Soft tissue abscess, right chest below right breast. POSTOPERATIVE DIAGNOSIS: Soft tissue abscess, right chest below right breast. PRINCIPAL PROCEDURE: Incision and drainage of soft tissue abscess, right inferior chest. SURGEON: Marie Oliver MD. ANESTHESIA: General. ESTIMATED BLOOD LOSS: 25 mL. DRAINS: None. INDICATIONS: Radha Beckman is a 38-year-old black female with diabetes. She has had a significant history of necrotizing fasciitis and infection involving her trunk. She presented to our emergency department with a soft tissue infection underneath her right breast and incision and drainage was recommended. FINDINGS: She had thick white purulence involving her soft tissue below her right breast. DESCRIPTION OF PROCEDURE: The patient was brought to the operating room, placed supine, received general anesthesia, and was intubated. Her chest below her right breast was prepped and draped in a sterile field. She already received IV Zosyn and vancomycin. I made a transverse incision overlying the palpable abscess and the purulence was drained. It was removed with suction. We did take cultures. I made sure that the abscess was fully opened. I thoroughly irrigated it with warm saline and I packed it open with iodoform gauze followed by dry dressing and Medipore tape. She tolerated the procedure well with plans for her to go to the recovery room and then be admitted to the floor. cc: Marie Oliver MD
[2019-08-18] MEDS ORDERED: VANCOMYCIN 1,000 MG in NS 250 ML IV ONE (23:00)
[2019-08-19] MEDS: ZOLOFT PO SCH ×2 (00:22→20:46)
[2019-08-19] MEDS: BUSPAR PO SCH ×3 (00:23→20:44)
[2019-08-19] MEDS: PRILOSEC PO SCH ×3 (00:24→20:44)
[2019-08-19] MEDS: MIRALAX PO SCH ×3 (00:25→20:46)
[2019-08-19] MEDS: ENTRESTO 49 MG-51 MG TABLET PO SCH ×3 (00:25→20:46)
[2019-08-19] MEDS: PERCOCET-5 PO PRN ×5 (00:26→20:45)
[2019-08-19] MEDS: ZOSYN 3.375 GM in NS 50 ML IV SCH ×2 (00:51→06:38)
[2019-08-19] MEDS ORDERED: CLEOCIN PO ONE (03:32)
[2019-08-19 06:42] LABS: BASO# 0.03 X1000 (0.0-0.2); BASO% 0.2 % (0.0-0.8); EOS# 0.26 X1000 (0.0-0.7); EOS% 1.7 % (0.0-10.0); HEMATOCRIT 35.6 % (37.0-47.0); HEMOGLOBIN 10.9 g/dL (12.0-16.0); IMM GRAN# 0.04 X1000 (0.0-0.04); IMM GRAN% 0.3 % (0.0-0.5); LYMPH# 1.79 X1000 (1.2-3.4); LYMPH% 11.8 % (20.5-51.1); MCH 22.7 PG (27-31); MCHC 30.6 g/dL (33-37); MONO# 0.55 X1000 (0.11-0.59); MONO% 3.6 % (1.7-9.3); MPV 10.4 FL (7.4-10.4); NEUT# 12.46 X1000 (1.4-6.5); NEUT% 82.4 % (42.2-75.2); PLT 335 X1000 (130-400); RBC 4.81 XMIL (4.2-5.4); RDW 15.4 % (11.5-14.5); WBC 15.13 X1000 (4.8-10.8)
[2019-08-19 06:52] LABS: AGAP 13; BUN 13 mg/dL (8-22); CALCIUM 8.2 mg/dL (8.8-10.2); CHLORIDE 99 mmol/L (98-107); COSMO 274; ESTIMATED GFR > 60; GLUCOSE 196 mg/dL (70-104); POTASSIUM 4.4 mmol/L (3.5-5.1); SODIUM 134 mmol/L (136-145); TCO2 22 mmol/L (25-35)
[2019-08-19] MEDS ORDERED: D50W SYRINGE IV PRN (07:00)
[2019-08-19] MEDS: HUMULIN R SUBQ SCH ×4 (07:44→23:40)
[2019-08-19] MEDS ORDERED: NS 250 ML ONE (08:11)
--- NOTE | 2019-08-19 08:32 | PROGRESS NOTE ---
DATE: 08/19/2019 Ms. Radha Beckman is a 38-year-old, black female who has a history of soft tissue infection, necrotizing fasciitis involving her right trunk. She presented to our emergency department with a soft tissue infection underneath her right breast and she was taken to surgery last night where it was discovered this infection was limited just to that area. It did not involve any of the wounds involving her right abdomen. The abscess cavity was completely drained. The wound thoroughly irrigated and packed open. This morning, I removed the packing. The wound continues to be clean. Clinically, she has improved. Her postoperative complication has been that it has been very difficult to place a peripheral IV or maintain a peripheral IV and so she had no IV access overnight. I feel from a surgical standpoint, it is okay to discharge her home. I did speak to her about caring for the wound. Cultures were taken at the time of surgery. She is allergic to sulfa medications and doxycycline 100 mg p.o. b.i.d. should be sufficient for what appears to be a staph infection. She can return to the office this coming Sunday for followup. cc: Marie Oliver MD
[2019-08-19] MEDS ORDERED: CLEOCIN PO SCH (09:00)
[2019-08-19] MEDS: LASIX PO SCH (10:01)
[2019-08-19] MEDS: COREG PO SCH (10:02)
[2019-08-19] MEDS: LANTUS INSULIN SUBQ SCH (10:18)
--- NOTE | 2019-08-19 11:33 | PROGRESS NOTE ---
DATE: 08/19/2019 SUBJECTIVE: This morning, Ms. Beckman refers to be doing well. She got admitted yesterday. She underwent I and D of a soft tissue abscess under the right breast yesterday with Dr. Oliver. OBJECTIVE: Current Vital Signs: Blood pressure is 115/72, pulse of 92, respirations 18, temperature 97.8 degrees. General: Ms. Beckman is a 38-year-old female. She is in bed. No distress. HEENT: Mucosa is pink and moist. Anicteric. Acyanotic. Neck: Supple. Chest: Clear to auscultation. No crepitations. No rhonchi. Cardiovascular: Regular rate and rhythm. Abdomen: Soft, nontender. Bowel sounds present. There is an old infraumbilical surgical scar. There is also a wide old scar under the right abdomen and under the upper right thigh. Extremities: No pedal edema. UMBRELLA TIPPER HAND: The patient is awake, alert, oriented. There is no focal neurological deficit. LABORATORY DATA: WBC is 15.13, hemoglobin is 10.9, platelet count of 335. Glucose is 196. The patient's cultures are growing presumed MRSA. ASSESSMENT: 1. Soft tissue abscess under the right breast. The patient is status post incision and drainage with Dr. Oliver yesterday. A culture is showing presumed methicillin-resistant staphylococcus aureus. The patient's antibiotics have been switched to only vancomycin. 2. Diabetes mellitus. Will continue with insulin regimen. 3. History of congestive heart failure, currently euvolemic, and the patient has been started back on her home medications. 4. Morbid obesity with body mass index of 43.3. cc: MD Marie Peoples MD
[2019-08-19] MEDS: VANCOMYCIN 2,000 MG in NS 500 ML IV SCH (12:49)
[2019-08-19] MEDS ORDERED: NEURONTIN PO SCH (21:00)
[2019-08-19] MEDS ORDERED: VANCOMYCIN 2,000 MG in NS 500 ML IV SCH (23:00)
[2019-08-20] MEDS: PERCOCET-5 PO PRN ×4 (00:43→13:21)
[2019-08-20] MEDS: HUMULIN R SUBQ SCH (07:00)
[2019-08-20 07:05] LABS: AGAP 12; ALBUMIN 3.1 g/dL (3.5-5.0); BUN 18 mg/dL (8-22); CALCIUM 7.8 mg/dL (8.8-10.2); CHLORIDE 100 mmol/L (98-107); COSMO 278; CREATININE 1.1 mg/dL (0.5-0.9); ESTIMATED GFR > 60; GLUCOSE 205 mg/dL (70-104); PHOSPHORUS 3.5 mg/dL (2.7-4.5); POTASSIUM 4.5 mmol/L (3.5-5.1); SODIUM 135 mmol/L (136-145); TCO2 23 mmol/L (25-35)
[2019-08-20 07:08] LABS: HEMATOCRIT 36.3 % (37.0-47.0); HEMOGLOBIN 11.4 g/dL (12.0-16.0); MCH 23.4 PG (27-31); MCHC 31.4 g/dL (33-37); MCV 74.5 FL (81-99); RBC 4.87 XMIL (4.2-5.4); WBC 9.57 X1000 (4.8-10.8)
[2019-08-20] MEDS: BUSPAR PO SCH (08:43)
[2019-08-20] MEDS: NEURONTIN PO SCH ×2 (08:43→13:21)
[2019-08-20] MEDS: ENTRESTO 49 MG-51 MG TABLET PO SCH (08:44)
[2019-08-20] MEDS: PRILOSEC PO SCH (08:44)
[2019-08-20] MEDS: LASIX PO SCH (08:44)
[2019-08-20] MEDS: MIRALAX PO SCH (08:44)
[2019-08-20] MEDS: LANTUS INSULIN SUBQ SCH (08:44)
[2019-08-20] MEDS: COREG PO SCH (08:44)
[2019-08-20 11:01] VITALS: BP 89/58
[2019-08-20] MEDS: VANCOMYCIN 2,000 MG in NS 500 ML IV SCH (13:51)
--- NOTE | 2019-08-21 15:20 | DISCHARGE SUMMARY ---
ADMISSION DATE: 08/18/2019 DISCHARGE DATE: 08/20/2019 DISPOSITION: Home. FOLLOW-UP: 1. Dr. Oliver. 2. Dr. Johanna Oropeza. 3. [facility]. CONSULTATION DURING THIS ADMISSION: Surgery was consulted patient was seen by Dr. Oliver. INVASIVE PROCEDURES DONE DURING THIS ADMISSION: An incision and drainage of soft tissue abscess under the right breast was done by Dr. Oliver on 08/18/2019. ADMISSION DIAGNOSES: 1. Abscess under right breast. 2. Leukocytosis. 3. Diabetes mellitus. 4. Congestive heart failure. DIAGNOSES AT THE TIME OF DISCHARGE: 1. Soft tissue abscess under the right breast. The patient is status post I D. Culture has grown MRSA which has ICR for clindamycin positive. 2. Diabetes mellitus, controlled. 3. Morbid obesity with BMI of 43.4. 4. History of congestive heart failure, currently euvolemic. 5. Anxiety and depression disorder. DISCHARGE MEDICATIONS: 1. Carvedilol 12.5 p.o. daily. 2. Insulin glargine 40 units subcutaneously p.o. daily. 3. Furosemide 80 mg p.o. daily. 4. Metformin 850 b.i.d. 5. Promethazine 25 mg p.o. q. 6 h. p.r.n. 6. Nexium 40 mg b.i.d. 7. Carafate 1 g q. 6 h. 8. Entresto 49/51 mg b.i.d. 9. Glimepiride 4 mg daily. 10. Metolazone 5 mg p.o. daily. 11. Sertraline 50 mg p.o. at bedtime. 12. Metoclopramide 10 mg p.o. q. 8. 13. Gabapentin 100 mg b.i.d. 14. BuSpar 7.5 b.i.d. 15. Gabapentin 300 p.o. at bedtime. 16. Oxybutynin 5 mg daily. 17. Doxycycline 10 mg b.i.d. for 7 days. PRESENTING COMPLAINT: Recurrent abscess under her right breast. HISTORY OF PRESENTING COMPLAINT: Ms. Beckman is a 38-year-old female who is a frequent flyer to the hospital, has multiple comorbidities including congestive heart failure, hypertension, dyslipidemia, gastroparesis, and diabetes, was recently discharged from the hospital, comes back this time because of abscess formation under the right breast. The patient was evaluated by surgery and I D was done. Culture came back positive for MRSA. Initially patient was started on broad-spectrum IV antibiotics. This was transitioned down to doxycycline to be completed for a total of 7 days. Ms. Beckman's WBC on admission was 16.09. It has come down to 9.57 today. The rest of her CBC has been reviewed. No concern. Chemistry is also reviewed and no concerns. This morning, Ms. Beckman is doing well. Her vitals, blood pressure 98/78, pulse of 75, respirations 16, temperature is 98.0 degrees. We think Ms. Beckman is in a stable condition for discharge. All the discharge instructions have been discussed with her. I have personally spoken with Dr. Oliver, who will also review. We will also follow her up in his office. Time spent for discharge is 37 minutes. cc: MD Marie Peoples MD
== END 2019-08-20 18:06 | disposition home or self-care (01) | DRG 580 ==
LOC: ED 12:39 → 4N 22:07 → SUATTDRO 22:07
PROVIDERS: ADMIT Surgery; ATTEND Internal Medicine

== ENCOUNTER 2019-09-29 07:29 | Inpatient (IN) ==
[2019-09-29] MEDS ORDERED: SODIUM CHLORIDE 0.9% INJ ONE (08:02)
[2019-09-29] MEDS ORDERED: NS 1,000 ML IV ONE (08:02)
[2019-09-29] MEDS ORDERED: PHENERGAN IV ONE (08:02)
--- NOTE | 2019-09-29 08:07 | PROVIDER DOCUMENTATION ---
HPI-Abdominal Pain/GI Problem - General Chief Complaint: Nausea/Vomiting Stated Complaint: ABD ,BACK PAIN,VOMITING Time Seen by Provider: 09/29/19 07:55 Source: patient Allergies/Adverse Reactions: Patient Allergies Allergy/AdvReac Type Severity Reaction Status Date / Time sulfamethoxazole Allergy HIVES Verified 08/08/19 08:39 [From ] trimethoprim [From ] Allergy HIVES Verified 08/08/19 08:39 Home Medications: Home Medication List Medication Instructions Recorded Confirmed Last Taken Type Ondansetron HCl [Zofran] 4 mg PO Q8H PRN PRN #15 tablet 03/03/18 09/29/19 09/29/19 07:00 Rx Insulin Lispro [Humalog] 16 units SQ DAILY 06/04/18 09/29/19 09/29/19 07:00 History Carvedilol [Coreg] 12.5 mg PO DAILY #180 tab 01/18/19 09/29/19 09/29/19 07:00 Rx Furosemide [Lasix] 80 mg PO DAILY tab 02/10/19 09/29/19 09/29/19 07:00 Rx Multivitamins/Minerals [Centrum 1 ea PO DAILY tab 02/10/19 09/29/19 09/29/19 07:00 Rx Silver] Sacubitril/Valsartan [Entresto 49 1 tab PO BID 04/02/19 09/29/19 09/29/19 07:00 History mg-51 mg Tablet] Polyethylene Glycol 3350 [Miralax] 17 gm PO BID powder, packet 04/06/19 09/29/19 09/29/19 07:00 Rx Glimepiride 1 tab PO DAILY 05/15/19 09/29/19 09/29/19 07:00 History Metolazone [Zaroxolyn] 5 mg PO DIRECTED PRN 05/15/19 09/29/19 09/29/19 07:00 History Sertraline [Zoloft] 50 mg PO QHS 05/15/19 09/29/19 09/29/19 07:00 History Buspirone HCl [Buspar] 7.5 mg PO BID 07/28/19 09/29/19 09/29/19 07:00 History Gabapentin 100 mg PO BID 07/28/19 09/29/19 09/29/19 07:00 History Gabapentin 300 mg PO HS 07/28/19 09/29/19 09/29/19 07:00 History Oxybutynin [Ditropan] 5 mg PO DAILY #30 tab 07/30/19 09/29/19 09/29/19 07:00 Rx Albuterol Sulfate Inhaler 2 puff INH Q6H PRN PRN #1 inhaler 08/08/19 09/29/19 09/29/19 07:00 Rx [Ventolin Hfa] Insulin Glargine [Basaglar] 40 unit SUBQ QHS #1 insuln.pen 10/01/19 Unknown Rx Omeprazole [Prilosec] 40 mg PO BID@0700,2100 #120 cap 10/01/19 Unknown Rx Promethazine [Phenergan] 25 mg PO Q6H PRN PRN #30 tab 10/01/19 Unknown Rx Metoclopramide [Reglan] 10 mg PO TID AC #90 tab 10/04/19 Unknown Rx Sucralfate [Carafate] 1 gm PO 4XDAY #80 tab 10/04/19 Unknown Rx - History of Present Illness-ABD Nature of Presenting Problems: 39 YO F pmh for DM presents with c/o nausea/vomiting and anorexia x 3 days. pt states she has a hx of gastroparesis. Abdominal Pain Onset Location: reports: epigastric Pain Radiation: reports: no radiation Quality of Pain: reports: cramping Severity in ED: reports: moderate Onset/Duration: reports: 3 days ago Timing: reports: still present, getting worse Activities at Onset: reports: none Exposure to sick contacts?: No Modifying Factors: improves with: nothing Associated Symptoms: reports: dizziness, loss of appetite, malaise, nausea, vomiting, weakness. denies: cough, rash Emesis Description: reports: other (bilious) Review of Systems - Adult - REVIEW OF SYSTEMS - ADULT Constitutional: denies: chills, fever Eyes: reports: no symptoms reported Ears, Nose, Mouth & Throat: reports: no symptoms reported Cardiovascular: denies: chest pain, palpitations Respiratory: reports: no symptoms reported Gastrointestinal: reports: see HPI, nausea, vomiting Genitourinary: denies: dysuria, flank pain Musculoskeletal: reports: no symptoms reported Integumentary: reports: no symptoms reported Psychiatric: reports: no symptoms reported Past History - Adult - PAST MEDICAL HISTORY-ADULT Review of Records: reports: Old Records Reviewed Major Childhood Illnesses: reports: denies history Cardiovascular: reports: CHF, HTN, hyperlipidemia Respiratory: reports: denies history Gastrointestinal: reports: GERD, other (gastroparesis) Obstetrical/Gynecological: reports: denies history Musculoskeletal: reports: denies history Neurological: reports: headaches/migraines Psychiatric: reports: denies history Endocrine/Immune: reports: Diabetes Other Conditions: reports: denies history, MRSA - PRIOR SURGERIES/PROCEDURES Surgical/Procedure History: reports: cholecystectomy, BTL, , breast (reduction), other (necrotizing faciatis) - IMMUNIZATION STATUS Childhood Immunizations: See Nurse Assessment Flu Vaccine: See Nurse Assessment - FAMILY HISTORY Family History: diabetes, HTN - SOCIAL HISTORY Smoking: cigarettes Substance Use: denies Living Situation: family Physical Exam-General - PHYSICAL EXAM-ADULT Initial Vital Signs Reviewed: Yes - CONSTITUTIONAL General Appearance: alert, mild distress (from pain), obese - EYES Eyes: pink conjunctivae - HEAD, EARS, NOSE, MOUTH & THROAT HENMT: pharynx normal - NECK Neck: full range of motion, supple - RESPIRATORY Respiratory: lungs clear, normal breath sounds, no pleuratic chest pain, no r espiratory distress, no accessory muscle use - CARDIOVASCULAR Cardiovascular: regular rate, rhythm - GASTROINTESTINAL (ABDOMEN) Abdominal Exam: soft, other (obese, multiple scars). negative: distended, guarding - MUSCULOSKELETAL Back Exam: no CVA tenderness Extremity: normal range of motion, non-tender, normal gait - SKIN Integumentary: normal color, normal turgor, warm/dry - NEUROLOGIC Neurologic: grossly normal - PSYCHIATRIC Psych/Mental Status: normal mood/affect, oriented x 3 Progress - PLAN OF CARE/RESULTS Progress/Plan/Lab Results: Vital Signs - 8 hr 09/29/19 07:35 Temperature 98.1 F Pulse Rate 86 Respiratory Rate 20 Blood Pressure 145/88 O2 Sat by Pulse Oximetry 99 Orders Category Date Time Status ED: Urine Bedside ORDERED Care 09/29/19 08:02 Ordered CBC WITH ELECTRONIC DIFF [HEME] Stat Lab 09/29/19 07:57 Uncollected COMPREHENSIVE METABOLIC PANEL [CHEM] Stat Lab 09/29/19 07:57 Uncollected MAGNESIUM [CHEM] Stat Lab 09/29/19 07:58 Uncollected TSH Stat Lab 09/29/19 07:57 Uncollected URINALYSIS W/POSS RFLX CULT [URINALYSIS] Stat Lab 09/29/19 07:58 Uncollected Ns 1000 ml IV Bolus X1 Med 09/29/19 08:02 Ordered 0.9% Sodium Chloride Inj [Ns] 1,000 ml IV 999 mls/hr Promethazine [Phenergan] Med 09/29/19 08:02 Once 12.5 mg IV NOW ONE Sodium Chloride 0.9% Med 09/29/19 08:02 Once 10 ml INJ NOW ONE Result Diagrams: 10/04/19 06:40 10/04/19 06:40 - REASSESSMENT Reassessment #1 Time Reassessed: 09:45 Status: unchanged (nurses state it is hard to get IV access for her, will change phenergan to IM) - XRAY 1 XRAY Study: Chest, Abdomen Impression: See EMR Report (EXAM: FLAT/UPRIGHT ABD/1 VIEW CHEST INDICATION: n/v TECHNIQUE: 4 views COMPARISON: Chest radiograph dated 08/18/2019 F INDINGS: There are unremarkable bowel gas and stool patterns. There is no obstructive bowel pattern. There is no evidence of large volume free abdominal gas. There is no evidence of organomegaly. The lungs are grossly clear. There is no discrete pleural fluid collection or pneumothorax. There is stable mild cardiomegaly. Central vasculature is unremarkable. There is a stable implanted defibrillator. IMPRESSION: No evidence of acute pathology by plain radiograph. Electronically signed by Gareth Parr 09/29/2019 10:00 AM) - CT/MRI 1 CT Study: Abdomen Impression: See EMR Report (CT ABDOMEN/PELVIS W/O CONTRAST - 09/29/2019 INDICATION: abd pain, n/v COMPARISON: 07/28/2019 FINDINGS: There is a device in the lateral left chest wall. There is cardiomegaly. There is diffuse groundglass interstitial pulmonary edema in the lung bases. No pleural effusions. There is mild body wall edema. Stable cholecystectomy clips. No radiodense renal stones. No hydronephrosis or hydroureter. No bowel obstruction or inflammation. Stable abnormal anterior pelvic body wall. Urinary bladder, uterus, ovaries, and rectum are normal. There are moderate degenerative changes of the spine. No acute or suspicious bony lesion. IMPRESSION: Congestive heart failure. No acute process in the abdomen or pelvis. This exam was performed using automated exposure control, adjustment of mA or kV according to patient size, and/or use of iterative reconstruction technique Electronically signed by Philippe Espinoza 09/29/2019 12:16 PM) - CONSULTS/PCP/HOSPITALIST Notification #1 *Consult/PCP/Hospitalist*: Hospitalist Time Discussed: 13:50 Consult Disposition: Will see in ED, Admit Departure - Departure Date of Disposition Decision: 09/29/19 Time of Disposition Decision: 13:59 DIAGNOSIS: Pain in the abdomen, Intractable nausea and vomiting Disposition: ADMITTED INPATIENT 09 Certified Medical Emergency: Emergent Condition: Stable - Critical Care Note This patient required my direct & personal management of CC.: No Attestation - Physician/ DAYANNA Attestation The physician spent face to face time with patient:: Yes Advanced Practice Provider documentation review:: Supervising physician onsite and consulted in the evaluation and care of this patient. The physician did have a face to face encounter with the patient.
[2019-09-29 09:16] LABS: URINE SOURCE CLEAN CATCH
[2019-09-29 09:20] LABS: BASO# 0.01 X1000 (0.0-0.2); BASO% 0.1 % (0.0-0.8); HEMATOCRIT 43.9 % (37.0-47.0); IMM GRAN# 0.04 X1000 (0.0-0.04); IMM GRAN% 0.2 % (0.0-0.5); LYMPH# 0.68 X1000 (1.2-3.4); LYMPH% 4.1 % (20.5-51.1); MCH 22.5 PG (27-31); MCHC 31.9 g/dL (33-37); MCV 70.6 FL (81-99); MONO# 0.16 X1000 (0.11-0.59); MPV 11.6 FL (7.4-10.4); NEUT# 15.62 X1000 (1.4-6.5); NEUT% 94.6 % (42.2-75.2); PLT 392 X1000 (130-400); RBC 6.22 XMIL (4.2-5.4); RDW 15.3 % (11.5-14.5); WBC 16.51 X1000 (4.8-10.8)
[2019-09-29 09:23] LABS: BILIRUBIN URINE NEGATIVE (NEGATIVE); BLOOD URINE MODERATE (NEGATIVE); COLOR YELLOW; GLUCOSE URINE >1000 mg/dL (NEGATIVE); KETONE URINE 40 mg/dL (NEGATIVE); LEUKOCYTES URINE NEGATIVE (NEGATIVE); NITRITE URINE NEGATIVE (NEGATIVE); PH URINE 6.5; PROTEIN URINE 600 mg/dL (NEGATIVE); SP GRAVITY URINE 1.025; TURBIDITY URINE CLEAR (CLEAR); UROBILINOGEN URINE NORMAL (NORMAL)
[2019-09-29 09:24] LABS: UR EPITHELIAL CELLS <10 /HPF (<10); URINE BACTERIA NEGATIVE /HPF; URINE WBC <10 /HPF (<10)
[2019-09-29] MEDS ORDERED: PHENERGAN IM ONE (09:29)
[2019-09-29 09:35] LABS: AGAP 21; ALB/GLOB RATIO 0.9; ALBUMIN 3.8 g/dL (3.5-5.0); ALKALINE PHOSPHATASE 98 U/L (32-104); BUN 10 mg/dL (8-22); CALCIUM 9.4 mg/dL (8.8-10.2); CHLORIDE 91 mmol/L (98-107); COSMO 282; CREATININE 0.9 mg/dL (0.5-0.9); ESTIMATED GFR > 60; GLUCOSE 364 mg/dL (70-104); GOT 16 U/L (10-30); GPT 18 U/L (10-36); MAGNESIUM 1.6 mg/dL (1.5-2.7); SODIUM 134 mmol/L (136-145); TCO2 22 mmol/L (25-35); TOTAL BILIRUBIN 0.65 mg/dL (0.20-1.00); TOTAL PROTEIN 8.2 g/dL (6.3-8.3)
--- NOTE | 2019-09-29 10:02 | Diag Imaging Result Doc PS360 ---
EXAM: FLAT/UPRIGHT ABD/1 VIEW CHEST INDICATION: n/v TECHNIQUE: 4 views COMPARISON: Chest radiograph dated 08/18/2019 FINDINGS: There are unremarkable bowel gas and stool patterns. There is no obstructive bowel pattern. There is no evidence of large volume free abdominal gas. There is no evidence of organomegaly. The lungs are grossly clear. There is no discrete pleural fluid collection or pneumothorax. There is stable mild cardiomegaly. Central vasculature is unremarkable. There is a stable implanted defibrillator. IMPRESSION: No evidence of acute pathology by plain radiograph. Electronically signed by Gareth Parr 09/29/2019 10:00 AM
--- NOTE | 2019-09-29 12:18 | Diag Imaging Result Doc PS360 ---
CT ABDOMEN/PELVIS W/O CONTRAST - 09/29/2019 INDICATION: abd pain, n/v COMPARISON: 07/28/2019 FINDINGS: There is a device in the lateral left chest wall. There is cardiomegaly. There is diffuse groundglass interstitial pulmonary edema in the lung bases. No pleural effusions. There is mild body wall edema. Stable cholecystectomy clips. No radiodense renal stones. No hydronephrosis or hydroureter. No bowel obstruction or inflammation. Stable abnormal anterior pelvic body wall. Urinary bladder, uterus, ovaries, and rectum are normal. There are moderate degenerative changes of the spine. No acute or suspicious bony lesion. IMPRESSION: Congestive heart failure. No acute process in the abdomen or pelvis. This exam was performed using automated exposure control, adjustment of mA or kV according to patient size, and/or use of iterative reconstruction technique Electronically signed by Philippe Espinoza 09/29/2019 12:16 PM
[2019-09-29] MEDS ORDERED: BENTYL PO ONE (13:31)
[2019-09-29] MEDS ORDERED: FLEXERIL PO ONE (13:31)
[2019-09-29] MEDS: PHENERGAN IV PRN (14:47)
[2019-09-29] MEDS: SODIUM CHLORIDE 0.9% INJ PRN (14:47)
[2019-09-29] MEDS: REGLAN PO SCH (15:48)
[2019-09-29] MEDS: HUMULIN R SUBQ SCH ×2 (15:51→21:22)
[2019-09-29] MEDS: VENTOLIN HFA INH PRN ×2 (15:52→22:57)
[2019-09-29] MEDS ORDERED: GLUCOPHAGE PO SCH (17:00)
[2019-09-29 17:56] LABS: ALLEN TEST YES; BE 1.5 mmoll (-3.0-3.0); BLOOD TYPE ARTERIAL; METHB 0.8 % (0.0-1.5); O2(CT) 19.3 mL/dL (15.0-23.0); O2HB 95.5 % (95.0-99.0); PCO2(98.6) 34 mmHg (35-45); PO2(98.6) 89 mmHg (60-100); SAMPLE BLOOD; SAO2 99.1 % (95.0-100.0); THB 14.3 g/dL (11.5-17.4); pH(98.6) 7.47 (7.35-7.45)
[2019-09-29 17:58] LABS: MODALITY ROOM AIR
--- NOTE | 2019-09-29 18:09 | Diag Imaging Result Doc PS360 ---
CHEST-2 VIEWS - 09/29/2019 INDICATION: hypoxia COMPARISON: 9:47 AM FINDINGS: Stable pacemaker. Stable borderline cardiomegaly. No infiltrates or edema. No pneumothorax or significant pleural effusion. IMPRESSION: No change from prior. Electronically signed by Philippe Espinoza 09/29/2019 6:05 PM
[2019-09-29 18:18] LABS: ACETAMINOPHEN < 1.2 ug/mL (10-30)
[2019-09-29 18:20] LABS: ACETONE SERUM NEGATIVE (NEGATIVE)
--- NOTE | 2019-09-29 19:49 | HISTORY AND PHYSICAL ---
ADDENDUM: Ms. Beckman is a 39-year-old female with extensive history of severe dilated nonischemic cardiomyopathy with ejection fraction of about 15% to 20%, multiple skin infections, anxiety and depression, diabetes mellitus, gastroparesis who comes in this morning because of intractable nausea and vomiting, was evaluated in the emergency room. A KUB showed no evidence of acute pathology. A CT scan of the abdomen and pelvis showed no acute process in the abdomen. Ms. Beckman is admitted because of p.o. intolerance. PHYSICAL EXAMINATION: CURRENT VITALS: Blood pressure is 140/87, pulse of 60, respirations 16, temperature is 98.9 degrees. GENERAL: Ms. Beckman is a 39-year-old morbidly obese, female. She is in bed in no distress. Her BMI is 42.4. HEENT: Mucosa is pink and moist. Anicteric. Acyanotic. She has central obesity. NECK: Short but no JVD. CHEST: Good air entry bilaterally. There were no crepitations. No rhonchi. CARDIOVASCULAR: Regular rate and rhythm. There are no murmurs. Reading beat is at 5th intercostal space midclavicular line. GASTROINTESTINAL: Abdomen is soft, minimally tender in the epigastrium. There is an old surgical scar in the lower to the right side of the abdomen. There are also a right CVA scars from skin infection. CENTRAL NERVOUS SYSTEM: Patient is awake and alert. LABORATORY DATA: CBC is 16.51, hemoglobin is 14.0, platelet count of 392,000. Chemistry is also reviewed, is unremarkable. Glucose is 321. The patient has a gap of 21. ASSESSMENT: 1. Oral intolerance. 2. Intractable nausea and vomiting. 3. Diabetes mellitus with hyperglycemia. Glucose of 364. The patient does have a mild high anion gap acidosis. We are going to get acetone levels to make sure that she is not in any diabetic ketoacidosis. We will also get an ABG on her. For now, we will discontinue the oral hypoglycemic agents and treat her diabetes with insulin until we rule out diabetic ketoacidosis. 4. History of severe dilated nonischemic cardiomyopathy. Recent echocardiogram shows an ejection fraction of 25% to about 30%. 5. Biventricular failure. 6. Morbid obesity with body mass index of 42.4. 7. History of severe gastroparesis, very possible the nausea and vomiting could also be related to gastroparesis. The patient has been started on symptomatic management. 8. History of systolic heart failure. ProBNP is up to 1297. We will continue with IV diuretic therapy for now. PLAN: In general, I think Ms. Beckman is currently having intractable nausea and vomiting, which will be admitted to the medical floor. We will keep her n.p.o., continue with the symptomatic management. We will get a serum acetone to rule out possibility of DKA. We are going to continue with insulin regimen and stop the oral hypoglycemic agent. Please refer to the details of the H and P, which has been dictated by the TRAPEZE PERFORMER. cc: Eric Cali MD
[2019-09-29] MEDS ORDERED: BUSPAR PO SCH (21:00)
[2019-09-29] MEDS: ZOFRAN IV PRN (21:21)
--- NOTE | 2019-09-29 22:14 | HISTORY AND PHYSICAL ---
PRIMARY CARE PROVIDER: Dr. Johanna Oropeza. CELL GENETICIST: Mukesh Ramirez MD CHIEF COMPLAINT: Nausea and vomiting. HISTORY OF PRESENT ILLNESS: Ms. Radha Beckman is a 39-year-old female who has a medical history of morbid obesity, congestive heart failure, gastroparesis, diabetes type 2, who back in July actually had a right breast abscess incision and drainage, which resulted in MRSA. She has already been treated with antibiotics for that. She is actually here with complaints of 2 days nausea with vomiting green emesis, abdominal pain across the lower abdomen that radiates into her back. Her last bowel movement was yesterday. It was normal. She states she has her gastroparesis spells about every few months. Other than that, her congestive heart failure is stable. She does have a little bit of a cough. Otherwise, no changes on that. She has no other complaints. PAST MEDICAL HISTORY: 1. Congestive heart failure. 2. Hypertension. 3. Hyperlipidemia. 4. GERD. 5. Gastroparesis. 6. Diabetes mellitus type 2. 7. Right breast abscess with MRSA recently treated July and had an incision and drainage as well. 8. Depression. SURGICAL HISTORY: 1. Right breast abscess incision and drainage in July 2019. 2. Cholecystectomy. 3. Bilateral tubal ligation. 4. section. 5. Breast reduction. 6. Necrotizing fasciitis. 7. Pacemaker placement. SOCIAL HISTORY: Denies tobacco, alcohol or illicit drug use. She lives with family. FAMILY HISTORY: Positive for diabetes and hypertension. ALLERGIES: Sulfa, trimethoprim, essentially Bactrim. HOME MEDICATIONS: 1. Zoloft 50 mg p.o. nightly. 2. BuSpar 7.5 mg p.o. twice daily. 3. Entresto 49-51 one tablet p.o. twice daily. 4. Neurontin 100 mg p.o. twice a day with an additional 300 mg at night. 5. Glimepiride 4 mg p.o. daily. 6. Insulin Humalog 16 units subcutaneous daily. 7. Lantus 40 units subcutaneous daily. 8. Reglan 10 mg p.o. every 8 hours. 9. Zaroxolyn 5 mg p.o. p.r.n. 30 minutes before Lasix on Mondays and Fridays. 10. Centrum Silver 1 tablet p.o. daily. 11. Coreg 12.5 mg p.o. daily. 12. Ditropan 5 mg p.o. daily. 13. Metformin 850 mg p.o. twice daily. 14. Lasix 80 mg p.o. daily. 15. MiraLAX 17 g p.o. twice daily. 16. Albuterol inhaled every 6 hours p.r.n. 17. Zofran 4 mg p.o. every 8 hours p.r.n. REVIEW OF SYSTEMS: Fourteen-point review of systems are complete, and all were negative except for those mentioned above in HPI. PHYSICAL EXAMINATION: VITAL SIGNS: Temperature 98.9 degrees, heart rate 60, respiratory rate 16, blood pressure 140/87, O2 saturation 100% on room air. GENERAL: Ms. Radha Beckman is a 39-year-old female. She is in no acute distress and able to answer questions appropriately. HEENT: Atraumatic, normocephalic. Pupils equal, round, reactive to light. Extraocular movements intact. Mucous membranes moist. NECK: Trachea midline. CARDIOVASCULAR: S1, S2. Regular rate and rhythm. No rubs, gallops, murmurs. Trace lower extremity edema. +2 dorsalis and radial pulses. Negative for carotid bruits. Unable to assess for JVD due to body habitus. PULMONARY: Clear to auscultation. Bilateral breath sounds. No accessory muscle use or work of breathing noted. GASTROINTESTINAL: Soft, tender in the bilateral lower quadrants. Hypoactive bowel sounds. EXTREMITIES: Moves all extremities equally. Full range of motion. NEUROLOGIC: A and O x3. Follows commands. Sensory is intact. SKIN: Warm, dry, intact, and left breast abscess and site incision and drainage site is healed. LABORATORY DATA: White blood cells 16,000, hemoglobin 14, hematocrit 43, platelet count 392,000. pH 7.47, pCO2 34, pO2 89, bicarb 26, base excess 1.5. Sodium 134, potassium 4.0, BUN 10, creatinine 0.9, glucose 364, calcium 9.4, magnesium 1.6, bilirubin 0.65, AST 16, ALT 18. ProBNP 1297. Albumin is 3.8, lipase 24, TSH 0.98. Urinalysis: 600 protein, greater than 1000 glucose, 40 ketones, moderate blood, 10 to 20 red blood cells. Acetaminophen less than 1.2. Acetones pending. IMAGING: Chest x-ray, 2 view: Stable pacemaker. No infiltrates or edema. Abdominal pelvic CT: Congestive heart failure. No acute process in the abdomen or pelvis. Abdominal x-ray: No evidence of acute findings. ASSESSMENT AND PLAN: 1. Acute spell of gastroparesis with abdominal discomfort, nausea, vomiting. Antiemetics ordered. We will hold off on significant opioids as it could slow down the process of the gastric system. We will continue her Reglan. 2. Systolic congestive heart failure, stable at this time. We will continue all home medications for that. 3. Recent right breast abscess with methicillin-resistant Staphylococcus aureus. Incision is dry and healed, and she had already completed her antibiotics for that according to her. 4. Leukocytosis. No obvious source of infection at this time. 5. Hypertension. Home medications continued. 6. Gastrointestinal reflux disease. Proton pump inhibitor. 7. Diabetes mellitus type 2 with hyperglycemia. We will continue home insulin and do sliding scale insulin along with it. 8. Deep venous thrombosis prophylaxis. Lovenox. Dictated by KRISTAN Sweeney for Eric Cali MD cc: KRISTAN Sweeney MD
[2019-09-30] MEDS: PRILOSEC PO SCH ×3 (00:01→21:59)
[2019-09-30] MEDS: ENTRESTO 49 MG-51 MG TABLET PO SCH ×3 (00:01→22:00)
[2019-09-30] MEDS: MIRALAX PO SCH ×3 (00:01→21:59)
[2019-09-30] MEDS: NEURONTIN PO SCH ×4 (00:01→22:00)
[2019-09-30] MEDS: COREG PO SCH ×3 (00:02→22:00)
[2019-09-30] MEDS: REGLAN PO SCH ×5 (04:53→16:00)
[2019-09-30] MEDS: ZOFRAN IV PRN ×2 (04:53→09:03)
[2019-09-30] MEDS: TYLENOL PO PRN (04:53)
[2019-09-30] MEDS: HUMULIN R SUBQ SCH ×4 (06:30→22:14)
[2019-09-30 08:16] LABS: AGAP 14; ALB/GLOB RATIO 0.8; ALKALINE PHOSPHATASE 75 U/L (32-104); BUN 17 mg/dL (8-22); CALCIUM 8.4 mg/dL (8.8-10.2); CHLORIDE 97 mmol/L (98-107); COSMO 281; ESTIMATED GFR > 60; GLUCOSE 196 mg/dL (70-104); GOT 10 U/L (10-30); GPT 12 U/L (10-36); MAGNESIUM 1.8 mg/dL (1.5-2.7); POTASSIUM 3.2 mmol/L (3.5-5.1); SODIUM 137 mmol/L (136-145); TCO2 26 mmol/L (25-35); TOTAL BILIRUBIN 0.43 mg/dL (0.20-1.00); TOTAL PROTEIN 6.7 g/dL (6.3-8.3)
[2019-09-30 08:27] LABS: BASO# 0.03 X1000 (0.0-0.2); BASO% 0.2 % (0.0-0.8); EOS# 0.07 X1000 (0.0-0.7); EOS% 0.4 % (0.0-10.0); HEMATOCRIT 40.2 % (37.0-47.0); HEMOGLOBIN 12.9 g/dL (12.0-16.0); IMM GRAN# 0.04 X1000 (0.0-0.04); IMM GRAN% 0.2 % (0.0-0.5); LYMPH# 2.61 X1000 (1.2-3.4); LYMPH% 14.9 % (20.5-51.1); MCH 22.8 PG (27-31); MCHC 32.1 g/dL (33-37); MCV 71.2 FL (81-99); MONO# 0.96 X1000 (0.11-0.59); MONO% 5.5 % (1.7-9.3); MPV 10.7 FL (7.4-10.4); NEUT# 13.81 X1000 (1.4-6.5); NEUT% 78.8 % (42.2-75.2); PLT 374 X1000 (130-400); RBC 5.65 XMIL (4.2-5.4); RDW 15.1 % (11.5-14.5); WBC 17.52 X1000 (4.8-10.8)
[2019-09-30 08:28] LABS: BANDS 4 % (0-1); LYMPHS 10 % (21-51); MONO 6 % (1-9); SEGS 80 % (42-75)
[2019-09-30 08:29] LABS: HYPOCHROM 1+; MICROCYTOSIS 1+
[2019-09-30] MEDS: LANTUS INSULIN SUBQ SCH (08:42)
[2019-09-30] MEDS: CENTRUM SILVER PO SCH (08:42)
[2019-09-30] MEDS: HUMALOG SUBQ SCH (08:42)
[2019-09-30] MEDS: DITROPAN PO SCH (08:42)
[2019-09-30] MEDS: LOVENOX SUBQ SCH (08:42)
[2019-09-30] MEDS: BUSPAR PO SCH ×2 (08:47→21:59)
[2019-09-30] MEDS ORDERED: AMARYL PO SCH (09:00)
[2019-09-30] MEDS ORDERED: LASIX PO SCH (09:00)
[2019-09-30] MEDS: VENTOLIN HFA INH PRN ×2 (10:49→23:26)
[2019-09-30] MEDS: PHENERGAN IV PRN ×2 (12:25→18:29)
--- NOTE | 2019-09-30 14:11 | CONSULTATION ---
DATE OF CONSULTATION: 09/30/2019 REASON FOR CONSULT: Intractable nausea and vomiting. HISTORY OF PRESENT ILLNESS: Ms. Radha Beckman is a 39-year-old, -[place] female with a history of morbid obesity, congestive heart failure, gastroparesis, diabetes type 2, who was in the hospital in July with an abscess in her right breast, where an incision and drainage was done which resulted in MRSA. The patient was treated with antibiotics. Patient also had an EGD done on 04/04/2019, findings were LA grade esophagitis and gastritis, random biopsies were done which showed chronic gastritis and negative H-pylori. The patient has been mentioning that for the last 3 days onwards, she has been having intractable nausea and vomiting. Her emesis looked like green-brownish color but has denied noticing any blood in her vomit. The patient also has abdominal pain in the epigastric area. She scales it as 7 and describes her pain as soreness all over. The patient has denied any chills, fever, shortness of breath. She mentioned that she vomited twice today. She did have a bowel movement and has denied noticing any blood in her stools. The patient mentions that she has gastroparesis and quite often has these spells of nausea and vomiting. PAST MEDICAL HISTORY: Congestive heart failure, hypertension, hyperlipidemia, GERD, gastroparesis, diabetes type 2, and a right breast abscess resulting in MRSA, an I & D was done, and history of depression. SURGICAL HISTORY: Right breast abscess I & D in July, cholecystectomy, bilateral tubal ligation, sections, breast reduction, necrotizing fasciitis, pacemaker placement. SOCIAL HISTORY: The patient is living with her family. She has denied any alcohol, tobacco, or illicit drug use. She was a former smoker. FAMILY HISTORY: No significant GI malignancies but positive for diabetes and hypertension. ALLERGIES: Sulfa, trimethoprim. HOME MEDICATIONS: Zofran 4 mg every 8 hours as needed, insulin 16 units subcutaneously, Humalog, Coreg 12.5 mg p.o. daily, insulin Lantus SoloStar 40 units subcutaneous a.m., multivitamin 1 tablet, Lasix 80 mg p.o. daily, metformin 850 mg twice a day, Entresto 1 tablet twice a day, MiraLAX 17 g twice a day, glimepiride 4 mg 1 tablet daily, metolazone 5 mg as needed, Zoloft 50 mg bedtime, Reglan 10 mg p.o. every 8 hours, Neurontin 100 mg p.o. twice a day, BuSpar 7.5 mg twice a day, Neurontin 300 mg at bedtime, oxybutynin 5 mg p.o. daily, and albuterol 2 puffs every 6 hours. REVIEW OF THE SYSTEMS: As per HPI. Otherwise, 12-point review of systems is negative. PHYSICAL EXAMINATION: Vital Signs: Temperature 98.2 degrees, pulse 91, respirations 20, blood pressure 104/68, oxygen saturation 100% on room air. Patient's weight is 246 pounds. BMI is 42.4 kg/m2. General: She is alert, oriented x3. Answering questions appropriately, morbidly obese, and in no acute distress. HEENT: Pale conjunctivae. No icterus. PERRL. Neck: Supple. Lungs: Clear to auscultation in the anterior sutton. Cardiovascular: The patient is tachycardic. Abdomen: Soft, tender, obese. Hypoactive bowel sounds heard in all 4 quadrants. Extremities: No clubbing, no cyanosis, no edema. Pedal pulses 2+ present bilaterally. Neurologic: Alert and oriented x3. Nonfocal. Cranial nerves 2-12 grossly intact. LABORATORY DATA: WBCs 7.52, RBCs 5.65, hemoglobin 12.9, hematocrit 40.2, platelet count 374,000. Sodium 137, potassium 3.2, chloride 97, carbon dioxide 26, anion gap 14, BUN 17, creatinine 1.0, glucose 196, calcium 8.4, magnesium 1.8. Total bilirubin 0.43, AST 10, ALT 12, alkaline phosphatase 75, albumin 3.0. Urinalysis showed protein of 600, glucose of greater than 1000, ketones 40. Toxicology showed acetaminophen level less than 1.2. Chest x-ray showed no changes. Abdomen and pelvis CT showed congestive heart failure. No acute process in the abdomen or the pelvis. Abdominal x-ray showed no evidence of acute pathology. ASSESSMENT: 1. Gastroparesis. 2. Nausea and vomiting. 3. Abdominal pain. 4. Gastroesophageal reflux disease. 5. Type 2 diabetes. 6. Hypertension. 7. Congestive heart failure. 8. Morbid Obesity PLAN: Ms. Beckman is a 39 year old female with the history of gastroparesis, diabetes, hypertension and congestive heart failure, GI has been consulted for her intractable nausea and vomiting. The patient is on GI prophylaxis Prilosec 40 mg twice a day for GERD. She is receiving Carafate 1 g every 6 hours. The patient is on Reglan 10 mg p.o. every 8 hours. We will reduce her Reglan to 3 times a day before meals and needs to be monitored for tardive dyskinesia , she is also receiving phenegran and zofran for her nausea and vomiting. Patient is currently on clear liquids and if able to tolerate will advance her diet. We will continue to monitor the patient and follow the plan of care per PCP. Discussed the risk of obesity, advised patient to lose weight and follow a healthy diet plan, patient verbalized understanding of the instructions. This plan was discussed with Dr. Martinez. Thank you for your consult and please call us for any further questions or concerns. Dictated by KRISTAN Sam for Igor Martinez MD Physician Attestation I have seen and examined the patient. I have discussed and reviewed the note by Sravani RUSHING and agree with findings and plan as documented. In brief, Ms. Radha Beckman is a 39 year old woman who presents with intractable nausea, vomiting, and upper abdominal pain similar to prior episodes of gastroparesis exacerbation. She takes reglan QID and phenergan at home, but has not been able to keep down medication. BG at home have been up to 200s. Her constipation has been controlled with bowel regimen. She denies any associated symptoms including fever, rectal bleeding, or melena. EGD in 04/04 showed reflux esophagitis. Will continue PPI BID. Glycemic control, correct lytes, avoid constipating meds, advance diet to low fat diabetic diet as tolerated, scheduled reglan with meals, IVFs per primary. Stop carafate. Will follow with you. MTDD
--- NOTE | 2019-09-30 14:52 | PROGRESS NOTE ---
DATE: 09/30/2019 SUBJECTIVE: This morning, Ms. Beckman refers to be still nauseated. She vomited about 1 time early this morning. It is documented 0 consumption of her diet. She is still p.o. intolerant. OBJECTIVE: Vital Signs: Blood pressure is 104/68, pulse of 91, respirations are 20, temperature is 98.2 degrees. General Examination: Ms. Beckman is a 39-year-old, -[place] female, morbidly obese. She is in bed. No distress. HEENT: Mucosa is pink and moist. Anicteric. Acyanotic. Neck: Supple. Chest: Good air entry bilaterally. There were no crepitations, no rhonchi. Cardiovascular: Regular rate and rhythm. No murmurs, no rubs, no gallops. GI: Abdomen is soft. Tender in the epigastrium. There is an old surgical scar in the lower abdomen to the right. There is also a scar at the right CVA. [employer]: The patient is awake, alert, and oriented. Laboratory Data: WBC is up to 17.52, hemoglobin is 12.9, platelet count of 374,000. The patient has only 4% of bands on the peripheral smear. Chemistry is also reviewed. Potassium is 3.2. Rest of chemistry is unremarkable. Bicarb is 26. Imaging Studies: None for today. A CAT scan yesterday did show congestive failure. Otherwise, no acute process in the abdomen. Review of the patient's records did show that she did have an EGD on 04/04/[address] Martinez which revealed a grade B esophagitis and gastritis was biopsied. The biopsy report revealed chronic inactive gastritis. H. pylori was negative. The patient's current medications have all been reviewed. ASSESSMENT: 1. Intractable nausea and vomiting. The patient continues to be intolerant. We are going to continue with symptomatic management and get gastroenterology to evaluate. 2. History of grade B esophagitis with gastritis. Patient is on a proton pump inhibitor and Carafate. 3. Diabetes mellitus with hyperglycemia on presentation, improved. 4. History of gastroparesis, presumably the cause of the ongoing nausea and vomiting. The patient is currently on metoclopramide. 5. Severe dilated nonischemic cardiomyopathy with ejection fraction of 25 to 30 percent, associated with chronic congestive heart failure. ProBNP is trending down. We are going to continue with the diuretic therapy. 6. Biventricular failure, noted. 7. Morbid obesity with body mass index of 42.4. 8. Mild electrolyte abnormality including hypokalemia, will be replaced. 9. History of methicillin-resistant Staphylococcus aureus. The patient is on contact precautions. PLAN: In general, I think Ms. Beckman seems to be doing a little better. Continues to be p.o. intolerant except for medication which she seems to be tolerating that well. We are going to continue with the current symptomatic management including metoclopramide. She is on a PPI and Carafate. We will continue with a b.i.d. PPI and get GI to evaluate her. cc: Eric Cali MD
[2019-09-30] MEDS: CARAFATE LIQUID PO SCH ×2 (14:53→21:59)
[2019-09-30 15:48] LABS: URINE SOURCE CLEAN CATCH
[2019-09-30 15:51] LABS: BILIRUBIN URINE NEGATIVE (NEGATIVE); BLOOD URINE SMALL (NEGATIVE); COLOR YELLOW; GLUCOSE URINE NEGATIVE (NEGATIVE); KETONE URINE NEGATIVE (NEGATIVE); LEUKOCYTES URINE NEGATIVE (NEGATIVE); NITRITE URINE NEGATIVE (NEGATIVE); PROTEIN URINE 200 mg/dL (NEGATIVE); TURBIDITY URINE CLEAR (CLEAR); UR EPITHELIAL CELLS <10 /HPF (<10); URINE BACTERIA NEGATIVE /HPF; URINE RBC <10 /HPF (<10); URINE WBC <10 /HPF (<10); UROBILINOGEN URINE NORMAL (NORMAL)
[2019-09-30] MEDS: ZOLOFT PO SCH ×2 (22:00)
[2019-10-01] MEDS: SODIUM CHLORIDE 0.9% INJ PRN (00:16)
[2019-10-01] MEDS: PHENERGAN IV PRN ×3 (00:16→21:51)
[2019-10-01] MEDS: CARAFATE LIQUID PO SCH (03:18)
[2019-10-01] MEDS: TYLENOL PO PRN ×2 (03:18→09:11)
[2019-10-01] MEDS: PRILOSEC PO SCH ×2 (06:52→21:36)
[2019-10-01] MEDS: REGLAN PO SCH ×3 (06:52→16:59)
[2019-10-01] MEDS: HUMULIN R SUBQ SCH ×4 (06:52→21:39)
[2019-10-01 07:55] LABS: BASO# 0.04 X1000 (0.0-0.2); BASO% 0.3 % (0.0-0.8); EOS# 0.21 X1000 (0.0-0.7); EOS% 1.5 % (0.0-10.0); HEMATOCRIT 42.2 % (37.0-47.0); HEMOGLOBIN 13.5 g/dL (12.0-16.0); IMM GRAN# 0.05 X1000 (0.0-0.04); IMM GRAN% 0.4 % (0.0-0.5); LYMPH# 3.52 X1000 (1.2-3.4); LYMPH% 25.2 % (20.5-51.1); MONO# 1.03 X1000 (0.11-0.59); MONO% 7.4 % (1.7-9.3); MPV 10.5 FL (7.4-10.4); NEUT% 65.2 % (42.2-75.2); PLT 372 X1000 (130-400); RBC 5.86 XMIL (4.2-5.4); RDW 15.8 % (11.5-14.5); WBC 13.95 X1000 (4.8-10.8)
[2019-10-01 08:14] LABS: ALB/GLOB RATIO 0.8; ALBUMIN 2.9 g/dL (3.5-5.0); CALCIUM 8.7 mg/dL (8.8-10.2); CREATININE 1.5 mg/dL (0.5-0.9); MAGNESIUM 1.8 mg/dL (1.5-2.7); POTASSIUM 3.2 mmol/L (3.5-5.1); TOTAL BILIRUBIN 0.25 mg/dL (0.20-1.00); TOTAL PROTEIN 6.5 g/dL (6.3-8.3)
[2019-10-01 08:51] LABS: ANISOCYTOSIS 1+; BANDS 2 % (0-1); BASO 2 % (0-1); EOS 2 % (1-10); HYPOCHROM 1+; LYMPHS 26 % (21-51); MICROCYTOSIS 2+; MONO 4 % (1-9); SEGS 64 % (42-75)
[2019-10-01] MEDS: BUSPAR PO SCH ×2 (09:10→21:36)
[2019-10-01] MEDS: MIRALAX PO SCH ×2 (09:10→21:37)
[2019-10-01] MEDS: CENTRUM SILVER PO SCH (09:11)
[2019-10-01] MEDS: COREG PO SCH ×2 (09:11→21:39)
[2019-10-01] MEDS: NEURONTIN PO SCH ×3 (09:11→21:37)
[2019-10-01] MEDS: ENTRESTO 49 MG-51 MG TABLET PO SCH ×2 (09:11→21:39)
[2019-10-01] MEDS: DITROPAN PO SCH (09:11)
[2019-10-01] MEDS: LOVENOX SUBQ SCH (09:11)
[2019-10-01] MEDS: LANTUS INSULIN SUBQ SCH (09:12)
[2019-10-01] MEDS: HUMALOG SUBQ SCH (09:12)
--- NOTE | 2019-10-01 11:12 | GASTROENTEROLOGY PROGRESS NOTE ---
DATE: 10/01/2019 SUBJECTIVE: Ms. Beckman is a 39-year-old female. She was sitting in bed, having her breakfast. The patient complained of nausea and abdominal pain. Patient has denied any bowel movements today. OBJECTIVE: Vital Signs: Temperature 97.9 degrees, pulse 82, respirations 20, blood pressure 96/66, oxygen saturation 99% on room air. The patient's weight is 246 pounds. BMI is 24.4 kg/m2. General: She is alert, oriented x3, in no acute distress. HEENT: Pale conjunctivae. No icterus. PERRL. Neck: Supple. Lungs: Clear to auscultation in the anterior sutton. Cardiovascular: Regular rate and rhythm. Abdomen: Soft, tender, obese. Hypoactive bowel sounds heard in all 4 quadrants. Extremities: No clubbing, no cyanosis, no edema. Pedal pulses 2+ present bilaterally. Neurological: Alert and oriented x3. LABORATORY DATA: WBCs 13.95, RBC 5.86, hemoglobin 13.5, hematocrit 42.4, platelet count 372,000. Sodium 137, potassium 3.2, chloride 96, carbon dioxide is 27, anion gap 14, BUN 18, creatinine 1.5, glucose 153, calcium 8.7. Magnesium 1.8. Total bilirubin 0.25, AST 14, ALT 12, alkaline phosphatase 75, albumin 2.9. Urinalysis yesterday showed urine protein of 200, and small amount of blood IMPRESSION: 1. Gastroparesis. 2. Nausea, vomiting. 3. Abdominal pain. 4. Gastroesophageal reflux disease 5. Type 2 diabetes. 6. Hypertension. 7. Congestive heart failure. 8. Morbid obesity. PLAN: Ms. Beckman is a 39-year-old female with a history gastroparesis. GI has been following her for intractable nausea and vomiting. The patient is currently receiving antiemetics, Phenergan, Zofran and Reglan. She is also receiving GI prophylaxis, Prilosec 40 mg twice a day. Her diabetes is controlled by insulin Humulin, Humalog and Lantus. We will continue with her PPIs twice a day and antiemetics. Patient is still complaining of nausea and abdominal pain, we will continue her diet with clear liquids. Her Reglan is scheduled before every meals. We will continue to monitor the patient and follow the plan of care per PCP. This plan was discussed with Dr. Martinez. Please call us for any further questions or concerns. Dictated by KRISTAN Sam for Igor Martinez MD Physician Attestation I have seen and examined the patient. I have discussed and reviewed the note by Sravani RUSHING and agree with findings and plan as documented. In brief, Ms. Radha Beckman is a 39 year old woman with HTN, CHF, IDDM2, GERD with esophagitis, gastritis, gastroparesis, chronic constipation who presents with intractable nausea, vomiting, and upper abdominal pain similar to prior episodes of gastroparesis exacerbation. She continues to have NBNB emesis while on scheduled antiemetics. Leukocytosis is resolving without need for antibiotics. UCx negative. No BM since admission. Nontoxic. Benign abdomen. Continue supportive care. MTDD
[2019-10-01] MEDS: ZOFRAN IV PRN ×2 (11:54→17:35)
[2019-10-01] MEDS ORDERED: NS 500 ML IV ONE (13:35)
[2019-10-01] MEDS: NS 1,000 ML IV SCH (13:57)
--- NOTE | 2019-10-01 18:31 | PROGRESS NOTE ---
DATE: 10/01/2019 SUBJECTIVE: This morning, Ms. Beckman referred to be doing a lot better. She said she was still nauseated and had some mild abdominal pain, but overall she felt slightly better. Per documentation, she seems to be tolerating her oral medications. All of them seem to have been given to her yesterday per documentation. OBJECTIVE: Current vitals: Blood pressure is 96/66, pulse of 80, respiration is 16, temperature is 97.9 degrees. General: Ms. Beckman is a 39-year-old, -[place] female. She is in bed. She is not in any cardiopulmonary distress. HEENT: Mucosa is pink and moist. Anicteric. Acyanotic. Neck: Supple. Chest: Clear to auscultation. No crepitations. No rhonchi. Cardiovascular: Regular rate and rhythm. There are no murmurs, no rubs, no gallops. Gastrointestinal: Abdomen is soft. Some tenderness in the epigastrium. We have some old surgical scar on the lower abdomen to the right. There is also an eschar at the right CVA. Central nervous system: Patient is awake, alert, and oriented. LABORATORY DATA: The patient's I's and O's, urine output was 900. It is currently negative balance of 175. Laboratory data has also been reviewed. WBC is down to 13.95, hemoglobin is 13.5, platelet count of 372,000. There are no bands on the peripheral smear. Chemistry is also reviewed, potassium is 3.2, creatinine is 1.5. ASSESSMENT/PLAN: 1. Intractable nausea and vomiting. Most likely secondary to gastroparesis. Improving. 2. History of grade B esophagitis with gastritis on esophagogastroduodenoscopy. The patient is on PPI and Carafate has been discontinued per GI. 3. Diabetes mellitus with hyperglycemia on presentation. Improved. 4. History of gastroparesis. The patient is currently on metoclopramide. 5. Severe dilated nonischemic cardiomyopathy with ejection fraction of 25% to 30%, associated with congestive heart failure. ProBNP is trending down. Patient is on stable therapy. 6. Biventricular failure. Noted. 7. Morbid obesity. BMI of 44.2. 8. Electrolyte abnormality including hypokalemia. We will continue to replace. 9. History of recent methicillin-resistant Staphylococcus aureus infection. Patient is on contact precautions. From a medical standpoint, I think Ms. Beckman is stable. She is tolerating all her p.o. medications. She gives a report that she has vomited, but that has not been witnessed or documented by the nursing staff. I felt Ms. Beckman could be discharged today. However, GI recommended that we observe her a day more and make sure that we all witness that she is tolerating her medication, her diet, before she gets discharged. I do agree with this. We will therefore withhold the discharge for today. cc: Eric Cali MD
[2019-10-01] MEDS: VENTOLIN HFA INH PRN (21:28)
[2019-10-01] MEDS: ZOLOFT PO SCH (21:37)
[2019-10-02] MEDS: ZOFRAN IV PRN ×4 (02:06→22:18)
[2019-10-02] MEDS: TYLENOL PO PRN ×2 (02:06→22:18)
[2019-10-02] MEDS: PHENERGAN IV PRN ×3 (06:46→20:44)
[2019-10-02] MEDS: PRILOSEC PO SCH ×2 (06:46→20:43)
[2019-10-02] MEDS: HUMULIN R SUBQ SCH ×4 (06:46→20:43)
[2019-10-02] MEDS: REGLAN PO SCH ×3 (06:46→16:45)
[2019-10-02 08:13] LABS: BASO# 0.03 X1000 (0.0-0.2); BASO% 0.3 % (0.0-0.8); EOS% 2.8 % (0.0-10.0); HEMOGLOBIN 13.3 g/dL (12.0-16.0); IMM GRAN# 0.02 X1000 (0.0-0.04); IMM GRAN% 0.2 % (0.0-0.5); LYMPH# 2.79 X1000 (1.2-3.4); LYMPH% 25.9 % (20.5-51.1); MCH 22.7 PG (27-31); MCHC 31.7 g/dL (33-37); MCV 71.8 FL (81-99); MONO# 0.78 X1000 (0.11-0.59); MONO% 7.2 % (1.7-9.3); MPV 11.4 FL (7.4-10.4); NEUT# 6.87 X1000 (1.4-6.5); NEUT% 63.6 % (42.2-75.2); PLT 338 X1000 (130-400); RBC 5.85 XMIL (4.2-5.4); RDW 15.5 % (11.5-14.5); WBC 10.79 X1000 (4.8-10.8)
[2019-10-02] MEDS: LANTUS INSULIN SUBQ SCH (08:24)
[2019-10-02] MEDS: MIRALAX PO SCH ×2 (08:26→20:44)
[2019-10-02] MEDS: ENTRESTO 49 MG-51 MG TABLET PO SCH ×2 (08:27→20:43)
[2019-10-02] MEDS: BUSPAR PO SCH ×2 (08:27→20:43)
[2019-10-02] MEDS: CENTRUM SILVER PO SCH (08:27)
[2019-10-02] MEDS: LOVENOX SUBQ SCH (08:27)
[2019-10-02] MEDS: NEURONTIN PO SCH ×3 (08:28→20:43)
[2019-10-02] MEDS: COREG PO SCH ×3 (08:28→20:43)
[2019-10-02] MEDS: DITROPAN PO SCH (08:28)
[2019-10-02 08:36] LABS: AGAP 15; ALB/GLOB RATIO 0.9; ALKALINE PHOSPHATASE 74 U/L (32-104); BUN 22 mg/dL (8-22); CALCIUM 8.4 mg/dL (8.8-10.2); CHLORIDE 96 mmol/L (98-107); COSMO 279; CREATININE 1.3 mg/dL (0.5-0.9); ESTIMATED GFR 55; GLUCOSE 205 mg/dL (70-104); GOT 17 U/L (10-30); GPT 13 U/L (10-36); MAGNESIUM 1.9 mg/dL (1.5-2.7); POTASSIUM 3.1 mmol/L (3.5-5.1); SODIUM 135 mmol/L (136-145); TCO2 24 mmol/L (25-35); TOTAL BILIRUBIN < 0.15 mg/dL (0.20-1.00); TOTAL PROTEIN 6.3 g/dL (6.3-8.3)
[2019-10-02] MEDS: NS 1,000 ML IV SCH ×2 (08:37→12:32)
[2019-10-02] MEDS: HUMALOG SUBQ SCH (08:38)
[2019-10-02] MEDS: VENTOLIN HFA INH PRN (10:19)
--- NOTE | 2019-10-02 11:25 | GASTROENTEROLOGY PROGRESS NOTE ---
DATE: 10/02/2019 SUBJECTIVE: Ms. Beckman is a 39-year-old female. She was sitting in bed. The patient mentions that her nausea and her abdominal pain are getting slightly better. She mentioned having 1 bowel movement yesterday. OBJECTIVE: Vital Signs: Temperature 98.4 degrees, pulse 76, respirations 14, blood pressure 105/66, oxygen saturation is 99%. She is on room air. The patient's weight is 246 pounds. BMI is 42.4 kg/m2. General: She is alert and oriented x3, and in no acute distress. HEENT: Pale conjunctivae. No icterus. PERRL. Neck: Supple. Lungs: Clear to auscultation in the anterior sutton. Cardiovascular: Regular rate and rhythm. Abdomen: Soft, tender in the epigastric area, obese. Hypoactive bowel sounds heard in all 4 quadrants. Extremities: No clubbing, no cyanosis, no edema. Pedal pulses 2+ present bilaterally. Neurologic: Alert and oriented x3. LABORATORY DATA: WBCs 10.79, RBC 5.85, hemoglobin 13.3, hematocrit 42.0, platelet count 388,000. Sodium 135, potassium 3.1, chloride 96, carbon dioxide 24, anion gap 15, BUN 22, creatinine 1.3, glucose 205, calcium 8.4. Magnesium 1.9. Total bilirubin less than 0.15, AST 17, ALT 13, alkaline phosphatase 74, albumin 3.0. IMPRESSION: Gastroparesis Nausea and Vomiting Abdominal pain GERD Type II diabetes Hypertension CHF Obesity PLAN: Ms. Beckman is a 39-year-old female with a history of gastroparesis. GI is following her for her nausea and vomiting. The patient is currently receiving antiemetics, Phenergan, Zofran, and her Reglan is scheduled 3 times a day before meals. Hold reglan for side effects like Tardive dyskinesia. She is also on a GI prophylaxis Protonix 40 mg twice a day for GERD. Her diabetes is managed by insulin Humulin, Humalog, and Lantus. We have advanced her diet to GI soft diet, and we will monitor how the patient does. If she is not able to tolerate it today, we will change it to clear liquids. We will continue to monitor the patient, and follow the plan of care per PCP. Counselled patient on losing weight, patient acknowledged understanding of the instructions. This plan was discussed with Dr. Connell. Please call us for any further questions or concerns. Dictated by KRISTAN Sam for Sorin Connell MD cc: Sorin Connell MD I have seen and examined the patient myself and I agree with the above plan of care. I have discussed the above with the patient and all questions were answered. Please call us with any questions or concerns. DAQUAN
--- NOTE | 2019-10-02 15:51 | PROGRESS NOTE ---
DATE: 10/02/2019 SUBJECTIVE: This morning Ms. Beckman refers to be doing a little better. Yesterday, I understand she went to use the restroom and she became extremely dizzy, almost blacking out. At that time, she was running low blood pressure with a systolic of about 64. I ordered to give her a bolus of 500, and we have her on some gentle fluids and she has been doing a lot better. OBJECTIVE: Vitals: Current vitals: Blood pressure is 116/68, pulse of 87, respiration is 18, temperature is 97.5 degrees. General exam: Ms. Beckman is a 39-year-old, morbidly obese, female. She is in bed, no distress. HEENT: Mucosa is pink and moist. Anicteric. Acyanotic. Neck: Supple. Chest: Good air entry bilaterally. There were no crepitations, no rhonchi. Cardiovascular: Regular rate and rhythm. No murmurs, no rubs, no gallops. GI/Abdomen: Soft, nontender. Bowel sounds present. There are some old scars on the anterior abdominal wall, as well as the right CVAs. Central nervous system: Patient is awake, alert, and oriented. LABORATORY DATA: The patient's intake/output reveals urine output was 200. She is currently positive balance of 1685. ASSESSMENT: 1. Intractable nausea and vomiting secondary to gastroparesis, improved. The patient refers to have tolerated her clear liquids yesterday. Gastroenterology has advanced her to a gastrointestinal soft diet. 2. History of grade B esophagitis with gastritis on esophagogastroduodenoscopy. Ms. Beckman is on proton pump inhibitor. 3. Diabetes mellitus with hyperglycemia on presentation, improved. 4. History of gastroparesis. The patient is on metoclopramide. 5. Severe dilated nonischemic cardiomyopathy. Ejection fraction of 25 to 30 percent. Currently euvolemic. 6. Biventricular failure. 7. Hypotension during the hospital course secondary to volume depletion. Blood pressure has significantly improved with the gentle hydration. 8. Acute kidney injury secondary to volume depletion. Patient's creatinine went up to 1.5; this morning is down to 1.3. We are going to continue with the saline drip for another 24 hours and turn it off tomorrow. We will repeat her kidney function test and go from there. PLAN: In general, I think Ms. Beckman is doing a lot better. Nausea and vomiting seems to have improved. Gastroenterology has started her on GI soft. Her blood pressure has also significantly improved. I have withheld her thiazide diuretics. We will re-evaluate her tomorrow with labs. If she is doing okay, I think she can be discharged pending final recommendations from Gastroenterology. We will also replace all her electrolyte abnormalities. cc: Eric Cali MD
[2019-10-02] MEDS: MYCOSTATIN SUSP PO SCH ×3 (16:44→20:43)
[2019-10-02] MEDS: ZOLOFT PO SCH (20:43)
[2019-10-03] MEDS: PHENERGAN IV PRN ×2 (02:41→09:05)
[2019-10-03] MEDS: TYLENOL PO PRN ×2 (04:33→12:29)
[2019-10-03] MEDS: HUMULIN R SUBQ SCH ×4 (06:00→21:05)
[2019-10-03] MEDS: REGLAN PO SCH ×3 (06:00→16:24)
[2019-10-03] MEDS: ZOFRAN IV PRN ×2 (06:00→12:28)
[2019-10-03] MEDS: PRILOSEC PO SCH ×2 (06:00→21:02)
[2019-10-03 07:10] LABS: BASO# 0.03 X1000 (0.0-0.2); BASO% 0.3 % (0.0-0.8); EOS# 0.38 X1000 (0.0-0.7); EOS% 4.2 % (0.0-10.0); HEMATOCRIT 39.4 % (37.0-47.0); HEMOGLOBIN 12.3 g/dL (12.0-16.0); IMM GRAN# 0.02 X1000 (0.0-0.04); IMM GRAN% 0.2 % (0.0-0.5); LYMPH# 2.06 X1000 (1.2-3.4); MCH 22.6 PG (27-31); MCHC 31.2 g/dL (33-37); MCV 72.4 FL (81-99); MONO# 0.57 X1000 (0.11-0.59); MONO% 6.4 % (1.7-9.3); MPV 10.7 FL (7.4-10.4); NEUT# 5.89 X1000 (1.4-6.5); NEUT% 65.9 % (42.2-75.2); PLT 315 X1000 (130-400); RBC 5.44 XMIL (4.2-5.4); RDW 15.3 % (11.5-14.5); WBC 8.95 X1000 (4.8-10.8)
[2019-10-03 07:48] LABS: AGAP 14; ALB/GLOB RATIO 0.6; ALBUMIN 2.5 g/dL (3.5-5.0); ALKALINE PHOSPHATASE 66 U/L (32-104); BUN 19 mg/dL (8-22); CALCIUM 8.4 mg/dL (8.8-10.2); CHLORIDE 98 mmol/L (98-107); COSMO 276; ESTIMATED GFR > 60; GLUCOSE 206 mg/dL (70-104); GOT 19 U/L (10-30); GPT 11 U/L (10-36); MAGNESIUM 1.9 mg/dL (1.5-2.7); POTASSIUM 3.8 mmol/L (3.5-5.1); SODIUM 134 mmol/L (136-145); TCO2 22 mmol/L (25-35); TOTAL BILIRUBIN < 0.15 mg/dL (0.20-1.00); TOTAL PROTEIN 6.4 g/dL (6.3-8.3)
[2019-10-03] MEDS ORDERED: ZAROXOLYN PO SCH (08:30)
[2019-10-03] MEDS: HUMALOG SUBQ SCH (08:44)
[2019-10-03] MEDS: VENTOLIN HFA INH PRN (08:59)
[2019-10-03] MEDS: SODIUM CHLORIDE 0.9% INJ PRN (09:05)
[2019-10-03] MEDS: MIRALAX PO SCH ×2 (09:05→21:03)
[2019-10-03] MEDS: DITROPAN PO SCH (09:06)
[2019-10-03] MEDS: NEURONTIN PO SCH ×3 (09:06→21:02)
[2019-10-03] MEDS: CENTRUM SILVER PO SCH (09:06)
[2019-10-03] MEDS: ENTRESTO 49 MG-51 MG TABLET PO SCH ×2 (09:06→21:03)
[2019-10-03] MEDS: COREG PO SCH ×2 (09:06→21:03)
[2019-10-03] MEDS: BUSPAR PO SCH ×2 (09:06→21:02)
[2019-10-03] MEDS: LANTUS INSULIN SUBQ SCH (09:07)
[2019-10-03] MEDS: MYCOSTATIN SUSP PO SCH ×4 (09:07→21:04)
[2019-10-03] MEDS: LOVENOX SUBQ SCH (09:07)
[2019-10-03] MEDS ORDERED: ZOFRAN PO PRN (13:32)
[2019-10-03] MEDS ORDERED: BLISTEX MEDICATED BERRY LIP BALM TOP PRN (13:38)
--- NOTE | 2019-10-03 14:13 | GASTROENTEROLOGY PROGRESS NOTE ---
DATE: 10/03/2019 SUBJECTIVE: Ms. Beckman is a 39-year-old female who was resting in bed. She has denied any abdominal pain or vomiting, but did mention that she has a little bit of nausea. The patient had 2 bowel movements yesterday. OBJECTIVE: Vital signs: Temperature 97.8 degrees, pulse 87, respirations 18, blood pressure 104/70, oxygen saturation 100% on room air. The patient's weight is 246 pounds. BMI is 42.4 kg/m2. General: She is alert, oriented x3, and in no acute distress. HEENT: Pale conjunctivae. No icterus. PERRL. Neck: Supple. Lungs: Clear to auscultation. Cardiovascular: Regular rate and rhythm. Abdomen: Soft, nontender, obese. Hypoactive bowel sounds heard in all 4 quadrants. Extremities: No clubbing, no cyanosis, no edema. Pedal pulses 2+ and present bilaterally. Neurologic: She is alert and oriented x3. LABORATORY DATA: WBC is 8.95, RBC 5.44, hemoglobin 12.3, hematocrit 39.4, platelet count 315,000. Sodium 134, potassium 3.8, chloride 98, carbon dioxide 22, anion gap 14, BUN 19, creatinine 1.0, glucose is 206, calcium 8.4, magnesium 1.9, total bilirubin less than 0.15, AST 15, ALT 11, alkaline phosphatase 56, albumin 2. IMPRESSION AND PLAN: Gastroparesis nausea and vomiting Abdominal pain GERD Type II diabetes Hypertension CHF Obesity PLAN: Ms. Beckman is a 39-year-old female with history of gastroparesis. GI is following her for her nausea and vomiting. The patient's nausea and vomiting is under control. She is receiving antiemetics, Phenergan, Zofran, and her Reglan is scheduled 3 times a before every meals. We will hold the Reglan if the patient has the symptoms of tardive dyskinesia. The patient is on a GI prophylaxis, Prilosec 40 mg twice a day. The patient is receiving MiraLAX for her bowel regimen. We have advanced her diet to GI soft, and we will continue to monitor the patient. We will continue to follow the plan of care per PCP. We counseled the patient on losing weight. The patient acknowledged understanding of the instructions. This plan was discussed with Dr. Martinez. Please call us for any further questions or concerns. Dictated by KRISTAN Sam for Igor Martinez MD Physician Attestation I have seen and examined the patient. I have discussed and reviewed the note by Sravani RUSHING and agree with findings and plan as documented. In brief, Ms. Radha Beckman is a 39 year old woman with HTN, CHF, IDDM2, GERD with esophagitis, gastritis, gastroparesis, chronic constipation who presents with gastroparesis exacerbation. She is improving and was able to keep down breakfast. Reports mild nausea. Continue Reglan scheduled and phenergan prn for breakthrough symptoms. I would not give 3 different antiemetics. If she is doing well she can be discharged in the next day or so. MTDD
[2019-10-03] MEDS: PHENERGAN PO PRN ×2 (16:24→22:25)
--- NOTE | 2019-10-03 20:59 | PROGRESS NOTE ---
DATE: 10/03/2019 SUBJECTIVE: The patient is feeling better. She is tolerating p.o., but she is having some nausea. What I will do is to stop the IV treatment and put her on her home medications with Phenergan and Zofran as well to see how she does and hopefully if she is doing fine tomorrow we will send her home. OBJECTIVE: Vital Signs: Temperature 97.8 degrees, pulse 87, respiratory rate 18, blood pressure 104/70, oxygen saturation 100% on room air. HEENT: Head normocephalic, no trauma. PERRLA. Neck: Supple. No JVD. No masses. Central trachea. Chest: Clear to auscultation. No wheezing. No rales. Abdomen: Soft. Some tenderness to palpation at the level of the epigastric and periumbilical area. Positive bowel sounds. There are some old scars on her abdomen which are chronic. Neurological: The patient is alert. She is oriented x3. No focal deficits. LABORATORY: WBC 8.9, hemoglobin 12.3, hematocrit 39.4, platelets 315,000. Sodium 134, potassium 3.8, chloride 98, bicarbonate 22, BUN 19, creatinine 1, glucose 206, calcium 8.4, albumin 2.5. ASSESSMENT AND PLAN: 1. Intractable nausea and vomiting secondary to gastroparesis, improved. This patient is tolerating a soft diet, but she is still using IV nausea treatment, which I will switch it to p.o. treatment, the same way she does at home. I also talked to the patient about her meals and she should be eating a low amount of meals, but more frequently. This is apparently what she does at home as well. 2. History of grade B esophagitis with gastritis on esophagogastroduodenoscopy. Continue with proton pump inhibitors. 3. Diabetes with hypoglycemia on presentation. Improved. 4. History of gastroparesis. Continue with the same management. 5. Severe dilated nonischemic cardiomyopathy, ejection fraction 25 to 30 percent. Currently euvolemic. 6. Biventricular failure. Aware. 7. Hypotension during the hospital course, secondary to volume depletion. Blood pressure improved after gentle hydration. 8. Acute on chronic kidney disease. It looks like this is her baseline. Today, the creatinine is 1.1. PLAN: I will stop all the IV treatment and will put her on p.o. treatment. She is still having some nausea, but hopefully tomorrow if she is doing fine, I will send her home. cc: Jeff Cook MD
[2019-10-03] MEDS: ZOLOFT PO SCH (21:03)
[2019-10-04] MEDS: PHENERGAN PO PRN ×2 (04:31→08:59)
[2019-10-04] MEDS: PRILOSEC PO SCH (06:19)
[2019-10-04] MEDS: REGLAN PO SCH ×2 (06:19→12:23)
[2019-10-04] MEDS: HUMULIN R SUBQ SCH ×2 (06:20→12:23)
[2019-10-04 07:31] LABS: AGAP 11; ALB/GLOB RATIO 0.8; ALBUMIN 2.8 g/dL (3.5-5.0); ALKALINE PHOSPHATASE 69 U/L (32-104); BUN 15 mg/dL (8-22); CALCIUM 8.3 mg/dL (8.8-10.2); CHLORIDE 97 mmol/L (98-107); CREATININE 0.9 mg/dL (0.5-0.9); ESTIMATED GFR > 60; GOT 18 U/L (10-30); GPT 13 U/L (10-36); MAGNESIUM 1.9 mg/dL (1.5-2.7); POTASSIUM 4.1 mmol/L (3.5-5.1); SODIUM 132 mmol/L (136-145); TCO2 24 mmol/L (25-35); TOTAL BILIRUBIN < 0.15 mg/dL (0.20-1.00); TOTAL PROTEIN 6.4 g/dL (6.3-8.3)
[2019-10-04 07:45] LABS: BASO# 0.02 X1000 (0.0-0.2); BASO% 0.2 % (0.0-0.8); EOS# 0.23 X1000 (0.0-0.7); EOS% 2.4 % (0.0-10.0); GLUCOSE 148 mg/dL (70-104); HEMATOCRIT 38.3 % (37.0-47.0); HEMOGLOBIN 11.9 g/dL (12.0-16.0); LYMPH# 2.11 X1000 (1.2-3.4); LYMPH% 22.4 % (20.5-51.1); MCH 22.7 PG (27-31); MCHC 31.1 g/dL (33-37); MONO# 0.57 X1000 (0.11-0.59); MPV 10.8 FL (7.4-10.4); NEUT# 6.51 X1000 (1.4-6.5); PLT 280 X1000 (130-400); RBC 5.25 XMIL (4.2-5.4); RDW 15.3 % (11.5-14.5); WBC 9.44 X1000 (4.8-10.8)
[2019-10-04 08:00] VITALS: BP 111/76
[2019-10-04] MEDS: MYCOSTATIN SUSP PO SCH ×2 (08:24→12:23)
[2019-10-04] MEDS: HUMALOG SUBQ SCH (08:24)
[2019-10-04] MEDS: ENTRESTO 49 MG-51 MG TABLET PO SCH (08:26)
[2019-10-04] MEDS: BUSPAR PO SCH (08:26)
[2019-10-04] MEDS: DITROPAN PO SCH (08:26)
[2019-10-04] MEDS: LOVENOX SUBQ SCH (08:26)
[2019-10-04] MEDS: LANTUS INSULIN SUBQ SCH (08:27)
[2019-10-04] MEDS: NEURONTIN PO SCH ×2 (08:28→12:23)
[2019-10-04] MEDS: CENTRUM SILVER PO SCH (08:29)
[2019-10-04] MEDS: COREG PO SCH (08:29)
[2019-10-04] MEDS: MIRALAX PO SCH (08:30)
--- NOTE | 2019-10-05 13:56 | DISCHARGE SUMMARY ---
ADMISSION DATE: 09/29/2019 DISCHARGE DATE: 10/04/2019 DISCHARGE DIAGNOSES: 1. Intractable nausea and vomiting secondary to gastroparesis, improved. 2. History of grade B esophagitis with gastritis on esophagogastroduodenoscopy. 3. Diabetes with hyperglycemia on presentation. 4. History of gastroparesis. 5. Severe dilated nonischemic cardiomyopathy with an ejection fraction of 25% to 30%. 6. Biventricular failure. 7. Hypertension during the hospital course secondary to volume depletion. 8. Acute on chronic kidney disease, back to baseline. PROCEDURES PERFORMED: 1. Abdomen x-ray dated 09/29/2019, impression: No evidence of acute pathology. 2. Abdomen and pelvis CT scan dated 09/29/2019, impression: CHF. No acute process in the abdomen or pelvis. 3. Chest x-ray dated 09/29/2019, impression: No change from prior, stable pacemaker, stable borderline cardiomegaly, no infiltrates or edema, no pneumothorax or significant pleural effusion. CONSULTS: Gastroenterology Department, Dr. Martinez. HOSPITAL COURSE: A 39-year-old female with a past medical history of morbid obesity, CHF, gastroparesis, type 2 diabetes, admitted on 09/29/2019. Back in July, actually had a right breast abscess incision and drainage, which resulted in MRSA, and she already received antibiotic for that. She came and was admitted due to nausea, vomiting, abdominal pain across the lower abdomen that radiates into her back. Her last bowel movement was the day before admission and was normal. She was admitted with the diagnosis of nausea, vomiting, with an acute spell of gastroparesis. We put this patient on antiemetics. We held some significant pain treatment, especially opioids. Will continue with Reglan and with her home medications. The patient was getting better on a daily basis. Initially, she was placed on IV treatment, but then we switched it to p.o. treatment like she used to take at home. This patient started tolerating some fluids. I talked to the patient a lot about her diet, and she understood that she needs to eat a low amount of food multiple times a day, and as per the patient, she has been told that before. Then, we advanced the diet, and she tolerated that, including with her medications that she has been taking at home. Today, she is feeling much better, and actually she is asking me to send her home, which I did, but she needs to follow up with Gastroenterology Department as an outpatient. OBJECTIVE: Vital Signs: Temperature 98.1 degrees, pulse 91, respiratory rate 16, blood pressure 111/76, oxygen saturation 95% on room air. HEENT: Head normocephalic. No trauma. PERRLA. Neck: Supple. No JVD. No masses. Central trachea. Chest: Clear to auscultation. No wheezing. No rales. Abdomen: Soft. Some tenderness to palpation at the level of the periumbilical area. Positive bowel sounds. She has some old scars on her abdomen. Neurological: The patient is alert. She is oriented x3. No focal deficits. LABORATORY DATA: WBC 9.4, hemoglobin 11.9, hematocrit 38.3, platelets 280,000. Sodium 132, potassium 4.1, chloride 97, bicarbonate 24, BUN 15, creatinine 0.9, glucose 148, calcium 8.3. LFTs normal. Albumin 2.8. DISCHARGE MEDICATIONS: Albuterol sulfate 2 puff inhaler every 6 hours as needed, buspirone 7.5 mg p.o. b.i.d., carvedilol 12.5 mg p.o. daily, furosemide 80 mg p.o. daily, gabapentin 100 mg p.o. b.i.d., gabapentin 300 mg p.o. at bedtime, glimepiride 4 mg p.o. daily, insulin glargine 40 units subcutaneously at bedtime, insulin lispro 16 units subcutaneously daily, Reglan 10 mg p.o. t.i.d. before meals, metolazone 5 mg p.o. as directed as needed, Centrum Silver 1 tablet p.o. daily, omeprazole 40 mg p.o. b.i.d., Zofran 4 mg p.o. every 8 hours as needed for nausea and vomiting, Ditropan 5 mg p.o. daily, MiraLAX 17 grams p.o. b.i.d., Phenergan 25 mg p.o. every 6 hours as needed for nausea and vomiting, Entresto 49/51 mg tablet p.o. b.i.d., sertraline 50 mg p.o. at bedtime, and Carafate 1 gram p.o. 4 times a day. FOLLOWUP: Follow up with Dr. Martinez in 2 months. She will need to call for an appointment. Also, she needs to follow up with her primary care provider, Dr. Spencer Read on 10/30/2019 at 10:30 a.m. Again, I talked to her a lot about her diet. She needs to lose some weight and do more physical activity. cc: Jeff Cook MD
== END 2019-10-04 14:00 | disposition home or self-care (01) | DRG 74 ==
LOC: ED 07:29 → SUATTDRO 14:33 → 3N 14:33
PROVIDERS: ATTEND Internal Medicine

== ENCOUNTER 2019-12-04 12:57 | Inpatient (IN) ==
[2019-12-04] MEDS ORDERED: ASPIRIN PO ONE (13:05)
--- NOTE | 2019-12-04 13:12 | EKG Report ---
Test Performed on : 12/04/2019 1:11:15 PM Test Reason : CP Blood Pressure : / mmHG Vent. Rate : 115 BPM Atrial Rate : 115 BPM P-R Int : 166 ms QRS Dur : 086 ms QT Int : 334 ms P-R-T Axes : 068 -30 086 degrees QTc Int : 462 ms Sinus tachycardia. Possible Left atrial enlargement Left axis deviation Abnormal ECG When compared with ECG of 18-AUG-2019 13:59, No significant change was found Unconfirmed Result
--- NOTE | 2019-12-04 13:26 | Diag Imaging Result Doc PS360 ---
CHEST-2 VIEWS - 12/04/2019 INDICATION: sob COMPARISON: 09/29/2019 FINDINGS: Stable pacemaker. Stable cardiomegaly. No infiltrates or edema. No pneumothorax or pleural effusion. IMPRESSION: Cardiomegaly. No change from prior. Electronically signed by Philippe Espinoza 12/04/2019 1:23 PM
[2019-12-04 13:44] LABS: BASO# 0.07 X1000 (0.0-0.2); BASO% 0.5 % (0.0-0.8); EOS% 1.4 % (0.0-10.0); HEMATOCRIT 40.1 % (37.0-47.0); HEMOGLOBIN 12.7 g/dL (12.0-16.0); IMM GRAN# 0.03 X1000 (0.0-0.04); IMM GRAN% 0.2 % (0.0-0.5); LYMPH# 2.72 X1000 (1.2-3.4); LYMPH% 19.5 % (20.5-51.1); MCH 22.8 PG (27-31); MCHC 31.7 g/dL (33-37); MCV 71.9 FL (81-99); MONO# 0.47 X1000 (0.11-0.59); MONO% 3.4 % (1.7-9.3); NEUT# 10.49 X1000 (1.4-6.5); PLT 305 X1000 (130-400); RBC 5.58 XMIL (4.2-5.4); WBC 13.98 X1000 (4.8-10.8)
[2019-12-04 13:56] LABS: INR 0.99; PROTIME 13.2 Seconds (11.0-16.0)
[2019-12-04 14:01] LABS: AGAP 13; ALB/GLOB RATIO 0.9; ALBUMIN 3.2 g/dL (3.5-5.0); ALKALINE PHOSPHATASE 101 U/L (32-104); BUN 16 mg/dL (8-22); CALCIUM 8.5 mg/dL (8.8-10.2); CHLORIDE 99 mmol/L (98-107); COSMO 282; CREATININE 1.1 mg/dL (0.5-0.9); ESTIMATED GFR > 60; GLUCOSE 361 mg/dL (70-104); GOT 29 U/L (10-30); GPT 20 U/L (10-36); POTASSIUM 5.2 mmol/L (3.5-5.1); SODIUM 133 mmol/L (136-145); TCO2 21 mmol/L (25-35); TOTAL BILIRUBIN 0.33 mg/dL (0.20-1.00); TOTAL PROTEIN 6.7 g/dL (6.3-8.3)
[2019-12-04 14:12] LABS: CK PROFILE 245 U/L (24-173)
[2019-12-04 14:37] LABS: CK INDEX 1.8 (0.0-2.5); CK-MB 4.33 ng/mL (0.0-5.0)
--- NOTE | 2019-12-04 16:38 | PROVIDER DOCUMENTATION ---
HPI-Screening - General Chief Complaint: Shortness of Breath Stated Complaint: CONGESTED HEART FAILURE Time Seen by Provider: 12/04/19 16:18 Source: patient Allergies/Adverse Reactions: Allergies Allergy/AdvReac Type Severity Reaction Status Date / Time sulfamethoxazole Allergy HIVES Verified 08/08/19 08:39 [From ] trimethoprim [From ] Allergy HIVES Verified 08/08/19 08:39 Home Medications: Home Medication List Medication Instructions Recorded Confirmed Last Taken Type Ondansetron HCl [Zofran] 4 mg PO Q8H PRN PRN #15 tablet 03/03/18 09/29/19 1212/17 07:00 Rx Insulin Lispro [Humalog] 16 units SQ DAILY 06/04/18 09/29/19 09/29/19 07:00 History Carvedilol [Coreg] 12.5 mg PO DAILY #180 tab 01/18/19 09/29/19 09/29/19 07:00 Rx Furosemide [Lasix] 80 mg PO DAILY tab 02/10/19 09/29/19 09/29/19 07:00 Rx Multivitamins/Minerals [Centrum 1 ea PO DAILY tab 02/10/19 09/29/19 09/29/19 07:00 Rx Silver] Sacubitril/Valsartan [Entresto 49 1 tab PO BID 04/02/19 09/29/19 09/29/19 07:00 History mg-51 mg Tablet] Polyethylene Glycol 3350 [Miralax] 17 gm PO BID powder, packet 04/06/19 09/29/19 09/29/19 07:00 Rx Glimepiride 1 tab PO DAILY 05/15/19 09/29/19 09/29/19 07:00 History Metolazone [Zaroxolyn] 5 mg PO DIRECTED PRN 05/15/19 09/29/19 09/29/19 07:00 History Sertraline [Zoloft] 50 mg PO QHS 05/15/19 09/29/19 09/29/19 07:00 History Buspirone HCl [Buspar] 7.5 mg PO BID 07/28/19 09/29/19 09/29/19 07:00 History Gabapentin 100 mg PO BID 07/28/19 09/29/19 09/29/19 07:00 History Gabapentin 300 mg PO HS 07/28/19 09/29/19 09/29/19 07:00 History Oxybutynin [Ditropan] 5 mg PO DAILY #30 tab 07/30/19 09/29/19 09/29/19 07:00 Rx Albuterol Sulfate Inhaler 2 puff INH Q6H PRN PRN #1 inhaler 08/08/19 09/29/19 09/29/19 07:00 Rx [Ventolin Hfa] Insulin Glargine [Basaglar 40 unit SUBQ QHS #1 insuln.pen 10/01/19 Unknown Rx [Nonformulary]] Omeprazole [Prilosec] 40 mg PO BID@0700,2100 #120 cap 10/01/19 Unknown Rx Promethazine [Phenergan] 25 mg PO Q6H PRN PRN #30 tab 10/01/19 Unknown Rx Metoclopramide [Reglan] 10 mg PO TID AC #90 tab 10/04/19 Unknown Rx Sucralfate [Carafate] 1 gm PO 4XDAY #80 tab 10/04/19 Unknown Rx Patient arrived via EMS?: No HPI: Patient is a 39 yobf who complains of abdominal distention and SOB that has been gradually worsening since last month. Sees Dr. Tamayo due to hx of CHF, states he increased Metolazone last week, reports no improvement in s/s. Also has a cough and PND. Denies fever or any other complaints. Physical Exam-Screening - CONSTITUTIONAL General Appearance: alert, no apparent distress. negative: lethargic, slow to respond - EYES Eyes: PERRL/EOMI - RESPIRATORY Respiratory: chest non-tender, lungs clear, normal breath sounds, no respiratory distress, no accessory muscle use - CARDIOVASCULAR Cardiovascular: normal peripheral pulses, regular rate, rhythm, no gallop, no murmur, tachycardia, other (2+ pitting edema noted to bilateral lower extremities and ankles) - SKIN Integumentary: normal color, warm/dry. negative: cyanosis, diaphoresis, jaundice, mottled, pallor - NEUROLOGIC Neurologic: grossly normal - PSYCHIATRIC Psych/Mental Status: normal mood/affect, normal thought content, normal thought process, oriented x 3 Screening Depart - Departure ED Screening Disposition: Continued in ED for Treatment Referrals and Follow-Ups: Johanna Oropeza MD [Primary Care Provider] - Attestation - Physician/ DAYANNA Attestation Patient care was provided by Advanced Practice Provider:: Yes Advanced Practice Provider:: Josiah Manuel Advanced Practice Provider documentation review:: The Mid-level provider documentation, treatment plan and medical decision making was reviewed by the physician who agrees with all treatment and medical decision making by the MLP. The physician spent face to face time with patient:: No Advanced Practice Provider documentation review:: Supervising physician onsite and consulted in the evaluation and care of this patient. The physician did not have a face to face encounter with the patient.
[2019-12-04] MEDS ORDERED: LASIX IV ONE ×2 (16:39→19:00)
[2019-12-04] MEDS ORDERED: DUONEB (A & A) INH ONE (19:23)
[2019-12-04] MEDS ORDERED: XOPENEX NEB INH ONE (20:26)
[2019-12-04] MEDS ORDERED: NS NEB INH SCH (20:30)
[2019-12-04 20:37] LABS: URINE SOURCE CLEAN CATCH
[2019-12-04 20:41] LABS: BILIRUBIN URINE NEGATIVE (NEGATIVE); BLOOD URINE SMALL (NEGATIVE); COLOR YELLOW; GLUCOSE URINE 1000 mg/dL (NEGATIVE); KETONE URINE NEGATIVE (NEGATIVE); LEUKOCYTES URINE TRACE (NEGATIVE); NITRITE URINE NEGATIVE (NEGATIVE); PROTEIN URINE 300 mg/dL (NEGATIVE); SP GRAVITY URINE 1.014; TURBIDITY URINE HAZY (CLEAR); UROBILINOGEN URINE NORMAL (NORMAL)
[2019-12-04 20:43] LABS: UR EPITHELIAL CELLS >10 /HPF (<10); URINE BACTERIA 1+ /HPF; URINE RBC 20-40 /HPF (<10); URINE WBC <10 /HPF (<10)
[2019-12-04] MEDS ORDERED: ROCEPHIN 1 GM in NS 50 ML IV ONE (21:32)
--- NOTE | 2019-12-04 21:36 | PROVIDER DOCUMENTATION ---
This chart was entered by Kaitlynn Farris Scribe, acting as scribe for Key Lopez MD. HPI-Respiratory General - General Chief Complaint: Shortness of Breath Stated Complaint: CONGESTED HEART FAILURE Time Seen by Provider: 12/04/19 16:18 Source: patient Allergies/Adverse Reactions: Patient Allergies Allergy/AdvReac Type Severity Reaction Status Date / Time sulfamethoxazole Allergy HIVES Verified 08/08/19 08:39 [From ] trimethoprim [From ] Allergy HIVES Verified 08/08/19 08:39 Home Medications: Home Medication List Medication Instructions Recorded Confirmed Last Taken Type Ondansetron HCl [Zofran] 4 mg PO Q8H PRN PRN #15 tablet 03/03/18 09/29/19 09/29/19 07:00 Rx Insulin Lispro [Humalog] 16 units SQ DAILY 06/04/18 09/29/19 09/29/19 07:00 History Carvedilol [Coreg] 12.5 mg PO DAILY #180 tab 01/18/19 09/29/19 09/29/19 07:00 Rx Furosemide [Lasix] 80 mg PO DAILY tab 02/10/19 09/29/19 09/29/19 07:00 Rx Multivitamins/Minerals [Centrum 1 ea PO DAILY tab 02/10/19 09/29/19 09/29/19 07:00 Rx Silver] Sacubitril/Valsartan [Entresto 49 1 tab PO BID 04/02/19 09/29/19 09/29/19 07:00 History mg-51 mg Tablet] Polyethylene Glycol 3350 [Miralax] 17 gm PO BID powder, packet 04/06/19 09/29/19 09/29/19 07:00 Rx Glimepiride 1 tab PO DAILY 05/15/19 09/29/19 09/29/19 07:00 History Metolazone [Zaroxolyn] 5 mg PO DIRECTED PRN 05/15/19 09/29/19 09/29/19 07:00 History Sertraline [Zoloft] 50 mg PO QHS 05/15/19 09/29/19 09/29/19 07:00 History Buspirone HCl [Buspar] 7.5 mg PO BID 07/28/19 09/29/1909/29/19 07:00 History Gabapentin 100 mg PO BID 07/28/19 09/29/19 09/29/19 07:00 History Gabapentin 300 mg PO HS 07/28/19 09/29/19 09/29/19 07:00 History Oxybutynin [Ditropan] 5 mg PO DAILY #30 tab 07/30/19 09/29/19 09/29/19 07:00 Rx Albuterol Sulfate Inhaler 2 puff INH Q6H PRN PRN #1 inhaler 08/08/19 09/29/19 09/29/19 07:00 Rx [Ventolin Hfa] Insulin Glargine [Basaglar 40 unit SUBQ QHS #1 insuln.pen 10/01/19 Unknown Rx [Nonformulary]] Omeprazole [Prilosec] 40 mg PO BID@0700,2100 #120 cap 10/01/19 Unknown Rx Promethazine [Phenergan] 25 mg PO Q6H PRN PRN #30 tab 10/01/19 Unknown Rx Metoclopramide [Reglan] 10 mg PO TID AC #90 tab 10/04/19 Unknown Rx Sucralfate [Carafate] 1 gm PO 4XDAY #80 tab 10/04/19 Unknown Rx - History of Present Illness-Resp Nature of Presenting Problem: pt is a 39 yr old female presenting with increased shortness of breath, orthopnea, dyspnea with exertion and increased edema. pt admits she is on 160mg of Lasix without improvement Quality of Pain: reports: burning Severity in ED: reports: moderate Onset/Duration: reports: gradual Timing: reports: getting worse Cough Quality/Degree: reports: moderate, productive cough Episode Frequency: frequent episodes Modifying Factors: improves with: exertion (worsens symptoms), coughing (worsens symptoms), lying down (worsens symptoms) Associated Symptoms: reports: chest pain/soreness, cough, shortness of breath, wheezing. denies: fever/chills Similar Symptoms Previously?: Yes Recently seen or treated by another doctor?: No Review of Systems - Adult - REVIEW OF SYSTEMS - ADULT Constitutional: reports: fatique. denies: chills, fever Eyes: reports: no symptoms reported Ears, Nose, Mouth & Throat: reports: no symptoms reported Cardiovascular: reports: edema, orthopnea. denies: chest pain, palpitations, syncope Respiratory: reports: cough, dyspnea on exertion, pleurisy, shortness of breath Gastrointestinal: reports: abdominal pain. denies: diarrhea, nausea, vomiting Genitourinary: reports: other (decreased urine out put). denies: dysuria, frequency, flank pain Musculoskeletal: reports: muscle aches Integumentary: reports: no symptoms reported Neurological: denies: dizziness/vertigo, headache/migraines, numbness, syncope Psychiatric: reports: no symptoms reported Endocrine: reports: no symptoms reported Hematologic/Lymphatic: reports: no symptoms reported Allergic/Immunologic: reports: no symptoms reported All Other Systems: Reviewed and Negative Past History - Adult - PAST MEDICAL HISTORY-ADULT Review of Records: reports: Old Records Reviewed, Nursing Assessment Review, Medications Reviewed, Social history reviewed & non-contributory. Major Childhood Illnesses: reports: denies history Cardiovascular: reports: CHF, HTN, hyperlipidemia Respiratory: reports: denies history Gastrointestinal: reports: GERD, other (gastroparesis) Obstetrical/Gynecological: reports: denies history Genitourinary: reports: denies history Musculoskeletal: reports: denies history Neurological: reports: headaches/migraines Psychiatric: reports: denies history Endocrine/Immune: reports: Diabetes Other Conditions: reports: denies history, MRSA - PRIOR SURGERIES/PROCEDURES Surgical/Procedure History: reports: cholecystectomy, BTL, , breast (reduction), other (necrotizing faciatis) - IMMUNIZATION STATUS Childhood Immunizations: See Nurse Assessment Flu Vaccine: See Nurse Assessment - FAMILY HISTORY Family History: diabetes, HTN - SOCIAL HISTORY Smoking: cigarettes Provider spent 3-5 mins advising pt. on dangers of tobacco.: Discussed manners to quit use, and f/u contacts for add'l counseling. Substance Use: denies Living Situation: family Physical Exam-General - PHYSICAL EXAM-ADULT Initial Vital Signs Reviewed: Yes - CONSTITUTIONAL General Appearance: alert, mild distress, obese, anxious - EYES Eyes: PERRL/EOMI - HEAD, EARS, NOSE, MOUTH & THROAT HENMT: normocephalic/atraumatic, moist mucous membranes - NECK Neck: non-tender, full range of motion, supple, normal inspection - RESPIRATORY Respiratory: decreased breath sounds, crackles, prolonged expiration, increased rate - CARDIOVASCULAR Cardiovascular: normal peripheral pulses, tachycardia - GASTROINTESTINAL (ABDOMEN) Abdominal Exam: normal bowel sounds, non tender, soft, distended - LYMPHATIC Lymphatic: no adenopathy - MUSCULOSKELETAL Back Exam: normal inspection Extremity: normal range of motion, pedal edema (bilateral, non pitting edema) - SKIN Integumentary: normal color, normal turgor, warm/dry - NEUROLOGIC Neurologic: grossly normal, no motor/sensory deficits - PSYCHIATRIC Psych/Mental Status: oriented x 3, anxious Progress - PLAN OF CARE/RESULTS Progress/Plan/Lab Results: Vital Signs - 8 hr 12/04/19 19:14 12/04/19 20:34 Temperature 98.5 F Pulse Rate 106 H 103 H Respiratory Rate 14 16 Blood Pressure 134/92 O2 Sat by Pulse Oximetry 98 12/04/19 19:56 Influenza Screen - Final Nasopharyngeal Laboratory Results - last 24 hr 12/04/19 12/04/19 12/04/19 13:16 13:16 13:16 WBC 13.98 H RBC 5.58 H Hgb 12.7 Hct 40.1 MCV 71.9 L MCH 22.8 L MCHC 31.7 L RDW Std Deviation 18.0 H Plt Count 305 MPV 11.0 H Immature Gran % (Auto) 0.2 Neut % (Auto) 75.0 Lymph % (Auto) 19.5 L [place] % (Auto) 3.4 Eos % (Auto) 1.4 Baso % (Auto) 0.5 Immature Gran # (Auto) 0.03 Neut # (Auto) 10.49 H Lymph # (Auto) 2.72 [place] # (Auto) 0.47 Eos # (Auto) 0.20 Baso # (Auto) 0.07 PT INR PTT (Actin FS) Sodium 133 L Potassium 5.2 H Chloride 99 Carbon Dioxide 21 L Anion Gap 13 BUN 16 Creatinine 1.1 H Estimated GFR/1.73 m2 > 60 BUN/Creatinine Ratio 15 Glucose 361 H Calculated Osmolality 282 Calcium 8.5 L Total Bilirubin 0.33 AST 29 ALT 20 Alkaline Phosphatase 101 Creatine Kinase 245 H Creatine Kinase Index 1.8 CK-MB (CK-2) 4.33 Troponin T High Sens Tbt-Z-Xgrvyzbapst Pept 602 H Total Protein 6.7 Albumin 3.2 L Globulin 3.5 Albumin/Globulin Ratio 0.9 Plasma Lactate Urine Source Urine Color Urine Turbidity Urine pH Ur Specific [place] Urine Protein Ur Glucose (Stick) Ur Ketones (Stick) Urine Blood Urine Nitrite Urine Bilirubin Urobilinogen Dipstick Urine Leukocytes Urine WBC (Auto) Urine RBC (Auto) U Epithel Cells (Auto) Urine Bacteria (Auto) 12/04/19 12/04/19 12/04/19 13:16 13:16 19:30 WBC RBC Hgb Hct MCV MCH MCHC RDW Std Deviation Plt Count MPV Immature Gran % (Auto) Neut % (Auto) Lymph % (Auto) [place] % (Auto) Eos % (Auto) Baso % (Auto) Immature Gran # (Auto) Neut # (Auto) Lymph # (Auto) [place] # (Auto) Eos # (Auto) Baso # (Auto) PT 13.2 INR 0.99 PTT (Actin FS) 23.0 Sodium Potassium Chloride Carbon Dioxide Anion Gap BUN Creatinine Estimated GFR/1.73 m2 BUN/Creatinine Ratio Glucose Calculated Osmolality Calcium Total Bilirubin AST ALT Alkaline Phosphatase Creatine Kinase Creatine Kinase Index CK-MB (CK-2) Troponin T High Sens 19 Ryh-E-Lbqdrvczlgc Pept Total Protein Albumin Globulin Albumin/Globulin Ratio Plasma Lactate 1.8 Urine Source Urine Color Urine Turbidity Urine pH Ur Specific [place] Urine Protein Ur Glucose (Stick) Ur Ketones (Stick) Urine Blood Urine Nitrite Urine Bilirubin Urobilinogen Dipstick Urine Leukocytes Urine WBC (Auto) Urine RBC (Auto) U Epithel Cells (Auto) Urine Bacteria (Auto) 12/04/19 20:05 WBC RBC Hgb Hct MCV MCH MCHC RDW Std Deviation Plt Count MPV Immature Gran % (Auto) Neut % (Auto) Lymph % (Auto) [place] % (Auto) Eos % (Auto) Baso % (Auto) Immature Gran # (Auto) Neut # (Auto) Lymph # (Auto) [place] # (Auto) Eos # (Auto) Baso # (Auto) PT INR PTT (Actin FS) Sodium Potassium Chloride Carbon Dioxide Anion Gap BUN Creatinine Estimated GFR/1.73 m2 BUN/Creatinine Ratio Glucose Calculated Osmolality Calcium Total Bilirubin AST ALT Alkaline Phosphatase Creatine Kinase Creatine Kinase Index CK-MB (CK-2) Troponin T High Sens Htw-G-Pkznetlfzke Pept Total Protein Albumin Globulin Albumin/Globulin Ratio Plasma Lactate Urine Source CLEAN CATCH Urine Color YELLOW Urine Turbidity HAZY Urine pH 7.0 Ur Specific [place] 1.014 Urine Protein 300 A Ur Glucose (Stick) 1000 A Ur Ketones (Stick) NEGATIVE Urine Blood SMALL A Urine Nitrite NEGATIVE Urine Bilirubin NEGATIVE Urobilinogen Dipstick NORMAL Urine Leukocytes TRACE A Urine WBC (Auto) <10 Urine RBC (Auto) 20-40 A U Epithel Cells (Auto) >10 A Urine Bacteria (Auto) 1+ Orders Category Date Time Status Cardiac Monitoring DIRECTED Care 12/04/19 13:05 Active IV Insertion ORDERED Care 12/04/19 19:40 Completed Notify MD of + Sepsis Screen NOW Care 12/04/19 19:40 Active Notify Physician As Ordered Care 12/04/19 19:40 Active Oxygen Therapy- ED Nursing DIRECTED Care 12/04/19 13:05 Active Saline Loc NOW Care 12/04/19 13:05 Active CHEST-2 VIEWS [RAD] Stat Exams 12/04/19 13:05 Completed BLOOD CULTURE [BLDCUL] Stat Lab 12/04/19 19:54 Results CBC WITH ELECTRONIC DIFF [HEME] Stat Lab 12/04/19 13:16 Completed CK PROFILE [SP CHEM] Stat Lab 12/04/19 13:16 Completed COMPREHENSIVE METABOLIC PANEL [CHEM] Stat Lab 12/04/19 13:16 Completed Flu Swab [INFLUENZA SCREEN A/B] Stat Lab 12/04/19 19:56 Completed LACTATE, PLASMA [CHEM] Lab 12/04/19 19:30 Completed LACTATE, PLASMA [CHEM] Lab 12/04/19 22:45 Uncollected LACTATE, PLASMA [CHEM] Lab 12/05/19 01:45 Uncollected PRO B-NATRIURETIC PEPTIDE Stat Lab 12/04/19 13:16 Completed PROTIME WITH INR [COAG] Stat Lab 12/04/19 13:16 Completed PTT [COAG] Stat Lab 12/04/19 13:16 Completed TROPONIN T HIGH SENSITIVITY Stat Lab 12/04/19 13:16 Completed URINALYSIS W/POSS RFLX CULT [URINALYSIS] Stat Lab 12/04/19 20:05 Completed URINE CULTURE [RM] Routine Lab 12/04/19 20:05 Received Albuterol 2.5MG/Ipratrop 0.5MG [Duoneb (A & A)] Med 12/04/19 19:23 Discontinued 3 ml INH NOW ONE Aspirin Med 12/04/19 13:05 Discontinued 325 mg PO NOW ONE CefTRIAXONE [Rocephin] 1 gm Med 12/04/19 21:32 Active 0.9% Sodium Chloride Inj [Ns] 50 ml IV NOW Furosemide [Lasix] Med 02/06/20 16:39 Discontinued 40 mg IV NOW ONE Furosemide [Lasix] Med 12/04/19 19:00 Discontinued 80 mg IV NOW ONE Levalbuterol Neb [Xopenex Neb] Med 12/04/19 20:26 Discontinued 1.25 mg INH NOW ONE Sodium Chloride 0.9% Neb [Ns Neb] Med 12/04/19 20:30 Active 5 ml INH DIRECTED Aerosol Treatments Routine Oth 12/04/19 19:23 Active Aerosol Treatments Routine Oth 12/04/19 20:26 Active Aerosol Treatments Stat Oth 12/04/19 19:23 Active Aerosol Treatments Stat Oth 12/04/19 20:26 Active CP/SOB/Palp >45 yrs of Age Stat Oth 12/04/19 13:05 Ordered Oxygen Device Stat Oth 12/04/19 19:40 Active EKG [EKG] Stat Ther 12/04/19 13:05 Draft Result Diagrams: 12/04/19 13:16 12/04/19 13:16 - REASSESSMENT Reassessment #1 Time Reassessed: 21:36 Status: unchanged (pt states she remains with sob after breathing tx and lasix. will plan for admission.) - EKG 1 Time of EKG reading by physician:: 13:26 EKG Read and Signed by:: Christian Handley EKG Interpretation (*Must complete 3 of following elements*): Abnormal (poss LAE) Rate: 115 Rhythm: sinus tachycardia [place]: left QRS: normal MD Interval: normal ST Wave: normal - XRAY 1 XRAY Study: Chest Impression: Abnormal ( CHEST-2 VIEWS - 12/04/2019 INDICATION: sob COMPARISON: 09/29/2019 FINDINGS: Stable pacemaker. Stable cardiomegaly. No infiltrates or edema. No pneumothorax or pleural effusion. IMPRESSION: Cardiomegaly. No change from prior. Electronically signed by Philippe Espinoza 12/04/2019 1:23 PM 12/04/19 1323 Interpreting Physician: Philippe Espinoza MD Dictated Date/Time: 12/04/19 1323 cc: Christian Handley MD; Johanna Oropeza MD) Comparison with other Films: no changes (09/29/19) - CONSULTS/PCP/HOSPITALIST Notification #1 *Consult/PCP/Hospitalist*: Dr. Angulo Time Discussed: 21:39 Consult Disposition: Will see in ED, Admit Departure - Departure Date of Disposition Decision: 12/04/19 Time of Disposition Decision: 21:39 DIAGNOSIS: CHF exacerbation, Dyspnea Disposition: ADMITTED INPATIENT 09 Certified Medical Emergency: Emergent Condition: Stable Referrals and Follow-Ups: Johanna Oropeza MD [Primary Care Provider] - - Critical Care Note This patient required my direct & personal management of CC.: No Attestation - Physician/ DAYANNA Attestation Patient care was provided by Advanced Practice Provider:: No The physician spent face to face time with patient:: Yes Advanced Practice Provider documentation review:: Supervising physician onsite and consulted in the evaluation and care of this patient. The physician did have a face to face encounter with the patient. This chart was documented by the indicated scribe, (Kaitlynn Farris, Avelina) and accurately reflects the services I performed and decisions made by me, Key Lopez MD, as attested by the provider's signature.
[2019-12-05] MEDS: HUMULIN R SUBQ SCH ×2 (01:00→20:01)
[2019-12-05 05:30] LABS: BASO# 0.04 X1000 (0.0-0.2); BASO% 0.3 % (0.0-0.8); EOS# 0.21 X1000 (0.0-0.7); EOS% 1.7 % (0.0-10.0); HEMATOCRIT 40.6 % (37.0-47.0); HEMOGLOBIN 12.7 g/dL (12.0-16.0); LYMPH# 2.79 X1000 (1.2-3.4); LYMPH% 22.3 % (20.5-51.1); MCH 22.6 PG (27-31); MCHC 31.3 g/dL (33-37); MCV 72.1 FL (81-99); MONO# 0.49 X1000 (0.11-0.59); MONO% 3.9 % (1.7-9.3); MPV 11.1 FL (7.4-10.4); NEUT# 8.99 X1000 (1.4-6.5); NEUT% 71.8 % (42.2-75.2); PLT 303 X1000 (130-400); RBC 5.63 XMIL (4.2-5.4); WBC 12.52 X1000 (4.8-10.8)
[2019-12-05 05:51] LABS: AGAP 12; BUN 15 mg/dL (8-22); CALCIUM 8.3 mg/dL (8.8-10.2); CHLORIDE 100 mmol/L (98-107); COSMO 281; CREATININE 0.9 mg/dL (0.5-0.9); ESTIMATED GFR > 60; GLUCOSE 321 mg/dL (70-104); POTASSIUM 5.5 mmol/L (3.5-5.1); SODIUM 134 mmol/L (136-145); TCO2 22 mmol/L (25-35)
[2019-12-05 05:52] LABS: HEMOGLOBIN A1C 10.6 % (4.8-6.0)
[2019-12-05] MEDS ORDERED: ZAROXOLYN PO PRN (06:07)
[2019-12-05] MEDS ORDERED: PHENERGAN PO PRN (06:07)
[2019-12-05] MEDS ORDERED: SODIUM CHLORIDE 0.9% INJ SCH (06:15)
[2019-12-05 06:29] LABS: EOS 1 % (1-10); LYMPHS 28 % (21-51); MONO 2 % (1-9); SEGS 68 % (42-75)
[2019-12-05 06:30] LABS: HYPOCHROM 1+; MICROCYTOSIS 1+
--- NOTE | 2019-12-05 08:12 | Diag Imaging Result Doc PS360 ---
EXAM: CT ANGIOGRM PULMONARY ARTERIES 12/05/2019 HISTORY: r/o pe TECHNIQUE: This exam was performed using automated exposure control, adjustment of mA or kV according to patient size, and/or use of iterative reconstruction technique. COMMENT: The current study is compared with 01/12/2019. There are no filling defects in the pulmonary arteries. The aorta is normal in caliber and there is no evidence of dissection. The left ventricle is apparently enlarged. There are some prominent prevascular nodes and right paratracheal nodes which are similar in appearance to the previous study. Overall the mediastinum is stable in appearance. There are patchy groundglass opacities present in the left upper lobe and the left lower lobe and to some extent in the right lower lobe. There is a groundglass appearing nodule present just above the minor fissure in the right upper lobe on image 63. These findings are worse than on the previous study although some of the opacities were apparently present at the time the previous study. The dense alveolar opacity present in the lingula at the time the previous examination is no longer present. The regional skeleton is stable in appearance. IMPRESSION: Pulmonary edema versus atypical pneumonia. No evidence of pulmonary emboli. Cardiomegaly. Electronically signed by Juan Lilly 12/05/2019 8:10 AM
[2019-12-05] MEDS ORDERED: LASIX IV SCH (09:00)
[2019-12-05] MEDS: REGLAN PO SCH ×3 (09:26→17:48)
[2019-12-05] MEDS: LASIX IV SCH ×2 (09:26→21:46)
[2019-12-05] MEDS: PROTONIX IV SCH (09:26)
[2019-12-05] MEDS: NEURONTIN PO SCH ×3 (09:28→21:45)
[2019-12-05] MEDS: BUSPAR PO SCH ×2 (09:37→21:46)
[2019-12-05] MEDS: CARAFATE PO SCH ×4 (09:38→21:44)
[2019-12-05] MEDS: ENTRESTO 24 MG-26 MG TABLET PO SCH ×2 (09:38→21:46)
--- NOTE | 2019-12-05 09:39 | HISTORY AND PHYSICAL ---
CHIEF COMPLAINT: Shortness of breath for about 3 days. HISTORY OF PRESENT ILLNESS: Ms. Radha Beckman is a 39-year-old female who has a history of congestive heart failure, hypertension, hyperlipidemia, gastroesophageal reflux disease, diabetes mellitus, gastroparesis who presented also because of shortness of breath which has been ongoing for about 3 days. The patient also describes leg swelling, paroxysmal nocturnal dyspnea as well as orthopnea. When she presented to the hospital proBNP level was found to be 6O2. X-ray of the chest shows evidence of cardiomegaly. The patient has now been admitted to the floor now for further management. PAST MEDICAL HISTORY: 1. Congestive heart failure. 2. Hypertension. 3. Hyperlipidemia. 4. Gastroesophageal reflux disease. 5. Gastroparesis. 6. Type 2 diabetes mellitus. 7. Right breast abscess with MRSE status post incision and drainage. 8. Depression. PAST SURGICAL HISTORY: The patient has had an incision and drainage of right breast abscess, cholecystectomy, bilateral tubal ligation, section, breast reduction surgery, surgery for necrotizing fascitis as well as pacemaker implantation. SOCIAL HISTORY: No history of cigarette smoking. No alcohol or drug use. FAMILY HISTORY: Positive for diabetes as well as hypertension. MEDICATIONS INCLUDE THE FOLLOWIN. Zofran 4 mg p.o. p.r.n. 2. NovoLog 16 units subcutaneous daily. 3. Coreg 12.5 g p.o. daily. 4. Lasix 80 mg p.o. daily. 5. Multivitamin 1 p.o. daily. 6. Entresto to 49/51 one twice a day. 7. MiraLAX 17 g twice a day. 8. Glimepiride 1 tab daily. 9. Metolazone 5 mg p.o. as directed p.r.n. 10. Sertraline 50 mg p.o. at bedtime. 11. BuSpar 7.5 mg p.o. twice a day. 12. Gabapentin 100 mg p.o. twice a day. 13. Gabapentin 300 mg p.o. at bedtime. 14. Oxybutynin 5 mg p.o. daily. 15. Ventolin HFA 2 puffs q.6 hours p.r.n. 16. Insulin glargine 40 units subcutaneously at bedtime. 17. Protonix 40 mg p.o. daily. 18. Promethazine 25 q.6 hours p.r.n. 19. Reglan 10 mg p.o. 3 times a day with meals. 20. Sucralfate 1 g 4 times a day. REVIEW OF SYSTEMS: Constitutional: No fever. MACHINE LACER: No headaches. Eyes: Has blurred vision. ENT: Has tinnitus left ear. Cardiovascular: Has chest pain. No palpitations. Respiratory: Has cough. GI: Has some nausea. : Positive for dysuria. Dermatology: No skin lesions. Hematology: No bleeding problems. Musculoskeletal: Has back pain. Endocrinology: Has diabetes but no thyroid disease. Psychiatry: Has anxiety with depression. Allergy/immunology: Has symptoms suggestive of allergic rhinitis. PHYSICAL EXAMINATION: VITAL SIGNS: Temperature is 98.5 degrees, pulse 106, respirations 14, blood pressure 134/92, oxygen saturation is 98%. HEENT: She is atraumatic, normocephalic. She is anicteric. No oral lesions noted. NECK: No jugular venous distention. No lymphadenopathy or thyromegaly. CARDIOVASCULAR: S1, S2. RESPIRATORY SYSTEM: Has evidence of good air entry bilaterally. ABDOMEN: Soft, obese, nontender. No masses felt. EXTREMITIES: No significant edema. CENTRAL NERVOUS SYSTEM: No obvious focal deficits noted. LABORATORY DATA: WBC is 13.98, hematocrit is 40.1 with a platelet count of 305,000. Sodium is 133, potassium 5.2, chloride 99, bicarb 21, BUN is 16, creatinine is 1.1, glucose 361. ProBNP 602. CK 245. UA shows less than 10 WBCs per high-power field. X-ray of the chest shows evidence of cardiomegaly. D-dimer is 0.65. ASSESSMENT AND PLAN: 1. Acute systolic congestive heart failure. We will maintain patient on diuretics. Will monitor intake and output, as well as daily weights. Recent echocardiogram shows ejection fraction of about 25% to about 30%. 2. Diabetes mellitus. Optimize blood sugar control. 3. Type 1 diabetes mellitus. Maintain blood sugar levels. Maintain patient on sliding scale insulin. Check hemoglobin A1c level. Place patient on diabetic diet. 4. Hypertension. Optimize blood pressure control. 5. Elevated D-dimer. We will obtain a CTA of the chest and if negative we will get a Doppler of both lower extremities. 6. Hyperkalemia. We will correct using Kayexalate, serum bicarbonate as well as calcium gluconate. We will avoid any potassium supplements. 7. History of gastroparesis. Aware. 8. Deep vein thrombosis prophylaxis. Lovenox. 9. Gastrointestinal prophylaxis. Proton pump inhibitor. cc: Victor Manuel Angulo MD
[2019-12-05] MEDS: LEVAQUIN 750 MG/D5W 750 MG/150 ML IVPB IV SCH (09:40)
[2019-12-05] MEDS: MORPHINE IV PRN ×3 (09:41→21:47)
[2019-12-05] MEDS: ZAROXOLYN PO SCH (09:59)
--- NOTE | 2019-12-05 10:35 | PROGRESS NOTE ---
DATE: 12/05/2019 SUBJECTIVE: The patient reports feeling fine, reports some pleuritic pain every time she breaths in. No other complaints at this time. OBJECTIVE: Vital Signs: Temperature 97.9 degrees, heart rate 102, respiratory 16, blood pressure 142/92, O2 saturation 98% on room air. General: This is a morbidly obese 39-year-old - [place] female lying in bed in no acute distress. Cardiovascular: S1, S2 heard. No murmurs, gallops, or rubs heard. Regular rate and rhythm. Respiratory: Minimal crackles noted in both pulmonary bases. Patient not using any accessory muscles or having work of breathing. Abdomen: Soft. Nontender to palpation. Bowel sounds present. No organomegaly. Extremities: No clubbing, cyanosis. Mild edema in both lower extremities. Neurological: Patient alert and oriented x3. Moves all 4 extremities. LABORATORY DATA: White cell count 12.52, hemoglobin 12.7, hematocrit 40.6, platelets 303,000. ASSESSMENT AND PLAN: 1. Acute congestive heart failure. Patient has been started on Lasix 80 mg IV q.12 hours and restarted also on the metolazone 2.5 mg p.o. daily. We will continue with the same medication. We will continue to monitor renal function closely. Blood sugars are still elevated. Hemoglobin A1c is 10.6. 2. Uncontrolled diabetes mellitus. We are going to start insulin sliding scale before meals and also at bedtime and Accu-Cheks as well. 3. Lingular atypical pneumonia. We are going to start Levaquin 750 mg IV q.24 hours, some breathing treatments as needed. cc: Chava Willard MD
[2019-12-05] MEDS: LANTUS INSULIN SUBQ SCH (10:45)
[2019-12-05] MEDS: HUMALOG SUBQ SCH ×3 (12:11→21:46)
[2019-12-05] MEDS: LIPITOR PO SCH (21:45)
[2019-12-05] MEDS: ZOLOFT PO SCH (21:46)
[2019-12-06] MEDS: MORPHINE IV PRN ×8 (00:26→23:22)
[2019-12-06] MEDS: REGLAN PO SCH ×3 (06:39→16:17)
[2019-12-06] MEDS: HUMALOG SUBQ SCH ×4 (06:39→21:56)
[2019-12-06 08:50] LABS: AGAP 14; BUN 22 mg/dL (8-22); CALCIUM 8.6 mg/dL (8.8-10.2); CHLORIDE 97 mmol/L (98-107); COSMO 279; CREATININE 1.2 mg/dL (0.5-0.9); ESTIMATED GFR > 60; GLUCOSE 305 mg/dL (70-104); PHOSPHORUS 5.1 mg/dL (2.7-4.5); SODIUM 132 mmol/L (136-145); TCO2 21 mmol/L (25-35)
[2019-12-06 09:10] LABS: BASO# 0.05 X1000 (0.0-0.2); BASO% 0.4 % (0.0-0.8); EOS# 0.35 X1000 (0.0-0.7); EOS% 2.7 % (0.0-10.0); HEMOGLOBIN 12.4 g/dL (12.0-16.0); IMM GRAN# 0.03 X1000 (0.0-0.04); IMM GRAN% 0.2 % (0.0-0.5); LYMPH# 2.31 X1000 (1.2-3.4); LYMPH% 17.6 % (20.5-51.1); MCHC 31.8 g/dL (33-37); MCV 72.5 FL (81-99); MONO% 3.8 % (1.7-9.3); MPV 10.3 FL (7.4-10.4); NEUT# 9.89 X1000 (1.4-6.5); NEUT% 75.3 % (42.2-75.2); PLT 305 X1000 (130-400); RBC 5.38 XMIL (4.2-5.4); RDW 17.6 % (11.5-14.5); WBC 13.13 X1000 (4.8-10.8)
[2019-12-06] MEDS: LOVENOX SUBQ SCH (09:36)
[2019-12-06] MEDS: LASIX IV SCH ×2 (09:36→21:55)
[2019-12-06] MEDS: CARAFATE PO SCH ×4 (09:36→21:54)
[2019-12-06] MEDS: ENTRESTO 24 MG-26 MG TABLET PO SCH ×2 (09:36→21:56)
[2019-12-06] MEDS: PROTONIX IV SCH (09:36)
[2019-12-06] MEDS: NEURONTIN PO SCH ×3 (09:36→21:55)
[2019-12-06] MEDS: ZAROXOLYN PO SCH (09:36)
[2019-12-06] MEDS: LEVAQUIN 750 MG/D5W 750 MG/150 ML IVPB IV SCH (09:37)
[2019-12-06] MEDS: BUSPAR PO SCH ×2 (09:37→21:55)
[2019-12-06] MEDS: LANTUS INSULIN SUBQ SCH ×2 (09:44→21:55)
--- NOTE | 2019-12-06 11:08 | Diag Imaging Result Doc PS360 ---
EXAM: CHEST-2 VIEWS HISTORY: pulmonary edema TECHNIQUE: Two views COMPARISON: 12/04/2019 FINDINGS: The lungs are well expanded. The heart is enlarged. The vessels are not distended. There are no infiltrates. No pleural effusions. IMPRESSION: Cardiomegaly. No significant pulmonary edema. Electronically signed by Osei Gruber 12/06/2019 11:05 AM
--- NOTE | 2019-12-06 14:41 | PROGRESS NOTE ---
DATE: 12/06/2019 SUBJECTIVE: Patient reports feeling much better. Breathing much better. OBJECTIVE: Vital Signs: Temperature 98.0 degrees, heart rate 85, respiratory rate 18, blood pressure 108/79, O2 saturation 100% on room air. General Examination: This is a morbidly obese, 39-year-old female lying in bed, in no acute distress. Cardiovascular: S1, S2 heard. No murmurs, gallops, or rubs. Regular rate and rhythm. Respiratory: Minimal crackles still present in both pulmonary bases. Patient not using any accessory muscles or having work of breathing. Abdomen: Soft, nontender to palpation. Bowel sounds present. No organomegaly. There is an old scar noted in the abdomen. Extremities: No clubbing, cyanosis, mild edema in both lower extremities. Neurological: Patient alert and oriented x3. Moves 4 extremities. LABORATORY DATA: White cell count is 13.13, hemoglobin 12.4 with sodium 132, potassium 4.0, creatinine 1.2. Phosphorus 5.1. ASSESSMENT AND PLAN: 1. Acute on chronic congestive heart failure. The patient has been started yesterday on Lasix 80 mg IV q. 12 hours plus metolazone 2.5 mg p.o. daily and since then, the patient is feeling much better. There is no ins and outs documented in the chart properly. We will start doing it today. Renal function is a little bit elevated today at 1.2. We will continue to monitor. 2. Uncontrolled diabetes mellitus. Patient has been restarted on home doses of Lantus, in this case 40 units but it is still pretty much high so at this point, we are going to start Lantus at night 10 units subcutaneous and will continue to monitor. Accu-Chek before meals and also at bedtime. 3. Lingular pneumonia. We will continue Levaquin 750 mg IV q. 24 hours. 4. Disposition. We will continue to monitor this patient closely. We will keep her over the weekend. We will see Sunday how she does. cc: Chava Willard MD
[2019-12-06] MEDS: LIPITOR PO SCH (21:54)
[2019-12-06] MEDS: ZOLOFT PO SCH (21:54)
[2019-12-07] MEDS: MORPHINE IV PRN ×7 (02:35→23:07)
[2019-12-07] MEDS: HUMALOG SUBQ SCH ×4 (06:05→20:20)
[2019-12-07] MEDS: REGLAN PO SCH ×3 (06:05→16:41)
[2019-12-07 08:18] LABS: BASO# 0.02 X1000 (0.0-0.2); BASO% 0.2 % (0.0-0.8); EOS# 0.29 X1000 (0.0-0.7); EOS% 2.7 % (0.0-10.0); HEMOGLOBIN 12.4 g/dL (12.0-16.0); IMM GRAN# 0.02 X1000 (0.0-0.04); IMM GRAN% 0.2 % (0.0-0.5); LYMPH% 18.7 % (20.5-51.1); MCH 22.8 PG (27-31); MCHC 31.8 g/dL (33-37); MCV 71.7 FL (81-99); MONO# 0.53 X1000 (0.11-0.59); MONO% 4.9 % (1.7-9.3); MPV 10.2 FL (7.4-10.4); NEUT# 7.85 X1000 (1.4-6.5); NEUT% 73.3 % (42.2-75.2); PLT 344 X1000 (130-400); RBC 5.44 XMIL (4.2-5.4); WBC 10.71 X1000 (4.8-10.8)
--- NOTE | 2019-12-07 08:46 | PROGRESS NOTE ---
DATE: 12/07/2019 SUBJECTIVE: The patient reports breathing much better, not requiring any oxygen supplementation. OBJECTIVE: Vital Signs: Temperature 98.1 degrees, heart rate 84, respiratory rate 18, blood pressure 104/60, O2 saturation 97% on room air. General: This is a morbidly obese, 39-year-old, female, lying in bed in no acute distress. Cardiovascular: S1 and S2 heard. No murmurs, gallops, or rubs. Regular rate and rhythm. Respiratory: Minimal crackles are still present in both pulmonary bases. The patient is not using any accessory muscles or having work of breathing. Abdomen: Soft, nontender to palpation. Bowel sounds present. No organomegaly. There are old scars noted in the abdomen. Extremities: No clubbing, cyanosis. Mild edema in both lower extremities. Neurological: The patient is alert and oriented x3. Moves all 4 extremities. LABORATORY DATA: Pending at the time of my dictation. ASSESSMENT AND PLAN: 1. Acute on chronic congestive heart failure. Will continue with Lasix 80 mg intravenously every 12 hours, Metolazone 5 mg by mouth daily. I have checked ins and outs, and those have been documented. We do not have the results of the kidney function, but from yesterday, it was 1.2. Will continue to monitor. 2. Uncontrolled diabetes mellitus type 2. The patient is receiving Lantus 40 units daily. Blood sugar has been still very high. Her hemoglobin A1c is 7.6, so at this point, I think we will decrease the dose of Lantus to 55 units daily in the morning and will see how this patient does. 3. Lingular pneumonia. Will continue with Levaquin 750 mg intravenously every 24 hours. Not requiring any oxygen supplementation. Will continue to monitor. 4. Disposition. Will continue to monitor this patient closely. If the patient feels better, we can let her go tomorrow. cc: Chava Willard MD MTDD
[2019-12-07 09:12] LABS: CALCIUM 8.5 mg/dL (8.8-10.2); CREATININE 1.5 mg/dL (0.5-0.9); PHOSPHORUS 5.4 mg/dL (2.7-4.5)
[2019-12-07] MEDS: ENTRESTO 24 MG-26 MG TABLET PO SCH ×2 (09:37→20:12)
[2019-12-07] MEDS: LASIX IV SCH ×2 (09:37→20:11)
[2019-12-07] MEDS: ZAROXOLYN PO SCH (09:37)
[2019-12-07] MEDS: BUSPAR PO SCH ×2 (09:37→20:11)
[2019-12-07] MEDS: CARAFATE PO SCH ×4 (09:37→20:12)
[2019-12-07] MEDS: PROTONIX IV SCH (09:37)
[2019-12-07] MEDS: NEURONTIN PO SCH ×3 (09:37→20:12)
[2019-12-07] MEDS: LOVENOX SUBQ SCH (09:38)
[2019-12-07] MEDS: LANTUS INSULIN SUBQ SCH ×2 (09:38→20:20)
[2019-12-07] MEDS: LEVAQUIN 750 MG/D5W 750 MG/150 ML IVPB IV SCH (12:06)
[2019-12-07] MEDS: LIPITOR PO SCH (20:12)
[2019-12-07] MEDS: ZOLOFT PO SCH (20:13)
[2019-12-08] MEDS: MORPHINE IV PRN ×3 (02:00→08:15)
[2019-12-08] MEDS: REGLAN PO SCH ×3 (06:35→17:54)
[2019-12-08] MEDS: HUMALOG SUBQ SCH ×4 (06:35→22:38)
--- NOTE | 2019-12-08 08:09 | PROGRESS NOTE ---
DATE: 12/08/2019 SUBJECTIVE: Patient reports breathing better. Sometimes she has pain when she breaths in but she is not requiring any oxygen supplementation. OBJECTIVE: Vital Signs: Temperature 98.3 degrees, heart rate 96, respiratory rate 18, blood pressure 130/77, O2 saturation 99% on room air. General: This is a morbidly obese, chronically ill-appearing 39-year-old -[place] female lying in bed, in no acute distress. Cardiovascular Examination: S1 and S2 heard. No murmurs, gallops, or rubs. Regular rate and rhythm. Respiratory: Minimal crackles are still noted in both pulmonary bases. Patient is not using any accessory muscles or having work of breathing. Abdomen: Soft. Nontender to palpation. Bowel sounds present. No organomegaly. There are old scars noted in the abdomen. Extremities: No clubbing or cyanosis. Mild edema, definitely getting better, in both lower extremities. Neurological: Patient alert and oriented x3. Moves 4 extremities. LABORATORY DATA: Pending at the time of dictation. ASSESSMENT AND PLAN: 1. Acute on chronic congestive heart failure. The patient is responding to current management, in this case Lasix 80 mg IV q.12 hours plus metolazone 2.5 mg p.o. daily. Kidney function has been a little bit elevated at 1.5. I think at this point we will change this Lasix to oral Lasix. Home dosage in this case is Lasix 80 mg p.o. in the morning. She takes metolazone 5 mg every other day but she will be recommended to take it on a daily basis. 2. Uncontrolled diabetes mellitus type 2. The patient is receiving 55 units of Lantus in the morning and 10 units at night. We will see how she does today. 3. Lingular pneumonia. We will continue with Levaquin 750 mg IV q.24 hours. Currently today is day #3 of antibiotic. We will continue until complete. 4. Disposition: This patient is improving, so I think tomorrow she should be able to be discharged home. cc: Chava Willard MD
[2019-12-08] MEDS: ZAROXOLYN PO SCH (08:19)
[2019-12-08] MEDS: CARAFATE PO SCH ×4 (08:20→22:37)
[2019-12-08] MEDS: BUSPAR PO SCH ×2 (08:20→22:37)
[2019-12-08] MEDS: ENTRESTO 24 MG-26 MG TABLET PO SCH ×2 (08:20→22:37)
[2019-12-08] MEDS: LOVENOX SUBQ SCH (08:21)
[2019-12-08] MEDS: PROTONIX IV SCH (08:21)
[2019-12-08] MEDS: NEURONTIN PO SCH ×3 (08:27→22:38)
[2019-12-08] MEDS: LASIX PO SCH (08:27)
[2019-12-08] MEDS: LANTUS INSULIN SUBQ SCH ×2 (08:27→22:38)
[2019-12-08] MEDS: LEVAQUIN 750 MG/D5W 750 MG/150 ML IVPB IV SCH (10:22)
[2019-12-08 10:42] LABS: BASO# 0.02 X1000 (0.0-0.2); BASO% 0.2 % (0.0-0.8); EOS# 0.25 X1000 (0.0-0.7); EOS% 2.2 % (0.0-10.0); HEMATOCRIT 39.3 % (37.0-47.0); HEMOGLOBIN 12.4 g/dL (12.0-16.0); IMM GRAN# 0.03 X1000 (0.0-0.04); IMM GRAN% 0.3 % (0.0-0.5); LYMPH# 1.59 X1000 (1.2-3.4); LYMPH% 14.1 % (20.5-51.1); MCH 22.5 PG (27-31); MCHC 31.6 g/dL (33-37); MCV 71.3 FL (81-99); MONO% 5.3 % (1.7-9.3); MPV 9.9 FL (7.4-10.4); NEUT# 8.82 X1000 (1.4-6.5); NEUT% 77.9 % (42.2-75.2); PLT 352 X1000 (130-400); RBC 5.51 XMIL (4.2-5.4); WBC 11.31 X1000 (4.8-10.8)
[2019-12-08 11:06] LABS: ALBUMIN 3.2 g/dL (3.5-5.0); CALCIUM 8.2 mg/dL (8.8-10.2); CREATININE 1.4 mg/dL (0.5-0.9); PHOSPHORUS 4.4 mg/dL (2.7-4.5); POTASSIUM 4.2 mmol/L (3.5-5.1)
[2019-12-08] MEDS ORDERED: TYLENOL PO PRN (11:15)
[2019-12-08] MEDS: ULTRAM PO PRN ×2 (11:33→17:54)
[2019-12-08] MEDS: ZOLOFT PO SCH (22:37)
[2019-12-08] MEDS: LIPITOR PO SCH (22:37)
[2019-12-09] MEDS: ULTRAM PO PRN ×2 (02:54→09:41)
[2019-12-09] MEDS: HUMALOG SUBQ SCH ×2 (06:54→11:46)
[2019-12-09] MEDS: REGLAN PO SCH ×2 (06:54→11:50)
[2019-12-09] MEDS ORDERED: PROTONIX PO SCH (07:00)
[2019-12-09 08:46] VITALS: BP 115/73
[2019-12-09 08:52] LABS: BASO# 0.02 X1000 (0.0-0.2); BASO% 0.2 % (0.0-0.8); EOS# 0.26 X1000 (0.0-0.7); EOS% 2.6 % (0.0-10.0); HEMATOCRIT 40.3 % (37.0-47.0); HEMOGLOBIN 12.4 g/dL (12.0-16.0); IMM GRAN# 0.02 X1000 (0.0-0.04); IMM GRAN% 0.2 % (0.0-0.5); LYMPH# 1.74 X1000 (1.2-3.4); LYMPH% 17.6 % (20.5-51.1); MCHC 30.8 g/dL (33-37); MCV 71.5 FL (81-99); MONO# 0.54 X1000 (0.11-0.59); MONO% 5.5 % (1.7-9.3); MPV 10.4 FL (7.4-10.4); NEUT% 73.9 % (42.2-75.2); PLT 345 X1000 (130-400); RBC 5.64 XMIL (4.2-5.4); RDW 16.9 % (11.5-14.5); WBC 9.88 X1000 (4.8-10.8)
[2019-12-09] MEDS: CARAFATE PO SCH (09:42)
[2019-12-09] MEDS: LASIX PO SCH (09:42)
[2019-12-09] MEDS: ENTRESTO 24 MG-26 MG TABLET PO SCH (09:42)
[2019-12-09] MEDS: NEURONTIN PO SCH (09:42)
[2019-12-09] MEDS: BUSPAR PO SCH (09:42)
[2019-12-09] MEDS: LEVAQUIN 750 MG/D5W 750 MG/150 ML IVPB IV SCH (09:43)
[2019-12-09] MEDS: LOVENOX SUBQ SCH (09:43)
[2019-12-09] MEDS: ZAROXOLYN PO SCH (09:43)
[2019-12-09] MEDS: LANTUS INSULIN SUBQ SCH (09:44)
[2019-12-09 09:48] LABS: AGAP 14; BUN 23 mg/dL (8-22); CALCIUM 8.7 mg/dL (8.8-10.2); CHLORIDE 99 mmol/L (98-107); COSMO 280; CREATININE 1.2 mg/dL (0.5-0.9); ESTIMATED GFR > 60; GLUCOSE 136 mg/dL (70-104); PHOSPHORUS 3.4 mg/dL (2.7-4.5); POTASSIUM 4.2 mmol/L (3.5-5.1); SODIUM 137 mmol/L (136-145); TCO2 24 mmol/L (25-35)
--- NOTE | 2019-12-10 10:39 | DISCHARGE SUMMARY ---
ADMISSION DATE: 12/04/2019 DISCHARGE DATE: 12/09/2019 DISCHARGE DIAGNOSES: 1. Acute on chronic systolic congestive heart failure. 2. Diabetes mellitus type 2, uncontrolled. 3. Lingular pneumonia. 4. Hypertension. 5. Hyperkalemia, resolved. 6. History of diabetic gastroparesis. CONSULTATIONS: None. PROCEDURES: 1. Chest x-ray done on admission showed cardiomegaly, no change from prior. 2. Pulmonary arteriogram showed pulmonary edema versus atypical pneumonia. 3. Chest x-ray done on 12/04/2019 showed cardiomegaly, no significant pulmonary edema. HOSPITAL COURSE: This is a 39-year-old female with past medical history of CHF, hypertension, hyperlipidemia and gastroesophageal disease, who presented to the emergency department complaining of shortness of breath that has been ongoing for the last 3 days. There was a suspicion for pulmonary embolism so a CT of the pulmonary arteries has been ordered with results as above. The patient finally admitted to the hospital for CHF and atypical pneumonia. Patient was placed on antibiotics and Lasix. Progressively this patient started feeling better. Fortunately, she never requiring any oxygen supplementation. At discharge, patient is feeling better, not requiring any oxygen supplementation. She is going to be discharged in a stable condition. DISCHARGE PHYSICAL EXAMINATION: Vital signs: Temperature 98.2 degrees, heart rate 94, respiratory rate 18, blood pressure 115/73, O2 saturation 92% on room air. General: This is a 39- year-old morbidly obese, female lying in bed, in no acute distress. Cardiovascular: S1, S2 heard. No murmurs, gallops, or rubs. Regular rate and rhythm. Respiratory: Clear bilaterally to auscultation. No work of breathing or using accessory muscles. Abdomen: Soft, nontender to palpation. Bowel sounds present. No organomegaly. Extremities: No clubbing, cyanosis, or edema. Peripheral pulses present in both legs. Neurological: The patient is alert and oriented x3. Moves 4 extremities. DISCHARGE DISPOSITION: Home to self-care. DISCHARGE MEDICATIONS: 1. Lantus 65 units subcutaneous in the morning. 2. Levaquin 750 mg 1 tablet p.o. daily for a week. 3. Tramadol 50 mg 1 tablet p.o. every 6 hours as needed for pain. 4. Metolazone 5 mg 1 tablet p.o. daily. 5. Insulin lispro 16 units subcutaneous daily. 6. Furosemide 80 mg 1 tablet p.o. daily. 7. Glimepiride 1 tablet p.o. at bedtime. 8. Sertraline 100 mg 1 tablet p.o. at bedtime. 9. Gabapentin 100 mg 1 tablet p.o. twice daily. 10. Buspirone 7.5 mg 1 tablet p.o. b.i.d. 11. Phenergan 25 mg p.o. every 6 hours as needed for nausea. 12. Prilosec 40 mg 1 tablet p.o. b.i.d. 13. Sucralfate 1 g p.o. 4 times per day. 14. Entresto 24/26 mg 1 tablet p.o. twice daily. 15. Atorvastatin 20 mg 1 tablet p.o. at bedtime. 16. Metformin 850 mg 1 tablet p.o. b.i.d. 17. Reglan 5 mg 1 tablet p.o. 3 times per day before meals. TIME SPENT: Discharging this patient, 34 minutes. cc: Chava Willard MD
== END 2019-12-09 13:00 | disposition home or self-care (01) | DRG 871 ==
LOC: ED 12:57 → SUATTDRO 22:18 → 3N 22:18
PROVIDERS: ATTEND Internal Medicine

== ENCOUNTER 2019-12-22 07:27 | Inpatient (IN) ==
[2019-12-22] MEDS ORDERED: ZOFRAN IM ONE (08:07)
[2019-12-22] MEDS ORDERED: NS 1,000 ML IV ONE (08:07)
[2019-12-22 09:23] LABS: BASO# 0.01 X1000 (0.0-0.2); BASO% 0.1 % (0.0-0.8); HEMATOCRIT 40.8 % (37.0-47.0); HEMOGLOBIN 12.9 g/dL (12.0-16.0); IMM GRAN# 0.04 X1000 (0.0-0.04); IMM GRAN% 0.2 % (0.0-0.5); LYMPH# 0.94 X1000 (1.2-3.4); LYMPH% 4.7 % (20.5-51.1); MCH 22.5 PG (27-31); MCHC 31.6 g/dL (33-37); MCV 71.2 FL (81-99); MONO# 0.48 X1000 (0.11-0.59); MONO% 2.4 % (1.7-9.3); MPV 10.6 FL (7.4-10.4); NEUT# 18.33 X1000 (1.4-6.5); NEUT% 92.6 % (42.2-75.2); PLT 384 X1000 (130-400); RBC 5.73 XMIL (4.2-5.4); RDW 17.3 % (11.5-14.5)
[2019-12-22] MEDS ORDERED: ZOFRAN IV ONE (09:26)
[2019-12-22] MEDS ORDERED: DEMEROL IV ONE (09:27)
[2019-12-22 09:29] LABS: URINE SOURCE CLEAN CATCH
[2019-12-22 09:30] LABS: AMYLASE 40 U/L (20-200); LIPASE 39 U/L (13-60)
[2019-12-22 09:31] LABS: BILIRUBIN URINE NEGATIVE (NEGATIVE); BLOOD URINE MODERATE (NEGATIVE); COLOR YELLOW; GLUCOSE URINE >1000 mg/dL (NEGATIVE); KETONE URINE 40 mg/dL (NEGATIVE); LEUKOCYTES URINE NEGATIVE (NEGATIVE); NITRITE URINE NEGATIVE (NEGATIVE); PH URINE 6.5; PROTEIN URINE 600 mg/dL (NEGATIVE); SP GRAVITY URINE 1.041; TURBIDITY URINE CLEAR (CLEAR); UROBILINOGEN URINE NORMAL (NORMAL)
[2019-12-22 09:33] LABS: UR EPITHELIAL CELLS <10 /HPF (<10); URINE BACTERIA NEGATIVE /HPF; URINE RBC 20-40 /HPF (<10); URINE WBC <10 /HPF (<10)
[2019-12-22 09:34] LABS: AGAP 18; ALB/GLOB RATIO 0.7; ALBUMIN 3.3 g/dL (3.5-5.0); ALKALINE PHOSPHATASE 100 U/L (32-104); BUN 16 mg/dL (8-22); CALCIUM 9.4 mg/dL (8.8-10.2); CHLORIDE 94 mmol/L (98-107); COSMO 286; ESTIMATED GFR > 60; GLUCOSE 366 mg/dL (70-104); GOT 18 U/L (10-30); GPT 18 U/L (10-36); POTASSIUM 4.7 mmol/L (3.5-5.1); SODIUM 135 mmol/L (136-145); TCO2 23 mmol/L (25-35); TOTAL PROTEIN 7.8 g/dL (6.3-8.3)
--- NOTE | 2019-12-22 09:39 | Diag Imaging Result Doc PS360 ---
CHEST-1 VIEW - 12/22/2019 INDICATION: epigastric pain COMPARISON: 12/06/2019 FINDINGS: Stable implanted device in the left chest wall. Stable cardiomegaly and mild pulmonary vascular congestion. No infiltrates or edema. No large pleural effusion. IMPRESSION: Cardiomegaly and pulmonary vascular congestion. Electronically signed by Philippe Espinoza 12/22/2019 9:37 AM
--- NOTE | 2019-12-22 11:01 | Diag Imaging Result Doc PS360 ---
EXAM: CT ABD/PELVIS W/IV CONT ONLY INDICATION: Lt sided flank pain, vomiting TECHNIQUE: This exam was performed using automated exposure control, adjustment of mA or kV according to patient size, and/or use of iterative reconstruction technique. COMPARISON: 09/29/2019 FINDINGS: There is mild air trapping at the lung bases. There has been a prior cholecystectomy. The liver, spleen, pancreas, and adrenal glands are unremarkable. The kidneys appear normal. There is no hydronephrosis. The urinary bladder is unremarkable. There appears to be a 2 mm follicular cyst associated with the right ovary. The reproductive tract is unremarkable as imaged, otherwise. The appendix appears normal. No focal bowel wall thickening or bowel obstruction is identified. The remainder of the GI tract is unremarkable. No focal inflammatory changes, free abdominal gas, or free fluid is appreciated. There is stable irregular contour associated with the ventral abdominal wall on the right, likely related to scarring from prior surgery or injury. There is no evidence of acute osseous abnormality. IMPRESSION: Incidental/nonacute findings detailed above. No evidence of acute pathology by CT. Electronically signed by Gareth Parr 12/22/2019 10:59 AM
[2019-12-22] MEDS ORDERED: HUMULIN R IV ONE (11:44)
--- NOTE | 2019-12-22 11:50 | PROVIDER DOCUMENTATION ---
This chart was entered by Rosy Lares Scribe, acting as scribe for Luis Hummel MD. HPI-Abdominal Pain/GI Problem - General Chief Complaint: Nausea/Vomiting Stated Complaint: ABD PAIN,VOMITING Time Seen by Provider: 12/22/19 07:51 Source: patient Allergies/Adverse Reactions: Patient Allergies Allergy/AdvReac Type Severity Reaction Status Date / Time sulfamethoxazole Allergy HIVES Verified 08/08/19 08:39 [From ] trimethoprim [From ] Allergy HIVES Verified 08/08/19 08:39 Home Medications: Home Medication List Medication Instructions Recorded Confirmed Last Taken Type Insulin Lispro [Humalog] 16 units SQ DAILY 06/04/18 12/04/19 09/29/19 07:00 History Furosemide [Lasix] 80 mg PO DAILY tab 02/10/19 12/04/19 09/29/19 07:00 Rx Glimepiride 1 tab PO QHS 05/15/19 12/04/19 09/29/19 07:00 History Sertraline [Zoloft] 100 mg PO QHS 05/15/19 12/04/19 09/29/19 07:00 History Buspirone HCl [Buspar] 7.5 mg PO BID 07/28/19 12/04/19 09/29/19 07:00 History Gabapentin 100 mg PO BID 07/28/19 12/04/19 09/29/19 07:00 History Gabapentin 300 mg PO HS 07/28/19 12/04/19 09/29/19 07:00 History Omeprazole [Prilosec] 40 mg PO BID@0700,2100 #120 cap 10/01/19 12/04/19 Unknown Rx Promethazine [Phenergan] 25 mg PO Q6H PRN PRN #30 tab 10/01/19 12/04/19 Unknown Rx Sucralfate [Carafate] 1 gm PO 4XDAY #80 tab 10/04/19 12/04/19 Unknown Rx Atorvastatin Calcium 20 mg PO QHS 12/04/19 12/04/19 Unknown History Metformin HCl 850 mg PO BID 12/04/19 12/04/19 Unknown History Metoclopramide [Reglan] 5 mg PO TID AC 12/04/19 12/04/19 Unknown History Sacubitril/Valsartan [Entresto 24 1 tab PO BID 12/04/19 12/04/19 Unknown History mg-26 mg Tablet] Insulin Glargine [Lantus Insulin] 65 unit SUBQ QAM #7 unit 12/09/19 Unknown Rx Levofloxacin [Levaquin] 750 mg PO DAILY #7 tab 12/09/19 Unknown Rx Metolazone [Zaroxolyn] 5 mg PO DAILY #90 tab 12/09/19 Unknown Rx Tramadol [Ultram] 50 mg PO Q6H PRN PRN #20 tab 12/09/19 Unknown Rx - History of Present Illness-ABD Nature of Presenting Problems: 39yof presents to ED cc intractable vomiting, nausea and left flank pain since Sunday. Pt reports she hasn't been able to eat or drink anything this weekend. Pt has hx of gastroparesis and DM. Abdominal Pain Onset Location: reports: flank (left) Quality of Pain: reports: aching Severity in ED: reports: mild, moderate Onset/Duration: reports: 4 days ago Timing: reports: still present Activities at Onset: reports: light activity Modifying Factors: improves with: nothing Associated Symptoms: reports: nausea, vomiting Emesis Description: reports: clear Similar Symptoms Previously?: Yes Recently seen or treated by another doctor?: Yes (seen in ED 12/04/2019) Review of Systems - Adult - REVIEW OF SYSTEMS - ADULT Constitutional: reports: see HPI. denies: chills, fever, fatique Eyes: reports: no symptoms reported Ears, Nose, Mouth & Throat: reports: no symptoms reported Cardiovascular: reports: no symptoms reported Respiratory: reports: no symptoms reported Gastrointestinal: reports: see HPI, nausea, vomiting Genitourinary: reports: see HPI, flank pain (left) Musculoskeletal: reports: no symptoms reported Integumentary: reports: no symptoms reported Neurological: reports: no symptoms reported Psychiatric: reports: no symptoms reported Endocrine: reports: no symptoms reported Hematologic/Lymphatic: reports: no symptoms reported Allergic/Immunologic: reports: no symptoms reported All Other Systems: Reviewed and Negative Past History - Adult - PAST MEDICAL HISTORY-ADULT Review of Records: reports: Old Records Reviewed, Nursing Assessment Review, Medications Reviewed, Social history reviewed & non-contributory. Major Childhood Illnesses: reports: denies history Cardiovascular: reports: CHF, HTN, hyperlipidemia Respiratory: reports: denies history Gastrointestinal: reports: GERD, other (gastroparesis) Obstetrical/Gynecological: reports: denies history Genitourinary: reports: denies history Musculoskeletal: reports: denies history Neurological: reports: headaches/migraines Psychiatric: reports: denies history Endocrine/Immune: reports: Diabetes Other Conditions: reports: denies history, MRSA - PRIOR SURGERIES/PROCEDURES Surgical/Procedure History: reports: cholecystectomy, BTL, , breast (reduction), other (necrotizing faciatis) - IMMUNIZATION STATUS Childhood Immunizations: See Nurse Assessment Flu Vaccine: See Nurse Assessment - FAMILY HISTORY Family History: diabetes, HTN Physical Exam-General - PHYSICAL EXAM-ADULT Initial Vital Signs Reviewed: Yes - CONSTITUTIONAL General Appearance: appears well, alert. negative: anxious, combative - EYES Eyes: PERRL/EOMI, pink conjunctivae. negative: photophobia - HEAD, EARS, NOSE, MOUTH & THROAT HENMT: normocephalic/atraumatic, moist mucous membranes. negative: angioedema - NECK Neck: supple - RESPIRATORY Respiratory: chest non-tender, lungs clear. negative: stridor - CARDIOVASCULAR Cardiovascular: normal peripheral pulses, regular rate, rhythm. negative: bradycardia, tachycardia - GASTROINTESTINAL (ABDOMEN) Abdominal Exam: normal bowel sounds, non tender, soft. negative: rebound - MUSCULOSKELETAL Back Exam: normal inspection, no CVA tenderness, no vertebral tenderness Extremity: normal inspection. negative: deformity - SKIN Integumentary: normal color. negative: diaphoresis, jaundice - PSYCHIATRIC Psych/Mental Status: normal mood/affect, oriented x 3. negative: anxious, disheveled Progress - PLAN OF CARE/RESULTS Progress/Plan/Lab Results: Vital Signs - 8 hr 12/22/19 07:30 12/22/19 08:05 Temperature 97.9 F Pulse Rate 101 H 105 H Respiratory Rate 18 22 Blood Pressure 149/85 152/91 O2 Sat by Pulse Oximetry 98 98 Bedside Urine ED: Urine Bedside Start: 12/22/19 07:53 Freq: ORDERED Status: Active Protocol: Activity Type Activity Date Activity User E-Sign Co-Sign Detail Recorded Client Recorded Date Recorded By Document 12/22/19 09:05 [id number] 12/22/19 09:23 [id number] 12/22/19 09:05 Point of Care [Bedside Point of Care] -Lot # [id number] - Results Negative -Control Line Visible? Yes -Additional Comment 05/28/2021 12/22/19 08:55 Influenza Screen - Final Nasopharyngeal Laboratory Results - last 24 hr 12/22/19 12/22/19 12/22/19 08:55 08:55 08:55 WBC 19.80 H RBC 5.73 H Hgb 12.9 Hct 40.8 MCV 71.2 L MCH 22.5 L MCHC 31.6 L RDW Std Deviation 17.3 H Plt Count 384 MPV 10.6 H Immature Gran % (Auto) 0.2 Neut % (Auto) 92.6 H Lymph % (Auto) 4.7 L Kimble % (Auto) 2.4 Eos % (Auto) 0.0 Baso % (Auto) 0.1 Immature Gran # (Auto) 0.04 Neut # (Auto) 18.33 H Lymph # (Auto) 0.94 L Kimble # (Auto) 0.48 Eos # (Auto) 0.00 Baso # (Auto) 0.01 Sodium 135 L Potassium 4.7 Chloride 94 L Carbon Dioxide 23 L Anion Gap 18 BUN 16 Creatinine 1.0 H Estimated GFR/1.73 m2 > 60 BUN/Creatinine Ratio 16 Glucose 366 H POC Glucose Calculated Osmolality 286 Calcium 9.4 Total Bilirubin 0.70 AST 18 ALT 18 Alkaline Phosphatase 100 Total Protein 7.8 Albumin 3.3 L Globulin 4.5 Albumin/Globulin Ratio 0.7 Amylase 40 Lipase 39 Urine Source Urine Color Urine Turbidity Urine pH Ur Specific [place] Urine Protein Ur Glucose (Stick) Ur Ketones (Stick) Urine Blood Urine Nitrite Urine Bilirubin Urobilinogen Dipstick Urine Leukocytes Urine WBC (Auto) Urine RBC (Auto) U Epithel Cells (Auto) Urine Bacteria (Auto) 12/22/19 12/22/19 09:15 09:30 WBC RBC Hgb Hct MCV MCH MCHC RDW Std Deviation Plt Count MPV Immature Gran % (Auto) Neut % (Auto) Lymph % (Auto) Kimble % (Auto) Eos % (Auto) Baso % (Auto) Immature Gran # (Auto) Neut # (Auto) Lymph # (Auto) Kimble # (Auto) Eos # (Auto) Baso # (Auto) Sodium Potassium Chloride Carbon Dioxide Anion Gap BUN Creatinine Estimated GFR/1.73 m2 BUN/Creatinine Ratio Glucose POC Glucose 322 H Calculated Osmolality Calcium Total Bilirubin AST ALT Alkaline Phosphatase Total Protein Albumin Globulin Albumin/Globulin Ratio Amylase Lipase Urine Source CLEAN CATCH Urine Color YELLOW Urine Turbidity CLEAR Urine pH 6.5 Ur Specific [place] 1.041 Urine Protein 600 A Ur Glucose (Stick) >1000 A Ur Ketones (Stick) 40 A Urine Blood MODERATE A Urine Nitrite NEGATIVE Urine Bilirubin NEGATIVE Urobilinogen Dipstick NORMAL Urine Leukocytes NEGATIVE Urine WBC (Auto) <10 Urine RBC (Auto) 20-40 A U Epithel Cells (Auto) <10 Urine Bacteria (Auto) NEGATIVE Orders Category Date Time Status ED: Urine Bedside ORDERED Care 12/22/19 07:53 Active FSBS/Accucheck Result NOW Care 12/22/19 09:[address] ABD/PELVIS W/IV CONT ONLY [CT] Stat Exams 12/22/19 09:21 Ordered cxr [CHEST-1 VIEW] [RAD] Stat Exams 12/22/19 09:21 Completed AMYLASE [CHEM] Stat Lab 12/22/19 08:55 Completed BLOOD CULTURE [BLDCUL] Stat Lab 12/22/19 10:17 Received CBC WITH ELECTRONIC DIFF [HEME] Stat Lab 12/22/19 08:55 Completed COMPREHENSIVE METABOLIC PANEL [CHEM] Stat Lab 12/22/19 08:55 Completed INFLUENZA SCREEN A/B Stat Lab 12/22/19 08:55 Completed LACTATE, PLASMA [CHEM] Stat Lab 12/22/19 10:10 Received LIPASE [CHEM] Stat Lab 12/22/19 08:55 Completed URINALYSIS W/POSS RFLX CULT [URINALYSIS] Stat Lab 12/22/19 09:15 Completed 0.9% Sodium Chloride Inj [Ns] 1,000 ml Med 12/22/19 08:07 Discontinued IV 999 mls/hr Meperidine [Demerol] Med 12/22/19 09:27 Discontinued 25 mg IV NOW ONE Ondansetron [Zofran] Med 12/22/19 08:07 Discontinued 4 mg IM NOW ONE Ondansetron [Zofran] Med 12/22/19 09:26 Discontinued 4 mg IV NOW ONE Result Diagrams: 12/22/19 08:55 12/22/19 08:55 - REASSESSMENT Reassessment #1 Time Reassessed: 09:00 Status: improving (vomiting has subsided since giving the Zofran) - XRAY 1 XRAY: Bilateral XRAY Study: Chest Impression: See EMR Report (MPRESSION: Cardiomegaly and pulmonary vascular congestion. Electronically signed by Philippe Espinoza 12/22/2019 9:37 AM) - CT/MRI 1 CT Study: Abdomen, Pelvis Impression: See EMR Report (IMPRESSION: Incidental/nonacute findings detailed above. No evidence of acute pathology by CT. Electronically signed by Gareth Parr 12/22/2019 10:59 AM) - CONSULTS/PCP/HOSPITALIST Notification #1 *Consult/PCP/Hospitalist*: Lauren/LIFE ENRICHMENT DIRECTOR Time Discussed: 11:48 Consult Disposition: Will see in ED, Admit Departure - Departure Date of Disposition Decision: 12/22/19 Time of Disposition Decision: 11:48 DIAGNOSIS: Intractable nausea and vomiting, Hyperglycemia Leukocytosis Qualifiers: Leukocytosis type: unspecified Qualified Code(s): D72.829 - Elevated white blood cell count, unspecified Disposition: ADMITTED INPATIENT 09 Certified Medical Emergency: Emergent Condition: Fair Referrals and Follow-Ups: Johanna Oropeza MD [Primary Care Provider] - - Critical Care Note This patient required my direct & personal management of CC.: No Attestation - Physician/ DAYANNA Attestation Patient care was provided by Advanced Practice Provider:: No The physician spent face to face time with patient:: Yes Advanced Practice Provider documentation review:: Supervising physician onsite and consulted in the evaluation and care of this patient. The physician did have a face to face encounter with the patient. This chart was documented by the indicated scribe, (Rosy Lares Scribe) and accurately reflects the services I performed and decisions made by me, Luis Hummel MD, as attested by the provider's signature.
[2019-12-22] MEDS ORDERED: REGLAN IV ONE (12:10)
[2019-12-22 12:29] LABS: INR 1.06; PROTIME 13.9 Seconds (11.0-16.0)
[2019-12-22 12:30] LABS: PTT 24.6 Seconds (22.3-41.8)
[2019-12-22] MEDS ORDERED: TYLENOL PO PRN (12:41)
--- NOTE | 2019-12-22 13:45 | HISTORY AND PHYSICAL ---
PRIMARY CARE PROVIDER: Johanna Oropeza. CHIEF COMPLAINT: Nausea, vomiting, diarrhea. HISTORY OF PRESENT ILLNESS: Ms. Radha Beckman is a 39-year-old female with a medical history of uncontrolled diabetes with significant gastroparesis along with congestive heart failure, hypertension, GERD who states that ever since Sunday which makes 3 days now she has had abdominal cramping along with large volumes of emesis along with diarrhea. Initial workup included an abdominal pelvic CT which did not show any acute findings. She did state that she has had some yellow phlegm, some middle to lower back pain along with some darker urine output, she does have an elevated white blood cell count, elevated lactate so we will keep her here for further treatment and evaluation. PAST MEDICAL HISTORY: 1. Congestive heart failure. 2. Hypertension. 3. Hyperlipidemia. 4. GERD. 5. Gastroparesis. 6. Diabetes mellitus type 2. 7. Right breast abscess with MRSA in the past with history of I and D. 8. Depression. SURGICAL HISTORY: 1. Right breast incision and drainage. 2. Cholecystectomy. 3. Bilateral tubal ligation. 4. section. 5. Breast reduction surgery. 6. Necrotizing fasciitis surgery in the past. 7. Permanent pacemaker. SOCIAL HISTORY: Denies tobacco, alcohol or illicit drug use. Lives with family. FAMILY HISTORY: Positive for diabetes and hypertension. ALLERGIES: Sulfa, Bactrim. HOME MEDICATIONS: Have not been reconciled yet. REVIEW OF SYSTEMS: Fourteen point review of systems are complete and all were negative for those mentioned above HPI. PHYSICAL EXAM: VITAL SIGNS: Temperature 97.2 degrees, heart rate 100, respiratory rate 20, blood pressure 154/76, O2 saturation 97% on room air. GENERAL: Ms. Radha Beckman is 39-year-old female she is in no acute distress, she is able answer questions appropriately. HEENT: Atraumatic, normocephalic. Pupils equal, round, reactive to light. Extraocular movements intact. Mucous membranes are dry. NECK: Trachea midline. CARDIOVASCULAR: S1, S2. Tachycardic rate and rhythm. No rubs, gallops, murmurs. No lower extremity edema, +2 dorsalis and radial pulses, negative for JVD or carotid bruits. PULMONARY: Clear to auscultation bilateral breath sounds. No accessory muscle use or work of breathing noted. GI: Soft, tender in all 4 quadrants. Hypoactive bowel sounds x4. EXTREMITIES: Moves all extremities equally, full range of motion. NEURO: A and O x3, follows commands. Sensory is intact. SKIN: Warm, dry, intact. LABORATORY DATA: White blood cells 19,000, hemoglobin 12, hematocrit 40, platelet count 384,000. INR is 1.06, PTT 24.6. Sodium 135, potassium 4.7, BUN 16, creatinine is 1.0, glucose 366, calcium 9.4, bilirubin 0.70, AST 18, ALT 18, CK 129, troponin 19, albumin 3.3, amylase 40, lipase 39, lactate 2.6. Urinalysis 600 protein, greater than 1000 glucose, 40 ketones, moderate blood, 20 to 40 red blood cells. IMAGING: Abdominal pelvic CT, no acute findings. Chest x-ray cardiomegaly, pulmonary vascular congestion. ASSESSMENT AND PLAN: 1. Intractable nausea, vomiting with diarrhea secondary to gastroparesis. In the emergency room she has received a dose of Reglan and will provide antiemetics as needed. 2. Diabetes mellitus type 2 with hyperglycemia. She received 10 units intravenous insulin, will continue on a sliding scale insulin. 3. Abdominal pain along with the nausea, vomiting and diarrhea. Abdominal pelvic CT was negative for any acute findings. 4. Congestive heart failure. She is currently on the dry side, still waiting for home medications to be reconciled but will probably have to go ahead start back her home medication regimen once is verified. 5. Hypertension. 6. Hyperlipidemia. 7. Leukocytosis with lactic acidosis, no pneumonia on chest x-ray, she has no fever. Influenza is negative. Blood cultures obtained. No urinary tract infection, is likely reactive. 8. Deep venous thrombosis prophylaxis SCDs. Dictated by KRISTAN Sweeney for Eric Cali MD cc: KRISTAN Sweeney MD
[2019-12-22] MEDS: ZOFRAN IV PRN (14:16)
[2019-12-22] MEDS ORDERED: OFIRMEV 1000 MG/ISOTONIC SOLN 1,000 MG/100 ML BOTTLE IV PRN (14:34)
[2019-12-22] MEDS ORDERED: ATIVAN IV PRN (14:35)
[2019-12-22] MEDS: ZOSYN 3.375 GM in NS 50 ML IV SCH ×2 (15:20→21:41)
[2019-12-22] MEDS: REGLAN IV SCH ×2 (15:20→23:40)
[2019-12-22] MEDS: PHENERGAN IV PRN ×2 (15:20→21:39)
[2019-12-22] MEDS: HUMULIN R SUBQ SCH ×2 (17:07→21:55)
--- NOTE | 2019-12-22 17:55 | HISTORY AND PHYSICAL ---
ADDENDUM REPORT History of Present Illness Ms. Beckman is a 39-year-old female morbidly obese, who is a frequent flyer to the hospital. She was just discharged from the hospital on 12/09/2019 because of congestive symptoms. Presented again this time because of p.o. intolerance, nausea, vomiting. She is just not tolerating anything. She has a history of severe gastroparesis and we think that is what is going on. PHYSICAL EXAMINATION: VITAL SIGNS: Current vitals have been reviewed. Blood pressure is 154/76, pulse 100, respirations 20, temperature 97.2 degrees. The patient is saturating 97% on room air. GENERAL: Ms. Beckman is a 39-year-old female. She is in bed. No distress. In some pain. Mucosa is pink and moist. Anicteric. Acyanotic. NECK: Neck is supple. CHEST: Clear to auscultation. CARDIOVASCULAR: Regular rate and rhythm. ABDOMEN: Soft. Some tenderness in the epigastrium there is an old surgical scar in the right lower abdomen and the middle hypogastrium. EXTREMITIES: No pedal edema. LABORATORY DATA: WBC of 19.80, hemoglobin is 12.9, platelet count of 384,000. Chemistry is also reviewed unremarkable glucose is 366, lactate of 2.6. ASSESSMENT: 1. P.o. intolerance, most likely from gastroparesis. We will keep the patient NPO, adequately hydrate her and put her on p.r.n. Phenergan, Reglan, and re-evaluate her in the morning. 2. Recent extraction of teeth due to dental abscess. Patient's white cell count is elevated, slightly tachycardic. Unsure if this is all driven by the p.o. intolerance with nausea and vomiting, or there is a genuine underlying occult infection. The patient was on p.o. antibiotics recently. I will start her on Zosyn until we have the culture results negative. If it is negative, we can discontinue the antimicrobial coverage. 3. Mild lactic acidosis presumably from dehydration. We will continue with IV fluids. 4. History of congestive heart failure with ejection fraction of 25%, currently euvolemic. Patient seems actually to be on hypovolemic end. 5. Diabetes mellitus. Please refer to the details of the history and physical that has been dictated by the BLEMISH REMOVER in the chart. I have discussed the plan with her. I have also review my findings and plan with Ms. Beckman. cc: Eric Cali MD MTDD
[2019-12-22] MEDS: CARAFATE PO SCH (21:41)
[2019-12-22] MEDS: LIPITOR PO SCH (21:41)
[2019-12-22] MEDS: NEURONTIN PO SCH (21:41)
[2019-12-22] MEDS: ENTRESTO 24 MG-26 MG TABLET PO SCH (21:42)
[2019-12-22] MEDS: BUSPAR PO SCH (21:42)
[2019-12-22] MEDS: ZOLOFT PO SCH (21:42)
[2019-12-23] MEDS: ZOFRAN IV PRN ×3 (01:58→14:08)
[2019-12-23] MEDS: PHENERGAN IV PRN ×4 (02:59→21:14)
[2019-12-23] MEDS: ZOSYN 3.375 GM in NS 50 ML IV SCH ×4 (03:56→20:37)
[2019-12-23 05:40] LABS: BASO# 0.02 X1000 (0.0-0.2); BASO% 0.1 % (0.0-0.8); EOS# 0.05 X1000 (0.0-0.7); EOS% 0.3 % (0.0-10.0); HEMATOCRIT 41.6 % (37.0-47.0); HEMOGLOBIN 13.1 g/dL (12.0-16.0); IMM GRAN# 0.06 X1000 (0.0-0.04); IMM GRAN% 0.3 % (0.0-0.5); LYMPH# 1.37 X1000 (1.2-3.4); LYMPH% 7.2 % (20.5-51.1); MCH 22.5 PG (27-31); MCHC 31.5 g/dL (33-37); MCV 71.4 FL (81-99); MONO# 0.94 X1000 (0.11-0.59); MONO% 4.9 % (1.7-9.3); MPV 10.4 FL (7.4-10.4); NEUT# 16.58 X1000 (1.4-6.5); NEUT% 87.2 % (42.2-75.2); PLT 347 X1000 (130-400); RBC 5.83 XMIL (4.2-5.4); RDW 17.3 % (11.5-14.5); WBC 19.02 X1000 (4.8-10.8)
[2019-12-23 05:45] LABS: LYMPHS 10 % (21-51); MONO 6 % (1-9)
[2019-12-23 05:46] LABS: BANDS 2 % (0-1); HYPOCHROM 1+; MICROCYTOSIS 1+; SEGS 82 % (42-75)
[2019-12-23 05:54] LABS: AGAP 13; ALB/GLOB RATIO 0.9; ALBUMIN 3.2 g/dL (3.5-5.0); ALKALINE PHOSPHATASE 88 U/L (32-104); BUN 18 mg/dL (8-22); CALCIUM 8.7 mg/dL (8.8-10.2); CHLORIDE 93 mmol/L (98-107); COSMO 271; ESTIMATED GFR > 60; GLUCOSE 282 mg/dL (70-104); GOT 13 U/L (10-30); GPT 13 U/L (10-36); MAGNESIUM 1.8 mg/dL (1.5-2.7); POTASSIUM 3.6 mmol/L (3.5-5.1); SODIUM 129 mmol/L (136-145); TCO2 23 mmol/L (25-35); TOTAL BILIRUBIN 0.67 mg/dL (0.20-1.00); TOTAL PROTEIN 6.9 g/dL (6.3-8.3)
[2019-12-23] MEDS: HUMULIN R SUBQ SCH ×4 (06:23→20:49)
[2019-12-23] MEDS: REGLAN IV SCH ×3 (06:24→22:02)
[2019-12-23] MEDS: ENTRESTO 24 MG-26 MG TABLET PO SCH ×2 (08:53→20:38)
[2019-12-23] MEDS: BUSPAR PO SCH ×2 (08:53→20:37)
[2019-12-23] MEDS: CARAFATE PO SCH ×4 (08:53→20:38)
[2019-12-23] MEDS: ZAROXOLYN PO SCH (08:54)
[2019-12-23] MEDS: NEURONTIN PO SCH ×2 (08:54→20:39)
--- NOTE | 2019-12-23 11:49 | PROGRESS NOTE ---
DATE: 12/23/2019 SUBJECTIVE: The patient reports still not able to keep things down. Denies any fever or chills. OBJECTIVE: Vital Signs: Temperature 98.2 degrees, heart rate 95, respiratory rate 18, blood pressure 134/78, O2 saturation 97% on room air. General: This is a chronically ill-appearing, 39- year-old, morbidly obese, female, lying in bed in no acute distress. Cardiovascular: S1, S2 heard. No murmurs, gallops, or rubs. Regular rate and rhythm. Respiratory: Clear bilaterally to auscultation. No work of breathing or using accessory muscles. Abdomen: Soft, nontender to palpation. Bowel sounds present. No organomegaly. Extremities: No clubbing, cyanosis, or edema. Peripheral pulses present in both legs. Neurologic: The patient is alert and oriented x3. Moves all 4 extremities. LABORATORY DATA: Reviewed. ASSESSMENT AND PLAN: 1. Intractable nausea and vomiting secondary to gastroparesis. Will continue Reglan 10 mg intravenously every 8 hours and Phenergan as needed. This is not the first time that this patient presented with the same symptoms, so at some point down the road, this patient may need to consider to have gastric pacemaker. Will continue to monitor this patient closely. 2. Diabetes mellitus type 2 with hyperglycemia. Will continue with sliding scale insulin and Accu-Cheks before meals and also at bedtime. 3. Congestive heart failure. Will continue with the current medications. 4. Hypertension. Blood pressure is under control. Will continue with the same medications. 5. Hyperlipidemia. Will continue with statin. 6. Leukocytosis. White cell count is still elevated. The patient has been placed on Zosyn. We are not completely sure if that is related to underlying infection. In any case, will continue to monitor this patient closely. cc: Chava Willard MD
[2019-12-23] MEDS: LANTUS INSULIN SUBQ SCH (11:54)
[2019-12-23] MEDS: ZOLOFT PO SCH (20:38)
[2019-12-23] MEDS: LIPITOR PO SCH (20:38)
[2019-12-24] MEDS: PHENERGAN IV PRN ×5 (01:27→23:01)
[2019-12-24] MEDS: ZOSYN 3.375 GM in NS 50 ML IV SCH ×4 (02:29→21:08)
[2019-12-24] MEDS: ZOFRAN IV PRN (04:49)
[2019-12-24 05:29] LABS: BASO# 0.04 X1000 (0.0-0.2); BASO% 0.2 % (0.0-0.8); EOS# 0.21 X1000 (0.0-0.7); EOS% 1.3 % (0.0-10.0); HEMATOCRIT 44.3 % (37.0-47.0); IMM GRAN# 0.04 X1000 (0.0-0.04); IMM GRAN% 0.2 % (0.0-0.5); LYMPH# 1.69 X1000 (1.2-3.4); LYMPH% 10.1 % (20.5-51.1); MCH 22.6 PG (27-31); MCHC 31.6 g/dL (33-37); MCV 71.5 FL (81-99); MONO# 0.92 X1000 (0.11-0.59); MONO% 5.5 % (1.7-9.3); MPV 10.7 FL (7.4-10.4); NEUT# 13.83 X1000 (1.4-6.5); NEUT% 82.7 % (42.2-75.2); PLT 347 X1000 (130-400); RDW 17.8 % (11.5-14.5); WBC 16.73 X1000 (4.8-10.8)
[2019-12-24 05:48] LABS: AGAP 14; ALB/GLOB RATIO 0.7; ALBUMIN 2.8 g/dL (3.5-5.0); ALKALINE PHOSPHATASE 95 U/L (32-104); BUN 16 mg/dL (8-22); CALCIUM 8.4 mg/dL (8.8-10.2); CHLORIDE 95 mmol/L (98-107); COSMO 276; CREATININE 0.9 mg/dL (0.5-0.9); ESTIMATED GFR > 60; GLUCOSE 217 mg/dL (70-104); GOT 13 U/L (10-30); GPT 12 U/L (10-36); MAGNESIUM 1.9 mg/dL (1.5-2.7); POTASSIUM 3.6 mmol/L (3.5-5.1); SODIUM 134 mmol/L (136-145); TCO2 25 mmol/L (25-35)
[2019-12-24] MEDS: HUMULIN R SUBQ SCH ×4 (06:06→21:32)
[2019-12-24] MEDS: REGLAN IV SCH ×4 (06:07→21:59)
[2019-12-24] MEDS: SODIUM CHLORIDE 0.9% INJ PRN ×3 (08:59→18:51)
[2019-12-24] MEDS: NEURONTIN PO SCH ×2 (09:04→21:08)
[2019-12-24] MEDS: ZAROXOLYN PO SCH (09:04)
[2019-12-24] MEDS: ENTRESTO 24 MG-26 MG TABLET PO SCH ×2 (09:04→21:09)
[2019-12-24] MEDS: CARAFATE PO SCH ×4 (09:04→21:09)
[2019-12-24] MEDS: BUSPAR PO SCH ×2 (09:04→21:08)
[2019-12-24] MEDS: LANTUS INSULIN SUBQ SCH (09:05)
--- NOTE | 2019-12-24 10:44 | PROGRESS NOTE ---
DATE: 12/24/2019 SUBJECTIVE: Patient reports still feeling nauseated, unable to keep things down. OBJECTIVE: Vital Signs: Temperature 97.8 degrees, heart rate 102, respiratory rate 18, blood pressure 137/89, O2 saturation 99% on room air. General Examination: This is a chronically ill- looking, 39-year-old, morbidly obese, -[place] female lying in bed, in no acute distress. Cardiovascular Exam: S1, S2 heard. No murmurs, gallops, or rubs. Regular rate and rhythm. Respiratory Exam: Clear bilaterally to auscultation. No work of breathing or using accessory muscles. Abdomen: Soft, nontender to palpation. Bowel sounds present. No organomegaly. Extremities: No clubbing, cyanosis, or edema. Peripheral pulses present in both legs. Neurological: The patient is alert, oriented x3. Moves 4 extremities. LABORATORY DATA: White cell count 16.73, hemoglobin 14.0, hematocrit 44.3 platelets 347,000 with normal BMP. ASSESSMENT AND PLAN: 1. Intractable nausea and vomiting secondary to gastroparesis. The patient is on Reglan 10 mg IV q.8 hours but unfortunately she continues to be nauseated and she is getting also Phenergan as needed but I think she has not requested that. At this point, I prefer to go ahead and increase the dose of Reglan to 10 mg IV q.6 hours scheduled and will reduce the doses of Phenergan from 25 to 12.5 mg IV q.[address], I think this patient may need to have a gastric pacemaker. The CT of the abdomen and pelvis is normal. We will continue to monitor. 2. Diabetes mellitus type 2. We will continue with sliding scale insulin and Accu-Chek before meals and also at bedtime. 3. Congestive heart failure. That condition is stable. Continue with home medications. 4. Hypertension. Blood pressure is under control. We will continue with the same management. 5. Hyperlipidemia. We will continue with statin. 6. Leukocytosis. The patient has been started since admission on Zosyn for possible infection. So far, blood cultures are negative so we will continue with same management. cc: Chava Willard MD
[2019-12-24] MEDS: OFIRMEV 1000 MG/ISOTONIC SOLN 1,000 MG/100 ML BOTTLE IV SCH ×3 (11:03→21:59)
[2019-12-24] MEDS: ZOLOFT PO SCH (21:09)
[2019-12-24] MEDS: LIPITOR PO SCH (21:09)
[2019-12-25] MEDS: ZOSYN 3.375 GM in NS 50 ML IV SCH ×4 (03:43→22:54)
[2019-12-25] MEDS: REGLAN IV SCH ×5 (03:44→22:55)
[2019-12-25] MEDS: PHENERGAN IV PRN ×5 (04:25→22:52)
[2019-12-25] MEDS: OFIRMEV 1000 MG/ISOTONIC SOLN 1,000 MG/100 ML BOTTLE IV SCH ×4 (04:30→23:48)
[2019-12-25 05:25] LABS: BASO# 0.04 X1000 (0.0-0.2); BASO% 0.3 % (0.0-0.8); EOS# 0.53 X1000 (0.0-0.7); EOS% 3.6 % (0.0-10.0); HEMATOCRIT 44.3 % (37.0-47.0); IMM GRAN# 0.05 X1000 (0.0-0.04); IMM GRAN% 0.3 % (0.0-0.5); LYMPH% 18.3 % (20.5-51.1); MCH 22.6 PG (27-31); MCHC 31.6 g/dL (33-37); MCV 71.6 FL (81-99); MONO# 0.85 X1000 (0.11-0.59); MONO% 5.7 % (1.7-9.3); MPV 9.8 FL (7.4-10.4); NEUT# 10.62 X1000 (1.4-6.5); NEUT% 71.8 % (42.2-75.2); PLT 321 X1000 (130-400); RBC 6.19 XMIL (4.2-5.4); RDW 17.8 % (11.5-14.5); WBC 14.79 X1000 (4.8-10.8)
[2019-12-25 05:50] LABS: ALB/GLOB RATIO 0.8; ALBUMIN 2.9 g/dL (3.5-5.0); CALCIUM 8.5 mg/dL (8.8-10.2); CREATININE 1.3 mg/dL (0.5-0.9); MAGNESIUM 1.7 mg/dL (1.5-2.7); POTASSIUM 3.1 mmol/L (3.5-5.1); TOTAL BILIRUBIN 0.37 mg/dL (0.20-1.00); TOTAL PROTEIN 6.4 g/dL (6.3-8.3)
[2019-12-25] MEDS: HUMULIN R SUBQ SCH ×4 (06:15→23:09)
[2019-12-25] MEDS: NEURONTIN PO SCH ×2 (08:08→23:09)
[2019-12-25] MEDS: ENTRESTO 24 MG-26 MG TABLET PO SCH ×2 (08:08→23:01)
[2019-12-25] MEDS: BUSPAR PO SCH ×2 (08:09→23:02)
[2019-12-25] MEDS: CARAFATE PO SCH ×4 (08:09→23:01)
[2019-12-25] MEDS: LANTUS INSULIN SUBQ SCH (08:11)
[2019-12-25] MEDS ORDERED: KLOR-CON PO ONE (08:38)
[2019-12-25] MEDS: ZAROXOLYN PO SCH (08:52)
--- NOTE | 2019-12-25 10:00 | PROGRESS NOTE ---
DATE: 12/25/2019 SUBJECTIVE: Patient reports less nauseated and she was able to tolerate her breakfast. Denies any other complaints. OBJECTIVE: Vital Signs: Temperature 98.3 degrees, heart rate 104, respiratory rate 20, blood pressure 108/71, O2 saturation 98% on room air exam. General Examination: This is a chronically ill-looking, 39-year-old female, lying in bed in no acute distress. Cardiovascular Exam: S1, S2 heard. No murmurs, gallops or rubs. Regular rate and rhythm. Respiratory Exam: Clear bilaterally to auscultation. No work of breathing. No use of accessory muscles. Abdomen: Soft, nontender to palpation. Bowel sounds present. No organomegaly. Extremities: No clubbing, cyanosis, or edema. Peripheral pulses present in both legs. Neurologic Exam: The patient is alert, oriented x3. Moves 4 extremities. LABORATORY DATA: The white cell count is 14.79 with hemoglobin 14.0. Normal BMP, except potassium 3.1 and creatinine 1.3. ASSESSMENT AND PLAN: 1. Intractable nausea and vomiting secondary to gastroparesis. That condition is clinically getting better. Patient is tolerating her food. She actually was able to eat breakfast. So, at this point, we will continue current management. She is on Reglan 10 mg intravenous every 6 hours and Phenergan as needed. 2. Diabetes mellitus type 2. We will continue with sliding scale insulin. Accu-Chek before meals and also at bedtime. 3. Diabetes mellitus type 2. We will continue with sliding scale insulin. Accu-Chek before meals and at bedtime. 4. Congestive heart failure. That condition is stable. Continue home medications. 5. Hypertension. Blood pressure is under control. We will continue with same medications. 6. Hyperlipidemia. We will continue with statin. 7. Leukocytosis, most likely reactive. Patient has been started on Zosyn. At admission, so far blood cultures are okay, so if patient continues to feel better we will most likely stop those, and the patient might not need to continue antibiotics at home. cc: Chava Willard MD
[2019-12-25] MEDS: LIPITOR PO SCH (23:01)
[2019-12-25] MEDS: ZOLOFT PO SCH (23:01)
[2019-12-26] MEDS: PHENERGAN IV PRN ×2 (03:08→09:06)
[2019-12-26] MEDS: ZOSYN 3.375 GM in NS 50 ML IV SCH ×2 (03:10→08:49)
[2019-12-26] MEDS: REGLAN IV SCH ×2 (03:15→09:18)
[2019-12-26] MEDS: OFIRMEV 1000 MG/ISOTONIC SOLN 1,000 MG/100 ML BOTTLE IV SCH ×2 (03:55→09:19)
[2019-12-26 05:41] LABS: BASO# 0.04 X1000 (0.0-0.2); BASO% 0.3 % (0.0-0.8); EOS# 0.59 X1000 (0.0-0.7); HEMATOCRIT 41.3 % (37.0-47.0); HEMOGLOBIN 13.2 g/dL (12.0-16.0); IMM GRAN# 0.03 X1000 (0.0-0.04); IMM GRAN% 0.2 % (0.0-0.5); LYMPH# 2.47 X1000 (1.2-3.4); LYMPH% 16.8 % (20.5-51.1); MCH 22.8 PG (27-31); MCV 71.5 FL (81-99); MONO# 0.85 X1000 (0.11-0.59); MONO% 5.8 % (1.7-9.3); MPV 10.4 FL (7.4-10.4); NEUT# 10.76 X1000 (1.4-6.5); NEUT% 72.9 % (42.2-75.2); PLT 283 X1000 (130-400); RBC 5.78 XMIL (4.2-5.4); RDW 16.5 % (11.5-14.5); WBC 14.74 X1000 (4.8-10.8)
[2019-12-26 05:49] LABS: AGAP 12; ALB/GLOB RATIO 0.7; ALBUMIN 2.8 g/dL (3.5-5.0); ALKALINE PHOSPHATASE 77 U/L (32-104); BUN 25 mg/dL (8-22); CALCIUM 8.4 mg/dL (8.8-10.2); CHLORIDE 98 mmol/L (98-107); COSMO 275; CREATININE 1.2 mg/dL (0.5-0.9); ESTIMATED GFR > 60; GLUCOSE 175 mg/dL (70-104); GOT 14 U/L (10-30); GPT 12 U/L (10-36); MAGNESIUM 1.9 mg/dL (1.5-2.7); POTASSIUM 3.5 mmol/L (3.5-5.1); SODIUM 133 mmol/L (136-145); TCO2 23 mmol/L (25-35); TOTAL BILIRUBIN < 0.15 mg/dL (0.20-1.00); TOTAL PROTEIN 6.7 g/dL (6.3-8.3)
[2019-12-26] MEDS: HUMULIN R SUBQ SCH ×2 (06:46→11:54)
[2019-12-26] MEDS: BUSPAR PO SCH (08:56)
[2019-12-26] MEDS: ZAROXOLYN PO SCH (08:56)
[2019-12-26] MEDS: CARAFATE PO SCH (08:56)
[2019-12-26] MEDS: ENTRESTO 24 MG-26 MG TABLET PO SCH (08:56)
[2019-12-26] MEDS: NEURONTIN PO SCH (08:56)
[2019-12-26] MEDS: LANTUS INSULIN SUBQ SCH (08:57)
[2019-12-26 11:45] VITALS: BP 115/72
--- NOTE | 2019-12-26 21:25 | DISCHARGE SUMMARY ---
ADMISSION DATE: 12/22/2019 DISCHARGE DATE: 12/26/2019 ADMISSION DIAGNOSES: 1. Intractable nausea, vomiting, diarrhea secondary to gastroparesis. 2. Diabetes mellitus type 2 with hyperglycemia. 3. Abdominal pain along with the nausea, vomiting, and diarrhea. 4. Congestive heart failure, no acute exacerbation. 5. Hypertension. 6. Hyperlipidemia. 7. Leukocytosis with lactic acidosis. No pneumonia on chest x-ray, no fever, influenza negative, no urinary tract infection, felt mostly to be very active. Blood cultures were negative. 8. Recent teeth extraction due to dental abscess. 9. Dehydration. DISCHARGE DIAGNOSES: 1. Intractable nausea, vomiting secondary to gastroparesis. 2. Diabetes mellitus type 2 with hyperglycemia. 3. Congestive heart failure, euvolemic. 4. Hypertension. 5. Hyperlipidemia. 6. Leukocytosis that was reactive but was on Zosyn. CONSULTATIONS: No one. SURGERIES AND PROCEDURES: None. HOSPITAL COURSE: Ms. Radha Beckman is a 39-year-old -[place] female presented to [facility] with complaints of nausea, vomiting, and diarrhea. History of uncontrolled diabetes with significant gastroparesis, congestive heart failure with EF of 25%. She is essentially euvolemic, maybe mild dehydration from the nausea, vomiting, and diarrhea that she had but that was all consistent with her usual gastroparesis when it starts to act symptoms have since resolved. She was started on Zosyn because she did have mild lactic acidosis with elevated white blood cell count, but she did have a recent teeth extraction due to a dental abscess. DISCHARGE VITAL SIGNS: Temperature 98.2 degrees, heart rate 96, respiratory rate 20, blood pressure 120/69, O2 saturation 99% on room air. DISCHARGE LAB DATA: White blood cells 14,000, hemoglobin 13, hematocrit 41, platelet count 283,000. Sodium 133, potassium 3.5, BUN 25, creatinine is 1.2, glucose 175, calcium 8.4, magnesium 1.9, bilirubin is less than 0.15, AST 14, ALT 12, albumin 2.8. Micro, negative blood cultures, no flu. IMAGING: On the . Abdominal pelvic CT, no acute pathology. Chest x-ray: Cardiomegaly, pulmonary vascular congestion, and telemetry strips showed sinus tach. DISCHARGE MEDICATIONS: 1. Ultram 50 mg p.o. every 6 hours p.r.n. 2. Metolazone 5 mg p.o. daily. 3. Prilosec 40 mg p.o. twice daily. 4. Phenergan 25 mg p.o. every 6 hours p.r.n. 5. Lasix 80 mg p.o. daily. 6. Lantus 65 units subcutaneous daily. 7. Carafate 1 g p.o. 4 times a day. 8. Reglan 5 mg p.o. t.i.d. with meals. 9. Metformin 850 mg p.o. twice daily. 10. Lispro insulin 16 units subcutaneous daily. 11. Neurontin 300 mg p.o. nightly. 12. Neurontin 100 mg p.o. at 8 a.m. and at 1 p.m. 13. Entresto 24-26 mg 1 tablet p.o. twice daily. 14. BuSpar 7.5 mg p.o. twice daily. 15. Zoloft 100 mg p.o. nightly. 16. Glimepiride 4 mg p.o. nightly. 17. Atorvastatin calcium 20 mg p.o. nightly. PHYSICIAN FOLLOWUP: Dr. Johanna Wise, and she can follow up with her barber or beauty shop manager as usual. DISCHARGE ACTIVITY: As tolerated. DISCHARGE DIET: Diabetic heart healthy diet. DISCHARGE INSTRUCTIONS: If your condition changes, contact physician and/or return to the emergency department. Changes may include, but are not limited to shortness of breath, increased fatigue, excessive bleeding, unexplained weight loss or gain, unmanageable pain, signs or symptoms of infection. DISCHARGE DISPOSITION: Home. Dictated by KRISTAN Sweeney for Chava Willard MD Addendum: Patient seen and examined by myself. Agree with KRISTAN note. It reflects my assessment and plan. Patient is being discharged in stable condition and will be seen by PCP in a week. cc: KRISTAN Sweeney MD [facility]
== END 2019-12-26 12:36 | disposition home or self-care (01) | DRG 74 ==
LOC: ED 07:27 → SUATTDRO 13:01 → 1N 13:01
PROVIDERS: ATTEND Internal Medicine